=== PATIENT | male | born 1955 | race Caucasian/White ===

== ENCOUNTER → 2017-06-20 09:58 | Outpatient (CLI) | payer OTHER, SELFPAY ==
[2017-06-20 12:20] LABS: Anion Gap 6 (5-15); BUN 8 mg/dL (7-18); BUN/Creat Ratio 8.9 RATIO (10-20); Chloride 104 mmol/L (98-107); Cholesterol 209 mg/dL (200); EST Glomerular Filtration Rate 92 mL/min (>60); Est Glom Filt Rate - Afr Amer 111 mL/min (>60); Glucose 99 mg/dL (74-106); High Density Lipoprotein 81 mg/dL; Potassium 4.3 mmol/L (3.5-5.1); Sodium Level 138 mmol/L (136-145); Triglycerides 52 mg/dL; Very Low Density Lipoprotein 10 mg/dL (5-40)
== END ==
PROVIDERS: Visit Provider Family Medicine
DX: I10 Essential (primary) hypertension (principal)
CPT/HCPCS: 36415; 80048; 80061

== ENCOUNTER → 2018-11-13 10:15 | Outpatient (CLI) | payer OTHER, SELFPAY ==
[2018-11-13 12:43] LABS: Anion Gap 8 (5-15); BUN 8 mg/dL (7-18); BUN/Creat Ratio 9.1 RATIO (10-20); Calcium,Total 9.1 mg/dL (8.5-10.1); Chloride 101 mmol/L (98-107); Creatinine, Serum 0.88 mg/dL (0.70-1.30); EST Glomerular Filtration Rate 94 mL/min (>60); Est Glom Filt Rate - Afr Amer 114 mL/min (>60); Glucose 101 mg/dL (74-106); Potassium 4.4 mmol/L (3.5-5.1); Sodium Level 138 mmol/L (136-145)
== END ==
PROVIDERS: Family Provider Family Medicine; PCP Family Medicine; Referring Provider Family Medicine; Visit Provider Family Medicine
DX: I10 Essential (primary) hypertension (principal)
CPT/HCPCS: 36415; 80048

== ENCOUNTER → 2019-11-11 10:38 | Outpatient (CLI) | payer OTHER, SELFPAY ==
[2019-11-11 15:50] LABS: Cholesterol 200 mg/dL (200); High Density Lipoprotein 78 mg/dL; PSA,Total - Annual Screen 1.48 ng/mL (0.00-4.00); Triglycerides 58 mg/dL; Very Low Density Lipoprotein 12 mg/dL (5-40)
== END ==
PROVIDERS: PCP Family Medicine; Referring Provider Family Medicine; Visit Provider Family Medicine
DX: Z00.00 Encounter for general adult medical examination without abnormal findings (principal); I10 Essential (primary) hypertension
CPT/HCPCS: 36415; 80061; 84153; G0103

== ENCOUNTER → 2019-11-19 16:38 | Outpatient (CLI) | payer OTHER, SELFPAY ==
--- NOTE | 2019-11-19 16:48 | CT_ITS ---
HISTORY: TOBACCO USE, 1 PPD X 40 YRS TECHNIQUE: Helically acquired images of the chest were obtained without IV contrast. Number of images including paperwork: [phone]. A radiation dose optimization technique was used for this scan, scan performed per low dose lung cancer screening protocol. CTDI 3.02 mGy. Total DLP 107.97 mGy*cm. COMPARISON: None FINDINGS: VASCULATURE: Unremarkable as imaged. HEART/PERICARDIUM: Unremarkable. MEDIASTINUM: Unremarkable. ADENOPATHY: No pathologic appearing adenopathy. THYROID: Unremarkable visualized portions. LUNG PARENCHYMA: No consolidation or mass. No suspicious lung nodule. Mild emphysema. Mild peribronchial thickening and mild prominence of the small airways. PLEURAL SPACES: Unremarkable. UPPER ABDOMEN: Unremarkable. OSSEOUS AND SOFT TISSUE STRUCTURES: No acute skeletal findings. Degenerative changes. DEVICES: None. CT/Low Dose CT Lung Screening IMPRESSION: No suspicious lung nodule detected. Lung-RADS 1. Recommend continued annual screening with low-dose chest CT as per published guidelines. Emphysema and findings suggestive of airways disease. Individualized dose optimization techniques were used for this CT. at 0525 Reported and signed by: Kiya Crouch MD Electronically Signed: Kiya Crouch MD at 5:51 EDT Tel , Service support ,
== END ==
PROVIDERS: PCP Family Medicine; Referring Provider Family Medicine; Visit Provider Family Medicine
DX: Z72.0 Tobacco use (principal)
CPT/HCPCS: G0297

== ENCOUNTER → 2020-05-11 10:09 | Outpatient (CLI) | payer OTHER, SELFPAY ==
[2020-05-11 12:30] LABS: Cholesterol 194 mg/dL (200); High Density Lipoprotein 87 mg/dL; Triglycerides 44 mg/dL; Very Low Density Lipoprotein 9 mg/dL (5-40)
== END ==
PROVIDERS: PCP Family Medicine; Visit Provider Family Medicine
DX: I10 Essential (primary) hypertension (principal)
CPT/HCPCS: 36415; 80061

== ENCOUNTER → 2020-11-03 10:05 | Outpatient (CLI) | payer OTHER, SELFPAY ==
[2020-11-03 12:26] LABS: Anion Gap 7 (5-15); BUN 7 mg/dL (7-18); BUN/Creat Ratio 8.4 RATIO (10-20); Calcium,Total 9.1 mg/dL (8.5-10.1); Chloride 99 mmol/L (98-107); Creatinine, Serum 0.83 mg/dL (0.70-1.30); EST Glomerular Filtration Rate 99 mL/min (>60); Est Glom Filt Rate - Afr Amer 120 mL/min (>60); Glucose 107 mg/dL (74-106); Potassium 4.6 mmol/L (3.5-5.1); Sodium Level 135 mmol/L (136-145)
== END ==
PROVIDERS: PCP Family Medicine; Referring Provider Family Medicine; Visit Provider Family Medicine
DX: I10 Essential (primary) hypertension (principal)
CPT/HCPCS: 36415; 80048

== ENCOUNTER 2020-12-07 09:40 | Day surgery (SDC) | payer OTHER, SELFPAY ==
--- NOTE | 2020-12-07 | LES_PTH ---
PATIENT: KRYSTAL MCLAUGHLIN [place] [facility] [id number] AGE/SX: 65/M ROOM: RE12/07/[address]: Dr. Kam Brar MD : 1955 BED: DIS: 12/07/2020 SPEC #: [id number] RECD: 12/07/20 11:06 STATUS: ASHLEY ROLAN #: [id number] PAMELA: 12/07/20 00:[address]: Kam Brar DEPT: SURGICAL PATHOLOGY RECD BY: Dianne Ding ENTERED: 12/07/20 11:45 SP TYPE: Lesion OTHR DR: Dr. 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 Left ear neoplasm, short stitch ? superior at 1200, long stitch at 9:00, FS, B ? Additional deep margin, stitch is superior lateral FROZEN SECTION DIAGNOSIS A. Left ear lesion, biopsy: Invasive squamous cell carcinoma. AM:miguelangel 12/07/2020 Case has been reviewed in consultation with Dr. Hassan who concurs with the above diagnosis. IDC:SJ MICROSCOPIC DIAGNOSIS A. Skin lesion of left ear, biopsy: Invasive moderately differentiated squamous cell carcinoma, completely excised. Solar elastosis. B. Additional deep margin, biopsy: Solar elastosis. No evidence of carcinoma. AM:miguelangel 12/08/2020 MICROSCOPIC DESCRIPTION Slides are reviewed. GROSS DESCRIPTION A - Received fresh for frozen section consultation labeled with the patient's name is a specimen designated left ear neoplasm. The specimen consists of a discoid fragment of excised skin measuring 2 x 1.5 x 0.8 cm. The specimen has been oriented and is differentially inked as follows: 12 o?clock ? black, 6 o?clock ? blue, 9 o?clock ? red and 3 o?clock ? yellow. The specimen is serially sectioned and submitted in its entirety in two blocks for frozen section consultation. B - Received in fixative is one container labeled with the patient's name and designated deep margin, stitch on superior-lateral. The specimen consists of a triangular fragment of skin with attached soft tissue and cartilage measuring 1.5 x 1 x 0.4 cm. The superior-lateral margin contains a suture and is inked in black ink. The remainder of the specimen is inked in blue ink. The specimen is trisected in a superior to inferior fashion and totally submitted in one cassette. / AM:miguelangel 12/07/20 TC:0 CPT: 99270 x2, 11673, 96960
[2020-12-07 10:05] VITALS: BP 137/78; PULSE 56; RESP 16; TEMP 37.1; O2SAT 97; BMI 22.8
--- NOTE | 2020-12-07 10:40 | PCM.DC.SUM ---
Providers Primary Care Physician: Dr. Mirtha Qiu MD Medications at Discharge Home Medications amlodipine 5 mg PO DAILY 12/07/20 carvedilol 12.5 mg PO BID 12/07/20 furosemide 20 mg PO DAILY 12/07/20 lisinopril 40 mg PO DAILY 12/07/20 Weight / BMI Weight Weight: 74.4 kg Body Mass Index (BMI) 22.8 D/C Instructions Discharge Diet: No restrictions May shower in (days): 2 Additional Activity Instructions: Remove dressing tomorrow morning and discard. Apply antibiotic ointment to the sutures twice a day. Meaningful Use Info Meaningful Use Diagnoses (Choose all that apply): None applicable Discharge Plan Admission Attending Provider: Kam Brar Primary Care Provider: Mirtha Qiu Discharge Orders/Prescriptions Prescriptions: No Action carvedilol 12.5 mg tablet 12.5 mg PO BID RF: 0 amlodipine 10 mg tablet 5 mg PO DAILY RF: 0 furosemide 20 mg tablet 20 mg PO DAILY RF: 0 lisinopril 40 mg tablet 40 mg PO DAILY RF: 0 Disposition Discharge Orders: Discharge Patient (Routine); Ordered 12/07/20 Ordered By: Dr. Kam Brar
[2020-12-07] MEDS: Lidocaine 1% /Epi 1:100 (20ml) 20 ML Vial (11:00)
[2020-12-07] MEDS: Bacitracin 500 UNITS/GM PACKET (11:33)
--- NOTE | 2020-12-07 11:35 | PCM.OPRPT ---
Report of Operation Date of Procedure: 12/07/20 Pre-Operative Diagnosis: left ear basal cell carcinoma Post-Operative Diagnosis: left ear squamous cell carcinoma Surgery/Procedure Performed:: Excision left ear squamous cell carcinoma (size of defect 1x 1.5cm). local flap reconstruction Surgeon: Kam Brar Type of Anesthesia: Local Estimated Blood Loss (mL): minimal Description of Procedure: The patient was taken to the operating room on 12/07/2020. Was placed in the supine position on the operating room table. He was given sufficient local anesthesia. The left ear was prepped and draped sterilely. 1% lidocaine with epinephrine was injected into the skin surrounding the left helical lesion. Next, I excised the lesion with 5 mm margin superiorly and inferiorly. This was marked with a short stitch superiorly and a long stitch at 9:00 anteriorly. This was sent for frozen section. Eventually we heard that the frozen section was negative for any carcinoma. I then took a wedge out of the maryam. This was through and through with an 11 blade. This was sent for additional permanent section. Next the cartilage was closed with interrupted 4-0 Vicryl. The skin was closed both laterally and medially with interrupted 6-0 nylon. Bacitracin and a Shackelford dressing were applied. The patient was then removed from the operating room brought to the recovery room in stable condition. Blood loss minimal, replacement none's. Sponge, needle, and instrument count were correct at the end of the procedure.
[2020-12-07 11:53] VITALS: BP 133/78; BP 137/78; PULSE 74; RESP 16; TEMP 36.6; O2SAT 94
== END 2020-12-07 11:56 | disposition home or self-care (01) ==
LOC: SDC 09:42 → AC 09:45
PROVIDERS: PCP Family Medicine; Referring Provider Otolaryngology; Visit Provider Otolaryngology
PROC: (CPT 14060; principal; 2020-12-07 10:40)
DX: C44.229 Squamous cell carcinoma of skin of left ear and external auricular canal (principal); Z87.891 Personal history of nicotine dependence
CPT/HCPCS: 14060; 88305; 88331; 88332

== ENCOUNTER 2021-04-08 15:16 | Outpatient (CLI) | payer BC, SELFPAY ==
--- NOTE | 2021-04-08 | IMM_PTH ---
PATIENT: KRYSTAL MCLAUGHLIN LOC: [facility] U#:[id number] AGE/SX: 65/M ROOM: RE04/08/[address]: Dr. Severo Israel MD : 1955 BED: DIS: 04/08/2021 SPEC #: [id number] RECD: 04/13/21 07:30 STATUS: ASHLEY REJian #: [id number] PAMELA: 04/08/21 00:[address]: Severo Israel DEPT: IMMUNOHISTOCHEMISTRY RECD BY: Dianne Ding ENTERED: 04/13/21 07:30 SP TYPE: IMMUNO OTHR DR: Dr. Mirtha Qiu MD Tissues: Mouth, NOS Procedures: p16 (initial) KI-67 (add) PHYSICIAN & INSTITUTION [place] [address] SPECIMEN INFORMATION: Tissue Source: Floor of mouth lesion Clinical Info: Floor of mouth lesion Specimen Number: [id number] CPT code: 63943, 47036 METHODOLOGY: Deparaffinized sections of prefer/formalin-fixed tissue or PAP/DQ stained slides are incubated with monoclonal/polyclonal antibodies/oligonucleotide probes. Localization is made via biotin free immunoperoxidase method. Appropriate controls are performed and reacted as expected. Results on target cell population are indicated in the following table: RESULTS: ANTIBODY / CLONE RESULT P16 (E6H4) negative Ki-67 (30-9) positive, low These tests were developed and their performance characteristics determined by [facility]. They may not have been cleared or approved by the U.S. Food and Drug Administration. The FDA has determined that such clearance or approval is not necessary. The above immunohistochemical/dualISH markers are ordered and reviewed by the Pathologist. INTERPRETATION: Floor of mouth lesion: Atypical squamous epithelial lesion with focal moderate to severe atypia. ENRIQUE:[email or web address] 04/13/2021
--- NOTE | 2021-04-08 08:25 | LES_PTH ---
PATIENT: KRYSTAL MCLAUGHLIN LOC: [facility] U#:[id number] AGE/SX: 65/M ROOM: RE04/08/[address]: Dr. Severo Israel MD : 1955 BED: DIS: 04/08/2021 SPEC #: [id number] RECD: 04/08/21 15:00 STATUS: ASHLEY GONGORA #: [id number] PAMELA: 04/08/21 08:[address]: Severo Israel DEPT: SURGICAL PATHOLOGY RECD BY: Pallavi Dickerson ENTERED: 04/09/21 09:23 SP TYPE: Lesion OTHR DR: Dr. Mirtha Qiu MD Tissues: Skin, NOS Procedures: Surgery Specimen Level IV HEADER OPERATION: Biopsy PRE-OP DIAGNOSIS: Floor of mouth lesion TISSUE SUBMITTED: Floor of mouth lesion MICROSCOPIC DIAGNOSIS Floor of mouth lesion, shave biopsy: Atypical squamous epithelial lesion with moderate to severe atypia Lichenoid subepithelial chronic inflammation. See comment. ENRIQUE:miguelangel 04/12/2021 COMMENT Focal changes are suggestive of squamous papilloma. Special stain for fungi is negative for organisms; matched control is appropriate. If there is high suspicion of malignancy, rebiopsy is suggested, if clinically indicated. Results from immunohistochemistry ([id number]) for surrogate HPV marker (p16) will be reported separately. Case has been reviewed in consultation with Dr. Mcqueen who concurs with the above diagnosis. IDC:AM MICROSCOPIC DESCRIPTION Slides are reviewed. GROSS DESCRIPTION Received in fixative is one container labeled with the patient's name and designated mouth lesion. The specimen consists of pink-frey mucosal tissue measuring 0.7 x 0.2 x 0.2 cm. The specimen is inked and submitted entirely in one cassette. / ENRIQUE:miguelangel 04/09/2021 TC:5 CPT: 07206, 36706
== END 2021-04-08 23:59 | disposition home or self-care (01) ==
PROVIDERS: PCP Family Medicine; Visit Provider Otolaryngology
DX: K13.70 Unspecified lesions of oral mucosa (principal)
CPT/HCPCS: 88305; 88341; 88342

== ENCOUNTER → 2021-11-15 | Outpatient (CLI) | payer BC, SELFPAY ==
[2021-11-15 12:24] LABS: Microalbumin,Random Urine 28.3 mg/L (NO RANGE EST.); Microalbumin:Creatinine Ratio 79.9 mg/g CRE (<30 mg/g CRE)
[2021-11-15 13:01] LABS: Anion Gap 9 (5-15); BUN 8 mg/dL (7-18); BUN/Creat Ratio 9.3 RATIO (10-20); Calcium,Total 9.3 mg/dL (8.5-10.1); Chloride 100 mmol/L (98-107); Cholesterol 194 mg/dL (200); Creatinine, Serum 0.86 mg/dL (0.70-1.30); EST Glomerular Filtration Rate 95 mL/min (>60); Est Glom Filt Rate - Afr Amer 115 mL/min (>60); Glucose 105 mg/dL (74-106); High Density Lipoprotein 76 mg/dL; Potassium 4.4 mmol/L (3.5-5.1); Sodium Level 139 mmol/L (136-145); Triglycerides 43 mg/dL; Very Low Density Lipoprotein 9 mg/dL (5-40)
== END | disposition home or self-care (01) ==
LOC: MFPLAB 10:13
PROVIDERS: PCP Family Medicine; Referring Provider Family Medicine; Visit Provider Family Medicine
DX: Z00.00 Encounter for general adult medical examination without abnormal findings (principal); I10 Essential (primary) hypertension
CPT/HCPCS: 36415; 80048; 80061; 82043; 82570; 84153; G0103

== ENCOUNTER → 2021-12-03 | Outpatient (CLI) | payer MEDICARE, BC, SELFPAY ==
--- NOTE | 2021-12-03 07:54 | RAD_ITS ---
STUDY: X-RAY - ESOPHAGUS (BARIUM SWALLOW) WITH FLUOROSCOPY REASON FOR EXAM: Male, 66 years old. ORAL CA TECHNIQUE: 19 view(s) of the esophagus were obtained following swallowing of barium. FLUOROSCOPY TIME (if supplied): (40 seconds) minutes/seconds COMPARISON: None. FINDINGS: There is no demonstrated esophageal foreign body. There is no demonstrated stricture or mucosal abnormality. Normal gastroesophageal junction, without a demonstrated hiatal hernia. Normal visualized aortic arch and descending thoracic aorta. Normal visualized pulmonary parenchyma. Normal visualized osseous structures of the thorax. RAD/Esophagus Dual Contrast IMPRESSION: Normal plain film x-ray examination (barium swallow) of the esophagus. Electronically Signed: Perfecto Riddle MD at 14:53 EDT ,
== END | disposition home or self-care (01) ==
PROVIDERS: PCP Family Medicine; Referring Provider Internal Medicine Gastroenterology; Visit Provider Internal Medicine Gastroenterology
DX: K22.9 Disease of esophagus, unspecified (principal); C06.9 Malignant neoplasm of mouth, unspecified
CPT/HCPCS: 74221

== ENCOUNTER → 2023-01-23 | Outpatient (CLI) | payer MEDICARE, SELFPAY ==
--- NOTE | 2023-01-23 08:01 | CDU_ITS ---
Rt. Velocities/BP Lt. Velocities/BP Prox CCA 57.9/13.5 cm/sec. Prox CCA 82.8/15.7 cm/sec. Mid CCA 71.1/17.3 cm/sec. Mid CCA 70.7/12.4 cm/sec. Dist CCA 74/14.5 cm/sec. Dist CCA 75.1/19 cm/sec. Prox ICA 55.1/12.6 cm/sec. Prox ICA 93.7/22.5 cm/sec. Mid ICA 75.9/18.2 cm/sec. Mid ICA 98/20.2 cm/sec. Dist ICA 88.3/22.3 cm/sec. Dist ICA 104.7/20 cm/sec. Rt. ICA/CCA = 1.24. Lt. ICA/CCA = 1.39. Prox ECA 110.2/13.5 cm/sec. Prox ECA 112.1/13.9 cm/sec. Rt. Vert. 55.3/15.7 cm/sec. Lt. Vert. 19.3/8.2 cm/sec. Right Extracranial There is heterogeneous, smooth atherosclerotic plaque noted in the right common carotid artery. There is homogeneous, smooth atherosclerotic plaque noted in the right internal carotid artery. There is intimal thickening but no significant atherosclerotic plaque noted in the right external carotid artery. Antegrade flow is noted in the right vertebral artery. There is heterogeneous, irregular atherosclerotic plaque noted in the right bulb. Left Extracranial There is heterogeneous, smooth atherosclerotic plaque noted in the left common carotid artery. There is heterogeneous, irregular atherosclerotic plaque noted in the left internal carotid artery. There is heterogeneous, irregular atherosclerotic plaque noted in the left external carotid artery. Antegrade flow is noted in the left vertebral artery. VL/Carotid Duplex Ultrasound Interpretation Summary Minimal calcific plaque of the proximal right internal carotid artery with less than 50% stenosis Less than 50% stenosis right external carotid artery Irregular calcific plaque at the proximal left internal carotid artery with les s than 50% stenosis Less than 50% stenosis left external carotid artery Patent antegrade vertebral arteries bilaterally Ordering Physician: Mirtha Qiu Referring Physician: Mirtha Qiu Performed By: Stephany Squires RVT
== END | disposition home or self-care (01) ==
LOC: CVS 07:52
PROVIDERS: PCP Family Medicine; Referring Provider Family Medicine; Visit Provider Family Medicine
DX: I65.23 Occlusion and stenosis of bilateral carotid arteries (principal)
CPT/HCPCS: 93880

== ENCOUNTER → 2023-11-20 | Outpatient (CLI) | payer MEDICARE, SELFPAY ==
[2023-11-20 13:17] LABS: Protein, Urine (Random) 81.3 mg/dL (<11.9); Protein:Creat Ratio 442 mg/g CRE (0-200)
[2023-11-20 13:20] LABS: Cholesterol 203 mg/dL (200); High Density Lipoprotein 95 mg/dL; PSA,Total - Annual Screen 1.41 ng/mL (0.00-4.00); Triglycerides 54 mg/dL; Very Low Density Lipoprotein 11 mg/dL (5-40)
== END | disposition home or self-care (01) ==
LOC: MFPLAB 10:26
PROVIDERS: PCP Family Medicine; Visit Provider Family Medicine
DX: I10 Essential (primary) hypertension (principal); Z12.5 Encounter for screening for malignant neoplasm of prostate
CPT/HCPCS: 36415; 80061; 82570; 84153; 84156; G0103

== ENCOUNTER → 2023-11-29 | Outpatient (CLI) | payer MEDICARE, SELFPAY ==
[2023-11-29 11:46] LABS: Protein, Urine (Random) 176.7 mg/dL (<11.9); Protein:Creat Ratio 659 mg/g CRE (0-200)
[2023-12-04 10:07] LABS: PROEL- A/G Ratio 1.2 (0.7-1.7); PROEL- Albumin 3.4 g/dL (2.9-4.4); PROEL- Alpha-1 Globulin 0.3 g/dL (0.0-0.4); PROEL- Alpha-2 Globulin 0.8 g/dL (0.4-1.0); PROEL- Beta Globulin 0.9 g/dL (0.7-1.3); PROEL- Gamma Globulin 0.7 g/dL (0.4-1.8); PROEL- Globulin, Total 2.8 g/dL (2.2-3.9); PROEL- TOTAL PROTEIN 6.2 g/dL (6.0-8.5); PROEL-M-Spike Not Observed g/dL (Not Observed)
[2023-12-05 13:08] LABS: PROELU- Alpha-2-Globulin,Ur 15.2 % (.); PROELU- Beta Globulin, Ur 17.8 % (.); PROELU- Gamma Globulin, Ur 10.1 % (.); Total Protein, Ur 168.1 mg/dL (Not Estab.)
== END | disposition home or self-care (01) ==
LOC: POLAB3 10:00
PROVIDERS: PCP Family Medicine; Visit Provider Internal Medicine Nephrology
DX: R80.9 Proteinuria, unspecified (principal)
CPT/HCPCS: 36415; 82570; 84156; 84165; 84166

== ENCOUNTER → 2023-12-11 | Outpatient (CLI) | payer MEDICARE, SELFPAY ==
--- NOTE | 2023-12-11 16:19 | RAD_ITS ---
STUDY: X-RAY CHEST REASON FOR EXAM: Male, 68 years old. Fever and cough TECHNIQUE: 2 PA and lateral views of the chest. COMPARISON: 08/31/2012 FINDINGS: Lungs are hyperexpanded with chronic interstitial changes, no superimposed acute pulmonary process. Stable 7 mm nodular density in the right lower lung field. There is no demonstrated pleural abnormality. Normal size heart. Normal mediastinum and zaina. Normal visualized pulmonary arteries. Normal visualized aortic arch and descending thoracic aorta. Normal visualized thoracic spine. Normal visualized ribs, clavicles, and shoulders. There is no demonstrated abnormality of the visualized soft tissue structures of the upper abdomen. RAD/Chest PA and Lateral IMPRESSION: Hyperinflated lungs without a superimposed acute pulmonary process Electronically Signed: Rock Contreras MD at 9:11 EDT ,
== END | disposition home or self-care (01) ==
PROVIDERS: PCP Family Medicine; Referring Provider Registered Nurse; Visit Provider Registered Nurse
DX: J44.1 Chronic obstructive pulmonary disease with (acute) exacerbation (principal)
CPT/HCPCS: 71046

== ENCOUNTER → 2024-07-26 | Outpatient (CLI) | payer MEDICARE, SELFPAY ==
[2024-07-26 13:00] LABS: Albumin, Serum 4.4 g/dL (3.4-4.8); Anion Gap 12 (5-15); BUN 7 mg/dL (4-19); BUN/Creat Ratio 8.9 RATIO (10-20); Calcium,Total 9.1 mg/dL (7.6-11.0); Carbon Dioxide 23.6 mmol/L (21.0-32.0); Chloride 101 mmol/L (98-108); Creatinine, Serum 0.77 mg/dL (0.70-1.20); EST Glomerular Filtration Rate 98 (>60); Glucose 111 mg/dL (70-99); Phosphorus 3.7 mg/dL (2.7-4.5); Potassium 4.4 mmol/L (3.3-5.1); Sodium Level 137 mmol/L (133-145)
[2024-07-26 13:33] LABS: Protein, Urine (Random) 21.2 mg/dL (0.0-12.0); Protein:Creat Ratio 311 mg/g CRE (0-200)
== END | disposition home or self-care (01) ==
LOC: MTLAB 10:11
PROVIDERS: PCP Family Medicine; Referring Provider Internal Medicine Nephrology; Visit Provider Internal Medicine Nephrology
DX: R80.9 Proteinuria, unspecified (principal)
CPT/HCPCS: 36415; 80069; 82570; 84156

== ENCOUNTER → 2024-11-21 | Outpatient (CLI) | payer MEDICARE, SELFPAY ==
[2024-11-21 12:46] LABS: PSA,Total - Annual Screen 1.25 ng/mL (0.02-4.00)
== END | disposition home or self-care (01) ==
LOC: MFPLAB 09:53
PROVIDERS: PCP Family Medicine
DX: Z12.5 Encounter for screening for malignant neoplasm of prostate (principal)
CPT/HCPCS: 36415; 84153; G0103

== ENCOUNTER → 2024-12-10 | Outpatient (CLI) | payer MEDICARE, SELFPAY ==
--- NOTE | 2024-12-10 07:34 | CT_ITS ---
PROCEDURE: LOW DOSE CT LUNG SCREENING 12/10/2024 REASON FOR EXAM: TOBACCO USE TECHNIQUE: Procedure Code: CTLUNGSCREEN Modality: CT Procedure: LOW DOSE CT LUNG SCREENING Coronal and Sagittal reconstruction series were provided. One or more dose reduction techniques were used (e.g., Automated exposure control, adjustment of the mA and/or kV according to patient size, use of iterative reconstruction technique). REFERENCE LINK: [employer] Lung-RADS RADIATION DOSE SUMMARY: CTDlvol: 2.01 mGy DLP: 79.27 mGycm COMPARISON: None. FINDINGS: PULMONARY NODULES: (Only nodules >3mm are reported) Lower neck:The thyroid gland is grossly unremarkable. There is no supraclavicular lymphadenopathy. Mediastinum:No abnormal masses or lymphadenopathy. Heart and Vasculature:The heart size is normal. There is no pericardial effusion. There is calcific vascular disease of the coronary arteries and thoracic aorta. Esophagus:Normal. Upper Abdomen:There is calcific vascular disease of the visualized abdominal aorta. Chest wall:The soft tissues of the chest wall appear unremarkable. There is no axillary lymphadenopathy. There is multilevel degenerative disc disease of the lower cervical and upper thoracic spine. Lungs, airways and pleura: There is moderate upper lobe predominant centrilobular emphysema. There are no pulmonary nodules. There are no pleural effusions. CT/Low Dose CT Lung Screening IMPRESSION: 1. Emphysema. 2. There are no pulmonary nodules. 3. Calcific vascular disease. 4. Other findings as noted. Lung-RADS Category: 1 S: Negative. Emphysema. Calcific vascular disease. Recommendation: Follow up low-dose chest CT in 12 months. Reading Location: [place] [address]
--- NOTE | 2024-12-10 07:34 | CT_ITS ---
PROCEDURE: LOW DOSE CT LUNG SCREENING 12/10/2024 REASON FOR EXAM: TOBACCO USE TECHNIQUE: Procedure Code: CTLUNGSCREEN Modality: CT Procedure: LOW DOSE CT LUNG SCREENING Coronal and Sagittal reconstruction series were provided. One or more dose reduction techniques were used (e.g., Automated exposure control, adjustment of the mA and/or kV according to patient size, use of iterative reconstruction technique). REFERENCE LINK: [employer] Lung-RADS RADIATION DOSE SUMMARY: CTDlvol: 2.01 mGy DLP: 79.27 mGycm COMPARISON: None. FINDINGS: PULMONARY NODULES: (Only nodules >3mm are reported) Lower neck:The thyroid gland is grossly unremarkable. There is no supraclavicular lymphadenopathy. Mediastinum:No abnormal masses or lymphadenopathy. Heart and Vasculature:The heart size is normal. There is no pericardial effusion. There is calcific vascular disease of the coronary arteries and thoracic aorta. Esophagus:Normal. Upper Abdomen:There is calcific vascular disease of the visualized abdominal aorta. Chest wall:The soft tissues of the chest wall appear unremarkable. There is no axillary lymphadenopathy. There is multilevel degenerative disc disease of the lower cervical and upper thoracic spine. Lungs, airways and pleura: There is moderate upper lobe predominant centrilobular emphysema. There are no pulmonary nodules. There are no pleural effusions. CT/Low Dose CT Lung Screening IMPRESSION: 1. Emphysema. 2. There are no pulmonary nodules. 3. Calcific vascular disease. 4. Other findings as noted. Lung-RADS Category: 1 S: Negative. Emphysema. Calcific vascular disease. Recommendation: Follow up low-dose chest CT in 12 months. Reading Location: [place] [address]
--- OUTSIDE RECORDS SUMMARY | 2024-12-10 07:43 | XMS RPT_ITS | CCD ---
Author Organization [facility] Care Team Providers Care [place] Name Role Phone Mirtha Qiu Unavailable Unavailable Unavailable Pcp, No Primary Care Provider Unavailcarlos Dinh MD, MD, Shannon Unavailable Mirtha Qiu Primary Care Provider [phone] Terry LOPEZ, Kacie Unavailable Unavailable Pcp, No Primary Care Provider UnavailBrooklyn Reyes RD Unavailable Kirit Rosas DO Unavailable Alberto Landis Unavailable Max Ortiz MD Unavailable PROVIDER, UNKNOWN Referring Unavailable PROVIDER, UNKNOWN Referring Unavailable MIRTHA QIU Primary Care Unavailable PROVIDER, UNKNOWN Referring Unavailable MIRTHA QIU Primary Care Unavailable PROVIDER, UNKNOWN Referring Unavailable Mirtha Qiu Primary Care Provider [phone] Terry LOPEZ, Kacie Unavailable Unavailable Brooklyn Perkins RD Unavailable Alberto Landis Unavailable Alberto Landis MD Unavailable Dr. Mirtha Qiu Primary Care Provider Dr. Lopez Barrios Attending Provider Fabrizio HURST, Shannon Unavailable Mirtha Qiu Primary Care Provider Dr. Mirtha Qiu MD Primary Care Provider [phone] Dr. Vicki Dinh DO Attending Provider Dr. Vicki Dinh DO Referring Provider JOLLIFF, MIRTHA DREA Primary Care Unavailable CRUZ, SANDRA Referring Unavailable JOLLIFF, MIRTHA DREA Primary Care Unavailable CRUZ, SANDRA Referring Unavailable JOLLIFF, MIRTHA DREA Primary Care Unavailable CRUZ, SANDRA Referring Unavailable CRUZ, SANDRA Attending Unavailable JOLLIFF, MIRTHA DREA Primary Care Unavailable CRUZ, SANDRA Referring Unavailable JOLLIFF, MIRTHA RDEA Primary Care Unavailable CRUZ, SANDRA Referring Unavailable JOLLIFF, MIRTHA DREA Primary Care Unavailable CRUZ, SANDRA Attending Unavailable CRUZ, SANDRA Referring Unavailable Vicki Dinh Attending Unavailable Jolliff, Mirtha S Primary Care Unavailable McMorrow QUALITY CONTROL TECHNICIAN, Thomas Referring Unavailable McMorrow QUALITY CONTROL TECHNICIAN, Thomas Attending Unavailable McMorrow QUALITY CONTROL TECHNICIAN, Thomas Primary Care Unavailable McMorrow QUALITY CONTROL TECHNICIAN, Thomas Attending Unavailable Jolliff, Mirtha S Primary Care Unavailable Vicki Dinh Referring Unavailable Vicki Dinh Attending Unavailable Jolliff, Mirtha S Primary Care Unavailable Negar Jolley Attending Unavailable Jolliff, Mirtha S Primary Care Unavailable Negar Jolley Referring Unavailable Medications Current Medications Medication Drug Class(es) Dates Sig (Normalized) Sig (Original) amLODIPine 10 mg oral tablet (20 sources) Dihydropyridine Calcium Channel Chris Start: 05-05-2022 take 1 tablet by mouth once daily amLODIPine (NORVASC) 10 mg tablet Take 1 tablet by mouth once daily. 05/05/2022 Active Start: 12-07-2020 End: 05-05-2022 take 5 mg by mouth once daily amLODIPine (NORVASC) 10 mg tablet Take 5 mg by mouth once daily. 0 12/07/2020 05/05/2022 Discontinued (Adjust Sig - Block E-Cancel) Start: 12-07-2020 take 5 mg by mouth once daily Amlodipine Active 5 MG PO DAILY December 06, 2020 11:00pm amLODIPine Besyl ate 10 MG Oral Tablet Quantity: 0 Refills: 0 Ordered: 27-Apr-2021 DO Active Comment on above: Take 5 mg by mouth o nce daily. Take 1 tablet by once daily. carvedilol 12.5 mg oral tablet (20 sources) alpha-Adrenergic Chris, beta-Adrenergic Chris Start: 12-07-2020 take 1 tablet by mouth twice daily Carvedilol 12.5 mg tablet Active 12.5 mg PO TWICE A DAY December 07, 2020 12:00am Carvedilol 12.5 MG Oral Tablet Quantity: 0 Refills: 0 Ordered: 27-Apr-2021 DO Active Comment on above: Take 12.5 mg by mout h twice daily. furosemide 20 mg oral tablet (20 sources) Loop Diuretic Start: 12-07-2020 End: 05-05-2022 take 1 tablet by mouth once daily Furosemide 20 mg tablet Active 20 mg PO DAILY December 07, 2020 12:00am End: 04-27-2021 Furosemide 20 MG Oral Tablet Quantity: 0 Refills: 0 Ordered: 27-Apr-2021 DO End : 27-Apr-2021 Complete Comment on above: 20 mg once daily. Take 20 mg by mouth once daily. lisinopril 40 mg oral tablet (20 sources) Angiotensin Converting Enzyme Inhibitor Start: 12-07-2020 lisinopril (ZESTRIL, PRINIVIL) 40 mg tablet Take 20 mg by mouth once daily. 12/07/2020 Active Start: 12-07-2020 take 1 tablet by mey th once daily Lisinopril 40 mg tablet Active 40 mg PO DAILY December 07, 2020 12:00am Lisinopril 40 MG Oral Tablet Quantity: 0 Refills: 0 Ordered: 27-Apr-2021 DO Active Comment on above: Take 40 mg by mouth once daily. Take 20 mg by mouth once daily. omeprazole 20 mg delayed release oral capsule (20 sources) Proton Pump Inhibitor take 1 capsule by mouth once daily omeprazole (PRILOSEC) 20 mg capsule Take 20 mg by mouth once daily. Active End: 04-27-2023 Omeprazole Magnesium 20 mg t ablet Take 20 mg by mouth as needed. 0 04/27/2023 Discontinued Comment on above: Take 20 mg by mouth as needed. Take 20 mg by mouth once daily. Completed/Discontinued Medications Medication Drug Class(es) Dates Sig (Normalized) Sig (Original) enteric contrast (will be provided with radiology test) (2 sources) Start: 05-07-2024 End: 05-08-2024 enteric contrast (will be provided with radiology test) Indications: Secondary malignant neoplasm of chest wall (HCC) , Cancer of cervical esophagus (HCC) For CT CHESTABD/PEL W IVCON Routine order Administer, As Directed One Time Only, via Oral, Rectal, both Oral and Rectal, Enteric Tube, Stoma or Indwelling Catheter, Enteric Contrast as designated per enteric contrast guidelines 1 Each 05/07/2024 05/08/2024 Start: 11-01-2023 End: 11-02-2023 enteric contrast (will be pr ovided with radiology test) Indications: Cancer of cervical esophagus (HCC) , 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) , Secondary malignant neoplasm of chest wall (HCC) For CT CHESTABD/PEL W IVCON Routine order Administer, As Directed One Time Only, via Oral, Rectal, both Oral and Rectal, Enteric Tube, Stoma or Indwelling Catheter, Enteric Contrast as designated per enteric contrast guidelines 1 Each 11/01/2023 11/02/2023 iv contrast (will be provided with radiology test) (20 sources) Start: 05-07-2024 End: 05-07-2024 inject 1 dose intravenously once, then inject 1 dose intravenously once iv contrast (will be provided with radiology test) Indications: Secondary malignant neoplasm of chest wall (HCC) , Cancer of cervical esophagus (HCC) Inject 1 Each intravenously one time only for [address] Neck W IVCON No IV access, insert saline lock prior to the sedation, infusion, injection for imaging exam. Discontinue saline lock post exam. If Pt. has a central line or IVAD, may access for administration according to line specific nursing protocol. Once exam is complete flush line and de-access according to line specific nursing protocol in the CT contrast administration guidelines link. 1 Each 05/07/2024 05/07/2024 Start: 05-07-2024 End: 05-08-2024 iv contrast (will be provide d with radiology test) Indications: Secondary malignant neoplasm of chest wall (HCC) , Cancer of cervical esophagus (HCC) CT Chest ABD/PEL-Inject, intravenously, once for 1 dose.No IV access, insert saline lock prior to the beginning of sedation, infusion, injection of imaging exam. Discontinue saline lock post exam. If Pt. has a central line or IVAD, may access for administration according to line specific nursing protocol. Once exam is complete flush line and de-access according to line specific nursing protocol in the CT contrast administration guidelines link. 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 Neck W IVCON No IV access, insert saline lock prior to the sedation, infusion, injection for imaging exam. Discontinue saline lock post exam. If Pt. has a central line or IVAD, may access for administration according to line specific nursing protocol. Once exam is complete flush line and de-access according to line specific nursing protocol in the CT contrast administration guidelines link. 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 Discontinue saline lock post exam. If Pt. has a central line or IVAD, may access for administration according to line specific nursing protocol. Once exam is complete flush line and de-access according to line specific nursing protocol in the CT contrast administration guidelines link. 1 Each 11/01/2023 11/02/2023 Start: 04-27-2023 End: 04-27-2023 inject 1 dose intravenously once, then inject 1 dose intravenously once iv contrast (will be provided with radiology test) Indications: Cancer of cervical esophagus (HCC) , 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) Inject 1 Each intravenously one time only for [address] Neck W IVCON No IV access, insert saline lock prior to the sedation, infusion, injection for imaging exam. Discontinue saline lock post exam. If Pt. has a central line or IVAD, may access for administration according to line specific nursing protocol. Once exam is complete flush line and de-access according to line specific nursing protocol in the CT contrast administration guidelines link. 1 Each 0 04/27/2023 04/27/2023 Active Start: 04-27-2023 End: 04-28-2023 iv contrast (will be provide d with radiology test) Indications: Cancer of cervical esophagus (HCC) , 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) CT Chest W -Inject, intravenously, once for 1 dose.No IV access, insert saline lock prior to the beginning of sedation, infusion, injection of imaging exam. Discontinue saline lock post exam. If Pt. has a central line or IVAD, may access for administration according to line specific nursing protocol. Once exam is complete flush line and de-access according to line specific nursing protocol in the CT contrast administration guidelines link. 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 Discontinue saline lock post exam. If Pt. has a central line or IVAD, may access for administration according to line specific nursing protocol. Once exam is complete flush line and de-access according to line specific nursing protocol in the CT contrast administration guidelines link. 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 Neck W IVCON No IV access, insert saline lock prior to the sedation, infusion, injection for imaging exam. Discontinue saline lock post exam. If Pt. has a central line or IVAD, may access for administration according to line specific nursing protocol. Once exam is complete flush line and de-access according to line specific nursing protocol in the CT contrast administration guidelines link. 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 Discontinue saline lock post exam. If Pt. has a central line or IVAD, may access for administration according to line specific nursing protocol. Once exam is complete flush line and de-access according to line specific nursing protocol in the CT contrast administration guidelines link. 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 Neck W IVCON No IV access, insert saline lock prior to the sedation, infusion, injection for imaging exam. Discontinue saline lock post exam. If Pt. has a central line or IVAD, may access for administration according to line specific nursing protocol. Once exam is complete flush line and de-access according to line specific nursing protocol in the CT contrast administration guidelines link. 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 Discontinue saline lock post exam. If Pt. has a central line or IVAD, may access for administration according to line specific nursing protocol. Once exam is complete flush line and de-access according to line specific nursing protocol in the CT contrast administration guidelines link. 1 Each 0 06/24/2022 Active Comment on above: Inject 1 Each intrav enously one time only for [address] Neck W IVCON No IV access, insert saline lock prior to the sedation, infusion, injection for imaging exam. Discontinue saline lock post exam. If Pt. has a central line or IVAD, may access for administration according to line specific nursing protocol. Once exam is complete flush line and de-access according to line specific nursing protocol in the CT contrast administration guidelines link. CT Chest W -Inject, intravenously, once for 1 dose.No IV access, insert saline lock prior to the beginning of sedation, infusion, injection of imaging exam. Discontinue saline lock post exam. If Pt. has a central line or IVAD, may access for administration according to line specific nursing protocol. Once exam is complete flush line and de-access according to line specific nursing protocol in the CT contrast administration guidelines link. ondansetron 8 mg oral tablet (20 sources) Serotonin-3 Receptor Antagonist Start: 02-24-19 23 End: 11-01-19 24 take 1 tablet by mouth every eight hours as needed for nausea ondansetron (ZOFRAN) 8 mg tablet Indications: cancer chemotherapy-induced nausea and vomiting Take 1 tablet by mouth every 8 hours as needed for nausea/vomiting. 30 tablet 2 02/24/2022 11/01/2023 Discontinued Comment on above: Take 1 tablet by mey every 8 hours as needed for nausea/vomiting. Problems Active Problems Problem Classification Problem Date Documented Da te Episodic/Chronic Administrative/social admission (1 source) Patient encounter status; Translations: [Counseling, unspecified] Episodic Cancer of esophagus (20 sources) Malignant tumor of upper third of esophagus; Translations: [Malignant neoplasm of upper third of esophagus] Onset: 01-26-2022 Chronic Cancer of head and neck (20 sources) Malignant tumor of floor of mouth; Translations: [Malignant neoplasm of floor of mouth, unspecified] Onset: 01-26-2022 01-26-2022 Chronic Chronic obstructive pulmonary disease and bronchiectasis (1 source) Chronic obstructive pulmonary disease with (acute) exacerbation; Translations: [Chronic obstructive pulmonary disease with (acute) exacerbation] Onset: 01-02-2024 Chronic Diseases of mouth; excluding dental (3 sources) Oral lesion; Translations: [Other and unspecified diseases of the oral soft tissues] Episodic Other circulatory disease (3 sources) H/O: hypertension; Translations: [Personal history of other diseases of circulatory system] Episodic Other non-epithelial cancer of skin (1 source) 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; Translations: [Squamous cell carcinoma of skin of left ear and external auricular canal] Episodic Secondary malignancies (6 sources) Secondary malignant neoplasm of chest wall; Translations: [Secondary malignant neoplasm of other specified sites] 11-01-2023 Chronic Secondary malignancies (1 source) Secondary malignant neoplasm of other specified sites; Translations: [Secondary malignant neoplasm of chest wall (HCC)] Onset: 04-30-2024 Chronic Substance-related disorders (1 source) Nicotine dependence, cigarettes, uncomplicated; Translations: [Nicotine dependence, cigarettes, uncomplicated] Onset: 11-27-2024 Chronic Unclassified (1 source) Radiology NM Onset: 06-21-2022 Past or Other Problems Problem Classification Problem Date Documented Da te Episodic/Chronic Genitourinary symptoms and ill-defined conditions (2 sources) Proteinuria, unspecified; Translations: [Proteinuria, unspecified] Onset: 07-26-2024 Episodic Results Test Name Value Interpretation Reference Range Facility PSA,Total - Annual Screenon 11-21-2024 PSA,TOT SCREEN 1.25 ng/mL Normal 0.02-4.00 [facility] Comment on above: Order Comment: Order Date: 11/21/24 Order Info: [id number] - PSA Comments: screening for prostate cancer Result Comment: This test was performed using the [employer] tPSA method. Measured values of a patient??sample can vary depending on the testing procedure used. PSA values determined on patient samples by different testing procedures cannot be used interchangeably. If there is a change in PSA assays while monitoring therapy, sequential testing should be performed to confirm baseline values. Performed By: #### L [phone] #### [facility] [address] [place], [place], [address] [facility] Visit (SP) Office (H EMAWS) -- KRYSTAL CORTES ([id number]) 1955 M Date Time Provider Department 11/15/24 8:00 AM SANDRA CRUZ During your visit today, we recorded the following information about you: Temperature Pulse Blood pressure Weight 97.9 degrees 62/minute 136/80 68.9 kg Sandra Cruz APRN.CNP 11/15/2024 9:00 AM Signed Chief Complaint Patient presents with: Established Patient HPI: Krystal Cortes is a 68 year old male who presents here today for follow up esophageal cancer. Per Dr. Rosas's previous note: H/o head neck cancer, hypertension and COPD as well as heavy alcohol use. 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 Afterward, he recalled anesthesiologist told him to see a linux support engineer because he may have a mass in the proximal esophagus. Barium swallow with fluoroscopy on 12/03/2021 demonstrated no esophageal foreign body. There is no stricture or mucosal abnormality observed. The gastroesophageal junction was noted to be normal without demonstrated hiatal hernia. Patient underwent an EGD on 12/16/2021. The procedure report indicates that at approximately 21 cm there was a polypoid mass observed in the proximal esophagus. It measured approximately 15 mm in diameter and appeared friable. The endoscope was passed to the distal GE junction. There was no evidence of Glover mucosa. Stomach was easily insufflated and no ulcers were observed. There was erythema throughout the gastric mucosa with some streaking and cobblestoning noted. The bulbar duodenum was noted to be normal. Sweep of the duodenum demonstrated no abnormalities. Retroflexion in the stomach revealed a small hiatal hernia. Biopsies were obtained from the antrum for H. pylori testing. The endoscope was withdrawn into the proximal esophagus and several biopsy of the polypoid lesion were obtained. 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 EGD/EUS 01/18/2022: Malignant esophageal tumor was found in the upper third of the esophagus. -Erythematous mucosa in the antrum. -Normal examined duodenum. -A mass was found in the upper third of the esophagus (18-22 cm). A tissue diagnosis was obtained prior to this exam. This is of squamous cell carcinoma. This was staged T1sm (based on invasion into) N1 Mx by endosonographic criteria. -One malignant-appearing lymph node was visualized in the left upper paratracheal region (level 2L). Presence of tumor in the vicinity precluded an uncontaminated FNA -There was no evidence of significant pathology in the left lobe of the liver. -No specimens collected. Previous therapy: 1) Definitive chemotherapy and radiation. Completed radiation 04/13/2022. Received 5600 cGy in 28 fractions. Received 6 weekly doses of carboplatin and paclitaxel 03/07 through 04/11/2022. Underwent posttherapy EGD on 06/16/2022. Report of procedure not available but biopsy pathology demonstrated focal acute erosive and moderate chronic esophagitis negative for fungi. Negative for Glover's esophagus, fungi, eosinophilic esophagitis, viral inclusions, dysplasia and malignancy. No new concerns today. Appetite:Good. Wt. down 5# over past 6 months. Energy level:Not bad. Denies fevers or recent illness. Resp:denies cough or sob Cardiac:denies chest pain/palpitations GI:denies abd pain, n/v, moving bowels regularly :denies dysuria/hematuria Extrem:denies new pain Neuro:denies symptoms of neuropathy Skin:denies rashes/lesions Heme:denies bleeding The ROS is otherwise negative. Past medical history, appointments, medications, allergies reviewed. No changes. EXAM: BP 136/80 Pulse 62 Temp 36.6 ?C (97.9 ?F) (Temporal) Wt 68.9 kg (151 lb 14.4 oz) SpO2 96% BMI 22.12 kg/m? APPEARANCE Well appearing, alert, in no acute distress, well-hydrated, well nourished. MOUTH no obvious lesions HEART RRR with normal S1 and S2, no murmurs LUNG clear to auscultation LYMPH NODES No cervical lymphadenopathy, No supraclavicular lymphadenopathy, and No axillary lymphadenopathy. ABDOMEN bowel sounds normoactive, soft, non-tender EXTREMITIES No edema NEURO Awake, alert and oriented x 3, Normal gait, and No involuntary motions. SKIN Skin color, texture, turgor normal, no suspicious rashes or lesions ASSESSMENT/PLAN: 1. Cancer of cervical esophagus (HCC) - ICD9: 150.0, ICD10: C15.[address] 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 This was resected at by Dr. Gallagher and according to the records the plan was for observation but the patient had not followed up at [facility] since his first postoperative check in the spring. At the time of that surgery he w (more content not included)... Normal [facility] CT CHEST W IVCONon CT CHEST W IVCON * * *Final Report* * * DATE OF EXAM: Nov 07 2024 9:14AM [facility] 0539 - CT CHEST W IVCON / PROCEDURE REASON: multiple diagnoses * * * * Physician Interpretation * * * * EXAMINATION: CHEST CT WITH CONTRAST CLINICAL HISTORY: Esophageal cancer Technique: Spiral CT acquisition of the chest from the thoracic inlet to the upper abdomen following IV contrast. MQ: [id number] Contrast: 140 mL Omnipaque [address] Radiation dose: Integrated Dose-length product (DLP) for this visit = chest 147 mGy*cm CT Dose Reduction Employed: Automated exposure control(AEC) and iterative recon Comparison: CT 04/30/2024 CT abdomen and pelvis 01/11/2022 RESULT: Limitations: None. Lines, tubes, and devices: None. Lung parenchyma and airways: Linear indeterminate density at the right lung base. Image 174. Likely atelectasis. Centrilobular emphysema. No consolidation. No suspicious pulmonary nodule. The central airways are patent. Pleural space: No pleural effusion. No pleural thickening. Lower neck, lymph nodes, and mediastinum: The imaged thyroid gland is normal. Stable borderline right hilar lymph node. Image 104. No developing lymphadenopathy in the supraclavicular, axillary, mediastinal, or hilar regions. Heart, pericardium, and thoracic vessels: The thoracic aorta and main pulmonary artery are normal in caliber. The cardiac chambers are normal in size. Mild coronary artery atherosclerotic calcifications are noted, although the study is not optimized for coronary assessment. No pericardial effusion or thickening. Bones and soft tissues: No destructive bone lesion. Chest wall is unremarkable. Upper abdomen: No abnormality in the imaged upper abdomen. Localizer images: No additional findings. IMPRESSION: No developing mass or adenopathy in the chest. Stable borderline right hilar node Negative Cutter: PSCDavid Transcribe Date/Time: Nov 14 2024 8:18A Dictated by : ZOE ANGULO MD This examination was interpreted and the report reviewed and electronically signed by: ZOE ANGULO MD on Nov 14 2024 8:37AM EST [id number] Normal [facility] CT NECK SOFT TISSUE W IVCONo n 11-07-2024 CT NECK SOFT TISSUE W IVCON * * *Final Report* * * DATE OF EXAM: Nov 07 2024 9:14AM [facility] 0013 - CT NECK SOFT TISSUE W IVCON / PROCEDURE REASON: multiple diagnoses * * * * Physician Interpretation * * * * CT NECK SOFT TISSUE W IVCON Clinical history: As provided by the ordering clinician via order question entries: Metastatic disease evaluation. 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 Technique: A series of contiguous helical scans were performed from the skull base to the aortic arch following bolus injection of nonionic contrast: Contrast: Omnipaque 350. Contrast Dose: 140 cc Route of Administration: IV CT Radiation dose: Integrated Dose-length product (DLP) for this visit = neck 619 mGy*cm. CT Dose Reduction Employed: Automated exposure control (AEC) and iterative recon Comparison: 04/30/2024 contrast-enhanced soft tissue neck CT RESULT: Postoperative/Treatment Change: None apparent. Aerodigestive tract: Similar mild circumferential thickening without discrete mass involving the partially imaged upper thoracic esophagus. Otherwise, unremarkable appearance of the posterior digestive tract. Major salivary glands: Similar slight accentuation of the left greater than submandibular ducts without underlying obstructive lesion or mass. Normal appearance of the parotid parenchyma and sublingual glands. Thyroid gland: Relatively uniform attenuation without discrete nodule. Lymph Nodes: No cervical lymphadenopathy by size criteria. Carotid/Parapharyngeal/Ret ropharyngeal Spaces: Patent extracranial carotid systems and internal jugular veins bilaterally. Scattered areas of atheromatous plaque with up to perhaps mild to moderate stenosis of the proximal left cervical ICA (series 5, image 74) within the constraints of the nonangiographic nature of the acquisition. Orbits, Face and Skull Base: The orbital soft tissue planes are preserved. The paranasal sinuses are clear. The mastoid air cells and middle ear cavities are clear. Otherwise normal. Imaged intracranial contents: No intracranial mass effect or hydrocephalus. No abnormal intracranial enhancement. Dominant venous drainage via the left transverse and sigmoid sinuses. Cervical spine and remaining osseous structures: Slight kyphotic deformity centered at C5 with grade 1 anterolisthesis of C3 on C4 and C4 on C5 and slight retrolisthesis of C5 on C6. Severe degenerative disc height loss at C5-C6, C6-C7, and C7-T1 and moderate multilevel degenerative disc height loss in the partially visualized upper thoracic spine, mild to moderate degenerative disc height loss at C4-C5, and at least mild at C2-C3 and C3-C4. Spell canal stenosis appears most pronounced and mild to moderate severity at C5-C6 and C6-C7, and at least mild in severity at C3-C4 and C4-C5. Suboptimal neuroforaminal stenosis, although suspected to be most pronounced and severe on the left at C2-C3, left greater than right at C3-C4, severe on the right and at least moderate in the left at C4-C5, at least moderate in severity bilaterally at C5-C6, C6-C7, and C7-T1. No discrete osteolytic or osteoblastic process. Lung apices: Centrilobular emphysematous changes without suspicious consolidation or mass. For detailed intrathoracic findings, please see concurrent CT chest which is reported under a separate accession. Other: All dentition extracted with dentures in place. Beater Worker Helper (topogram) images: Noncontributory IMPRESSION: No cervical lymphadenopathy, fluid collection, or mass. Negative [facility] Transcribe Date/Time: Nov 07 2024 9:26A Dictated by : SAMUEL RAZO MD This examination was interpreted and the report reviewed and electronically signed by: SAMUEL RAZO MD on Nov 07 2024 9:40AM EST [id number] Normal [facility] Creatinine and Glomerular fi ltration rate.predicted panel (S/P/Bld)on 11-07-2024 Creatinine [Mass/Vol] 0.72 mg/dL Low 0.73-1.22 [facility] Comment on above: Order Comment: Coy mccann Type: BLOOD SPECIMEN Ordering Facility: [facility] Address: [address] [place] [address] Performed By: #### 4 5066-8 #### [facility] CLIA [id number] [address] [place] [address] [place] eGFRcr SerPlBld CKD-EPI 2020 100 mL/min/1.73m??? Normal >=60 [facility] Comment on above: Order Comment: Coy mccann Type: BLOOD SPECIMEN Ordering Facility: [facility] Address: [address] [place] [address] Result Comment: Roman mated Glomerular Filtration Rate (eGFR) is calculated using the 2020 CKD-EPI creatinine equation. This equation utilizes serum creatinine, sex, and age as parameters. The creatinine assay has traceable calibration to isotope dilution-mass spectrometry. Refer to KDIGO guidelines for clinical interpretation. In patients with unstable renal function, e.g. those with acute kidney injury, the eGFR may not accurately reflect actual GFR. Performed By: #### 4 5066-8 #### [facility] CLIA [id number] [address] Anion gap in Serum or Plasma Ordered By: Vicki Dinh on 07-26-2024 Anion gap [Moles/Vol] 12 mmol/L 5-15 [facility] BUN/creatinine ratioOrdered By: Vicki Dinh on 07-26-2024 Urea nitrogen/Creatinine [Mass ratio] 8.9 mg/mg Low 10-20 [facility] Carbon dioxide, total [Moles /volume] in Central venous bloodOrdered By: Vicki Dinh on 07-26-2024 CO2 [Moles/Vol] 23.6 mmol/L Normal 21.0-32.0 [facility] Comment on above: Performed By: #### L 501.0900, L500.3600 #### [facility] [address] [facility] [address] Chloride assayOrdered By: Arline Dinh on 07-26-2024 Chloride [Moles/Vol] 101 mmol/L Normal 98-108 [facility] Comment on above: Performed By: #### L 501.0900, L500.3600 #### [facility] [address] [facility] [address] Glomerular filtration rate ( GFR) estimation/1.73 sq m using serum, plasma, or whole bOrdered By: Vicki Dinh on 07-26-2024 GFR/1.73 sq M.predicted among non-blacks MDRD (S/P/Bld) [Vol rate/Area] 98 mL/min/{1.73_m2} Normal >60 [facility] Comment on above: mL/min/1.73m2 CKD-EP I Creatinine Equation (2020) Result Comment: mL/m in/1.73m2 CKD-EPI Creatinine Equation (2020) Performed By: #### L 501.0900, L500.3600 #### [facility] [address] [place], [address] Potassium measurement (mass/ volume)Ordered By: Vicki Dinh on 07-26-2024 Potassium (Unsp spec) [Mass/Vol] 4.4 mmol/L 3.3-5.1 [facility] Protein+Creatinine Ratio,Uri neon 07-26-2024 PROT:CRE RATIO 311 mg/g CRE High 0-200 [facility] Comment on above: Performed By: #### L 501.0900, L500.3600 #### [facility] [address] [place], [address] Protein (U) [Mass/Vol] 21.2 mg/dL High 0.0-12.0 [facility] Comment on above: Performed By: #### L 501.0900, L500.3600 #### [facility] [address] [place], [address] UR CREAT 68.10 mg/dL Normal 39.00-259.0 0 [facility] Comment on above: Performed By: #### L 501.0900, L500.3600 #### [facility] [address] [place], [address] Random urine creatinine marcial urement (mass/volume)Ordered By: Vicki Dinh on 07-26-2024 Creatinine Unsp time (U) [Mass/Vol] 68.10 mg/dL 39.00-259.0 0 [facility] Renal Profileon 07-26-2024 BUN/CRE 8.9 RATIO Low 10-20 [facility] Comment on above: Performed By: #### L 501.0900, L500.3600 #### [facility] [address] [place], [address] GAP 12 Normal 5-15 [facility] Comment on above: Performed By: #### L 501.0900, L500.3600 #### [facility] [address] [place], [address] Phosphate [Mass/Vol] 3.7 mg/dL Normal 2.7-4.5 [facility] Comment on above: Performed By: #### L 501.0900, L500.3600 #### [facility] [address] [place], [address] Potassium [Moles/Vol] 4.4 mmol/L Normal 3.3-5.1 [facility] Comment on above: Performed By: #### L 501.0900, L500.3600 #### [facility] [address] [place], [address] Serum creatinine measurement (mass/volume)Ordered By: Vicki Dinh on 07-26-2024 Creatinine [Mass/Vol] 0.77 mg/dL Normal 0.70-1.20 [facility] Comment on above: Performed By: #### L 501.0900, L500.3600 #### [facility] [address] [place], [address] Serum glucose measurement (m ass/volume)Ordered By: Vicki Dinh on 07-26-2024 Glucose [Mass/Vol] 111 mg/dL High 70-99 [facility] Comment on above: Performed By: #### L 501.0900, L500.3600 #### [facility] [address] [place], [address] Serum or plasma albumin marcial urement (mass/volume)Ordered By: Vicki Dinh on 07-26-2024 Albumin [Mass/Vol] 4.4 g/dL Normal 3.4-4.8 [facility] Comment on above: Performed By: #### L 501.0900, L500.3600 #### [facility] [address] [place], [address] Serum or plasma calcium marcial urement (mass/volume)Ordered By: Vicki Dinh on 07-26-2024 Calcium [Mass/Vol] 9.1 mg/dL Normal 7.6-11.0 [facility] Comment on above: Performed By: #### L 501.0900, L500.3600 #### [facility] [address] [place], [address] Serum or plasma urea nitroge n measurement (mass/volume)Ordered By: Vicki Dinh on 07-26-2024 Urea nitrogen [Mass/Vol] 7 mg/dL Normal 4-19 [facility] Comment on above: Performed By: #### L 501.0900, L500.3600 #### [facility] [address] [place], [address] Sodium levelOrdered By: Carol Dinh on 07-26-2024 Sodium [Moles/Vol] 137 mmol/L Normal 133-145 [facility] Comment on above: Performed By: #### L 501.0900, L500.3600 #### [facility] [address] [place], [place], [address] Urine protein measurement (m ass/volume)Ordered By: Vicki Dinh on 07-26-2024 Protein (U) [Mass/Vol] 21.2 mg/dL High 0.0-12.0 [facility] Urine protein/creatinine mas s ratioOrdered By: Vicki Dinh on 07-26-2024 Protein/Creatinine (U) [Mass ratio] 311 mg/g CRE High 0-200 [facility] CNOVSPon 05-07-2024 CNOVSP Visit (SP) Office (H EMAWS) -- KRYSTAL CORTES ([id number]) 1955 M Date Time Provider Department 05/07/24 8:00 AM SANDRA CRUZ During your visit today, we recorded the following information about you: Temperature Pulse Blood pressure Weight 98 degrees 53/minute 127/74 71.6 kg Sandra Cruz APRN.EKG MONITOR 05/09/2024 11:16 AM Signed Chief Complaint Patient presents with: Established Patient HPI: Krystal Cortes is a 68 year old male who presents here today for follow up esophageal cancer. Per Dr. Rosas's previous note: H/o head neck cancer, hypertension and COPD as well as heavy alcohol use. 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 Afterward, he recalled anesthesiologist told him to see a linux support engineer because he may have a mass in the proximal esophagus. Barium swallow with fluoroscopy on 12/03/2021 demonstrated no esophageal foreign body. There is no stricture or mucosal abnormality observed. The gastroesophageal junction was noted to be normal without demonstrated hiatal hernia. Patient underwent an EGD on 12/16/2021. The procedure report indicates that at approximately 21 cm there was a polypoid mass observed in the proximal esophagus. It measured approximately 15 mm in diameter and appeared friable. The endoscope was passed to the distal GE junction. There was no evidence of Glover mucosa. Stomach was easily insufflated and no ulcers were observed. There was erythema throughout the gastric mucosa with some streaking and cobblestoning noted. The bulbar duodenum was noted to be normal. Sweep of the duodenum demonstrated no abnormalities. Retroflexion in the stomach revealed a small hiatal hernia. Biopsies were obtained from the antrum for H. pylori testing. The endoscope was withdrawn into the proximal esophagus and several biopsy of the polypoid lesion were obtained. 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 EGD/EUS 01/18/2022: Malignant esophageal tumor was found in the upper third of the esophagus. -Erythematous mucosa in the antrum. -Normal examined duodenum. -A mass was found in the upper third of the esophagus (18-22 cm). A tissue diagnosis was obtained prior to this exam. This is of squamous cell carcinoma. This was staged T1sm (based on invasion into) N1 Mx by endosonographic criteria. -One malignant-appearing lymph node was visualized in the left upper paratracheal region (level 2L). Presence of tumor in the vicinity precluded an uncontaminated FNA -There was no evidence of significant pathology in the left lobe of the liver. -No specimens collected. Previous therapy: 1) Definitive chemotherapy and radiation. Completed radiation 04/13/2022. Received 5600 cGy in 28 fractions. Received 6 weekly doses of carboplatin and paclitaxel 03/07 through 04/11/2022. Underwent posttherapy EGD on 06/16/2022. Report of procedure not available but biopsy pathology demonstrated focal acute erosive and moderate chronic esophagitis negative for fungi. Negative for Glover's esophagus, fungi, eosinophilic esophagitis, viral inclusions, dysplasia and malignancy. No new concerns today. Pt. here today with family member. Appetite:Good. Wt. stable. Energy level:Ok. Denies fevers or recent illness. Resp:denies cough or sob Cardiac:denies chest pain/palpitations GI:denies abd pain, n/v, moving bowels regularly :denies dysuria/hematuria Extrem:denies pain Neuro:denies symptoms of neuropathy Skin:denies rashes Heme:denies bleeding The ROS is otherwise negative. Past medical history, appointments, medications, allergies reviewed. No changes. EXAM: BP 127/74 Pulse (!) 53 Temp 36.7 ?C (98 ?F) (Temporal) Wt 71.6 kg (157 lb 13.6 oz) SpO2 96% BMI 22.98 kg/m? APPEARANCE Well appearing, alert, in no acute distress, well-hydrated, well nourished. HEART RRR with normal S1 and S2, no murmurs LUNG clear to auscultation LYMPH NODES No cervical lymphadenopathy, No supraclavicular lymphadenopathy, and No axillary lymphadenopathy. ABDOMEN bowel sounds normoactive, soft, non-tender EXTREMITIES No edema NEURO Awake, alert and oriented x 3, Normal gait, and No involuntary motions. SKIN Skin color, texture, turgor normal, no suspicious rashes or lesions RADIOLOGY: CT neck 04/30/24: IMPRESSION: No new or suspicious neck mass or cervical adenopathy. Additional chronic findings, as described. CT chest 04/30/24: IMPRESSION: 1. No new suspicious pulmonary nodules 2. Unchanged borderline enlarged right hilar lymph node ASSESSMENT/PLAN: 1. Cancer of cervical esophagus (HCC) - ICD9: 150.0, ICD10: C15.3 (primary diagnosis) Per Dr. Rosas's previous note: Assessment: -The patient is a 66-year-old male who has a history of squamous cell carcinoma of (more content not included)... Normal [facility] CREATININE BLDon 04-30-2024 Creatinine [Mass/Vol] 0.67 mg/dL Low 0.73-1.22 [facility] Comment on above: Order Comment: Coy mccann Type: BLOOD SPECIMEN Ordering Facility: [facility] Address: [address] [place] [address] Performed By: #### C RET1 #### [id number] [address] [place] [address] [place] Creatinine and Glomerular filtration rate.predicted panel (S/P/Bld) 102 mL/min/1.73m??? Normal >=60 [facility] Comment on above: Order Comment: Coy mccann Type: BLOOD SPECIMEN Ordering Facility: [facility] Address: [address] [place] [address] Result Comment: Roman mated Glomerular Filtration Rate (eGFR) is calculated using the 2020 CKD-EPI creatinine equation. This equation utilizes serum creatinine, sex, and age as parameters. The creatinine assay has traceable calibration to isotope dilution-mass spectrometry. Refer to KDIGO guidelines for clinical interpretation. In patients with unstable renal function, e.g. those with acute kidney injury, the eGFR may not accurately reflect actual GFR. Performed By: #### C RET1 #### [facility] [id number] [address] [place] [address] [place] CT CHEST W IVCONon 5 CT CHEST W IVCON * * *Final Report* * * DATE OF EXAM: Apr 30 2024 9:12AM [facility] 0539 - CT CHEST W IVCON / PROCEDURE REASON: multiple diagnoses * * * * Physician Interpretation * * * * EXAMINATION: CHEST CT WITH CONTRAST CLINICAL HISTORY: Cancer of the floor the mouth Technique: Spiral CT acquisition of the chest from the thoracic inlet to the upper abdomen following IV contrast. MQ: [id number] Contrast: 150 mL Omnip[address] Radiation dose: Integrated Dose-length product (DLP) for this visit = neck 601 chest 187 mGy*cm CT Dose Reduction Employed: Automated exposure control(AEC) and iterative recon Comparison: CT chest 10/24/2023 RESULT: Limitations: None. Lines, tubes, and devices: None. Lung parenchyma and airways: No consolidation. No suspicious pulmonary nodule. The central airways are patent. Pleural space: No pleural effusion. No pleural thickening. Lower neck, lymph nodes, and mediastinum: The imaged thyroid gland is normal. No lymphadenopathy in the supraclavicular, axillary or mediastinal regions. Unchanged borderline enlarged right hilar lymph node which measures 10 mm short axis (5:101). Heart, pericardium, and thoracic vessels: The thoracic aorta and main pulmonary artery are normal in caliber. The cardiac chambers are normal in size. Mild coronary artery atherosclerotic calcifications are noted, although the study is not optimized for coronary assessment. No pericardial effusion or thickening. Bones and soft tissues: No destructive bone lesion. Degenerative disease of the thoracic spine. Chest wall is unremarkable. Upper abdomen: No abnormality in the imaged upper abdomen. Localizer images: No additional findings. IMPRESSION: 1. No new suspicious pulmonary nodules 2. Unchanged borderline enlarged right hilar lymph node Negative [facility] Transcribe Date/Time: May 03 2024 10:26A Dictated by : SHARON GRIMALDO MD This examination was interpreted and the report reviewed and electronically signed by: SHARON GRIMALDO MD on May 03 2024 10:45AM EST [id number] Normal [facility] CT NECK SOFT TISSUE W IVCONo n 04-30-2024 CT NECK SOFT TISSUE W IVCON * * *Final Report* * * DATE OF EXAM: Apr 30 2024 9:12AM [facility] 0013 - CT NECK SOFT TISSUE W IVCON / PROCEDURE REASON: multiple diagnoses * * * * Physician Interpretation * * * * CT NECK SOFT TISSUE W IVCON History: 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) Technique: A series of contiguous helical scans were performed from the skull base to the aortic arch following injection of intravenous contrast. Contrast: Omnipaque 350. Contrast Dose: 150 cc Route of Administration: IV CT Radiation dose: Integrated Dose-length product (DLP) for this visit = neck 601 chest 187 mGy*cm. CT Dose Reduction Employed: Automated exposure control(AEC) and iterative recon COMPARISON: CT neck 10/24/2023 RESULT: Postoperative Change: None apparent. Aerodigestive tract: Similar contour deformity along the right dorsal tongue. No new or suspicious enhancement within the oral cavity, oropharynx, or hypopharynx. Coarse right-sided tonsillolith. Similar appearance of the vocal folds with asymmetric prominence of the right laryngeal ventricle. Mild circumferential thickening of the upper thoracic esophagus, similar to the prior study. Major salivary glands: No suspicious mass within the major salivary glands. Persistent mild asymmetric ductal dilation within the left submandibular gland, unchanged. Thyroid gland: No discrete thyroid nodule Lymph Nodes: No cervical lymphadenopathy by size criteria. Carotid/Parapharyngeal/Ret ropharyngeal Spaces: There are atherosclerotic calcifications along the bilateral common carotid arteries, carotid bulbs, and proximal cervical ICAs, left greater than right. Patency is suboptimally assessed on this study. No retropharyngeal collection. Orbits, Face and Skull Base: Minimal mucosal thickening within the left maxillary sinus. The visualized mastoid air cells are clear. Complete Imaged intracranial contents: No intracranial mass effect or hydrocephalus. No abnormal intracranial enhancement. Cervical spine and remaining osseous structures: No discrete osteolytic or osteoblastic process. Moderate to severe spondylotic changes in the visualized spine. Reversal of the normal cervical lordosis with anterolisthesis of C3 upon C4 and C4 upon C5 and stepwise retrolisthesis of C5 upon C6 and C6 upon C7. Similar sclerotic appearance of the C5, C6, C7, and T1 vertebral bodies, likely degenerative. There is at least moderate to severe canal narrowing at C5-6 and C6-7 due to calcified disc osteophyte complexes. Moderate to severe scattered neural foraminal stenoses due to uncovertebral and facet hypertrophy, similar to the prior study. Lung apices: Emphysematous changes of the lung apices. Circumferential thickening of the upper thoracic esophagus, as described above. Please see separately reported concurrently obtained CT chest. Other: Not applicable. IMPRESSION: No new or suspicious neck mass or cervical adenopathy. Additional chronic findings, as described. Negative Cutter: [facility] Transcribe Date/Time: Apr 30 2024 10:28A Dictated by : SKYLAR CAO MD This examination was interpreted and the report reviewed and electronically signed by: SKYLAR CAO MD on Apr 30 2024 10:41AM EST [id number] Normal [facility] CT Neck W contrast Kev 04-20 IMPRESSION: No new or suspicious neck mass or cervical adenopathy. Additional chronic findings, as described. Negative Cutter: [facility] Transcribe Date/Time: Apr 30 2024 10:28A Dictated by : SKYLAR CAO MD This examination was interpreted and the report reviewed and electronically signed by: SKYLAR CAO MD on Apr 30 2024 10:41AM EST DIVISION OF RADIOLOGY * * *Final Report* * * DATE OF EXAM: Apr 30 2024 9:12AM [facility] 0013 - CT NECK SOFT TISSUE W IVCON / PROCEDURE REASON: multiple diagnoses * * * * Physician Interpretation * * * * CT NECK SOFT TISSUE W IVCON History: 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) Technique: A series of contiguous helical scans were performed from the skull base to the aortic arch following injection of intravenous contrast. Contrast: Omnipaque 350. Contrast Dose: 150 cc Route of Administration: IV CT Radiation dose: Integrated Dose-length product (DLP) for this visit = neck 601 chest 187 mGy*cm. CT Dose Reduction Employed: Automated exposure control(AEC) and iterative recon COMPARISON: CT neck 10/24/2023 RESULT: Postoperative Change: None apparent. Aerodigestive tract: Similar contour deformity along the right dorsal tongue. No new or suspicious enhancement within the oral cavity, oropharynx, or hypopharynx. Coarse right-sided tonsillolith. Similar appearance of the vocal folds with asymmetric prominence of the right laryngeal ventricle. Mild circumferential thickening of the upper thoracic esophagus, similar to the prior study. Major salivary glands: No suspicious mass within the major salivary glands. Persistent mild asymmetric ductal dilation within the left submandibular gland, unchanged. Thyroid gland: No discrete thyroid nodule Lymph Nodes: No cervical lymphadenopathy by size criteria. Carotid/Parapharyngeal/Ret ropharyngeal Spaces: There are atherosclerotic calcifications along the bilateral common carotid arteries, carotid bulbs, and proximal cervical ICAs, left greater than right. Patency is suboptimally assessed on this study. No retropharyngeal collection. Orbits, Face and Skull Base: Minimal mucosal thickening within the left maxillary sinus. The visualized mastoid air cells are clear. Complete Imaged intracranial contents: No intracranial mass effect or hydrocephalus. No abnormal intracranial enhancement. Cervical spine and remaining osseous structures: No discrete osteolytic or osteoblastic process. Moderate to severe spondylotic changes in the visualized spine. Reversal of the normal cervical lordosis with anterolisthesis of C3 upon C4 and C4 upon C5 and stepwise retrolisthesis of C5 upon C6 and C6 upon C7. Similar sclerotic appearance of the C5, C6, C7, and T1 vertebral bodies, likely degenerative. There is at least moderate to severe canal narrowing at C5-6 and C6-7 due to calcified disc osteophyte complexes. Moderate to severe scattered neural foraminal stenoses due to uncovertebral and facet hypertrophy, similar to the prior study. Lung apices: Emphysematous changes of the lung apices. Circumferential thickening of the upper thoracic esophagus, as described above. Please see separately reported concurrently obtained CT chest. Other: Not applicable. 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 Contrast: Omnipaque 350. Contrast Dose: 150 cc Route of Administration: IV CT Radiation dose: Integrated Dose-length product (DLP) for this visit = neck 601 chest 187 mGy*cm. CT Dose Reduction Employed: Automated exposure control(AEC) and iterative recon COMPARISON: CT neck 10/24/2023 RESULT: Postoperative Change: None apparent. Aerodigestive tract: Similar contour deformity along the right dorsal tongue. No new or suspicious enhancement within the oral cavity, oropharynx, or hypopharynx. Coarse right-sided tonsillolith. Similar appearance of the vocal folds with asymmetric prominence of the right laryngeal ventricle. Mild circumferential thickening of the upper thoracic esophagus, similar to the prior study. Major salivary glands: No suspicious mass within the major salivary glands. Persistent mild asymmetric ductal dilation within the left submandibular gland, unchanged. Thyroid gland: No discrete thyroid nodule Lymph Nodes: No cervical lymphadenopathy by size criteria. Carotid/Parapharyngeal/Ret ropharyngeal Spaces: There are atherosclerotic calcifications along the bilateral common carotid arteries, carotid bulbs, and proximal cervical ICAs, left greater than right. Patency is suboptimally assessed on this study. No retropharyngeal collection. Orbits, Face and Skull Base: Minimal mucosal thickening within the left maxillary sinus. The visualized mastoid air cells are clear. Complete Imaged intracranial contents: No intracranial mass effect or hydrocephalus. No abnormal intracranial enhancement. Cervical spine and remaining osseous structures: No discrete osteolytic or osteoblastic process. Moderate to severe spondylotic changes in the visualized spine. Reversal of the normal cervical lordosis with anterolisthesis of C3 upon C4 and C4 upon C5 and stepwise retrolisthesis of C5 upon C6 and C6 upon C7. Similar sclerotic appearance of the C5, C6, C7, and T1 vertebral bodies, likely degenerative. There is at least moderate to severe canal narrowing at C5-6 and C6-7 due to calcified disc osteophyte complexes. Moderate to severe scattered neural foraminal stenoses due to uncovertebral and facet hypertrophy, similar to the prior study. Lung apices: Emphysematous changes of the lung apices. Circumferential thickening of the upper thoracic esophagus, as described above. Please see separately reported concurrently obtained CT chest. Other: Not applicable. IMPRESSION IMPRESSION: No new or suspicious neck mass or cervical adenopathy. Additional chronic findings, as described. Negative Cutter: PSCB Transcribe Date/Time: Apr 30 2024 10:28A Dictated by : SKYLAR CAO MD This examination was interpreted and the report reviewed and electronically signed by: SKYLAR CAO MD on Apr 30 2024 10:41AM EST [facility] Radiology Study observation (narrative) [facility] CT Neck W contrast IVOrdered By: [facility]cf Provider on 04-30-2024 [facility] Chest PA and Lateralon 12-10 Chest PA and Lateral [facility] Imaging Services [address] [place] [address] [id number] Chest PA and Lateral MR#: [id number] Acct: [id number] Name: KRYSTAL CORTES Rep #: [id number] : [id number] M [id number] From: Waylon Contreras MD PCP: Dr. Mirtha Qiu MD Status: REG CLI Study: Chest PA and Lateral Date of Exam: 12/11/23 Exam# [id number] Ordering Dr: Negar Martinez NP [id number] STUDY: X-RAY CHEST REASON FOR EXAM: Male, 68 years old. Fever and cough TECHNIQUE: 2 PA and lateral views of the chest. COMPARISON: 08/31/2012 FINDINGS: Lungs are hyperexpanded with chronic interstitial changes, no superimposed acute pulmonary process. Stable 7 mm nodular density in the right lower lung field. There is no demonstrated pleural abnormality. Normal size heart. Normal mediastinum and zaina. Normal visualized pulmonary arteries. Normal visualized aortic arch and descending thoracic aorta. Normal visualized thoracic spine. Normal visualized ribs, clavicles, and shoulders. There is no demonstrated abnormality of the visualized soft tissue structures of the upper abdomen. RAD/Chest PA and Lateral IMPRESSION: Hyperinflated lungs without a superimposed acute pulmonary process Electronically Signed: Rock Contreras MD at 9:11 EDT , CC: Dr. Mirtha Qiu MD; Negar JIMENESC Juan Negative Cutter: Signed Normal [facility] CT Neck W contrast Kev 09-0 IMPRESSION: No neck mass or lymphadenopathy. 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 A series of contiguous helical scans were performed from the skull base to the aortic arch. M: CTNW_1 Contrast: 50 mL Omnipaque [address] Dose-Length Product (DLP): 617 mGy*cm CT Dose Reduction Employed: Automated exposure control(AEC) and iterative recon COMPARISON: Neck CT 04/21/2023. 10/09/2022. PET CT 06/21/2022 and 02/08/2022. RESULT: Postoperative change: None apparent. Suprahyoid Neck: There is unchanged along the dorsal tongue base. There is an unchanged right palatine tonsillolith. Nasopharynx and oropharynx appear normal. Parapharyngeal tissue planes are preserved. Oral cavity and floor of mouth appear normal within constraints of artifact from dental amalgam. Parotid and submandibular spaces are normal. [employer] spaces appear normal. Infrahyoid Neck: Hypopharynx, larynx, and imaged infraglottic trachea appear normal. Imaged upper esophagus demonstrates thickening. Thyroid gland is homogeneous without evidence of discrete nodule. Lymph Nodes: No cervical lymphadenopathy by size criteria. Carotid Space: No masses. Patent extracranial carotid systems and internal jugular veins bilaterally. Orbits, Face and Skull Base: Orbital soft tissue planes are preserved. . Paranasal sinuses are clear. . Mastoid air cells and middle ear cavities are clear. . No evidence of an osteolytic or osteoblastic process in the skull base. . . Imaged intracranial contents: No enhancement, no mass effect, and no hydrocephalus. Cervical spine and remaining osseous structures: Alignment is normal. No discrete osteolytic or osteoblastic process. Moderate to severe spondylotic changes in the visualized spine with unchanged stepwise grade 1 anterolisthesis of C3 on C4 and C4 on C5 and retrolisthesis of C5 on C6. Lung apices: No mass and no focal consolidation in imaged lung apices. Other: Not applicable. [employer] (topogram) images: No significant findings. 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 A series of contiguous helical scans were performed from the skull base to the aortic arch. M: CTNW_1 Contrast: 50 mL Omnipaque [address] Dose-Length Product (DLP): 617 mGy*cm CT Dose Reduction Employed: Automated exposure control(AEC) and iterative recon COMPARISON: Neck CT 04/21/2023. 10/09/2022. PET CT 06/21/2022 and 02/08/2022. RESULT: Postoperative change: None apparent. Suprahyoid Neck: There is unchanged along the dorsal tongue base. There is an unchanged right palatine tonsillolith. Nasopharynx and oropharynx appear normal. Parapharyngeal tissue planes are preserved. Oral cavity and floor of mouth appear normal within constraints of artifact from dental amalgam. Parotid and submandibular spaces are normal. [employer] spaces appear normal. Infrahyoid Neck: Hypopharynx, larynx, and imaged infraglottic trachea appear normal. Imaged upper esophagus demonstrates thickening. Thyroid gland is homogeneous without evidence of discrete nodule. Lymph Nodes: No cervical lymphadenopathy by size criteria. Carotid Space: No masses. Patent extracranial carotid systems and internal jugular veins bilaterally. Orbits, Face and Skull Base: Orbital soft tissue planes are preserved. . Paranasal sinuses are clear. . Mastoid air cells and middle ear cavities are clear. . No evidence of an osteolytic or osteoblastic process in the skull base. . . Imaged intracranial contents: No enhancement, no mass effect, and no hydrocephalus. Cervical spine and remaining osseous structures: Alignment is normal. No discrete osteolytic or osteoblastic process. Moderate to severe spondylotic changes in the visualized spine with unchanged stepwise grade 1 anterolisthesis of C3 on C4 and C4 on C5 and retrolisthesis of C5 on C6. Lung apices: No mass and no focal consolidation in imaged lung apices. Other: Not applicable. [employer] (topogram) images: No significant findings. IMPRESSION IMPRESSION: No neck mass or lymphadenopathy. Negative Cutter: ZAHEER Transcribe Date/Time: Oct 24 2023 12:08P Dictated by : JERRY STAFFORD MD This examination was interpreted and the report reviewed and electronically signed by: JERRY STAFFORD MD on Oct 24 2023 12:17PM EST [facility] Radiology Study observation (narrative) [facility] CT Neck W contrast IVOrdered By: Ccf Provider on 10-24-[address] [facility] [address] Neck W contrast Kev [facility] No Panel Informationon 10-17 [facility] NM PET/CT SKULL-THIGH SUBQon 06-21-2022 NM PET/CT SKULL-THIGH SUBQ * * *Final Report* * * DATE OF EXAM: Jun 21 2022 7:56AM [facility] 0063 - NM PET/CT SKULL-THIGH SUBQ / PROCEDURE REASON: 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 INDICATION: Subsequent treatment strategy. TECHNIQUE: PET-CT scan: Approximately 60 minutes following the IV administration of F-18 FDG (10.5 mCi of F-18 FDG), PET and non contrast CT images were acquired from the skull base through proximal thigh. PET images were reconstructed with and without attenuation correction using attenuation coefficients. CT Radiation dose: Integrated Dose-length product (DLP) for this visit = 276 mGy*cm. CT Dose Reduction Employed: Automatic exposure control used (AED) COMPARISON: FDG PET-CT: 02/08/2022 CORRELATION: None. RESULTS: Topogram review: Unremarkable, no acute findings. No retained foreign body. Head and Neck: No evidence of focal uptake to suggest FDG avid neoplastic process. No significant anatomical abnormality to the limits of low dose noncontrast CT scan. Chest: Decreased but persistent mild uptake in the upper esophagus mucosa with max SUV 4.3, previously 14.3. There is a 1.1 x 0.6 cm left paratracheal lymph node with minimal FDG uptake of max SUV 2.3, decreased from previous 1.4 x 0.9 cm with max SUV 3.4. The previous noted mild uptake in the distal esophagus have essentially resolved. Focal area of atelectasis in the left upper lobe. Abdomen and Pelvis: No evidence of focal uptake to suggest FDG avid neoplastic process. Colonic diverticulosis Extremities/Skeleton: No evidence of focal uptake to suggest FDG avid neoplastic process. Degenerative arthritic change. IMPRESSION: 1. HEAD and NECK: No evidence of focal uptake to suggest FDG avid neoplastic process.. 2. CHEST: Decreased but persistent mild uptake in the upper esophagus mucosa, probably posttreatment inflammation. Continued follow-up is recommended. Decreased size and metabolism of left paratracheal lymph node. 3. ABDOMEN/PELVIS: No evidence of focal uptake to suggest FDG avid neoplastic process.. 4. EXTREMITIES/SKELETON: No evidence of focal uptake to suggest FDG avid neoplastic process.. Negative Cutter: ZAHEER Transcribe Date/Time: Jun 21 2022 10:01A Dictated by : JOSEPH BAXTER MD This examination was interpreted and the report reviewed and electronically signed by: JOSEPH BAXTER MD on Jun 21 2022 10:13AM EST [id number] 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 INDICATION: Study performed for initial treatment strategy. TECHNIQUE: F18-FDG administered IV was followed about 60 minutes later by PET imaging from skull base to proximal thigh. Free breathing low dose CT was performed without contrast for attenuation correction and anatomic localization. FDG radionuclide dose: 11.[address] Dose-Length Product (DLP): 296 mGy*cm CT Dose Reduction Employed: Automatic exposure control used (AED) COMPARISON: None available CORRELATION: CT scan of the neck, chest, abdomen and pelvis dated 01/11/2022. RESULT: For reference maximum SUV values: Mediastinal blood pool 2.4. Background Liver: 2.9 NECK: Physiologic uptake seen in the visualized brain, parapharyngeal soft tissues, base of tongue, vocal cords, and salivary glands. No hypermetabolic cervical lymphadenopathy or hypermetabolic masses. No focal hypermetabolic thyroid lesion. CHEST: Physiologic uptake in the heart and mediastinal blood pool. Lungs, tracheobronchial tree and pleura: No hypermetabolic consolidation, mass or nodules. Please note that PET/CT is not sensitive for pulmonary nodules less than 8 mm. Mediastinum and Lymph nodes: A small, subcentimeter lymph node, having maximum SUV of 3.4 in the left upper paratracheal region, concerning for a small metastatic lymph node, measuring 1.4 x 0.7 cm (series 3, image 92). FDG uptake much above the mediastinal blood uptake is not identified within the right hilar lymph node; maximum SUV of 2.5 in the region of the right hilar lymph node noted in the CT scan and is less likely to be a metastatic lymph node. Markedly hypermetabolic focus of uptake is identified in the upper portion of the thoracic esophagus, having maximum SUV of 14.3 in this region. Mild uptake is identified in the distal portion of the esophagus, with maximum SUV of 4 that could be related to reflux esophagitis. Small hiatal hernia is noted. Chest wall and axilla: No hypermetabolic lesions. ABDOMEN AND PELVIS: Physiologic uptake seen in the and GI tracts. Liver: No hypermetabolic mass. Biliary: No bile duct dilation. Spleen: No hypermetabolic mass. No splenomegaly. Pancreas: No hypermetabolic mass. Adrenals: No hypermetabolic lesions. Kidneys: No stones, hydronephrosis, or hypermetabolic lesions. GI tract: No dilation or wall thickening. Diverticulosis of the colon, primarily the descending colon. Lymph nodes: No hypermetabolic abdominal or pelvic lymphadenopathy. Mesentery/Peritoneum: No ascites or hypermetabolic mass lesions. Vasculature: Vascular patency cannot be assessed due to lack of IV contrast. There are atherosclerotic calcifications without aneurysmal dilation. Pelvis: No hypermetabolic mass, ascites or fluid collection. BONES AND EXTREMITIES: No suspicious FDG avid foci are detected. The imaged portions of the skeleton disclose age-related degenerative changes, with no detectable destructive lytic or sclerotic lesions to suggest metastases. - IMPRESSION: 1. NECK: No FDG avid neoplastic process. No mass, adenopathy, or fluid collection. 2. CHEST: Hypermetabolic lesion in the upper thoracic esophagus, compatible with patient's known malignancy. Mild uptake is identified in the distal portion of the esophagus, that could be related to reflux esophagitis. Small upper left paratracheal lymph node, possibly a small metastatic lymph node. 3. ABDOMEN/PELVIS: No FDG avid neoplastic process. No mass, adenopathy, or fluid collection. 4. EXTREMITIES/SKELETON: No FDG avid osseous process. No destructive/traumatic bony abnormality. Negative Cutter: ZAHEER Transcribe Date/Time: Feb 08 2022 9:20A Dictated by : DEB OWENS MD This examination was interpreted and the report reviewed and electronically signed by: DEB OWENS MD on Feb 08 2022 9:54AM EST [id number] Normal [facility] No Panel Informationon 02-08 [facility] EGD - THERAPEUTIC, EUS, OR T UBE INTERVENTIONSon 01-18-2022 [facility] Basophil percentageon 2021 Chloride [Moles/Vol] 100 mmol/L 98-107 [facility] Work Phone: Cholesterol [Mass/Vol] 194 mg/dL <200 [facility] Work Phone: Comment on above: <200 mg/dL Desirable 200-240 mg/dL Borderline >240 mg/dL High Risk Glucose [Mass/Vol] 105 mg/dL 74-106 [facility] Work Phone: Comment on above: Fasting Glucose resu lt from 100 to 125 mg/dL suggests IMPAIRED HOMEOSTASIS per A.D.A. criteria. Potassium [Moles/Vol] 4.4 mmol/L 3.5-5.1 [facility] Work Phone: Sodium [Moles/Vol] 139 mmol/L 136-145 [facility] Work Phone: Triglyceride [Mass/Vol] 43 mg/dL <199 [facility] Work Phone: Comment on above: The drugs N-Acetylcy steine and Metamizole may falsely depress this assay.Serum Triglycerides Reference Interval Normal <150 mg/dL Borderline high 150 - 199 mg/dL High 200 - 499 mg/dL Very High > or = 500 mg/dL Laboratory - Chemistry and C hemistry - challengeon 11-15-2021 CO2 [Moles/Vol] 30.0 mmol/L 21.0-32.0 [facility] Work Phone: Urea nitrogen/Creatinine [Mass ratio] 9.3 mg/mg 10-20 [facility] Work Phone: [phone] No Panel Informationon 11-15 Estimated GFR (MDRD) Amer 115 mL/min >60 [facility] Work Phone: Comment on above: GFR Calc Estimated GFR (MDRD) Non-Af Amer 95 mL/min >60 [facility] Work Phone: Comment on above: Non- GFR Calc Prostate Specific Antigen Screen 1.30 ng/mL 0.00-4.00 [facility] Work Phone: [phone] Comment on above: This test was perfor med using the TPSA assay method for the[employer] chemistry system. Values obtained with differentassay methods cannot be used interchangably.When changing PSA assays in the course of monitoring apatient, additional sequential testing should be carriedout to confirm baseline values. Urine Microalbumin/Creatin ine Ratio 79.9 mg/g CRE <30 [facility] Work Phone: [phone] Serum or plasma calcium marcial urement (mass/volume)on 11-15-2021 Calcium [Mass/Vol] 9.3 mg/dL 8.5-10.1 [facility] Work Phone: [phone] Serum or plasma cholesterol in HDL measurement (mass/volume)on 11-15-2021 Cholesterol in HDL [Mass/Vol] 76 mg/dL >40 [facility] Work Phone: [phone] Comment on above: The drugs N-Acetylcy steine and Metamizole may falsely depress this assay. Reference Range HDL <40 mg/dL Low HDL Cholesterol HDL >or= 60 mg/dL High HDL Cholesterol Serum or plasma cholesterol in VLDL measurement (mass/volume)on 11-15-2021 Cholesterol in VLDL [Mass/Vol] 9 mg/dL 5-40 [facility] Work Phone: [phone] Serum or plasma creatinine m easurement (mass/volume)on 11-15-2021 Creatinine [Mass/Vol] 0.86 mg/dL 0.70-1.30 [facility] Work Phone: Comment on above: The validity of the calculated GFR & GFRAA in patients over 70 years has not been determined. Clinical correlation is essential. Serum or plasma low density lipoprotein (LDL) cholesterol measurement (mass/volume)on 11-15-2021 Cholesterol in LDL [Mass/Vol] 109 mg/dL 0-130 [facility] Work Phone: Serum or plasma urea nitroge n measurement (mass/volume)on 11-15-2021 Urea nitrogen [Mass/Vol] 8 mg/dL 7-18 [facility] Work Phone: Thin prep Papanicolaou smear with manual screeningon 11-15-2021 Thin prep Papanicolaou smear with manual screening 9 5-15 [facility] Work Phone: [phone] Thin prep Papanicolaou smear with manual screening 28.3 mg/L NO RANGE EST. [facility] Work Phone: Urine creatinine measurement (mass/volume)on 11-15-2021 Creatinine (U) [Mass/Vol] 35.40 mg/dL NO RANGE EST. 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 The deep margin is close. We discussed the possibility of the close follow-up versus reexcision. We agreed to follow this clinically. I plan to get a CT scan of his neck once of the oral cavity has completely healed. The patient was urged to stop smoking. Esophageal lesion at 20 cm that needs to be evaluated in gastroenterology. The patient is to discuss that with his family physician. 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 The deep margin is close. We discussed the possibility of the close follow-up versus reexcision. We agreed to follow this clinically. I plan to get a CT scan of his neck once of the oral cavity has completely healed. The patient was urged to stop smoking. Esophageal lesion at 20 cm that needs to be evaluated in gastroenterology. The patient is to discuss that with his family physician. 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 History of Present IllnessThis patient was seen in April 2021 at the request of a local colleague. He had a lesion in the floor of his mouth for quite some time according to what he described. 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 He underwent a surgical excision on May 13, 2021. This turned out to be consistent with invasive cancer. The deep margin was very close. We also noticed a lesion in his upper esophagus at about 20 cm. This will need to be further evaluated by someone in gastroenterology. Active Problems Mouth lesion (528.9) (K13.70) Past Medical History History of hypertension (V12.59) (Z86.79) Surgical History History of Colonoscopy History of Ear surgery Family History Family history of Medical history unknown Family history of Medical history unknown Social History Drinks beer (V49.89) (Z78.9) Former smoker (V15.82) (Z87.891) Lives with Retired from employment Allergies No Known Drug Allergies Recorded By: Nivia Banda; 04/27/2021 8:50:22 AM No Known Environmental Allergies Recorded By: Nivia Banda; 04/27/2021 8:50:22 AM No Known Food Allergies Recorded By: Nivia Banda; 04/27/2021 8:50:22 AM Current Meds Medication NameInstruction amLODIPine Besylate 10 MG Oral Tablet Carvedilol 12.5 MG Oral Tablet Lisinopril 40 MG Oral Tablet Vitals Vital Signs Recorded: 01Jun2021 10:15AM Shtpoxegfki21 F Height5 ft 11 in Sncejt411 lb BMI Bcijdcxnoj80.29 kg/m2 BSA Calculated1.95 Tobacco Usea) Yes Fall Screeninga) No falls within the last year Physical Exam Examination of the oral cavity shows the recent surgical site cannot be completely healed. At the same time we can see the opening of both submandibular ducts. Palpation of the neck does not show any enlargement of the submandibular glands. 'Scores and Scales' Signatures Electronically signed by : Guru Gallagher MD; Jun 01 2021 10:26AM EST (Author) Normal [facility] No Panel Informationon 05-13 MG-Otolaryng ology-[facility] Work Phone: Operative Reports - [facility] [place] [address] Patient Name: KRYSTAL CORTES : 1955 Date of Service: 05/13/2021 Patient Location: [place] [address] Patient Type: O Surgeon: Guru Gallagher MD Report Type: Operative Reports PREOPERATIVE DIAGNOSIS: Floor of mouth lesion. POSTOPERATIVE DIAGNOSIS: Floor of mouth lesion. OPERATIONS/PROCEDURES: 1. Direct laryngoscopy. 2. Flexible bronchoscopy. 3. Flexible esophagoscopy. 4. Excision of a floor of mouth lesion and bilateral submandibular duct sialodochoplasty. SURGEON: Guru Gallagher MD DOCUMENTATION DESIGNER(S): Dr. Kera Arredondo. ANESTHESIA: OPERATIVE INDICATION: This patient presented with a floor of mouth lesion. 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 He does have somewhat exophytic lesion around the area and some mucosal changes around. He is here today to have a panendoscopy and have this excised. He understands surgery and possible complications and wishes to proceed. PROCEDURE IN DETAIL: Under general endotracheal anesthesia, the patient was properly positioned. The Dedo laryngoscope was introduced. Careful examination of the oral cavity, oropharynx, hypopharynx, and larynx showed mucositis, but no other lesions were noted in the anterior floor of the mouth. The laryngoscope was suspended over the larynx. The bronchoscope was inserted through the laryngoscope into the tracheobronchial tree. All the different bronchial segments were visualized, and were felt to be within normal limits. The bronchoscope was pulled. The laryngoscope was then suspended over the esophageal introitus. The gastroscope was introduced all the way down to the stomach. The entire length of the esophagus was visualized on the way out. There was somewhat papillary looking and a slightly exophytic lesion in the esophagus at around 20 cm. No biopsies were obtained. The patient will need to see my colleagues in Gastroenterology. The patient was then properly draped in the usual sterile fashion. A blue lip retractor was placed. The lesion was visualized. Using the electrocautery, the lesion was excised. We had to go across both submandibular ducts in the process. The lesion extended more so towards the right. The lesion was totally removed. It was oriented and sent for permanent section. The salivary ducts were retrieved and they were sliced opened and reinserted into the adjacent mucosa. These were sutured with 4-0 Vicryl sutures. The wound was irrigated. There was a raw surface that was left to heal secondarily. There was no significant bleeding. The procedure was terminated. The patient was sent back to Recovery in fair condition. Guru Gallagher MD EST TT: 05/13/2021 04:00 PM EST DICTATION NUMBER: [id number] ZAIN JOB NUMBER: [id number] CC: Mirtha Qiu Electronic Signatures: Guru Gallagher) (Signed on 13-May-2021 17:02) Authored Unsigned, Draft (SYS GENERATED) (Entered on 13-May-2021 16:00) Entered Last Updated: 13-May-2021 17:02 by Guru Gallagher) Normal [facility] Order Reconciliationon 05-13 Order Reconciliation Page 1 Discharge Reconciliation Document Reconciliation Type: Discharge requested on behalf of Kera Arredondo (Resident) done by Kera Arredondo (DO (Resident)) Discharge - Reconciliation: 13-May-2021 15:19 by: Kera Arredondo (DO (Resident)) Home Medications EnteredHOME MEDICATIONS AT DISCHARGE DateReconciliation Comment/ Additional Information amLODIPine 10 mg oral tablet 1 tab(s) oral once a day 16-Mar-2022 09:55 amLODIPine 10 mg oral tablet 1 tab(s) oral once a day 05-May-2021 09:55 amLODIPine 10 mg oral tablet is continued as amLODIPine 10 mg oral tablet carvedilol 12.5 mg oral tablet 1 tab(s) oral once a day 05-May-2021 09:55 carvedilol 12.5 mg oral tablet 1 tab(s) oral once a day 05-May-2021 09:55 carvedilol 12.5 mg oral tablet is continued as carvedilol 12.5 mg oral tablet furosemide 20 mg oral tablet 1 tab(s) oral once a day 05-May-2021 09:55 furosemide 20 mg oral tablet 1 tab(s) oral once a day 05-May-2021 09:55 furosemide 20 mg oral tablet is continued as furosemide 20 mg oral tablet lisinopril 40 mg oral tablet 1 tab(s) oral once a day 05-May-2021 09:55 lisinopril 40 mg oral tablet 1 tab(s) oral once a day 05-May-2021 09:55 lisinopril 40 mg oral tablet is continued as lisinopril 40 mg oral tablet Vitamin C 100 mg oral tablet 1 tab(s) oral prn 05-May-2021 09:55 Vitamin C 100 mg oral tablet 1 tab(s) oral prn 05-May-2021 09:55 Vitamin C 100 mg oral tablet is continued as Vitamin C 100 mg oral tablet Current OrdersDateHOME MEDICATIONS AT DISCHARGE DateReconciliation Comment/ Additional Information Acetaminophen Tablet (TYLENOL)DOSE = 650 mg Oral Every 4 Hours, PRN Pain - Mild (1-3) (PACU) when able to take OralStop After 1 DosesClinician Notes: Taty-operative order ONLY 13-May-2021 12:32 Acetaminophen is not required HYDROmorphone Injectable (DILAUDID)DOSE = 0.2 mg IntraVenous Push Every 5 Minutes, PRN Pain - Mod (4-6) (PACU) if unable to take oralClinician Notes: Taty-operative order ONLYMax total of 4 mg regardless of dose. 13-May-2021 12:32 HYDROmorphone Injectable is not required HYDROmorphone Injectable (DILAUDID)DOSE = 0.4 mg IntraVenous Push Every 5 Minutes, PRN Pain - Severe (7-10) (PACU)Clinician Notes: Taty-operative order ONLYMax total of 4 mg regardless of dose. 13-May-2021 12:32 HYDROmorphone Injectable is not required Lactated Ringers Infusion IV Bag Volume = 1,000 mL Run at: 50 mL/hr IntraVenous Clinician Notes: Taty-operative order ONLY 13-May-2021 12:32 Lactated Ringers Infusion is not required Ondansetron Injectable (ZOFRAN)DOSE = 4 mg IntraVenous Push Once, PRN PONV, first lineClinician Notes: Taty-operative order ONLY 13-May-2021 12:32 Ondansetron Injectable is not required oxyCODONE Immediate Release Tablet (OXYIR, ROXICODONE)DOSE = 5 mg Oral Every 4 Hours, PRN Pain - Mod (4-6) (PACU) when able to take OralStop After 1 DosesClinician Notes: Taty-operative order ONLY 13-May-2021 12:32 oxyCODONE Immediate Release is not required Promethazine IV Piggy Back in Sodium Chloride 0.9% 50 mL (PHENERGAN)DOSE = 6.25 mg Once, PRN persistent PONV if first line ineffectiveRecommended Infusion Time: 15 minute(s)Clinician Notes: Taty-operative order ONLY 13-May-2021 12:32 Promethazine IV Piggy Back is not required Home Medications Added During Discharge Reconciliation Activity as Tolerated 13-May-2021, Routine, Assistance Level: None, Restrictions: None, Limit your activities and rest today. Additional Patient Instructions Avoid hot and spicy food for 4-5 days. Additional Patient Instructions Do not engage in sports, heavy work or lifting. Call Physician For: excessive bleeding (slow general oozing that completely soaks dressing or fresh bright red bleeding) or bleeding that will not stop. Apply pressure to the area and elevate. Call Physician For: inability to urinate every 8-12 hours and your bladder becomes too full or painful. Call Physician For: persistant nausea and/or vomiting Over 24 hours Call Physician For: signs and sypmtoms of infection Increased redness or swelling at incision site, increased pain/tenderness at surgical site, increased temperature greater than 100 degress, increasing and/or progressive drainage from surgical site, and/or unusual odor from surgical site. Diet Regular Special Instructions: Liquids and light meals today, advance your diet as tolerated. Discharge Discharge Diagnosis< K13.70 Oral lesion Discharge Provider, Guru Gallagher Discharge Disposition : .Home Condition at Discharge: Satisfactory Discharge Communication Instructions for Nursing Only: Remove IV prior to discharge from hospital. Do not remove any midline, if present, without an order from the provider. Discharge Instructions - PHR After your discharge from the hospital, two Summary of Care Documents will be available online in your Personal Health Record (PHR). 1.Consolidated-Clinical Document Arch (more content not included)... Normal [facility] Patient Profile - Preop v3on 05-13-2021 Patient Profile - Preop v3 Patient Profile - Preop: Initial Info: Patient DemographicsName: KRYSTAL CORTES Date: 1955 Address: [place] [address] Primary Phone [phone] How to be AddressedJim Spoken Language PreferredEnglish Stated Reason for Admissiontake a lesion off the bottom of my mouth Primary Contact Name and NumberVicki, Medications Brought to Hospitalno General Health: Patient or Family Member Reaction to Anesthesiano previous reaction Blood Avoidance/Restrictionsnone Previous Transfusion Reactionno Health Mgmt: Symptoms/Conditions Managed at Homecardiovascular Cardiovascular Symptoms/Conditionshyperte nsion Barriers to Managing Healthnone Relationship/Environ: Lives Withspouse Living Arrangementshouse Resource/Environmental Concernsnone Anticipated Transition [facility] Anticipated at Transitionnone Tobacco Use: Tobacco Useno Pre-op Checklist: Procedure Typedirect laryngoscopy with lesion NPOyes ID Band On Patientpatient ID (name) Consent Signedyes Chlorhexadine Bath Givennot applicable Nasal Antiseptic Appliednot applicable Surgical Site Infection Preventionno Pain Scales and Managementno Additional Information: Information Review: Allergies, Home Meds and Significant Events have been Reviewed and Verified with Patient/Familyyes Allergy, Intolerance, Adverse Event: Allergies: No Known Allergies: Active Significant Events: 13-May-2021 dental surgery: Past Surgical History, Active 13-May-2021 ear lesion removal: Past Surgical History, Active 13-May-2021 colonoscopy: Past Surgical History, Active 13-May-2021 COPD: Past Medical History, Active 13-May-2021 HTN: Past Medical History, Active Electronic Signatures: Beth Montgomery (RN) (Signed 13-May-2021 12:46) Authored: Initial Info, General Health, Health Mgmt, Relationship/Environ, Tobacco Use, Pre-op Checklist, Additional Information Last Updated: 13-May-2021 12:46 by Beth Montgomery (JESSICA) Normal [facility] Surgical Pathology Depar tmenton 05-13-2021 [facility] Surgical Pathology Department Name KRYSTAL CORTES Pathologist: FORTINO JOSEPH MD Date of Procedure: 05/13/2021 Date Received: 05/13/2021 Date Reported 05/27/2021 Submitting Physician: GURU GALLAGHER MD Location: [facility] Other External # FINAL DIAGNOSIS RIGHT ANTERIOR FLOOR OF MOUTH, EXCISION --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 SEE NOTE AND CASE SUMMARY REPORT. Note: Deeper levels of slide A7 were reviewed. Case Summary Report ORAL CAVITY AND LIP Procedure: Floor of mouth excision Tumor Site: Floor of mouth Tumor Laterality: Midline, more towards right Tumor Focality: Unifocal Tumor Size (Greatest dimension): 1.7 cm Tumor Depth of Invasion (DOI): 2.5 mm Histologic Type: Keratinizing squamous cell carcinoma Histologic Grade (squamous cell carcinomas only): Moderately differentiated. Specimen Margins: Uninvolved by invasive carcinoma but tumor within 0.1 mm of deep margin Moderate dysplasia present at mid posterior magin; right tip shave margin cannot be evaluated due to extensive cautery Tumor Bed (separately submitted) Margins: N/A Lymphovascular Invasion: Not identified Perineural Invasion: Present Regional Lymph Nodes: N/A Provisional Pathologic Stage (pTNM, AJCC 8th Edition), See Note Below: TNM Descriptors (if applicable): N/A __ m (multiple primary tumors) __ r (recurrent) __ y (post treatment) pT: 1 pN: X Note: Pathologic stage in this report is provisional and based on the pathologic features, radiology findings, and clinical information available to pathology at the time of sign out. Final stage will be assigned at the multidisciplinary Head and Neck Tumor Board. Please see Tumor Board note incorporating complete clinicopathologic information for final staging. Ancillary Studies: Tumor Block: A3 Non Tumor Block: A6 shashikw Electronically Signed Out By FORTINO JOSEPH MD/ESTRELLITA By the signature on this report, the individual or group listed as making the Final Interpretation/Diagnosis certifies that they have reviewed this case. Clinical History: Physician Contact Number: [phone] Fixative (A): Saline Clinical Diagnosis History ORAL CAVITY LESION Specimens Submitted As: A: A) FLOOR OF MOUTH LESION- STITCH ANTERIOR Gross Description: Received fresh, labeled with the patient's name and hospital number and A floor of mouth lesion, stitch=anterior, is a elliptical shaped soft tissue measuring 3.6 x 1.4 x 0.4 cm. A stitch is present, marking anterior. An exophytic papillary lesion is present on the surface of mucosa, measuring 1.7 x 0.7 x 0.3 cm. The lesion is 0.1 cm to the closest anterior mucosal margin. The anterior mucosal margin is inked orange, the posterior mucosal margin inked blue, and the deep margin inked black. The specimen is serially sectioned from left to right, and is entirely submitted in 7 cassettes. MY Summary of Cassettes: Specimen Label Site A 1 left tip, en face 2-6 sequential sections from left to right 7 right tip, en face my/05/14/2021 [facility] Department of Pathology [id number] [place] [address] Normal [facility] Comment on above: Performed By: #### [facility] ####[facility] Surgical Pathology [id number] [place] [id number] CORONAVIRUS 2019, SCREEN ASY MPTOMATICon 05-10-2021 SARS-CoV-2 (COVID-19) RNA REESE+probe Ql (Unsp spec) Not detected Normal Not Detected [facility] Comment on above: Result Comment: . This assay is designed to detect the N, ORF1ab and/or S genes of SARS-CoV-2 via nucleic acid amplification. A Negative (NOT DETECTED) result does not preclude 2019-nCoV infection since the adequacy of sample collection and/or low viral burden may result in presence of viral nucleic acids below the clinical sensitivity of this test method. Negative (NOT DETECTED) result should not be used as the sole basis for treatment or other patient management decisions. Rather negative results should be combined with clinical observations, patient history, and epidemiological information to make patient management decisions. Fact sheet for providers: https://www.fda.gov/media/905430/download Fact sheet for patients: https://www.fda.gov/media/795991/download This test has received FDA Emergency Use Authorization (EUA) and has been verified by [facility] ([facility]). This test is only authorized for the duration of time that circumstances exist to justify the authorization of the emergency use of in vitro diagnostic tests for the detection of SARS-CoV-2 virus and/or diagnosis of COVID-19 infection under section 564(b)(1) of the Act, 21 U.S.C. 360bbb-3(b)(1), unless the authorization is terminated or revoked sooner. [facility] is certified under CLIA-88 as qualified to perform high complexity testing. Testing is performed in the [facility] laboratories located at [address] [place] [address]. Performed By: #### C [facility] #### [place] [address] Lab Specimen Source Nasal, Nasopharyngeal Normal [facility] Comment on above: Performed By: #### [facility] #### [place] [address] Coronavirus 2019 RNA by PCR, Screening Asymptomticon 05-10-2021 Coronavirus 2019 RNA by PCR, Screening Asymptomtic Not detected Normal See Below [facility] Work Phone: Comment on above: SOURCE: Nasal, Nasop haryngealReference Range: Not Detected.This assay is designed to detect the N, ORF1ab and/or S genes of SARS-CoV-2 via nucleic acid amplification. A Negative (NOT DETECTED) result does not preclude 2019-nCoV infection since the adequacy of sample collection and/or low viral burden may result in presence of viral nucleic acids below the clinical sensitivity of this test method. Negative (NOT DETECTED) result should not be used as the sole basis for treatment or other patient management decisions. Rather negative results should be combined with clinical observations, patient history, and epidemiological information to make patient management decisions.Fact sheet for providers: https://www.fda.gov/media/659766/downloadFact sheet for patients: https://www.fda.gov/media/403660/downloadThis test has received FDA Emergency Use Authorization (EUA) and has been verified by [facility] ([facility]). This test is only authorized for the duration of time that circumstances exist to justify the authorization of the emergency use of in vitro diagnostic tests for the detection of SARS-CoV-2 virus and/or diagnosis of COVID-19 infection under section 564(b)(1) of the Act, 21 U.S.C. 360bbb-3(b)(1), unless the authorization is terminated or revoked sooner. [facility] is certified under CLIA-88 as qualified to perform high complexity testing. Testing is performed in the [facility] laboratories located at [address] [place] [address]. Covid 19 Resultson 2 SARS-CoV-2 (COVID-19) RNA REESE+probe Ql (Unsp spec) NEGATIVE COVID-19 Test Coronaviruses are common world-wide and are the cause of many common colds. SARS-COV2 is a new coronavirus that began circulating worldwide in 2019 so we are calling it COVID-19. It has been estimated that four out of five patients with COVID-19 will recover at home without the need for medical attention. Symptoms of COVID-19 may include cough, fever, shortness of breath, loss of taste or smell and other flu-like symptoms including chills, sore muscles, sore throat, and headache. Severe illness is more common in older people and people with other health problems such as high blood pressure, obesity, and immune system problems. If the test is positive, you have COVID-19. You will be contacted by the ordering physicians office and instructed to remain on home isolation, in accordance with CDC guidelines. You may also be contacted by the [facility] to see if any of your close contacts may have been exposed to the virus and need to quarantine. If the test is negative, you likely do not have COVID-19 at this time, but you still may have a different illness that can spread to other people (like Influenza, or the Flu) and could still be at risk for getting COVID-19. We recommend that you stay away from other people to limit the spread of illness until your symptoms are improving and you are fever-free for 24 hours without the use of fever lowering medications such as acetaminophen or ibuprofen. No test is 100% accurate so if you are still concerned you may have COVID-19, talk to your doctor about the need to continue to stay away from others. Medicines Unless your provider told you not to use the following: Acetaminophen (Tylenol and others) is generally safe. Anti-inflammatory medications, such as Ibuprofen (Advil or Motrin) or Naproxen (Aleve) can also be used. Sklg-wsf-dnjopok cough and cold medicines can be used according to the instructions on the package. Some xouf-ouo-iqiiqze medicines also contain acetaminophen. Make sure you are not taking more than your recommended dose. For those not hospitalized, there is no specific treatment available for this illness. Antibiotics do not treat Coronaviruses. Follow-Up Follow up with your doctor by scheduling a virtual visit or consider follow-up at one of our urgent care fever clinics. If you are having difficulty breathing, or are very weak and having difficulty standing, this is a medical emergency. Call 911 or have someone take you to the nearest emergency room immediately. If possible, wear a facemask. Additional guidance from the CDC for patients who tested POSITIVE for COVID-19 How to isolate: Isolate yourself in a specific room at home and limit your contact with others. Use a separate bathroom from other members of the household, when possible. Leave home only to get essential medical care. Do not go to work, school or public areas. Avoid using public transportation, ride-sharing, or taxis. Restrict contact with pets and other animals. If you must care for your pet or be around animals while you are sick, wash your hands before and after your interaction and wear a facemask. Make sure that shared spaces in the home have good airflow, such as by an air conditioner or an opened window, weather permitting. Personal Hygiene Procedures: Wear a face mask when in the same room as other people or pets. If a face mask interferes with your breathing, others should wear a mask when sharing space with you. Frequent hand-washing: wash your hands with soap and water for at least 20 seconds. If soap and water are not available, use alcohol-based hand nuclear medicine medical director. Avoid touching your eyes, nose, and mouth with unwashed hands. Household Hygiene Procedures: Avoid sharing personal household items such as dishes, glassware, cups, eating utensils, towels or bedding with other people or pets in your home. After use, these items should be washed with soap and hot water. Disinfect all high-touch surfaces every day with antibacterial cleaning solutions such as Lysol wipes, bleach, cleansers, etc. High-touch surfaces include tabletops, doorknobs, bathroom fixtures, toilets, phones, keyboards, tablets and bedside tables. Immediately clean any surfaces that may have blood, poop or body fluids on them, using antibacterial cleaning solutions such as Lysol wipes, bleach, cleansers, etc. If clothing or bedding come into contact with blood, poop or body fluids, they should be washed immediately. Follow the directions on the laundry detergent and clothing labels but hot water is recommended when possible. Stopping home isolation precautions: If possible, consult your doctor before stopping home isolation precautions. According to the CDC, you can discontinue home isolation precautions when you have met both of these criteria: Your fever and respiratory symptoms have been gone for 24 cindy (more content not included)... Normal [facility] BASIC METABOLIC PANELon 04-20 Anion gap [Moles/Vol] 14 mmol/L Normal 10 - 20 [facility] Comment on above: Performed By: #### B MP ####[id number] [place] [address] Calcium [Mass/Vol] 9.0 mg/dL Normal 8.6 - 10.6 [facility] Comment on above: Performed By: #### B MP ####[id number] [place] [address] Chloride [Moles/Vol] 99 mmol/L Normal 98 - 107 [facility] Comment on above: Performed By: #### B MP ####[id number] [place] [address] Creatinine [Mass/Vol] 0.81 mg/dL Normal 0.50 - 1.30 [facility] Comment on above: Performed By: #### B MP ####[id number] [place] [address] eGFR MALE >90 Normal >90 [facility] Comment on above: Result Comment: CALC ULATIONS OF ESTIMATED GFR ARE PERFORMED USING THE 2020 CKD-EPI STUDY REFIT EQUATION WITHOUT THE RACE VARIABLE FOR THE IDMS-TRACEABLE CREATININE METHODS. https://jasn.asnjournals.org/content/early/ASN.3174776 988 Performed By: #### B MP ####[id number] [place] [address] Glucose [Mass/Vol] 86 mg/dL Normal 74 - 99 [facility] Comment on above: Performed By: #### B MP ####[id number] [place] [address] HCO3 (Bld) [Moles/Vol] 30 mmol/L Normal 21 - 32 [facility] Comment on above: Performed By: #### B MP ####[id number] [place] [address] Potassium [Moles/Vol] 4.1 mmol/L Normal 3.5 - 5.3 [facility] Comment on above: Performed By: #### B MP ####[id number] [place] [address] Sodium [Moles/Vol] 139 mmol/L Normal 136 - 145 [facility] Comment on above: Performed By: #### B MP ####[id number] [place] [address] Urea nitrogen [Mass/Vol] 9 mg/dL Normal 6 - 23 [facility] Comment on above: Performed By: #### B MP ####[id number] [place] [address] CBCon 05-05-2021 Erythrocyte distribution width (RBC) [Ratio] 12.5 % Normal 11.5 - 14.5 [facility] Comment on above: Performed By: #### C BC ####[id number] [place] [address] Hematocrit (Bld) [Volume fraction] 51.4 % Normal 41.0 - 52.0 [facility] Comment on above: Performed By: #### C BC ####[id number] [place] [address] Hemoglobin (Bld) [Mass/Vol] 17.0 g/dL Normal 13.5 - 17.5 [facility] Comment on above: Performed By: #### C BC ####[id number] [place] [address] MCHC (RBC) [Mass/Vol] 33.1 g/dL Normal 32.0 - 36.0 [facility] Comment on above: Performed By: #### C BC ####[id number] [place] [address] MCV (RBC) [Entitic vol] 102 fL High 80 - 100 [facility] Comment on above: Performed By: #### C BC ####[id number] [place] [address] NUCLEATED RBC 0.0 /100 WBC Normal 0.0-0.0 [facility] Comment on above: Performed By: #### C BC ####[id number] [place] [address] Platelets (Bld) [#/Vol] 247 10*3/uL Normal 150 - 450 [facility] Comment on above: Performed By: #### C BC ####[id number] [place] [address] RBC 5.04 x10E12/L Normal 4.50 - 5.90 [facility] Comment on above: Performed By: #### C BC ####[id number] [place] [address] WBC (Bld) [#/Vol] 7.9 10*3/uL Normal 4.4 - 11.3 [facility] Comment on above: Performed By: #### C BC ####[id number] [place] [address] Electrocardiogram 12 Leadon 05-05-2021 Electrocardiogram 12 Lead Ventricular Rate 52 Atrial Rate 52 P-R Interval 138 QRS Duration 84 Q-T Interval 454 QTC Calculation(Bazett) 422 P Dallas 73 R Dallas -87 T Dallas 47 QRS Count 8 Q Onset 214 P Onset 145 P Offset 203 T Offset 441 QTC Fredericia 432 Diagnosis Class Abnormal Diagnosis Sinus bradycardia Left axis deviation Abnormal ECG No previous ECGs available Confirmed by SERGEI FOSS MD ([id number]) on 05/06/2021 11:41:19 AM Normal [facility] Laboratory - Blood bankon ABO group Nom (Bld) A [facility]-Ot olaryng oly-[facility] Work Phone: Blood group antibody screen Ql Negative [facility] Work Phone: Rh immune globulin screen (Bld) [Interp] Positive [facility] Work Phone: Laboratory - Chemistry and C hemistry - challengeon 05-05-2021 Anion gap [Moles/Vol] 14 mmol/L 10 - 20 [facility] Work Phone: Calcium [Mass/Vol] 9.0 mg/dL 8.6 - 10.6 [facility] [facility] Work Phone: Chloride [Moles/Vol] 99 mmol/L 98 - 107 [facility]O tolaryng oly-[facility] Work Phone: CO2 [Moles/Vol] 30 mmol/L 21 - 32 [facility]-Otolar yng o[facility] Work Phone: Creatinine [Mass/Vol] 0.81 mg/dL See Below [facility] Work Phone: Comment on above: Reference Range: 0.5 0 - 1.30 Glucose [Mass/Vol] 86 mg/dL 74 - 99 [facility] l[facility] Work Phone: Potassium [Moles/Vol] 4.1 mmol/L 3.5 - 5.3 [facility] Work Phone: Sodium [Moles/Vol] 139 mmol/L 136 - 145 [facility] laryng Kayy lechuga Work Phone: Urea nitrogen [Mass/Vol] 9 mg/dL 6 - 23 [facility] Work Phone: Laboratory - Hematology and Cell countson 05-05-2021 Erythrocyte distribution width (RBC) [Ratio] 12.5 % See Below -Otolaryng Kayy lechuga Work Phone: Comment on above: Reference Range: 11. 5 - 14.5 Hematocrit (Bld) [Volume fraction] 51.4 % See Below -Otfidelinayng Kay[facility] le[facility]uga Work Phone: Comment on above: Reference Range: 41. 0 - 52.0 Hemoglobin (Bld) [Mass/Vol] 17.0 g/dL See Below -Otbarrettg Kayy lechuga Work Phone: Comment on above: Reference Range: 13. 5 - 17.5 MCHC (RBC) [Mass/Vol] 33.1 g/dL See Below -Otolaryng Kayy lechuga Work Phone: Comment on above: Reference Range: 32. 0 - 36.0 MCV (RBC) [Entitic vol] 102 fL above high threshold 80 - 100 [facility] Kayy lechuga Work Phone: Platelets (Bld) [#/Vol] 247 10*3/uL 150 - 450 [facility] Kay[facility] le[facility]uga Work Phone: RBC (Bld) [#/Vol] 5.04 {x10E12/L} See Below -Otolaryng Kayy lechuga Work Phone: Comment on above: Reference Range: 4.5 0 - 5.90 WBC (Bld) [#/Vol] 7.9 10*3/uL 4.4 - 11.3 [facility] [facility] Kayy lechuga Work Phone: No Panel Informationon 05-05 >90 >90 [facility] Work Phone: Comment on above: CALCULATIONS OF ROMAN MATED GFR ARE PERFORMED USING THE 2020 CKD-EPI STUDY REFIT EQUATION WITHOUT THE RACE VARIABLE FOR THE IDMS-TRACEABLE CREATININE METHODS.https://jasn.asnjournals.org/content//ASN .9313634431 0.0 {/100_WBC} 0.0-0.0 [facility]ary ng [facility] Work Phone: [email or web address]?R etrieveTestByDateTime?Netta fqyGY=[id number]&Date=&Time=09%3a04%3a12%3a 00&TestType=ECG&Site=1&Out putType=PDF&Ext=PDF [facility] Work Phone: Sinus bradycardia [facility]tol aryng ology-[facility] Work Phone: Abnormal [facility] Work Phone: [phone] [facility] Work Phone: [phone] [facility] Work Phone: [phone] [facility] Work Phone: 145 1 [facility] Work Phone: [phone] [facility] Work Phone: 8 1 [facility] Work Phone: 47 1 [facility] Work Phone: -87 1 [facility] Work Phone: 73 1 [facility] Work Phone: [phone] [facility] Work Phone: [phone] [facility] Work Phone: [phone] [facility] Work Phone: [phone] [facility] Work Phone: [phone] [facility] Work Phone: [phone] TYPE + SCREENon 05-05-2021 ABO TYPE A Normal [facility] Comment on above: Performed By: #### T +S #### [facility] [address] [place] [address] RH TYPE Positive Normal [facility] Comment on above: Performed By: #### T +S #### [facility] [address] 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 It is definitely suspicious clinically. After discussion it was agreed to go ahead with surgical excision. He may need a repair of the salivary ducts around the area. We discussed about getting a scan but agreed at this point to wait until the final pathology. He wishes to proceed. I will see him at the time of the surgery. 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 It is definitely suspicious clinically. After discussion it was agreed to go ahead with surgical excision. He may need a repair of the salivary ducts around the area. We discussed about getting a scan but agreed at this point to wait until the final pathology. He wishes to proceed. I will see him at the time of the surgery. Chief Complaint Consultation for the management of an oral cavity lesion. History of Present IllnessThis patient is seen at the request of a local colleague. He has had a lesion in the floor of his mouth for quite some time according to what he describes. At the same time he noticed recently that this was larger. 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 He is here today for further management. He denies any symptoms related to the presence of this mass. Review of Systems The past medical history and review the system is limited to high blood pressure. His medications are documented in the chart. He has no known allergies to medicine. He has been smoking about a pack of cigarettes a day for more than 40 years. He also drinks 5-6 beers on a daily basis. He is here today with his . He is now retired. Past Medical History History of hypertension (V12.59) (Z86.79) Surgical History History of Ear surgery Family History Family history of Medical history unknown Family history of Medical history unknown Social History Drinks beer (V49.89) (Z78.9) Former smoker (V15.82) (Z87.891) Lives with Retired from employment Allergies No Known Drug Allergies Recorded By: Nivia Banda; 04/27/2021 8:50:22 AM No Known Environmental Allergies Recorded By: Nivia Banda; 04/27/2021 8:50:22 AM No Known Food Allergies Recorded By: Nivia Banda; 04/27/2021 8:50:22 AM Current Meds Medication NameInstruction amLODIPine Besylate 10 MG Oral Tablet Carvedilol 12.5 MG Oral Tablet Lisinopril 40 MG Oral Tablet Vitals Vital Signs Recorded: 27Apr2021 08:47AM Zdoqqybeghg85.4 F Height5 ft 11 in Zxtoig372 lb BMI Aspwonbvej72.01 kg/m2 BSA Calculated1.94 Tobacco Useb) No Fall Screeninga) No falls within the last year Pain Scale0/10 Physical Exam The patient is alert and oriented. Examination of the external ears, ear canals, and eardrums, is within normal limits. Examination of the anterior and external nose is negative. Examination of the oral cavity and oropharynx shows this exophytic lesion involving the right floor of the mouth that measures approximately a centimeter by a little less than a centimeter. It seems to be fairly superficial. He is edentulous. There is good mobility of the tongue and palate. There is good mandibular excursion. Palpation of the parotid, neck, and thyroid field fails to show any worrisome masses or adenopathies. A flexible laryngoscopy was carried out. Under topical Xylocaine and Davie-Synephrine the scope was introduced through the nostril. The nasopharynx, base of tongue, hypopharynx, and larynx are visualized. The vocal cords are normally mobile. There is no pooling of secretions in the piriform sinuses. There is no evidence of any mucosal lesions. 'Scores and Scales' Signatures Electronically signed by : Guru Gallagher MD; Apr 27 2021 9:12AM EST (Author) Normal [facility] Tobacco Screening.on 022 Fall risk assessment a) No falls within the last year [facility] Work Phone: Tobacco use status [facility] b) No [facility] Work Phone: Vital Signs Date Time Vital Sign Value Performing Clinician Facility 05-07-2024 07:58-0400 Body mass index (BMI) [Ratio] 22.98 kg/m2 Sandra Cruz APRN.CNP Work Phone: [facility] 05-07-2024 07:58-0400 Body temperature 98.01 [degF] Sandra Cruz APRN.EKG MONITOR Work Phone: [facility] 05-07-2024 07:58-0400 Body weight 71.6 kg Sandra Cruz APRN.CNP Work Phone: [facility] 05-07-2024 07:58-0400 Diastolic blood pressure 74 mm[Hg] Sandra Cruz APRN.EKG MONITOR Work Phone: [facility] 05-07-2024 07:58-0400 Heart rate 53 /min Sandra Cruz APRN.EKG MONITOR Work Phone: [facility] 05-07-2024 07:58-0400 SaO2% (BldA) [Mass fraction] 96 % Sandra Cruz APRN.CNP Work Phone: [facility] 05-07-2024 07:58-0400 Systolic blood pressure 127 mm[Hg] Fincastle Cruz BEER RUNNER.EKG MONITOR Work Phone: [facility] 11-01-2023 08:09-0400 Body mass index (BMI) [Ratio] 22.82 kg/m2 Fincastle Cruz BEER RUNNER.EKG MONITOR Work Phone: [facility] 11-01-2023 08:09-0400 Body temperature 97.39 [degF] Fincastle Cruz BEER RUNNER.EKG MONITOR Work Phone: [facility] 11-01-2023 08:09-0400 Body weight 71.1 kg Sandra Cruz BEER RUNNER.EKG MONITOR Work Phone: [facility] 11-01-2023 08:09-0400 Diastolic blood pressure 81 mm[Hg] Fincastle Cruz BEER RUNNER.EKG MONITOR Work Phone: [facility] 11-01-2023 08:09-0400 Heart rate 43 /min Sandra Thompsonenter BEER RUNNER.EKG MONITOR Work Phone: [facility] 11-01-2023 08:09-0400 SaO2% (BldA) [Mass fraction] 97 % Sandra Cruz BEER RUNNER.EKG MONITOR Work Phone: [facility] 11-01-2023 08:09-0400 Systolic blood pressure 170 mm[Hg] Sandra Cruz BEER RUNNER.EKG MONITOR Work Phone: [facility] 04-27-2023 08:06-0500 Body height 176.5 cm Kirit Angelai DO Work Phone: [facility] 04-27-2023 08:06-0500 Body temperature 97.81 [degF] Kirit Angelai DO Work Phone: [facility] 04-27-2023 08:06-0500 Body weight 73.26 kg Kirit Rosas DO Work Phone: [facility] 04-27-2023 08:06-0500 Diastolic blood pressure 75 mm[Hg] Kirit Angelai DO Work Phone: [facility] 04-27-2023 08:06-0500 Heart rate 51 /min Kirit Masci DO Work Phone: [facility] 04-27-2023 08:06-0500 SaO2% (BldA) [Mass fraction] 97 % Kirit Masci DO Work Phone: [facility] 04-27-2023 08:06-0500 Systolic blood pressure 157 mm[Hg] Kirit Masci DO Work Phone: [facility] 10-21-2022 10:27-0400 Body height 177 cm Kirit Masci DO Work Phone: [facility] 10-21-2022 10:27-0400 Body temperature 97.7 [degF] Kirit Masci DO Work Phone: [facility] 10-21-2022 10:27-0400 Body weight 72.35 kg Kirit Masci DO Work Phone: [facility] 10-21-2022 10:27-0400 Diastolic blood pressure 81 mm[Hg] Kirit Masci DO Work Phone: [facility] 10-21-2022 10:27-0400 Heart rate 47 /min Kirit Masci DO Work Phone: [facility] 10-21-2022 10:27-0400 SaO2% (BldA) [Mass fraction] 98 % Kirit Masci DO Work Phone: [facility] 10-21-2022 10:27-0400 Systolic blood pressure 164 mm[Hg] Kirit Masci DO Work Phone: [facility] 06-24-2022 08:48-0400 Body temperature 97.2 [degF] Kirit Masci DO Work Phone: [facility] 06-24-2022 08:48-0400 Body weight 72.58 kg Kirit Masci DO Work Phone: [facility] 06-24-2022 08:48-0400 Diastolic blood pressure 73 mm[Hg] Kirit Masci DO Work Phone: [facility] 06-24-2022 08:48-0400 Heart rate 50 /min Kirit Masci DO Work Phone: [facility] 06-24-2022 08:48-0400 SaO2% (BldA) [Mass fraction] 97 % Kirit Julio Césari DO Work Phone: [facility] 06-24-2022 08:48-0400 Systolic blood pressure 130 mm[Hg] Kirit Masci DO Work Phone: [facility] 05-05-2022 08:54-0400 Body temperature 97.5 [degF] Kirit Masci DO Work Phone: [facility] 05-05-2022 08:54-0400 Body weight 71.67 kg Kirit Masci DO Work Phone: [facility] 05-05-2022 08:54-0400 Diastolic blood pressure 64 mm[Hg] Kirit Masci DO Work Phone: [facility] 05-05-2022 08:54-0400 Heart rate 53 /min Kirit Masci DO Work Phone: [facility] 05-05-2022 08:54-0400 Systolic blood pressure 119 mm[Hg] Kirit Masci DO Work Phone: [facility] 04-12-2022 09:35-0500 Body temperature 97.7 [degF] Shannon Dinh MD, MD Work Phone: [facility] 04-12-2022 09:35-0500 Body weight 73.94 kg Shannon Dinh MD, MD Work Phone: [facility] 04-12-2022 09:35-0500 Diastolic blood pressure 62 mm[Hg] Shannon Dinh MD, MD Work Phone: [facility] 04-12-2022 09:35-0500 Heart rate 67 /min Shannon Dinh MD, MD Work Phone: [facility] 04-12-2022 09:35-0500 Respiratory rate 15 /min Shannon Dinh MD, MD Work Phone: [facility] 04-12-2022 09:35-0500 SaO2% (BldA) [Mass fraction] 100 % Shannon Dinh MD, MD Work Phone: [facility] 04-12-2022 09:35-0500 Systolic blood pressure 110 mm[Hg] Shannon Dinh MD, MD Work Phone: [facility] 04-11-2022 09:49-0500 Body temperature 97.5 [degF] Treatment Wstr Work Phone: [facility] 04-11-2022 09:49-0500 Body weight 72.12 kg Treatment Wstr Work Phone: [facility] 04-11-2022 09:49-0500 Diastolic blood pressure 62 mm[Hg] Treatment Wstr Work Phone: [facility] 04-11-2022 09:49-0500 Heart rate 62 /min Treatment Wstr Work Phone: [facility] 04-11-2022 09:49-0500 SaO2% (BldA) [Mass fraction] 98 % Treatment Wstr Work Phone: [facility] 04-11-2022 09:49-0500 Systolic blood pressure 116 mm[Hg] Treatment Wstr Work Phone: [facility] 04-06-2022 09:21-0500 Body temperature 97.7 [degF] Fincastle Cruz BEER RUNNER.EKG MONITOR Work Phone: [facility] 04-06-2022 09:21-0500 Body weight 74.16 kg Sandra Cruz BEER RUNNER.EKG MONITOR Work Phone: [facility] 04-06-2022 09:21-0500 Diastolic blood pressure 61 mm[Hg] Sandra Cruz BEER RUNNER.EKG MONITOR Work Phone: [facility] 04-06-2022 09:21-0500 Heart rate 59 /min Sandra Cruz BEER RUNNER.EKG MONITOR Work Phone: [facility] 04-06-2022 09:21-0500 Systolic blood pressure 111 mm[Hg] Sandra Cruz BEER RUNNER.EKG MONITOR Work Phone: [facility] 04-05-2022 09:26-0500 Body temperature 98.91 [degF] Shannon Dinh MD, MD Work Phone: [facility] 04-05-2022 09:26-0500 Body weight 73.94 kg Shannon Dinh MD, MD Work Phone: [facility] 04-05-2022 09:26-0500 Diastolic blood pressure 59 mm[Hg] Shannon Dinh MD, MD Work Phone: [facility] 04-05-2022 09:26-0500 Heart rate 76 /min Shannon Dinh MD, MD Work Phone: [facility] 04-05-2022 09:26-0500 SaO2% (BldA) [Mass fraction] 96 % Shannon Dinh MD, MD Work Phone: [facility] 04-05-2022 09:26-0500 Systolic blood pressure 118 mm[Hg] Shannon Dinh MD, MD Work Phone: [facility] 04-04-2022 09:18-0500 Body temperature 97.7 [degF] Treatment Wstr Work Phone: [facility] 04-04-2022 09:18-0500 Body weight 74.39 kg Treatment Wstr Work Phone: [facility] 04-04-2022 09:18-0500 Diastolic blood pressure 72 mm[Hg] Treatment Wstr Work Phone: [facility] 04-04-2022 09:18-0500 Heart rate 61 /min Treatment Wstr Work Phone: [facility] 04-04-2022 09:18-0500 Systolic blood pressure 112 mm[Hg] Treatment Wstr Work Phone: [facility] 03-29-2022 08:45-0500 Body temperature 98.4 [degF] Shannon Dinh MD, MD Work Phone: [facility] 03-29-2022 08:45-0500 Body weight 73.12 kg Shannon Dinh MD, MD Work Phone: [facility] 03-29-2022 08:45-0500 Diastolic blood pressure 55 mm[Hg] Shannon Dinh MD, MD Work Phone: [facility] 03-29-2022 08:45-0500 Heart rate 69 /min Shannon Dinh MD, MD Work Phone: [facility] 03-29-2022 08:45-0500 Respiratory rate 15 /min Shannon Dinh MD, MD Work Phone: [facility] 03-29-2022 08:45-0500 SaO2% (BldA) [Mass fraction] 98 % Shannon Dinh MD, MD Work Phone: [facility] 03-29-2022 08:45-0500 Systolic blood pressure 104 mm[Hg] Shannon Dinh MD, MD Work Phone: [facility] 03-28-2022 10:00-0500 Body temperature 97.11 [degF] Treatment Wstr Work Phone: [facility] 03-28-2022 10:00-0500 Body weight 73.94 kg Treatment Wstr Work Phone: [facility] 03-28-2022 10:00-0500 Diastolic blood pressure 61 mm[Hg] Treatment Wstr Work Phone: [facility] 03-28-2022 10:00-0500 Respiratory rate 54 /min Treatment Wstr Work Phone: [facility] 03-28-2022 10:00-0500 Systolic blood pressure 126 mm[Hg] Treatment Wstr Work Phone: [facility] 03-22-2022 09:22-0500 Body temperature 98.6 [degF] Shannon Dinh MD, MD Work Phone: [facility] 03-22-2022 09:22-0500 Body weight 73.48 kg Shannon Dinh MD, MD Work Phone: [facility] 03-22-2022 09:22-0500 Diastolic blood pressure 75 mm[Hg] Shannon Dinh MD, MD Work Phone: [facility] 03-22-2022 09:22-0500 Heart rate 75 /min Shannon Dinh MD, MD Work Phone: [facility] 03-22-2022 09:22-0500 Respiratory rate 16 /min Shannon Dinh MD, MD Work Phone: [facility] 03-22-2022 09:22-0500 SaO2% (BldA) [Mass fraction] 99 % Shannon Dinh MD, MD Work Phone: [facility] 03-22-2022 09:22-0500 Systolic blood pressure 139 mm[Hg] Shannon Dinh MD, MD Work Phone: [facility] 03-21-2022 09:00-0500 Body temperature 97 [degF] Treatment Wstr Work Phone: [facility] 03-21-2022 09:00-0500 Body weight 73.48 kg Treatment Wstr Work Phone: [facility] 03-21-2022 09:00-0500 Diastolic blood pressure 57 mm[Hg] Treatment Wstr Work Phone: [facility] 03-21-2022 09:00-0500 Heart rate 61 /min Treatment Wstr Work Phone: [facility] 03-21-2022 09:00-0500 Respiratory rate 18 /min Treatment Wstr Work Phone: [facility] 03-21-2022 09:00-0500 SaO2% (BldA) [Mass fraction] 97 % Treatment Wstr Work Phone: [facility] 03-21-2022 09:00-0500 Systolic blood pressure 115 mm[Hg] Treatment Wstr Work Phone: [facility] 03-15-2022 09:26-0500 Body temperature 98.6 [degF] Shannon Dinh MD, MD Work Phone: [facility] 03-15-2022 09:26-0500 Body weight 75.3 kg Shannon Dinh MD, MD Work Phone: [facility] 03-15-2022 09:26-0500 Diastolic blood pressure 67 mm[Hg] Shannon Dinh MD, MD Work Phone: [facility] 03-15-2022 09:26-0500 Heart rate 79 /min Shannon Dinh MD, MD Work Phone: [facility] 03-15-2022 09:26-0500 Respiratory rate 16 /min Shannon Dinh MD, MD Work Phone: [facility] 03-15-2022 09:26-0500 SaO2% (BldA) [Mass fraction] 95 % Shannon Dinh MD, MD Work Phone: [facility] 03-15-2022 09:26-0500 Systolic blood pressure 141 mm[Hg] Shannon Dinh MD, MD Work Phone: [facility] 03-14-2022 08:25-0500 Body temperature 98.01 [degF] Fincastle Cruz BEER RUNNER.EKG MONITOR Work Phone: [facility] 03-14-2022 08:25-0500 Body weight 75.3 kg Fincastle Cruz BEER RUNNER.EKG MONITOR Work Phone: [facility] 03-14-2022 08:25-0500 Diastolic blood pressure 71 mm[Hg] Fincastle Cruz BEER RUNNER.EKG MONITOR Work Phone: [facility] 03-14-2022 08:25-0500 Heart rate 50 /min Fincastle Cruz BEER RUNNER.EKG MONITOR Work Phone: [facility] 03-14-2022 08:25-0500 Systolic blood pressure 129 mm[Hg] Fincastle Cruz BEER RUNNER.EKG MONITOR Work Phone: [facility] 03-08-2022 09:36-0500 Body temperature 98.8 [degF] Shannon Dinh MD, MD Work Phone: [facility] 03-08-2022 09:36-0500 Body weight 74.16 kg Shannon Dinh MD, MD Work Phone: [facility] 03-08-2022 09:36-0500 Diastolic blood pressure 76 mm[Hg] Shannon Dinh MD, MD Work Phone: [facility] 03-08-2022 09:36-0500 Heart rate 72 /min Shannon Dinh MD, MD Work Phone: [facility] 03-08-2022 09:36-0500 SaO2% (BldA) [Mass fraction] 98 % Shannon Dinh MD, MD Work Phone: [facility] 03-08-2022 09:36-0500 Systolic blood pressure 146 mm[Hg] Shannon Dinh MD, MD Work Phone: [facility] 03-07-2022 08:45-0500 Body temperature 97.7 [degF] Treatment Wstr Work Phone: [facility] 03-07-2022 08:45-0500 Body weight 74.16 kg Treatment Wstr Work Phone: [facility] 03-07-2022 08:45-0500 Diastolic blood pressure 82 mm[Hg] Treatment Wstr Work Phone: [facility] 03-07-2022 08:45-0500 Heart rate 51 /min Treatment Wstr Work Phone: [facility] 03-07-2022 08:45-0500 Systolic blood pressure 173 mm[Hg] Treatment Wstr Work Phone: [facility] 02-24-2022 09:59-0500 Body temperature 98.2 [degF] Kirit Masci DO Work Phone: [facility] 02-24-2022 09:59-0500 Body weight 75.07 kg Kirit Masci DO Work Phone: [facility] 02-24-2022 09:59-0500 Diastolic blood pressure 72 mm[Hg] Kirit Masci DO Work Phone: [facility] 02-24-2022 09:59-0500 Heart rate 54 /min Kirit Masci DO Work Phone: [facility] 02-24-2022 09:59-0500 SaO2% (BldA) [Mass fraction] 97 % Kirit Masci DO Work Phone: [facility] 02-24-2022 09:59-0500 Systolic blood pressure 144 mm[Hg] Kirit Masci DO Work Phone: [facility] 01-31-2022 13:35-0500 Diastolic blood pressure 72 mm[Hg] Shannon Dinh MD, MD Work Phone: [facility] 01-31-2022 13:35-0500 Heart rate 59 /min Shannon Dinh MD, MD Work Phone: [facility] 01-31-2022 13:35-0500 Systolic blood pressure 148 mm[Hg] Shannon Dinh MD, MD Work Phone: [facility] 01-31-2022 13:33-0500 Body temperature 98.01 [degF] Shannon Dinh MD, MD Work Phone: [facility] 01-31-2022 13:33-0500 Body weight 75.75 kg Shannon Dinh MD, MD Work Phone: [facility] 01-31-2022 13:33-0500 Respiratory rate 16 /min Shannon Dinh MD, MD Work Phone: [facility] 01-31-2022 13:33-0500 SaO2% (BldA) [Mass fraction] 96 % Shannon Dinh MD, MD Work Phone: [facility] 01-26-2022 11:21-0500 Body temperature 97.59 [degF] Kirit Masci DO Work Phone: [facility] 01-26-2022 11:21-0500 Body weight 74.84 kg Kirit Masci DO Work Phone: [facility] 01-26-2022 11:21-0500 Diastolic blood pressure 77 mm[Hg] Kirit Masci DO Work Phone: [facility] 01-26-2022 11:21-0500 Heart rate 52 /min Kirit Masci DO Work Phone: [facility] 01-26-2022 11:21-0500 Systolic blood pressure 172 mm[Hg] Kirit Rosas DO Work Phone: [facility] 01-18-2022 09:25-0500 Diastolic blood pressure 63 mm[Hg] Bebo Braga MD Work Phone: [facility] 01-18-2022 09:25-0500 Heart rate 52 /min Bbeo Braga MD Work Phone: [facility] 01-18-2022 09:25-0500 Respiratory rate 18 /min Bebo Braga MD Work Phone: [facility] 01-18-2022 09:25-0500 SaO2% (BldA) [Mass fraction] 95 % Bebo Braga MD Work Phone: [facility] 01-18-2022 09:25-0500 Systolic blood pressure 126 mm[Hg] Bebo Braga MD Work Phone: [facility] 01-18-2022 08:52-0500 Body temperature 96.8 [degF] Bebo Braga MD Work Phone: [facility] 01-18-2022 08:05-0500 Body height 180.3 cm Bebo Braga MD Work Phone: [facility] 01-18-2022 08:05-0500 Body weight 74.39 kg Bebo Braga MD Work Phone: [facility] 04-27-2021 08:47-0500 Body height 180.34 cm iMrtha Qiu Work Phone: [facility] [place] [facility] Work Phone: 04-27-2021 08:47-0500 Body mass index (BMI) [Ratio] 23.01 kg/m2 Mirtha Qiu Work Phone: [facility] Work Phone: 04-27-2021 08:47-0500 Body surface area Derived from formula 1.94 m2 Mirtha Qiu Work Phone: [facility] Work Phone: 04-27-2021 08:47-0500 Body temperature 97.4 [degF] Mirtha Headleylliff Work Phone: [facility] Work Phone: 04-27-2021 08:47-0500 Body weight 74.84 kg Mirtha Headleyllalecia Work Phone: [facility] Work Phone: 04-27-2021 08:47-0500 0 1 Mirtha Gino Lazarus Work Phone: [facility] Work Phone: Comment on above: [employer] Encounters Encounter Date Encounter Type Care Provider Facility Start: 12-10-2024 ambulatory [facility] 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 Mirtha Qiu MD Work Phone: [facility] Work Phone: Start: 07-26-2024 End: 07-26-[address] 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); Secondary malignant neoplasm of chest wall (HCC) Start: 05-07-2024 End: 05-07-2024 Patient encounter procedure Sandra Cruz BEER RUNNER.EKG MONITOR Work Phone: Hematology/Oncology Start: 04-30-2024 End: 04-30-2024 [facility] Start: 04-30-2024 End: 04-30-2024 Subsequent hospital visit by physician Elisa [facility] (I-Stat) Work Phone: Cat Scan Comment on above: Cancer of cervical e sophagus (HCC) [C15.3] Start: 04-30-2024 End: 04-30-2024 [facility] Start: 12-11-2023 End: 12-11-2023 ambulatory Negar MARTIN Facility:[facility] Start: 11-01-2023 End: 11-01-2023 ambulatory Sandra Cruz BEER RUNNER.EKG MONITOR Work Phone: Hematology/Oncology Comment on above: 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); 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); Secondary malignant neoplasm of chest wall (HCC) Start: 11-01-2023 End: 11-01-2023 Patient encounter procedure Sandra Cruz BEER RUNNER.EKG MONITOR Work Phone: Hematology/Oncology Start: 10-24-2023 End: 10-24-2023 Subsequent hospital visit by physician Elisa [facility] (I-Stat) Work Phone: Cat Scan Comment on above: Cancer of cervical e sophagus (HCC) [C15.3] Start: 04-27-2023 End: 04-27-2023 ambulatory Kirit Rosas DO Work Phone: Hematology/Oncology Comment on above: 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); 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 Mirtha Qiu Work Phone: [facility] Start: 01-23-2023 End: 01-23-[address] Mirtha Qiu Work Phone: [facility] Work Phone: Start: 01-23-2023 End: 01-23-[address] 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) Start: 10-21-2022 End: 10-21-2022 Patient encounter procedure Kirit Rosas DO Work Phone: [facility] Start: 10-17-2022 End: 10-17-2022 Subsequent hospital visit by physician [facility] (I-Stat) Work Phone: Cat Scan Comment on above: 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] Start: 10-14-2022 Orders Only Kirit Severino Work Phone: Hematology/Oncology Comment on above: 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) Start: 06-24-2022 End: 06-24-2022 ambulatory Kirit Rosas DO Work Phone: Hematology/Oncology Comment on above: 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); 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) Start: 06-24-2022 End: 06-24-2022 Patient encounter procedure Kirit Rosas DO Work Phone: [facility] Start: 06-21-2022 ambulatory MIRTHA Grij[facility] Start: 06-21-2022 End: 06-21-2022 Subsequent hospital visit by physician [facility] Injection [facility] Work Phone: [facility] PET CT Comment on above: 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] Start: 05-16-2022 Telephone encounter Kirit smith DO Work Phone: Hematology/Oncology Comment on above: Question Start: 05-10-2022 End: 05-10-2022 Patient encounter procedure Max Ortiz MD Work Phone: Otolaryngology Comment on above: 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) Start: 05-05-2022 End: 05-05-2022 ambulatory Kirit Rosas DO Work Phone: Hematology/Oncology Comment on above: 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) Start: 05-05-2022 End: 05-05-2022 Patient encounter procedure Kirit Rosas DO Work Phone: [facility] Start: 04-21-2022 Telephone encounter Kirit smith DO Work Phone: Hematology/Oncology Comment on above: Medication Problem Start: 04-13-2022 ambulatory Shannon Dinh MD Work Phone: Radiation Oncology Comment on above: Patient Education Start: 04-13-2022 Patient encounter procedure [facility] MD, MD [facility] Start: 04-13-2022 Radiation Oncology Note Shannon Dinh MD Work Phone: Radiation Oncology Comment on above: Completion Note Start: 04-12-2022 End: 04-12-2022 Nutrition therapy Brooklyn Benzonia DEBO Work Phone: Nutrition Therapy Comment on above: Nutrition Assessment Start: 04-12-2022 End: 04-12-2022 Patient encounter procedure Shannon Dinh MD Work Phone: Radiation Oncology Comment on above: 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) Start: 04-12-2022 End: 04-12-2022 ambulatory Treatment Rm 1 Joao [facility] Work Phone: Hematology/Oncology Comment on above: 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) Start: 04-11-2022 Telephone encounter Kirit smith DO Work Phone: Hematology/Oncology Comment on above: Results (Low potassi um) Start: 04-11-2022 End: 04-11-2022 ambulatory Treatment Rm 7 Joao [facility] Work Phone: Hematology/Oncology Comment on above: 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) Start: 04-06-2022 End: 04-06-2022 ambulatory Sandra Cruz BEER RUNNER.EKG MONITOR Work Phone: Hematology/Oncology Comment on above: 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) Start: 04-06-2022 End: 04-06-2022 Patient encounter procedure Sandra Cruz BEER RUNNER.EKG MONITOR Work Phone: [facility] Start: 04-05-2022 End: 04-05-2022 Patient encounter procedure Shannon Dinh MD Work Phone: Radiation Oncology Comment on above: 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) Start: 04-04-2022 End: 04-04-2022 ambulatory Treatment Rm 7 Joao [facility] Work Phone: Hematology/Oncology Comment on above: 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) Start: 03-29-2022 End: 03-29-2022 Patient encounter procedure Shannon Dinh MD Work Phone: Radiation Oncology Comment on above: 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) Start: 03-28-2022 End: 03-28-2022 ambulatory Treatment Rm 11 Joao [facility] Work Phone: Hematology/Oncology Comment on above: 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) Start: 03-25-2022 Orders Only Sanrda rios APRN.EKG MONITOR Work Phone: Hematology/Oncology Comment on above: 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) Start: 03-22-2022 End: 03-22-[address] Work Phone: [facility] Start: 03-22-2022 End: 03-22-2022 Nutrition therapy Brooklyn [address] RD Work Phone: Nutrition Therapy Comment on above: Nutrition Assessment Start: 03-22-2022 End: 03-22-2022 Patient encounter procedure Shannon Dinh MD Work Phone: Radiation Oncology Comment on above: 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) Start: 03-21-2022 End: 03-21-2022 ambulatory Treatment Rm 8 [facility] Work Phone: Hematology/Oncology Comment on above: 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) Start: 03-18-2022 Orders Only Kirit Severino Work Phone: Hematology/Oncology Comment on above: 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); 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) Start: 03-16-2022 Telephone encounter Kacie Stewart RN He matology/Oncology Comment on above: Source Inspector - O ther (Toxicity Check ) Start: 03-15-2022 End: 03-15-2022 Patient encounter procedure Shannon Dinh MD Work Phone: Radiation Oncology Comment on above: 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) Start: 03-14-2022 End: 03-14-2022 ambulatory Treatment Rm 8 [facility] Work Phone: Hematology/Oncology Comment on above: 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) Start: 03-14-2022 End: 03-14-2022 Patient encounter procedure Sandra Thompsonluis fernando STEENEKG MONITOR Work Phone: [facility] Start: 03-11-2022 Orders Only Kirit Severino Work Phone: Hematology/Oncology Comment on above: 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); 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) Start: 03-08-2022 Chart abstracting Max bianchi MD Work Phone: Otolaryngology Start: 03-08-2022 End: 03-08-[address] Work Phone: [facility] Start: 03-08-2022 End: 03-08-2022 Nutrition therapy Brooklyn [address] RD Work Phone: Nutrition Therapy Comment on above: Nutrition Assessment Start: 03-08-2022 End: 03-08-2022 Patient encounter procedure Shannon Dinh MD Work Phone: Radiation Oncology Comment on above: 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) Start: 03-07-2022 End: 03-07-2022 ambulatory Treatment Rm 6 Joao [facility] Work Phone: Hematology/Oncology Comment on above: 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) Start: 03-04-2022 Orders Only Kirit Severino Work Phone: Hematology/Oncology Comment on above: 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); 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) Start: 03-03-2022 Telephone encounter Clarita neil RN Work Phone: Otolarynogology Comment on above: Request Outside [facility] Records; Care Coordination Start: 03-02-2022 Telephone encounter Kacie Stewart RN He matology/Oncology Comment on above: Source Inspector - O ther (Nutrition Appointment ) Start: 03-02-2022 End: 03-02-2022 lean manager [facility] Work Phone: Hematology/Oncology Comment on above: Encounter for educat ion (Primary Dx) Start: 02-25-2022 ambulatory Shannon Dinh MD Work Phone: Radiation Oncology Comment on above: Patient Education Start: 02-25-2022 Patient encounter procedure Shannon Dinh MD, MD Work Phone: [employer] [facility] [employer] Start: 02-25-2022 Radiation Oncology Note Shannon Dinh MD Work Phone: Radiation Oncology Comment on above: Treatment Planning Simulation Note Start: 02-25-2022 Telephone encounter Shannon Hendrickson MD Work Phone: Radiation Oncology Comment on above: Patient Question 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) Start: 02-24-2022 End: 02-24-2022 ambulatory Kirit Rosas DO Work Phone: Hematology/Oncology Comment on above: 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); 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) Start: 02-24-2022 End: 02-24-2022 Patient encounter procedure Kirit Rosas DO Work Phone: [facility] [employer] Start: 02-10-2022 End: 02-10-2022 Patient encounter procedure Max Ortiz MD Work Phone: Otolarynogology Comment on above: 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); 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 Start: 02-08-2022 ambulatory UNKNOWN PROVIDER Facili ty:[facility] Start: 02-08-2022 End: 02-08-2022 Subsequent hospital visit by physician [facility] [address] Comment on above: 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] Start: 01-31-2022 End: 01-31-2022 Patient encounter procedure Shannon Dinh MD Work Phone: Radiation Oncology Comment on above: 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) Start: 01-26-2022 Telephone encounter Kacie Stewart RN He matology/Oncology Comment on above: Source Inspector - O ther (Introduction ) Start: 01-26-2022 End: 01-26-2022 ambulatory Kirit Rosas DO Work Phone: Hematology/Oncology Comment on above: 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] Start: 01-11-2022 Telephone encounter Hawa MCMILLAN Gastroenterology Comment on above: Appointment Confirma tion Results Start: 12-03-2021 End: 12-03-2021 ambulatory [facility] Work Phone: Start: 12-03-2021 End: 12-03-2021 Patient encounter procedure [facility]-Radiology, [facility] Start: 11-15-2021 End: 11-15-2021 Patient encounter procedure [facility] Start: 05-27-2021 Chart Update Mirtha Qiu Work Phone: SS-Gtechycjhpqoag-Gbxvxsf e Work Phone: Start: 05-13-2021 [facility] Provider: Guru Gallagher, Status: Pen, Time: 9:00 AM Mirtha Qiu Work Phone: SU-Ootxeivsaawjzf-Qefrpbq e Work Phone: Start: 05-11-2021 Chart Update Mirtha Qiu Work Phone: AQ-Whrrjhtddkgbmn-Pfdzjxz e Work Phone: Start: 04-27-2021 Office consultation new/estab patient 60 min Mirtha Qiu Work Phone: CZ-Xinovkhoqrrojt-Duinynp e Work Phone: Procedures Date Procedure Procedure Detail Performing Clinician Start: 07-26-2024 Serum inorganic phos phate measurement Dr. Mirtha Qiu MD Work Phone: Start: 04-30-2024 Ct soft tissue neck w/contrast material Sandra Cruz BEER RUNNER.EKG MONITOR Work Phone: Start: 10-24-2023 Ct soft tissue neck w/contrast material Kirit A Masci DO Work Phone: Start: 04-21-2023 Ct soft tissue neck w/contrast material Kirit A Masci DO Work Phone: Start: 10-17-2022 Ct soft tissue neck w/contrast material Kirit A Masci DO Work Phone: Start: 10-17-2022 Ct thorax w/contrast material Kirit A Masci DO Work Phone: Start: 06-21-[address] atten uation skull base mid-thigh Kirit A Masci DO Work Phone: Start: 02-08-[address] atten uation skull base mid-thigh Kirit A Masci DO Work Phone: Start: 01-18-2022 Esophagoscp rig freeman soral hypopharynx crv esoph Kirit A Masci DO Work Phone: Start: 12-03-2021 Radiography of esophagus Start: 05-05-2021 Antibody screen Comment on above: Performed By: #### T +S #### [facility] [address] [place] [address] Colonoscopy Mirtha Christian Lazarus Work Phone: Operation on the ear Mirtha Christian Shashi chen Work Phone: Plan of Treatment Date Care Activity Detail Author Start: 11-30-2031 RSV Vaccine (1 - 1-d ose 75+ series) RSV Vaccine (1 - 1-dose 75+ series) [facility] Start: 06-21-2027 Urine microalbumin profile DTaP,Tdap,Td Vaccine (2 - Td or Tdap) [facility] Start: 10-23-2026 [facility] Start: 04-20-2026 [facility] Start: 10-17-2025 DIABETES SCREEN DIABETES SCREEN [facility] Start: 10-17-2025 [facility] Start: 06-24-2025 DIABETES SCREEN DIABETES SCREEN [facility] Start: 05-16-2025 DIABETES SCREEN DIABETES SCREEN [facility] Start: 05-02-2025 DIABETES SCREEN DIABETES SCREEN [facility] Start: 04-30-2025 Screening for malign ant neoplasm of lung Lung Cancer Screening [facility] Start: 04-25-2025 DIABETES SCREEN DIABETES SCREEN [facility] Start: 04-18-2025 DIABETES SCREEN DIABETES SCREEN [facility] Start: 04-11-2025 DIABETES SCREEN DIABETES SCREEN [facility] Start: 04-04-2025 DIABETES SCREEN DIABETES SCREEN [facility] Start: 03-28-2025 DIABETES SCREEN DIABETES SCREEN [facility] Start: 03-21-2025 DIABETES SCREEN DIABETES SCREEN [facility] Start: 03-14-2025 DIABETES SCREEN DIABETES SCREEN [facility] Start: 03-07-2025 DIABETES SCREEN DIABETES SCREEN [facility] Start: 12-28-2024 DIABETES SCREEN DIABETES SCREEN [facility] Start: 11-14-2024 End: 11-14-2024 ambulatory 11/14/2024 8:00 AM EDT Visit (SP) Office Hematology/Oncology [address] [place] [address] Sandra Cruz APRN.EKG MONITOR [address] [place] [address] 6 MTH OV/LAB&CT 11/07* Hematology/Oncology Comment on above: 6 MTH OV/LAB&CT 11/07 * Start: 11-07-2024 End: 02-06-2025 CREATININE BLD CREATININE BLD Lab Routine 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 of cervical esophagus (HCC) Expected: 11/07/2024 (Approximate), Expires: 02/06/2025 [facility] Comment on above: Expected: 11/07/2024 (Approximate), Expires: 02/06/2025 Start: 11-07-2024 End: 06-06-2025 CT Chest W contrast IV CT CHEST W IVCON Radiology Routine 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 of cervical esophagus (HCC) Expected: 11/07/2024 (Approximate), Expires: 06/06/2025 [facility] Comment on above: Expected: 11/07/2024 (Approximate), Expires: 06/06/2025 Start: 11-07-2024 End: 06-06-2025 CT Neck W contrast IV CT NECK SOFT TISSUE W IVCON Radiology Routine 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 of cervical esophagus (HCC) Expected: 11/07/2024 (Approximate), Expires: 06/06/2025 [facility] Work Phone: Comment on above: Expected: 11/07/2024 (Approximate), Expires: 06/06/2025 Start: 11-07-2024 End: 11-07-2024 Patient encounter procedure 11/07/2024 8:40 AM EDT Appointment Cat Scan [address] [place] [id number] 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]; Cancer of cervical esophagus (HCC) [C15.3] Cat Scan Comment on above: 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]; Cancer of cervical esophagus (HCC) [C15.3] Start: 11-07-2024 End: 11-07-2024 ambulatory 11/07/2024 8:30 AM EDT Results Only Brittany Pérez [facility] Laboratory [address] [place] [address] labs Brittany Magalia [facility] Laboratory Comment on above: labs Start: 10-23-2024 Screening for malign ant neoplasm of lung Lung Cancer Screening [facility] Start: 05-07-2024 End: 05-07-2024 ambulatory 05/07/2024 8:00 AM EDT Visit (SP) Office Hematology/Oncology [address] [place] [address] Sandra Cruz APRN.EKG MONITOR [address] [place] [address] 6 MTH OV* Hematology/Oncology Comment on above: 6 MTH OV* Start: 04-30-2024 End: 07-30-2024 CREATININE BLD CREATININE BLD Lab Routine 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) Expected: 04/30/2024 (Approximate), Expires: 07/30/2024 [facility] Comment on above: Expected: 04/30/2024 (Approximate), Expires: 07/30/2024 Start: 04-30-2024 End: 11-30-2024 CT Chest W contrast IV [facility] Comment on above: Expected: 04/30/2024 (Approximate), Expires: 11/30/2024 Start: 04-30-2024 End: 11-30-2024 CT Neck W contrast IV CT NECK SOFT TISSUE W IVCON Radiology Routine 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) Expected: 04/30/2024 (Approximate), Expires: 11/30/2024 [facility] Work Phone: Comment on above: Expected: 04/30/2024 (Approximate), Expires: 11/30/2024 Start: 04-30-2024 End: 04-30-2024 Patient encounter procedure 04/30/2024 8:40 AM EDT Appointment Cat Scan [address] [place] [address] CT CHEST Cat Scan Comment on above: CT CHEST Start: 04-30-2024 End: 04-30-2024 ambulatory 04/30/2024 7:30 AM EDT Results Only Brittany Shelbywn [facility] Laboratory [address] [place] [address] LABS [facility] Comment on above: LABS Start: 04-20-2024 Screening for malign ant neoplasm of lung Lung Cancer Screening [facility] Start: 02-21-2024 Advance Directive Discussion Advance Directive Discussion [facility] Start: 11-01-2023 End: 11-01-2023 ambulatory 11/01/2023 8:00 AM EDT Visit (SP) Office Hematology/Oncology [address] [place] [address] Sandra Cruz APRN.EKG MONITOR [address] [place] [address] 6MO OV/ CT AND LABS 9/3* r/s from 10/30 Hematology/Oncology Comment on above: 6MO OV/ CT AND LABS /3* r/s from 10/30 Start: 10-22-2023 Covid-19 Vaccine ( season) Covid-19 Vaccine ( season) [facility] Start: 10-22-2023 Covid-19 Vaccine ( season) Covid-19 Vaccine ( season) [facility] Start: 10-22-2023 Influenza vaccination Influenza Vacc ine (#1) [facility] Start: 10-18-2023 Influenza vaccination LUNG CANCER SC GOLD [facility] Start: 10-18-2023 Screening for malign ant neoplasm of lung Lung Cancer Screening [facility] Start: 04-21-2023 End: 07-21-2023 Basic metabolic 2000 panel - Serum or Plasma BASIC METABOLIC PNL Lab STAT 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) Expected: 04/21/2023, Expires: 07/21/2023 [facility] Work Phone: Comment on above: Expected: 04/21/2023 , Expires: 07/21/2023 Start: 04-21-2023 End: 07-21-2023 CBC W Auto Differential panel - Blood CBC + DIFF Lab STAT 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) Expected: 04/21/2023, Expires: 07/21/2023 [facility] Work Phone: Comment on above: Expected: 04/21/2023 , Expires: 07/21/2023 Start: 04-21-2023 End: 07-21-2023 Hepatic function 2000 panel - Serum or Plasma HEPATIC FUNCTION PNL Lab Routine 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) Expected: 04/21/2023, Expires: 07/21/2023 [facility] Work Phone: Comment on above: Expected: 04/21/2023 , Expires: 07/21/2023 Start: 02-20-2023 Advance Directive Discussion Advance Directive Discussion [facility] Start: 02-20-2023 Depression Assessment Depression Ass essment [facility] Start: 01-11-2023 Influenza vaccination LUNG CANCER SC REENING [facility] Start: 10-21-2022 Covid-19 Vaccine ( season) Covid-19 Vaccine ( season) [facility] Start: 10-21-2022 Influenza vaccination C [facility] Start: 10-17-2022 End: 12-17-2022 Basic metabolic 2000 panel - Serum or Plasma BASIC METABOLIC PNL Lab STAT 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) Expected: 10/17/2022, Expires: 12/17/2022 [facility] Work Phone: Comment on above: Expected: 10/17/2022 , Expires: 12/17/2022 Start: 10-17-2022 End: 12-17-2022 CBC W Auto Differential panel - Blood CBC + DIFF Lab STAT 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) Expected: 10/17/2022, Expires: 12/17/2022 [facility] Work Phone: Comment on above: Expected: 10/17/2022 , Expires: 12/17/2022 Start: 10-17-2022 End: 12-17-2022 Hepatic function 2000 panel - Serum or Plasma HEPATIC FUNCTION PNL Lab Routine 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) Expected: 10/17/2022, Expires: 12/17/2022 [facility] Work Phone: Comment on above: Expected: 10/17/2022 , Expires: 12/17/2022 Start: 03-14-2022 End: 05-14-2022 CBC W Auto Differential panel - Blood CBC + DIFF Lab STAT 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) Expected: 03/14/2022, Expires: 05/14/2022 [facility] Work Phone: Comment on above: Expected: 03/14/2022 , Expires: 05/14/2022 Start: 03-14-2022 End: 05-14-2022 Comprehensive metabolic 2000 panel - Serum or Plasma COMP METABOLIC PANEL Lab STAT 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) Expected: 03/14/2022, Expires: 05/14/2022 [facility] Work Phone: Comment on above: Expected: 03/14/2022 , Expires: 05/14/2022 Start: 03-14-2022 End: 05-14-2022 Magnesium [Mass/volume] in Serum or Plasma MAGNESIUM BLD Lab STAT 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) Expected: 03/14/2022, Expires: 05/14/2022 [facility] Work Phone: Comment on above: Expected: 03/14/2022 , Expires: 05/14/2022 Start: 03-07-2022 End: 05-07-2022 CBC W Auto Differential panel - Blood CBC + DIFF Lab STAT 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) Expected: 03/07/2022, Expires: 05/07/2022 [facility] Work Phone: Comment on above: Expected: 03/07/2022 , Expires: 05/07/2022 Start: 03-07-2022 End: 05-07-2022 Comprehensive metabolic 2000 panel - Serum or Plasma COMP METABOLIC PANEL Lab STAT 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) Expected: 03/07/2022, Expires: 05/07/2022 [facility] Work Phone: Comment on above: Expected: 03/07/2022 , Expires: 05/07/2022 Start: 03-07-2022 End: 05-07-2022 Magnesium [Mass/volume] in Serum or Plasma MAGNESIUM BLD Lab STAT 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) Expected: 03/07/2022, Expires: 05/07/2022 [facility] Work Phone: Comment on above: Expected: 03/07/2022 , Expires: 05/07/2022 Start: 02-20-2022 ADVANCE DIRECTIVE DISCUSSION ADVANCE DIRECTIVE DISCUSSION [facility] Start: 02-20-2022 DEPRESSION ASSESSMENT DEPRESSION ASS ESSMENT [facility] Start: 2021 ADVANCE DIRECTIVE DISCUSSION ADVANCE DIRECTIVE DISCUSSION [facility] Start: 10-21-2021 Influenza vaccination INFLUENZA (#1) [facility] Start: 06-01-2021 POV, Provider: Guru Gallagher, Status: Pen, Time: 10:30 AM POV, Provider: Guru Gallagher, Status: Pen, Time: 10:30 AM GX-Kdsupmrklanxpp-Xa [facility] Work Phone: Start: 05-13-2021 [facility] Provider: Guru Gallagher, Status: Pen, Time: 9:00 AM SUR[facility], Provider: Guru Gallagher, Status: Pen, Time: 9:00 AM WP-Vcdpudznidkbuq-Pe [facility] Work Phone: Start: 03-30-2021 COVID-19 VACCINE (4 - Booster for Pfizer series) COVID-19 VACCINE (4 - Booster for Pfizer series) [facility] Start: 03-30-2021 COVID-19 VACCINE (4 - Pfizer risk series) COVID-19 VACCINE (4 - Pfizer risk series) [facility] Start: 02-20-2021 DEPRESSION ASSESSMENT DEPRESSION ASS ESSMENT [facility] Start: 2016 RSV Vaccine (1 - 1-d ose 60+ series) RSV Vaccine (1 - 1-dose 60+ series) [facility] Start: 11-30-2011 PROSTATE CANCER SCREENING DISCUSSION PROSTATE CANCER SCREENING DISCUSSION [facility] Start: 11-30-2011 Prostate specific antigen measurement Prostate Cancer Screening Discussion [facility] Start: 2006 SHINGRIX VACCINE (1 of 2) SHINGRIX VACCINE (1 of 2) [facility] Start: 2001 COLOGUARD (FIT-DNA) COLOGUARD (FIT-D NA) [facility] Start: 2001 Colonoscopy COLONOSCOPY [facility] Start: 2001 COLORECTAL CANCER SCREENING COLORECTAL CANCER SCREENING [facility] Start: [address] COLONOGRAPHY [facility] Start: 2001 FECAL OCCULT BLOOD FECAL OCCULT BLOO D [facility] Start: 2001 Screening for malign ant neoplasm of colon [facility] Start: 2001 SIGMOIDOSCOPY SIGMOIDOSCOPY [facility] Start: 11-30-1991 Lipid 1996 panel - S oriana or Plasma Lipid Screening [facility] Start: 11-30-1991 Lipid panel Lipid Screening [facility] Start: 11-30-1991 LIPID SCREEN LIPID SCREEN [facility] Start: 11-30-1975 SHINGRIX VACCINE (1 of 2) SHINGRIX VACCINE (1 of 2) [facility] Start: 11-30-1975 Urine microalbumin profile DTAP,TDAP,TD (1 - Tdap) [facility] Start: 1974 Anxiety Screening Anxiety Screening [facility] Start: 1974 Depression Screening Depression Scre ening [facility] Start: 1974 HEPATITIS C SCREENING HEPATITIS C [facility] Start: 1974 Hepatitis C screening Hepatitis C [facility] Start: 1974 HIV SCREENING HIV SCREENING [facility] Start: 1962 Pneumococcal Vaccine : 65+ (1 - PCV) Pneumococcal Vaccine: 65+ (1 - PCV) [facility] Start: 1962 Pneumococcal Vaccine : 65+ (1 of 2 - PCV) Pneumococcal Vaccine: 65+ (1 of 2 - PCV) [facility] Start: 1962 PNEUMOCOCCAL: 65+ (1 - PCV) PNEUMOCOCCAL: 65+ (1 - PCV) [facility] Start: 1956 ABDOMINAL AORTIC ANEURYSM SCREENING ABDOMINAL AORTIC ANEURYSM SCREENING [facility] Start: 1956 Abdominal aortic aneurysm screening Abdominal Aortic Aneurysm Screening [facility] End: 03-18-2023 CBC W Auto Differential panel - Blood CBC + DIFF Lab STAT 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) Once per week for 52 Occurrences starting 03/18/2022 until 03/18/2023 [facility] Work Phone: Comment on above: Once per week for 52 Occurrences starting 03/18/2022 until 03/18/2023 End: 03-18-2023 Comprehensive metabolic 2000 panel - Serum or Plasma COMP METABOLIC PANEL Lab STAT 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) Once per week for 52 Occurrences starting 03/18/2022 until 03/18/2023 [facility] Work Phone: Comment on above: Once per week for 52 Occurrences starting 03/18/2022 until 03/18/2023 CT Chest W contrast IV CT CHEST W IVCON Radiology Routine 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) 04/21/2023 9:20 AM EST [facility] Work Phone: End: 05-26-2024 CT Chest W contrast IV CT CHEST W IVCON Radiology Routine 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) 1 Occurrences starting 04/27/2023 until 05/26/2024 [facility] Work Phone: Comment on above: 1 Occurrences starti ng 04/27/2023 until 05/26/2024 CT Chest W contrast IV CT CHEST W IVCON Radiology Routine 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) 10/24/2023 9:37 AM EDT [facility] Work Phone: End: 07-24-2023 CT CHEST W IVCON CT CHEST W IVCON Radiology Routine 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) 1 Occurrences starting 06/24/2022 until 07/24/2023 [facility] Work Phone: Comment on above: 1 Occurrences starti ng 06/24/2022 until 07/24/2023 End: 11-20-2023 CT CHEST W IVCON CT CHEST W IVCON Radiology Routine 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) 1 Occurrences starting 10/21/2022 until 11/20/2023 [facility] Work Phone: Comment on above: 1 Occurrences starti ng 10/21/2022 until 11/20/2023 End: 05-26-2024 CT Neck W contrast IV CT NECK SOFT TISSUE W IVCON Radiology Routine 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) 1 Occurrences starting 04/27/2023 until 05/26/2024 [facility] Work Phone: Comment on above: 1 Occurrences starti ng 04/27/2023 until 05/26/2024 CT SIM PLANNING RADIATION ONCOLOGY CT SIM PLANNING RADIATION ONCOLOGY Radiology Routine 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) Ordered: 02/28/2022 [facility] Work Phone: Comment on above: Ordered: 02/28/2022 End: 07-24-2023 Ct soft tissue neck w/contrast material CT NECK SOFT TISSUE W IVCON Radiology Routine 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) 1 Occurrences starting 06/24/2022 until 07/24/2023 [facility] Work Phone: Comment on above: 1 Occurrences starti ng 06/24/2022 until 07/24/2023 End: 11-20-2023 Ct soft tissue neck w/contrast material CT NECK SOFT TISSUE W IVCON Radiology Routine 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) 1 Occurrences starting 10/21/2022 until 11/20/2023 [facility] Work Phone: Comment on above: 1 Occurrences starti ng 10/21/2022 until 11/20/2023 End: 03-18-2023 Magnesium [Mass/volume] in Serum or Plasma MAGNESIUM BLD Lab STAT 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) Once per week for 52 Occurrences starting 03/18/2022 until 03/18/2023 [facility] Work Phone: Comment on above: Once per week for 52 Occurrences starting 03/18/2022 until 03/18/2023 End: 06-04-2023 NM PET/CT SKULL-THIGH SUBSEQUENT NM PET/CT SKULL-THIGH SUBSEQUENT Radiology Routine 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 2021 Unknown 2021 Unknown [id number] 2007 Unknown DO NOT USE NG S [facility] [id number] Unknown ANTHKRISTIAN [id number] Unknown [facility] [id number] Unknown [id number] Unknown [id number] Unknown [id number] Unknown [id number] Unknown [id number] Social History Date Type Detail Facility Start: 01-18-2022 End: 03-04-2022 Former smoker Former smoker [facility] Start: 1955 Sex Assigned At Male [facility] Start: 12-28-2021 End: 05-07-2024 Tobacco smoking status NHIS Smokes tobacco daily [facility] History of tobacco use Cigarette Smoker [facility] Start: 12-28-2021 End: 05-07-2024 Tobacco use and exposure Smokeless tobacco non-user [facility] Start: 12-28-2021 End: 05-07-2024 Alcohol intake Current drinker of alcohol (finding) [facility] Start: 12-28-2021 Alcohol Comment daily [facility] Start: 1955 [facility] Start: 01-08-2022 End: 01-18-2022 Exposure to SARS-CoV-2 (event) Not sure [facility] Start: 03-14-2022 Tobacco Comment Pt has cut grabiel k to 1/2 pack daily. [facility] Start: 03-04-2022 End: 06-24-2022 Tobacco use panel [facility] National Score (1-10 0), lower number is lower risk 62 [facility] Start: 03-02-2022 Gender identity Identifies as male gender (finding) [facility] Start: 03-02-2022 Sexual orientation Heterosexual (fin ding) [facility] Start: 05-07-2024 Alcohol Comment daily 2-4 beers [facility] Tobacco smoking stat [facility] Unknown if ever smoked [facility] Work Phone: Clinical Notes 05-13-2021 to 11-15-2024 Sandra Cruz APRN.EKG MONITOR - 05/07/2024 8:20 AM Natalia Merlos RT(R) - 04/30/2024 8:40 AM Sandra Del Rio APRN.EKG MONITOR - 11/01/2023 8:26 AM Kirit Sylvester DO - 04/27/2023 8:33 AM EST Note Date & Type Note Facility 11-15-2024 Note HNO ID: [id number] Author: SANDRA CRUZ APRN.EKG MONITOR Service: ? Author Type: Nurse Practitioner Type: Progress Notes Filed: 11/15/2024 09:00 Note Text: Chief Complaint Patient presents with: Established Patient HPI: Krystal Cortes is a 68 year old male who presents here today for follow up esophageal cancer. Per Dr. Rosas's previous note: H/o head neck cancer, hypertension and COPD as well as heavy alcohol use. 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 Afterward, he recalled anesthesiologist told him to see a linux support engineer because he may have a mass in the proximal esophagus. Barium swallow with fluoroscopy on 12/03/2021 demonstrated no esophageal foreign body. There is no stricture or mucosal abnormality observed. The gastroesophageal junction was noted to be normal without demonstrated hiatal hernia. Patient underwent an EGD on 12/16/2021. The procedure report indicates that at approximately 21 cm there was a polypoid mass observed in the proximal esophagus. It measured approximately 15 mm in diameter and appeared friable. The endoscope was passed to the distal GE junction. There was no evidence of Glover mucosa. Stomach was easily insufflated and no ulcers were observed. There was erythema throughout the gastric mucosa with some streaking and cobblestoning noted. The bulbar duodenum was noted to be normal. Sweep of the duodenum demonstrated no abnormalities. Retroflexion in the stomach revealed a small hiatal hernia. Biopsies were obtained from the antrum for H. pylori testing. The endoscope was withdrawn into the proximal esophagus and several biopsy of the polypoid lesion were obtained. 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 EGD/EUS 01/18/2022: Malignant esophageal tumor was found in the upper third of the esophagus. -Erythematous mucosa in the antrum. -Normal examined duodenum. -A mass was found in the upper third of the esophagus (18-22 cm). A tissue diagnosis was obtained prior to this exam. This is of squamous cell carcinoma. This was staged T1sm (based on invasion into) N1 Mx by endosonographic criteria. -One malignant-appearing lymph node was visualized in the left upper paratracheal region (level 2L). Presence of tumor in the vicinity precluded an uncontaminated FNA -There was no evidence of significant pathology in the left lobe of the liver. -No specimens collected. Previous therapy: 1) Definitive chemotherapy and radiation. Completed radiation 04/13/2022. Received 5600 cGy in 28 fractions. Received 6 weekly doses of carboplatin and paclitaxel 03/07 through 04/11/2022. Underwent posttherapy EGD on 06/16/2022. Report of procedure not available but biopsy pathology demonstrated focal acute erosive and moderate chronic esophagitis negative for fungi. Negative for Glover's esophagus, fungi, eosinophilic esophagitis, viral inclusions, dysplasia and malignancy. No new concerns today. Appetite:Good. Wt. down 5# over past 6 months. Energy level:Not bad. Denies fevers or recent illness. Resp:denies cough or sob Cardiac:denies chest pain/palpitations GI:denies abd pain, n/v, moving bowels regularly :denies dysuria/hematuria Extrem:denies new pain Neuro:denies symptoms of neuropathy Skin:denies rashes/lesions Heme:denies bleeding The ROS is otherwise negative. Past medical history, appointments, medications, allergies reviewed. No changes. EXAM: BP 136/80 Pulse 62 Temp 36.6 ?C (97.9 ?F) (Temporal) Wt 68.9 kg (151 lb 14.4 oz) SpO2 96% BMI 22.12 kg/m? APPEARANCE Well appearing, alert, in no acute distress, well-hydrated, well nourished. MOUTH no obvious lesions HEART RRR with normal S1 and S2, no murmurs LUNG clear to auscultation LYMPH NODES No cervical lymphadenopathy, No supraclavicular lymphadenopathy, and No axillary lymphadenopathy. ABDOMEN bowel sounds normoactive, soft, non-tender EXTREMITIES No edema NEURO Awake, alert and oriented x 3, Normal gait, and No involuntary motions. SKIN Skin color, texture, turgor normal, no suspicious rashes or lesions ASSESSMENT/PLAN: 1. Cancer of cervical esophagus (HCC) - ICD9: 150.0, ICD10: C15.[address] 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 This was resected at by Dr. Gallagher and according to the records the plan was for observation but the patient had not followed up at [facility] since his first postoperative check in the spring. At the time of that surgery he was observed to have a possible mass in the proximal esophagus and was told to see a linux support engineer. 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 -T1sm (based on invasion into submucosa) N1 (one LN level 2L) M0 (PET negative (more content not included)... [facility] 11-07-2024 Note HNO ID: [id number] Author: NATALIA KHAN RT(R) Service: ? Author Type: Rug Hooker Hand Type: Progress Notes Filed: 11/07/2024 15:33 Note Text: Radiology Service Progress Note DATE OF SERVICE: November 07, 2024 TIME: 3:32 PM PATIENT IDENTITY VERIFICATION COMPLETED USING TWO (2) STANDARD IDENTIFIERS: Name and Date of confirmed by patient verbally. FALL SCREENING: Has the patient had 2 falls in the last year or 1 fall with injury or currently using an Ambulatory Assistive Device (Walker, Cane, Wheelchair, Crutches, etc.)? No PATIENT GENDER DATA: Assigned male at PATIENT RELEVANT IMPLANT DATA REVIEWED: Yes PATIENT PRESENTS WITH AN IMPLANTABLE OR ATTACHED SCIENCE TECHNICIAN: n/an/a ALLERGIES: Reviewed and unchanged CONTRAST ALLERGY: NO. EXAM: CT -CONTRAST INDUCED NEPHROPATHY RISK FACTORS: Not applicable CREATININE: Creatinine Date Value Ref Range Status 11/07/2024 0.72 (L) 0.73 - 1.22 mg/dL Final 04/30/2024 0.67 (L) 0.73 - 1.22 mg/dL Final 10/24/2023 0.74 0.73 - 1.22 mg/dL Final Estimated Glomerular Filtration Rate Date Value Ref Range Status 11/07/2024 100 >=60 mL/min/1.73m? Final Comment: Estimated Glomerular Filtration Rate (eGFR) is calculated using the 2020 CKD-EPI creatinine equation. This equation utilizes serum creatinine, sex, and age as parameters. The creatinine assay has traceable calibration to isotope dilution-mass spectrometry. Refer to KDIGO guidelines for clinical interpretation. In patients with unstable renal function, e.g. those with acute kidney injury, the eGFR may not accurately reflect actual GFR. P.O.C.T. RESULTS: POC done: Yes, See Lab Tab November 07, 2024 TREATMENT: N/A PERIPHERAL IV DATA: Ambulatory: A peripheral IV was started in the Left antecubital site with a Angio cath: 22 gauge. RADIOLOGY DEPARTMENT: CT; Exam(s) Completed: Chest and Neck . Anesthesia: No SIGNATURE: RT Marixa(Som) PATIENT NAME: Krystal Cortes DATE: November 07, 2024 TIME: 3:32 PM [facility] 05-07-2024 Note HNO ID: [id number] Author: SANDRA CRUZ APRN.DARIAN Service: ? Author Type: Nurse Practitioner Type: Progress Notes Filed: 05/09/2024 11:16 Note Text: Chief Complaint Patient presents with: Established Patient HPI: Krystal Cortes is a 68 year old male who presents here today for follow up esophageal cancer. Per Dr. Rosas's previous note: H/o head neck cancer, hypertension and COPD as well as heavy alcohol use. 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 Afterward, he recalled anesthesiologist told him to see a linux support engineer because he may have a mass in the proximal esophagus. Barium swallow with fluoroscopy on 12/03/2021 demonstrated no esophageal foreign body. There is no stricture or mucosal abnormality observed. The gastroesophageal junction was noted to be normal without demonstrated hiatal hernia. Patient underwent an EGD on 12/16/2021. The procedure report indicates that at approximately 21 cm there was a polypoid mass observed in the proximal esophagus. It measured approximately 15 mm in diameter and appeared friable. The endoscope was passed to the distal GE junction. There was no evidence of Glover mucosa. Stomach was easily insufflated and no ulcers were observed. There was erythema throughout the gastric mucosa with some streaking and cobblestoning noted. The bulbar duodenum was noted to be normal. Sweep of the duodenum demonstrated no abnormalities. Retroflexion in the stomach revealed a small hiatal hernia. Biopsies were obtained from the antrum for H. pylori testing. The endoscope was withdrawn into the proximal esophagus and several biopsy of the polypoid lesion were obtained. 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 EGD/EUS 01/18/2022: Malignant esophageal tumor was found in the upper third of the esophagus. -Erythematous mucosa in the antrum. -Normal examined duodenum. -A mass was found in the upper third of the esophagus (18-22 cm). A tissue diagnosis was obtained prior to this exam. This is of squamous cell carcinoma. This was staged T1sm (based on invasion into) N1 Mx by endosonographic criteria. -One malignant-appearing lymph node was visualized in the left upper paratracheal region (level 2L). Presence of tumor in the vicinity precluded an uncontaminated FNA -There was no evidence of significant pathology in the left lobe of the liver. -No specimens collected. Previous therapy: 1) Definitive chemotherapy and radiation. Completed radiation 04/13/2022. Received 5600 cGy in 28 fractions. Received 6 weekly doses of carboplatin and paclitaxel 03/07 through 04/11/2022. Underwent posttherapy EGD on 06/16/2022. Report of procedure not available but biopsy pathology demonstrated focal acute erosive and moderate chronic esophagitis negative for fungi. Negative for Glover's esophagus, fungi, eosinophilic esophagitis, viral inclusions, dysplasia and malignancy. No new concerns today. Pt. here today with family member. Appetite:Good. Wt. stable. Energy level:Ok. Denies fevers or recent illness. Resp:denies cough or sob Cardiac:denies chest pain/palpitations GI:denies abd pain, n/v, moving bowels regularly :denies dysuria/hematuria Extrem:denies pain Neuro:denies symptoms of neuropathy Skin:denies rashes Heme:denies bleeding The ROS is otherwise negative. Past medical history, appointments, medications, allergies reviewed. No changes. EXAM: BP 127/74 Pulse (!) 53 Temp 36.7 ?C (98 ?F) (Temporal) Wt 71.6 kg (157 lb 13.6 oz) SpO2 96% BMI 22.98 kg/m? APPEARANCE Well appearing, alert, in no acute distress, well-hydrated, well nourished. HEART RRR with normal S1 and S2, no murmurs LUNG clear to auscultation LYMPH NODES No cervical lymphadenopathy, No supraclavicular lymphadenopathy, and No axillary lymphadenopathy. ABDOMEN bowel sounds normoactive, soft, non-tender EXTREMITIES No edema NEURO Awake, alert and oriented x 3, Normal gait, and No involuntary motions. SKIN Skin color, texture, turgor normal, no suspicious rashes or lesions RADIOLOGY: CT neck 04/30/24: IMPRESSION: No new or suspicious neck mass or cervical adenopathy. Additional chronic findings, as described. CT chest 04/30/24: IMPRESSION: 1. No new suspicious pulmonary nodules 2. Unchanged borderline enlarged right hilar lymph node ASSESSMENT/PLAN: 1. Cancer of cervical esophagus (HCC) - ICD9: 150.0, ICD10: C15.3 (primary diagnosis) Per Dr. 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 This was resected at by Dr. Gallagher and according to the records the plan was for observation but the patient had not followed up at [facility] since his first postoperative check in the spring. At the time of that surgery (more content not included)... [facility] 05-07-2024 History of Present illness Narrative Chief Complaint Patient presents with: Established Patient HPI: Krystal Cortes is a 68 year old male who presents here today for follow up esophageal cancer. Per Dr. Rosas's previous note: H/o head neck cancer, hypertension and COPD as well as heavy alcohol use. 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 Afterward, he recalled anesthesiologist told him to see a linux support engineer because he may have a mass in the proximal esophagus. Barium swallow with fluoroscopy on 12/03/2021 demonstrated no esophageal foreign body. There is no stricture or mucosal abnormality observed. The gastroesophageal junction was noted to be normal without demonstrated hiatal hernia. Patient underwent an EGD on 12/16/2021. The procedure report indicates that at approximately 21 cm there was a polypoid mass observed in the proximal esophagus. It measured approximately 15 mm in diameter and appeared friable. The endoscope was passed to the distal GE junction. There was no evidence of Glover mucosa. Stomach was easily insufflated and no ulcers were observed. There was erythema throughout the gastric mucosa with some streaking and cobblestoning noted. The bulbar duodenum was noted to be normal. Sweep of the duodenum demonstrated no abnormalities. Retroflexion in the stomach revealed a small hiatal hernia. Biopsies were obtained from the antrum for H. pylori testing. The endoscope was withdrawn into the proximal esophagus and several biopsy of the polypoid lesion were obtained. 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 EGD/EUS 01/18/2022: Malignant esophageal tumor was found in the upper third of the esophagus. -Erythematous mucosa in the antrum. -Normal examined duodenum. -A mass was found in the upper third of the esophagus (18-22 cm). A tissue diagnosis was obtained prior to this exam. This is of squamous cell carcinoma. This was staged T1sm (based on invasion into) N1 Mx by endosonographic criteria. -One malignant-appearing lymph node was visualized in the left upper paratracheal region (level 2L). Presence of tumor in the vicinity precluded an uncontaminated FNA -There was no evidence of significant pathology in the left lobe of the liver. -No specimens collected. Previous therapy: 1) Definitive chemotherapy and radiation. Completed radiation 04/13/2022. Received 5600 cGy in 28 fractions. Received 6 weekly doses of carboplatin and paclitaxel 03/07 through 04/11/2022. Underwent posttherapy EGD on 06/16/2022. Report of procedure not available but biopsy pathology demonstrated focal acute erosive and moderate chronic esophagitis negative for fungi. Negative for Glover's esophagus, fungi, eosinophilic esophagitis, viral inclusions, dysplasia and malignancy. No new concerns today. Pt. here today with family member. Appetite:Good. Wt. stable. Energy level:Ok. Denies fevers or recent illness. Resp:denies cough or sob Cardiac:denies chest pain/palpitations GI:denies abd pain, n/v, moving bowels regularly :denies dysuria/hematuria Extrem:denies pain Neuro:denies symptoms of neuropathy Skin:denies rashes Heme:denies bleeding The ROS is otherwise negative. Past medical history, appointments, medications, allergies reviewed. No changes. EXAM: BP 127/74 Pulse (!) 53 Temp 36.7 C (98 F) (Temporal) Wt 71.6 kg (157 lb 13.6 oz) SpO2 96% BMI 22.98 kg/m APPEARANCE Well appearing, alert, in no acute distress, well-hydrated, well nourished. HEART RRR with normal S1 and S2, no murmurs LUNG clear to auscultation LYMPH NODES No cervical lymphadenopathy, No supraclavicular lymphadenopathy, and No axillary lymphadenopathy. ABDOMEN bowel sounds normoactive, soft, non-tender EXTREMITIES No edema NEURO Awake, alert and oriented x 3, Normal gait, and No involuntary motions. SKIN Skin color, texture, turgor normal, no suspicious rashes or lesions RADIOLOGY: CT neck 04/30/24: IMPRESSION: No new or suspicious neck mass or cervical adenopathy. Additional chronic findings, as described. CT chest 04/30/24: IMPRESSION: 1. No new suspicious pulmonary nodules 2. Unchanged borderline enlarged right hilar lymph node ASSESSMENT/PLAN: 1. Cancer of cervical esophagus (HCC) - ICD9: 150.0, ICD10: C15.3 (primary diagnosis) Per Dr. 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 This was resected at by Dr. Gallagher and according to the records the plan was for observation but the patient had not followed up at [facility] since his first postoperative check in the spring. At the time of that surgery he was observed to have a possible mass in the proximal esophagus and was told to see a linux support engineer. 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 -Completed definitive concurrent chemotherapy and radiation. Tolerated overall well with no severe or unexpected toxicity. -Asymptomatic now. -Reviewed CT results of the chest and neck. ERI. -Reviewed labs. -Again discussed the concept of field cancerization and the importance of both smoking cessation. -Discussed the importance of managing hypertension. Reviewed with him proper technique for taking home blood pressures. Encouraged him to do so, keep a log and share that with his PCP. -Endoscopic surveillance every 3-6 months up to 2 years then as indicated by symptoms following that. -CT of chest, abdomen and pelvis every 3 to 6 months for the first 2 years then annually up to 5 years. Plan: -Recommend EGD in 6 months. -Labs and CT Chest and neck followed by OV in about 6 months. 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 Ortiz at [facility] but hasn't been back since. Plan: -Follow-up with ENT. - No concerning findings on exam. - Reviewed CT's with pt. and family member. - Continue follow up with ENT-Dr. Brar. - Follow up with PCP for routine care. - Needs follow up appt. with Dr. Landis for EGD soon. Pt. will call. - CT chest/neck in 6 months. - Follow up after above. - Pt. aware to call office with any questions/concerns. The patient indicates understanding of these issues and agrees with the plan. All documentation from previous visit of 11/01/23-Dr. Rosas/myself was copied and pasted, documentation has been reviewed and edited as necessary for today's visit. Sandra Cruz APRN.DARIAN documented in this encounter [facility] 04-30-2024 History of Present illness Narrative Radiology Service Progress Note DATE OF SERVICE: April 30, 2024 TIME: 3:16 PM PATIENT IDENTITY VERIFICATION COMPLETED USING TWO (2) STANDARD IDENTIFIERS: Name and Date of confirmed by patient verbally. FALL SCREENING: Has the patient had 2 falls in the last year or 1 fall with injury or currently using an Ambulatory Assistive Device (Walker, Cane, Wheelchair, Crutches, etc.)? No PATIENT GENDER DATA: Assigned male at PATIENT RELEVANT IMPLANT DATA REVIEWED: Yes PATIENT PRESENTS WITH AN IMPLANTABLE OR ATTACHED SCIENCE TECHNICIAN: No ALLERGIES: Reviewed and unchanged CONTRAST ALLERGY: NO. EXAM: CT -CONTRAST INDUCED NEPHROPATHY RISK FACTORS: Patient age > 60 years CREATININE: Creatinine Date Value Ref Range Status 04/30/2024 0.67 (L) 0.73 - 1.22 mg/dL Final 10/24/2023 0.74 0.73 - 1.22 mg/dL Final 04/21/2023 0.73 0.73 - 1.22 mg/dL Final Estimated Glomerular Filtration Rate Date Value Ref Range Status 04/30/2024 102 >=60 mL/min/1.73m Final Comment: Estimated Glomerular Filtration Rate (eGFR) is calculated using the 2020 CKD-EPI creatinine equation. This equation utilizes serum creatinine, sex, and age as parameters. The creatinine assay has traceable calibration to isotope dilution-mass spectrometry. Refer to KDIGO guidelines for clinical interpretation. In patients with unstable renal function, e.g. those with acute kidney injury, the eGFR may not accurately reflect actual GFR. P.O.C.T. RESULTS: POC done: Yes, See Lab Tab April 30, 2024 TREATMENT: N/A PERIPHERAL IV DATA: Ambulatory: A peripheral IV was started in the Left antecubital site with a Angio cath: 22 gauge. RADIOLOGY DEPARTMENT: CT; Exam(s) Completed: Chest and Neck SIGNATURE: MATTHEW Calvin) PATIENT NAME: Krystal Cortes DATE: April 30, 2024 TIME: 3:16 PM documented in this encounter [facility] 04-30-2024 Note HNO ID: [id number] Author: NATALIA KHAN RT(R) Service: ? Author Type: Rug Hooker Hand Type: Progress Notes Filed: 04/30/2024 15:17 Note Text: Radiology Service Progress Note DATE OF SERVICE: April 30, 2024 TIME: 3:16 PM PATIENT IDENTITY VERIFICATION COMPLETED USING TWO (2) STANDARD IDENTIFIERS: Name and Date of confirmed by patient verbally. FALL SCREENING: Has the patient had 2 falls in the last year or 1 fall with injury or currently using an Ambulatory Assistive Device (Walker, Cane, Wheelchair, Crutches, etc.)? No PATIENT GENDER DATA: Assigned male at PATIENT RELEVANT IMPLANT DATA REVIEWED: Yes PATIENT PRESENTS WITH AN IMPLANTABLE OR ATTACHED SCIENCE TECHNICIAN: No ALLERGIES: Reviewed and unchanged CONTRAST ALLERGY: NO. EXAM: CT -CONTRAST INDUCED NEPHROPATHY RISK FACTORS: Patient age > 60 years CREATININE: Creatinine Date Value Ref Range Status 04/30/2024 0.67 (L) 0.73 - 1.22 mg/dL Final 10/24/2023 0.74 0.73 - 1.22 mg/dL Final 04/21/2023 0.73 0.73 - 1.22 mg/dL Final Estimated Glomerular Filtration Rate Date Value Ref Range Status 04/30/2024 102 >=60 mL/min/1.73m? Final Comment: Estimated Glomerular Filtration Rate (eGFR) is calculated using the 2020 CKD-EPI creatinine equation. This equation utilizes serum creatinine, sex, and age as parameters. The creatinine assay has traceable calibration to isotope dilution-mass spectrometry. Refer to KDIGO guidelines for clinical interpretation. In patients with unstable renal function, e.g. those with acute kidney injury, the eGFR may not accurately reflect actual GFR. P.O.C.T. RESULTS: POC done: Yes, See Lab Tab April 30, 2024 TREATMENT: N/A PERIPHERAL IV DATA: Ambulatory: A peripheral IV was started in the Left antecubital site with a Angio cath: 22 gauge. RADIOLOGY DEPARTMENT: CT; Exam(s) Completed: Chest and Neck SIGNATURE: RT Marixa(R) PATIENT NAME: Krystal Cortes DATE: April 30, 2024 TIME: 3:16 PM [facility] 11-01-2023 History of Present illness Narrative Chief Complaint Patient presents with: Established Patient HPI: Krystal Cortes is a 67 year old male who presents here today for follow up esophageal cancer. Per Dr. Rosas's previous note: H/o head neck cancer, hypertension and COPD as well as heavy alcohol use. 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 Afterward, he recalled anesthesiologist told him to see a linux support engineer because he may have a mass in the proximal esophagus. Barium swallow with fluoroscopy on 12/03/2021 demonstrated no esophageal foreign body. There is no stricture or mucosal abnormality observed. The gastroesophageal junction was noted to be normal without demonstrated hiatal hernia. Patient underwent an EGD on 12/16/2021. The procedure report indicates that at approximately 21 cm there was a polypoid mass observed in the proximal esophagus. It measured approximately 15 mm in diameter and appeared friable. The endoscope was passed to the distal GE junction. There was no evidence of Glover mucosa. Stomach was easily insufflated and no ulcers were observed. There was erythema throughout the gastric mucosa with some streaking and cobblestoning noted. The bulbar duodenum was noted to be normal. Sweep of the duodenum demonstrated no abnormalities. Retroflexion in the stomach revealed a small hiatal hernia. Biopsies were obtained from the antrum for H. pylori testing. The endoscope was withdrawn into the proximal esophagus and several biopsy of the polypoid lesion were obtained. 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 EGD/EUS 01/18/2022: Malignant esophageal tumor was found in the upper third of the esophagus. -Erythematous mucosa in the antrum. -Normal examined duodenum. -A mass was found in the upper third of the esophagus (18-22 cm). A tissue diagnosis was obtained prior to this exam. This is of squamous cell carcinoma. This was staged T1sm (based on invasion into) N1 Mx by endosonographic criteria. -One malignant-appearing lymph node was visualized in the left upper paratracheal region (level 2L). Presence of tumor in the vicinity precluded an uncontaminated FNA -There was no evidence of significant pathology in the left lobe of the liver. -No specimens collected. Previous therapy: 1) Definitive chemotherapy and radiation. Completed radiation 04/13/2022. Received 5600 cGy in 28 fractions. Received 6 weekly doses of carboplatin and paclitaxel 03/07 through 04/11/2022. Underwent posttherapy EGD on 06/16/2022. Report of procedure not available but biopsy pathology demonstrated focal acute erosive and moderate chronic esophagitis negative for fungi. Negative for Glover's esophagus, fungi, eosinophilic esophagitis, viral inclusions, dysplasia and malignancy. No new concerns today. Appetite:Good. Energy level:Ok. Denies fevers or recent illness. Resp:denies cough or sob Cardiac:denies chest pain/palpitations GI:denies abd pain, n/v, moving bowels regularly :denies dysuria/hematuria Extrem:denies pain Neuro:denies symptoms of neuropathy Skin:denies rashes Heme:denies bleeding The ROS is otherwise negative. Past medical history, appointments, medications, allergies reviewed. No changes. EXAM: BP 170/81 Pulse (!) 43 Temp 36.3 C (97.4 F) (Temporal) Wt 71.1 kg (156 lb 12 oz) SpO2 97% BMI 22.82 kg/m APPEARANCE Well appearing, alert, in no acute distress, well-hydrated, well nourished. MOUTH no thrush/mucositis/obvious lesions HEART RRR with normal S1 and S2, no murmurs LUNG clear to auscultation LYMPH NODES No cervical lymphadenopathy, No supraclavicular lymphadenopathy, and No axillary lymphadenopathy. ABDOMEN bowel sounds normoactive, soft, non-tender, non-distended EXTREMITIES No edema NEURO Awake, alert and oriented x 3, Normal gait, and No involuntary motions. SKIN Skin color, texture, turgor normal, no suspicious rashes or lesions ASSESSMENT/PLAN: 1. Cancer of cervical esophagus (HCC) - ICD9: 150.0, ICD10: C15.3 (primary diagnosis) 2. 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) - ICD9: 144.9, ICD10: C04.9 3. Secondary malignant neoplasm of chest wall (HCC) - ICD9: 198.89, ICD10: C79.[address] 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 This was resected at by Dr. Gallagher and according to the records the plan was for observation but the patient had not followed up at [facility] since his first postoperative check in the spring. At the time of that surgery he was observed to have a possible mass in the proximal esophagus and was told to see a linux support engineer. 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 -Completed definitive concurrent chemotherapy and radiation. Tolerated overall well with no severe or unexpected toxicity. -Asymptomatic now. -Reviewed CT results of the chest and neck. ERI. -Reviewed labs. -Again discussed the concept of field cancerization and the importance of both smoking cessation. -Discussed the importance of managing hypertension. Reviewed with him proper technique for taking home blood pressures. Encouraged him to do so, keep a log and share that with his PCP. -Endoscopic surveillance every 3-6 months up to 2 years then as indicated by symptoms following that. -CT of chest, abdomen and pelvis every 3 to 6 months for the first 2 years then annually up to 5 years. Plan: -Recommend EGD in 6 months. -Labs and CT Chest and neck followed by OV in about 6 months. 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 Ortiz at [facility] but hasn't been back since. Plan: -Follow-up with ENT. - No concerning findings on exam. - Reviewed CT's with pt. and family member. - Continue follow up with ENT-Dr. Brar. - Follow up with PCP for routine care. - Needs follow up appt. with Dr. Landis for EGD soon. - CT chest/neck in 6 months. - Follow up after above. - Pt. aware to call office with any questions/concerns. The patient indicates understanding of these issues and agrees with the plan. All documentation from previous visit of 04/27/23-Dr. Rosas was copied and pasted, documentation has been reviewed and edited as necessary for today's visit. Sandra Cruz APRN.DARIAN documented in this encounter [facility] 10-24-2023 History of Present illness Narrative Radiology Service Progress Note DATE OF SERVICE: October 24, 2023 TIME: 3:04 PM PATIENT IDENTITY VERIFICATION COMPLETED USING TWO (2) STANDARD IDENTIFIERS: Name and Date of confirmed by patient verbally. FALL SCREENING: Has the patient had 2 falls in the last year or 1 fall with injury or currently using an Ambulatory Assistive Device (Walker, Cane, Wheelchair, Crutches, etc.)? No PATIENT GENDER DATA: Male PATIENT RELEVANT IMPLANT DATA REVIEWED: Yes PATIENT PRESENTS WITH AN IMPLANTABLE OR ATTACHED SCIENCE TECHNICIAN: No ALLERGIES: Reviewed and unchanged CONTRAST ALLERGY: NO. EXAM: CT -CONTRAST INDUCED NEPHROPATHY RISK FACTORS: Patient age > 60 years CREATININE: Creatinine Date Value Ref Range Status 10/24/2023 0.74 0.73 - 1.22 mg/dL Final 04/21/2023 0.73 0.73 - 1.22 mg/dL Final 10/17/2022 0.85 0.73 - 1.22 mg/dL Final Estimated Glomerular Filtration Rate Date Value Ref Range Status 10/24/2023 100 >=60 mL/min/1.73m Final Comment: Estimated Glomerular Filtration Rate (eGFR) is calculated using the 2020 CKD-EPI creatinine equation. This equation utilizes serum creatinine, sex, and age as parameters. The creatinine assay has traceable calibration to isotope dilution-mass spectrometry. Refer to KDIGO guidelines for clinical interpretation. In patients with unstable renal function, e.g. those with acute kidney injury, the eGFR may not accurately reflect actual GFR. P.O.C.T. RESULTS: POC done: Yes, See Lab Tab October 24, 2023 TREATMENT: N/A PERIPHERAL IV DATA: Ambulatory: A peripheral IV was started in the Left antecubital site with a Angio cath: 22 gauge. RADIOLOGY DEPARTMENT: CT; Exam(s) Completed: Chest and Neck SIGNATURE: RT aMrixa(Som) PATIENT NAME: Krystal Cortes DATE: October 24, 2023 TIME: 3:04 PM documented in this encounter [facility] 04-27-2023 History of Present illness Narrative Oncologic problem(s): 1) cT1b N1 M0 squamous cell carcinoma of the upper esophagus. 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 HPI: The patient is a 67-year-old male with a past medical history significant for head neck cancer, hypertension and COPD as well as heavy alcohol use. 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 Afterward, he recalled anesthesiologist told him to see a linux support engineer because he may have a mass in the proximal esophagus. Barium swallow with fluoroscopy on 12/03/2021 demonstrated no esophageal foreign body. There is no stricture or mucosal abnormality observed. The gastroesophageal junction was noted to be normal without demonstrated hiatal hernia. Patient underwent an EGD on 12/16/2021. The procedure report indicates that at approximately 21 cm there was a polypoid mass observed in the proximal esophagus. It measured approximately 15 mm in diameter and appeared friable. The endoscope was passed to the distal GE junction. There was no evidence of Glover mucosa. Stomach was easily insufflated and no ulcers were observed. There was erythema throughout the gastric mucosa with some streaking and cobblestoning noted. The bulbar duodenum was noted to be normal. Sweep of the duodenum demonstrated no abnormalities. Retroflexion in the stomach revealed a small hiatal hernia. Biopsies were obtained from the antrum for H. pylori testing. The endoscope was withdrawn into the proximal esophagus and several biopsy of the polypoid lesion were obtained. 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 EGD/EUS 01/18/2022: Malignant esophageal tumor was found in the upper third of the esophagus. -Erythematous mucosa in the antrum. -Normal examined duodenum. -A mass was found in the upper third of the esophagus (18-22 cm). A tissue diagnosis was obtained prior to this exam. This is of squamous cell carcinoma. This was staged T1sm (based on invasion into) N1 Mx by endosonographic criteria. -One malignant-appearing lymph node was visualized in the left upper paratracheal region (level 2L). Presence of tumor in the vicinity precluded an uncontaminated FNA -There was no evidence of significant pathology in the left lobe of the liver. -No specimens collected. Previous therapy: 1) Definitive chemotherapy and radiation. Completed radiation 04/13/2022. Received 5600 cGy in 28 fractions. Received 6 weekly doses of carboplatin and paclitaxel 03/07 through 04/11/2022. Underwent posttherapy EGD on 06/16/2022. Report of procedure not available but biopsy pathology demonstrated focal acute erosive and moderate chronic esophagitis negative for fungi. Negative for Glover's esophagus, fungi, eosinophilic esophagitis, viral inclusions, dysplasia and malignancy. Presents for ongoing oncologic management. Interim history: Appetite normal. Sense of taste normal. No odynophagia. No dysphagia. No nausea. Reflux if doesn't tale omeprazole. Bowel habits normal. Denies black/bloody stools. No dyspnea with exertion. No persistent symptoms of sensory neuropathy. PMH, medications and allergies personally reviewed by me today. Any changes documented in appropriate section. Family history: No family history of cancer. ROS: Constitutional: Denies episodes of fever and night sweats. Neuro: Denies GARZON, vertigo, dizziness and imbalance. Denies symptoms of neuropathy. HEENT: No recent change in voice, vision or hearing. Resp: No cough or wheeze. No hemoptysis. Denies shortness of breath at rest. Mild HOYOS. CVS: Denies exertional chest pain, PND, orthopnea and LE edema. GI: See above. : Denies dysuria or gross hematuria. No symptoms of bladder outlet obstruction. Endo: Denies hot flashes. Denies polyuria and polydipsia. Denies heat and cold intolerance. Musculoskeletal: Chronic LBP. Derm: Denies rash. Denies jaundice and diffuse pruritis. Heme: Denies unusual bleeding and unexplained bruising. Psych: Normal mood. PHYSICAL EXAM: Vitals: Blood pressure 157/75, pulse (!) 51, temperature 36.6 C (97.8 F), height 176.5 cm (5' 9.49), weight 73.3 kg (161 lb 8 oz), SpO2 97%. Well-appearing and in no acute distress. EYES: Sclerae are anicteric bilaterally. ENT: There is a lichenoid lesion at frenulum of tongue. LYMPHATIC: There is no palpable cervical or supraclavicular adenopathy. RESPIRATORY: Inspiratory breath sounds are of diminished intensity in all guzman. No rales, wheezes or rhonchi. CARDIOVASCULAR: Rhythm is regular. ABDOMEN: The abdomen is nondistended. No hepatomegaly appreciated today. No abdominal tenderness. Extremities: No swelling or edema. SKIN: No jaundice. LABS: Component Latest Ref Rng & Units 04/21/2023 WBC 3.70 - 11.00 k/uL 5.47 RBC 4.20 - 6.00 m/uL 4.81 Hemoglobin 13.0 - 17.0 g/dL 16.1 Hematocrit 39.0 - 51.0 % 45.8 MCV 80.0 - 100.0 fL 95.2 MCH 26.0 - 34.0 pg 33.5 MCHC 30.5 - 36.0 g/dL 35.2 RDW-CV 11.5 - 15.0 % 12.1 Platelet Count 150 - 400 k/uL 201 MPV 9.0 - 12.7 fL 8.4 (L) Neut% % 67.0 Abs Neut (ANC) 1.45 - 7.50 k/uL 3.67 Lymph% % 19.2 Abs Lymph 1.00 - 4.00 k/uL 1.05 Screven% % 9.7 Abs Screven <0.87 k/uL 0.53 Eosin% % 3.5 Abs Eosin <0.46 k/uL 0.19 Baso% % 0.4 Abs Baso <0.11 k/uL <0.03 Immature Gran % % 0.2 IMMATURE GRANS (ABS) <0.10 k/uL <0.03 NRBC /100 WBC 0.0 Absolute nRBC <0.01 k/uL <0.01 DTYPE Auto Glucose 74 - 99 mg/dL 101 (H) BUN 9 - 24 mg/dL 9 Creatinine 0.73 - 1.22 mg/dL 0.73 Sodium 136 - 144 mmol/L 135 (L) Potassium 3.7 - 5.1 mmol/L 4.3 Chloride 97 - 105 mmol/L 100 CO2 22 - 30 mmol/L 31 (H) Anion Gap 9 - 18 mmol/L 4 (L) Calcium 8.5 - 10.2 mg/dL 9.1 eGFR >=60 mL/min/1.73m 100 Albumin 3.9 - 4.9 g/dL 4.1 Bilirubin, Total 0.2 - 1.3 mg/dL 0.3 Bilirubin, Conjug <0.2 mg/dL <0.2 Alkaline Phosphatase 38 - 113 U/L 42 AST 14 - 40 U/L 20 ALT 10 - 54 U/L 15 Protein, Total 6.3 - 8.0 g/dL 6.5 ASSESSMENT/PLAN: (C15.3) Cancer of cervical esophagus (HCC) (primary encounter diagnosis) Assessment: -The patient is a 66-year-old male who has a 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 This was resected at by Dr. Gallagher and according to the records the plan was for observation but the patient had not followed up at [facility] since his first postoperative check in the spring. At the time of that surgery he was observed to have a possible mass in the proximal esophagus and was told to see a linux support engineer. 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 -Completed definitive concurrent chemotherapy and radiation. Tolerated overall well with no severe or unexpected toxicity. -Asymptomatic now. -Reviewed CT results of the chest and neck. ERI. -Reviewed labs. -Again discussed the concept of field cancerization and the importance of both smoking cessation. -Discussed the importance of managing hypertension. Reviewed with him proper technique for taking home blood pressures. Encouraged him to do so, keep a log and share that with his PCP. -Endoscopic surveillance every 3-6 months up to 2 years then as indicated by symptoms following that. -CT of chest, abdomen and pelvis every 3 to 6 months for the first 2 years then annually up to 5 years. Plan: -Recommend EGD in 6 months. -Labs and CT Chest and neck followed by OV in about 6 months. 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 Ortiz at [facility] but hasn't been back since. Plan: -Follow-up with ENT. Portions of this documentation were copied and pasted from previous office visit notes in order to provide a cohesive continuity of the history. The note has been reviewed and edited and updated as necessary. I spent a total of 20 minutes on the date of the service which included preparing to see the patient, [id number] patient care, completing clinical documentation, obtaining and/or reviewing separately obtained history, performing a medically appropriate examination, counseling and educating the patient/family/caregiver, ordering medications, tests, or procedures, communicating with other HCPs (not separately reported), and communicating results to the patient/family/caregiver. Kirit Rosas DO documented in this encounter [facility] 04-21-2023 History of Present illness Narrative Radiology Service Progress Note DATE OF SERVICE: April 21, 2023 TIME: 4:13 PM PATIENT IDENTITY VERIFICATION COMPLETED USING TWO (2) STANDARD IDENTIFIERS: Name and Date of confirmed by patient verbally. FALL SCREENING: Has the patient had 2 falls in the last year or 1 fall with injury or currently using an Ambulatory Assistive Device (Walker, Cane, Wheelchair, Crutches, etc.)? No PATIENT GENDER DATA: Male PATIENT RELEVANT IMPLANT DATA REVIEWED: Yes PATIENT PRESENTS WITH AN IMPLANTABLE OR ATTACHED SCIENCE TECHNICIAN: No ALLERGIES: Reviewed and unchanged CONTRAST ALLERGY: NO. EXAM: CT -CONTRAST INDUCED NEPHROPATHY RISK FACTORS: Patient age > 60 years CREATININE: Creatinine Date Value Ref Range Status 04/21/2023 0.73 0.73 - 1.22 mg/dL Final 10/17/2022 0.85 0.73 - 1.22 mg/dL Final 06/24/2022 0.75 0.73 - 1.22 mg/dL Final Estimated Glomerular Filtration Rate Date Value Ref Range Status 04/21/2023 100 >=60 mL/min/1.73m Final Comment: Estimated Glomerular Filtration Rate (eGFR) is calculated using the 2020 CKD-EPI creatinine equation. This equation utilizes serum creatinine, sex, and age as parameters. The creatinine assay has traceable calibration to isotope dilution-mass spectrometry. Refer to KDIGO guidelines for clinical interpretation. In patients with unstable renal function, e.g. those with acute kidney injury, the eGFR may not accurately reflect actual GFR. P.O.C.T. RESULTS: POC done: Yes, See Lab Tab April 21, 2023 TREATMENT: N/A PERIPHERAL IV DATA: Ambulatory: A peripheral IV was started in the Left antecubital site with a Angio cath: 22 gauge. RADIOLOGY DEPARTMENT: CT; Exam(s) Completed: Chest and Neck SIGNATURE: RT Marixa(R) PATIENT NAME: Krystal Cortes DATE: April 21, 2023 TIME: 4:13 PM documented in this encounter [facility] 10-21-2022 Miscellaneous Notes Referral faxed and scanned in scanned docs Check out comments: CBC/CMP / CT Neck and Chest prior to 6 month F/USCHEDULED Referral to Dr. Landis for EGD -FAXED F/U appt.. with [facility]- PT STATED HE WOULD CALL [facility] AND GET SCHEDULED - 11/12/23 Scheduled w/ PCP 11/18/22 documented in this encounter [facility] 10-21-2022 Miscellaneous Notes Information faxed as directed. Clarita Joseph LPN Please fax a copy of his recent chest and neck CT along with this phone note to Dr. Qiu. The report of the chest and neck CT won't be in my office visit note from today. I recommended that he talk with her about getting an ultrasound of his carotid arteries. 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 HPI: The patient is a 66-year-old male with a past medical history significant for head neck cancer, hypertension and COPD as well as heavy alcohol use. 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 Afterward, he recalls anesthesiologist told him to see a linux support engineer because he may have a mass in the proximal esophagus. Barium swallow with fluoroscopy on 12/03/2021 demonstrated no esophageal foreign body. There is no stricture or mucosal abnormality observed. The gastroesophageal junction was noted to be normal without demonstrated hiatal hernia. Patient underwent an EGD on 12/16/2021. The procedure report indicates that at approximately 21 cm there was a polypoid mass observed in the proximal esophagus. It measured approximately 15 mm in diameter and appeared friable. The endoscope was passed to the distal GE junction. There was no evidence of Glover mucosa. Stomach was easily insufflated and no ulcers were observed. There was erythema throughout the gastric mucosa with some streaking and cobblestoning noted. The bulbar duodenum was noted to be normal. Sweep of the duodenum demonstrated no abnormalities. Retroflexion in the stomach revealed a small hiatal hernia. Biopsies were obtained from the antrum for H. pylori testing. The endoscope was withdrawn into the proximal esophagus and several biopsy of the polypoid lesion were obtained. 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 EGD/EUS 01/18/2022: Malignant esophageal tumor was found in the upper third of the esophagus. -Erythematous mucosa in the antrum. -Normal examined duodenum. -A mass was found in the upper third of the esophagus (18-22 cm). A tissue diagnosis was obtained prior to this exam. This is of squamous cell carcinoma. This was staged T1sm (based on invasion into) N1 Mx by endosonographic criteria. -One malignant-appearing lymph node was visualized in the left upper paratracheal region (level 2L). Presence of tumor in the vicinity precluded an uncontaminated FNA -There was no evidence of significant pathology in the left lobe of the liver. -No specimens collected. Previous therapy: 1) Definitive chemotherapy and radiation. Pleated radiation 04/13/2022. Received 5600 cGy in 28 fractions. Received 6 weekly doses of carboplatin and paclitaxel 03/07 through 04/11/2022. Underwent posttherapy EGD on 06/16/2022. Report of procedure not available but biopsy pathology demonstrated focal acute erosive and moderate chronic esophagitis negative for fungi. Negative for Glover's esophagus, fungi, eosinophilic esophagitis, viral inclusions, dysplasia and malignancy. Presents for ongoing oncologic management. Interim history: Good appetite--eats less in the summer. Odynophagia resolved. No dysphagia. No nausea. Reflux if doesn't tale omeprazole. Bowel habits normal. Denies black/bloody stools. No dyspnea with exertion. No persistent symptoms of sensory neuropathy. PMH, medications and allergies personally reviewed by me today. Any changes documented in appropriate section. Family history: No family history of cancer. ROS: Constitutional: Denies episodes of fever and night sweats. Neuro: Denies GARZON, vertigo, dizziness and imbalance. Denies symptoms of neuropathy. HEENT: No recent change in voice, vision or hearing. Resp: No cough or wheeze. No hemoptysis. Denies shortness of breath at rest. Mild HOYOS. CVS: Denies exertional chest pain, PND, orthopnea and LE edema. GI: See above. : Denies dysuria or gross hematuria. No symptoms of bladder outlet obstruction. Endo: Denies hot flashes. Denies polyuria and polydipsia. Denies heat and cold intolerance. Musculoskeletal: Chronic LBP. Derm: Denies rash. Denies jaundice and diffuse pruritis. Heme: Denies unusual bleeding and unexplained bruising. Psych: Normal mood. PHYSICAL EXAM: Vitals: Blood pressure 164/81, pulse (!) 47, temperature 36.5 C (97.7 F), height 177 cm (5' 9.69), weight 72.3 kg (159 lb 8 oz), SpO2 98 %. Well-appearing and in no acute distress. EYES: Sclerae are anicteric bilaterally. ENT: There is a lichenoid lesion at frenulum of tongue. LYMPHATIC: There is no palpable cervical or supraclavicular adenopathy. RESPIRATORY: Inspiratory breath sounds are of diminished intensity in all guzman. No rales, wheezes or rhonchi. CARDIOVASCULAR: Rhythm is regular. ABDOMEN: The abdomen is nondistended. No hepatomegaly appreciated today. No abdominal tenderness. Extremities: No swelling or edema. SKIN: No jaundice or rash. No petechiae. NEUROLOGIC: technology education teacher II-XII are grossly intact. No focal motor weakness. LABS: Component Latest Ref Rng & Units 10/17/2022 WBC 3.70 - 11.00 k/uL 4.89 RBC 4.20 - 6.00 m/uL 4.67 Hemoglobin 13.0 - 17.0 g/dL 15.9 Hematocrit 39.0 - 51.0 % 44.7 MCV 80.0 - 100.0 fL 95.7 MCH 26.0 - 34.0 pg 34.0 MCHC 30.5 - 36.0 g/dL 35.6 RDW-CV 11.5 - 15.0 % 13.3 Platelet Count 150 - 400 k/uL 190 MPV 9.0 - 12.7 fL 8.4 (L) Neut% % 64.2 Abs Neut (ANC) 1.45 - 7.50 k/uL 3.14 Lymph% % 20.7 Abs Lymph 1.00 - 4.00 k/uL 1.01 Screven% % 11.2 Abs Screven <0.87 k/uL 0.55 Eosin% % 3.3 Abs Eosin <0.46 k/uL 0.16 Baso% % 0.4 Abs Baso <0.11 k/uL <0.03 Immature Gran % % 0.2 IMMATURE GRANS (ABS) <0.10 k/uL <0.03 NRBC /100 WBC 0.0 Absolute nRBC <0.01 k/uL <0.01 DTYPE Auto Protein, Total 6.3 - 8.0 g/dL 7.0 Albumin 3.9 - 4.9 g/dL 4.4 Calcium 8.5 - 10.2 mg/dL 9.5 Bilirubin, Total 0.2 - 1.3 mg/dL 0.6 Alkaline Phosphatase 38 - 113 U/L 43 AST 14 - 40 U/L 20 ALT 10 - 54 U/L 12 Glucose 74 - 99 mg/dL 103 (H) BUN 9 - 24 mg/dL 11 Creatinine 0.73 - 1.22 mg/dL 0.85 Sodium 136 - 144 mmol/L 142 Potassium 3.7 - 5.1 mmol/L 4.5 Chloride 97 - 105 mmol/L 105 CO2 22 - 30 mmol/L 25 Anion Gap 9 - 18 mmol/L 12 eGFR >=60 mL/min/1.73m 96 Magnesium 1.7 - 2.3 mg/dL 1.9 Bilirubin, Conjug <0.2 mg/dL <0.2 ASSESSMENT/PLAN: (C15.3) Cancer of cervical esophagus (HCC) (primary encounter diagnosis) Assessment: -The patient is a 66-year-old male who has a 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 This was resected at by Dr. Gallagher and according to the records the plan was for observation but the patient had not followed up at [facility] since his first postoperative check in the spring. At the time of that surgery he was observed to have a possible mass in the proximal esophagus and was told to see a linux support engineer. 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 -Completed definitive concurrent chemotherapy and radiation. Tolerated overall well with no severe or unexpected toxicity. -Asymptomatic now. -Reviewed CTs in detail. ERI. -Again discussed the concept of field cancerization and the importance of both smoking and alcohol cessation. Not quite psychologically motivated yet to quit either, but has cut down on drinking. -Endoscopic surveillance every 3-6 months up to 2 years then as indicated by symptoms following that. -CT of chest, abdomen and pelvis every 3 to 6 months for the first 2 years then annually up to 5 years. Plan: -Recommend EGD in November or December. -Labs and CT Chest and neck followed by OV in about 6 months. 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 Ortiz at [facility] but hasn't been back since. Plan: -Will refer to Dr. Brar for ongoing surveillance. Also recommend that he have ultrasound of carotid arteries based on CT neck findings. Advised him to get in touch with his PCP regarding this. Portions of this documentation were copied and pasted from previous office visit notes in order to provide a cohesive continuity of the history. The note has been reviewed and edited and updated as necessary. I spent a total of 25 minutes on the date of the service which included preparing to see the patient, [id number] patient care, completing clinical documentation, obtaining and/or reviewing separately obtained history, performing a medically appropriate examination, counseling and educating the patient/family/caregiver, ordering medications, tests, or procedures, communicating with other HCPs (not separately reported), and communicating results to the patient/family/caregiver. Kirit Rosas DO documented in this encounter [facility] 10-17-2022 History of Present illness Narrative Radiology Service Progress Note DATE OF SERVICE: October 17, 2022 TIME: 2:26 PM PATIENT IDENTITY VERIFICATION COMPLETED USING TWO (2) STANDARD IDENTIFIERS: Name and Date of confirmed by patient verbally. FALL SCREENING: Has the patient had 2 falls in the last year or 1 fall with injury or currently using an Ambulatory Assistive Device (Walker, Cane, Wheelchair, Crutches, etc.)? No PATIENT GENDER DATA: Male PATIENT RELEVANT IMPLANT DATA REVIEWED: Yes ALLERGIES: Reviewed and unchanged CONTRAST ALLERGY: NO. EXAM: CT -CONTRAST INDUCED NEPHROPATHY RISK FACTORS: Patient age > 60 years CREATININE: Creatinine Date Value Ref Range Status 10/17/2022 0.85 0.73 - 1.22 mg/dL Final 06/24/2022 0.75 0.73 - 1.22 mg/dL Final 05/16/2022 0.74 0.73 - 1.22 mg/dL Final Estimated Glomerular Filtration Rate Date Value Ref Range Status 10/17/2022 96 >=60 mL/min/1.73m Final Comment: Estimated Glomerular Filtration Rate (eGFR) is calculated using the 2020 CKD-EPI creatinine equation. This equation utilizes serum creatinine, sex, and age as parameters. The creatinine assay has traceable calibration to isotope dilution-mass spectrometry. Refer to KDIGO guidelines for clinical interpretation. In patients with unstable renal function, e.g. those with acute kidney injury, the eGFR may not accurately reflect actual GFR. P.O.C.T. RESULTS: POC done: Yes, See Lab Tab October 17, 2022 TREATMENT: N/A PERIPHERAL IV DATA: Ambulatory: A peripheral IV was started in the Left antecubital site with a Angio cath: 22 gauge. 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 HPI: The patient is a 66-year-old male with a past medical history significant for head neck cancer, hypertension and COPD as well as heavy alcohol use. 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 Afterward, he recalls anesthesiologist told him to see a linux support engineer because he may have a mass in the proximal esophagus. Barium swallow with fluoroscopy on 12/03/2021 demonstrated no esophageal foreign body. There is no stricture or mucosal abnormality observed. The gastroesophageal junction was noted to be normal without demonstrated hiatal hernia. Patient underwent an EGD on 12/16/2021. The procedure report indicates that at approximately 21 cm there was a polypoid mass observed in the proximal esophagus. It measured approximately 15 mm in diameter and appeared friable. The endoscope was passed to the distal GE junction. There was no evidence of Glover mucosa. Stomach was easily insufflated and no ulcers were observed. There was erythema throughout the gastric mucosa with some streaking and cobblestoning noted. The bulbar duodenum was noted to be normal. Sweep of the duodenum demonstrated no abnormalities. Retroflexion in the stomach revealed a small hiatal hernia. Biopsies were obtained from the antrum for H. pylori testing. The endoscope was withdrawn into the proximal esophagus and several biopsy of the polypoid lesion were obtained. 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 EGD/EUS 01/18/2022: Malignant esophageal tumor was found in the upper third of the esophagus. -Erythematous mucosa in the antrum. -Normal examined duodenum. -A mass was found in the upper third of the esophagus (18-22 cm). A tissue diagnosis was obtained prior to this exam. This is of squamous cell carcinoma. This was staged T1sm (based on invasion into) N1 Mx by endosonographic criteria. -One malignant-appearing lymph node was visualized in the left upper paratracheal region (level 2L). Presence of tumor in the vicinity precluded an uncontaminated FNA -There was no evidence of significant pathology in the left lobe of the liver. -No specimens collected. Previous therapy: 1) Definitive chemotherapy and radiation. Pleated radiation 04/13/2022. Received 5600 cGy in 28 fractions. Received 6 weekly doses of carboplatin and paclitaxel 03/07 through 04/11/2022. Presents for ongoing oncologic management. Interim history: Underwent posttherapy EGD on 06/16/2022. Report of procedure not available but biopsy pathology demonstrated focal acute erosive and moderate chronic esophagitis negative for fungi. Negative for Glover's esophagus, fungi, eosinophilic esophagitis, viral inclusions, dysplasia and malignancy. Good appetite. Mild odynophagia. No dysphagia. No nausea. Denies reflux--had it toward end of RT--now taking PPI prn. Bowel habits normal. Denies black/bloody stools. No persistent symptoms of sensory neuropathy. PMH, medications and allergies personally reviewed by me today. Any changes documented in appropriate section. Family history: No family history of cancer. ROS: Constitutional: Denies episodes of fever and night sweats. Neuro: Denies GARZON, vertigo, dizziness and imbalance. Denies symptoms of neuropathy. HEENT: No recent change in voice, vision or hearing. Resp: Cough and wheeze. No hemoptysis. Denies shortness of breath at rest. Mild HOYOS. CVS: Denies exertional chest pain, PND, orthopnea and LE edema. GI: See above. : Denies dysuria or gross hematuria. No symptoms of bladder outlet obstruction. Endo: Denies hot flashes. Denies polyuria and polydipsia. Denies heat and cold intolerance. Musculoskeletal: Chronic LBP. Derm: Denies rash. Denies jaundice and diffuse pruritis. Heme: Denies unusual bleeding and unexplained bruising. Psych: Normal mood. PHYSICAL EXAM: Vitals: Blood pressure 130/73, pulse (!) 50, temperature 36.2 C (97.2 F), weight 72.6 kg (160 lb), SpO2 97 %. Well-appearing and in no acute distress. EYES: Sclerae are anicteric bilaterally. ENT: There is a lichenoid lesion at frenulum of tongue that appears stable. LYMPHATIC: There is no palpable cervical or supraclavicular adenopathy. RESPIRATORY: Inspiratory breath sounds are of diminished intensity in all guzman. No rales, wheezes or rhonchi. CARDIOVASCULAR: Rhythm is regular. ABDOMEN: The abdomen is nondistended. No hepatomegaly appreciated today. No abdominal tenderness. Extremities: No swelling or edema. SKIN: No jaundice or rash. No petechiae. NEUROLOGIC: technology education teacher II-XII are grossly intact. No focal motor weakness. LABS: Component Latest Ref Rng & Units 06/24/2022 WBC 3.70 - 11.00 k/uL 5.69 RBC 4.20 - 6.00 m/uL 4.43 Hemoglobin 13.0 - 17.0 g/dL 15.7 Hematocrit 39.0 - 51.0 % 45.9 MCV 80.0 - 100.0 fL 103.6 (H) MCH 26.0 - 34.0 pg 35.4 (H) MCHC 30.5 - 36.0 g/dL 34.2 RDW-CV 11.5 - 15.0 % 12.6 Platelet Count 150 - 400 k/uL 154 MPV 9.0 - 12.7 fL 8.6 (L) Neut% % 62.0 Abs Neut (ANC) 1.45 - 7.50 k/uL 3.53 Lymph% % 20.9 Abs Lymph 1.00 - 4.00 k/uL 1.19 Screven% % 13.0 Abs Screven <0.87 k/uL 0.74 Eosin% % 3.5 Abs Eosin <0.46 k/uL 0.20 Baso% % 0.4 Abs Baso <0.11 k/uL <0.03 Immature Gran % % 0.2 IMMATURE GRANS (ABS) <0.10 k/uL <0.03 NRBC /100 WBC 0.0 Absolute nRBC <0.01 k/uL <0.01 DTYPE Auto IMAGING: PET 06/21/2022: PET-CT scan: Approximately 60 minutes following the IV administration of F-18 FDG (10.5 mCi of F-18 FDG), PET and non contrast CT images were acquired from the skull base through proximal thigh. PET images were reconstructed with and without attenuation correction using attenuation coefficients. CT Radiation dose: Integrated Dose-length product (DLP) for this visit = 276 mGy*cm. CT Dose Reduction Employed: Automatic exposure control used (AED) COMPARISON: FDG PET-CT: 02/08/2022 CORRELATION: None. RESULTS: Topogram review: Unremarkable, no acute findings. No retained foreign body. Head and Neck: No evidence of focal uptake to suggest FDG avid neoplastic process. No significant anatomical abnormality to the limits of low dose noncontrast CT scan. Chest: Decreased but persistent mild uptake in the upper esophagus mucosa with max SUV 4.3, previously 14.3. There is a 1.1 x 0.6 cm left paratracheal lymph node with minimal FDG uptake of max SUV 2.3, decreased from previous 1.4 x 0.9 cm with max SUV 3.4. The previous noted mild uptake in the distal esophagus have essentially resolved. Focal area of atelectasis in the left upper lobe. Abdomen and Pelvis: No evidence of focal uptake to suggest FDG avid neoplastic process. Colonic diverticulosis Extremities/Skeleton: No evidence of focal uptake to suggest FDG avid neoplastic process. Degenerative arthritic change. IMPRESSION: 1. HEAD and NECK: No evidence of focal uptake to suggest FDG avid neoplastic process.. 2. CHEST: Decreased but persistent mild uptake in the upper esophagus mucosa, probably posttreatment inflammation. Continued follow-up is recommended. Decreased size and metabolism of left paratracheal lymph node. 3. ABDOMEN/PELVIS: No evidence of focal uptake to suggest FDG avid neoplastic process.. 4. EXTREMITIES/SKELETON: No evidence of focal uptake to suggest FDG avid neoplastic process. 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 This was resected at by Dr. Gallagher and according to the records the plan was for observation but the patient had not followed up at [facility] since his first postoperative check in the spring. At the time of that surgery he was observed to have a possible mass in the proximal esophagus and was told to see a linux support engineer. 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 -Completed definitive concurrent chemotherapy and radiation. Tolerated overall well with no severe or unexpected toxicity. -Asymptomatic now. -Reviewed PET results. -Again discussed the concept of field cancerization and the importance of both smoking and alcohol cessation. Not quite psychologically motivated yet to quit either. -Endoscopic surveillance every 3-6 months up to 2 years then as indicated by symptoms following that. -CT of chest, abdomen and pelvis every 3 to 6 months for the first 2 years then annually up to 5 years. Plan: -Labs and CT Chest and neck followed by OV in about 4 months. 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 Ortiz at [facility]. Plan: -Follow-up with Dr. Ortiz as scheduled next week. Portions of this documentation were copied and pasted from previous office visit notes in order to provide a cohesive continuity of the history. The note has been reviewed and edited and updated as necessary. I spent a total of 25 minutes on the date of the service which included preparing to see the patient, [id number] patient care, completing clinical documentation, obtaining and/or reviewing separately obtained history, performing a medically appropriate examination, counseling and educating the patient/family/caregiver, ordering medications, tests, or procedures, and communicating results to the patient/family/caregiver. Kirit Rosas DO documented in this encounter [facility] 06-21-2022 Note HNO ID: [id number] Author: RT Radha(R) Service: Nuclear Medicine Author Type: Technologist Type: Progress Notes Filed: 06/21/2022 7:02 AM Note Text: RADIOLOGY SERVICE PROGRESS NOTE SERVICE DATE: 06/21/2022 SERVICE TIME: 7:01 AM PATIENT IDENTITY VERIFICATION COMPLETED USING TWO (2) STANDARD IDENTIFIERS: Name and Date of confirmed by patient verbally FALL SCREENING: Has the patient had 2 falls in the last year or 1 fall with injury or currently using an Ambulatory Assistive Device (Walker, Cane, Wheelchair, Crutches, etc.)? No PATIENT GENDER DATA: .male : No ALLERGIES: Reviewed and unchanged MEDICATIONS REVIEWED: No PATIENT RELEVANT IMPLANT DATA REVIEWED: Not Applicable CREATININE: Creatinine Date Value Ref Range Status 05/16/2022 0.74 0.73 - 1.22 mg/dL Final 05/09/2022 0.72 (L) 0.73 - 1.22 mg/dL Final 05/02/2022 0.77 0.73 - 1.22 mg/dL Final Estimated Glomerular Filtration Rate Date Value Ref Range Status 05/16/2022 101 >=60 mL/min/1.73m? Final Comment: Estimated Glomerular Filtration Rate (eGFR) is calculated using the 2020 CKD-EPI creatinine equation. This equation utilizes serum creatinine, sex, and age as parameters. The creatinine assay has traceable calibration to isotope dilution-mass spectrometry. Refer to KDIGO guidelines for clinical interpretation. In patients with unstable renal function, e.g. those with acute kidney injury, the eGFR may not accurately reflect actual GFR. P.O.C.T. RESULTS: N/A June 21, [address] PERFORMED: No IV SITE: Ambulatory: NM only - direct IV injection in the Right antecubital site POST EXAM PIV STATUS: Discontinued PROCEDURE TYPE: NM INJECT: PET/CT BODY SCAN. 10.5 mCi F18 FDG. No other medications given.. ADMINISTRATION TIME: 651 PATIENT DISCHARGED TO: Ambulatory patient, left NM department area. A Diagnostic radioactive procedure has taken place, with no further precautions necessary other than routine body substance precautions. More information regarding radiation safety can be found using this link: [email or web address] [email or web address] SIGNATURE: RT Radha(R) PATIENT NAME: Krystal Corets DATE: June 21, 2022 TIME: 7:01 AM PAGER/CONTACT #: [facility] 06-21-2022 History of Present illness Narrative RADIOLOGY SERVICE PROGRESS NOTE SERVICE DATE: 06/21/2022 SERVICE TIME: 7:01 AM PATIENT IDENTITY VERIFICATION COMPLETED USING TWO (2) STANDARD IDENTIFIERS: Name and Date of confirmed by patient verbally FALL SCREENING: Has the patient had 2 falls in the last year or 1 fall with injury or currently using an Ambulatory Assistive Device (Walker, Cane, Wheelchair, Crutches, etc.)? No PATIENT GENDER DATA: .male : No ALLERGIES: Reviewed and unchanged MEDICATIONS REVIEWED: No PATIENT RELEVANT IMPLANT DATA REVIEWED: Not Applicable CREATININE: Creatinine Date Value Ref Range Status 05/16/2022 0.74 0.73 - 1.22 mg/dL Final 05/09/2022 0.72 (L) 0.73 - 1.22 mg/dL Final 05/02/2022 0.77 0.73 - 1.22 mg/dL Final Estimated Glomerular Filtration Rate Date Value Ref Range Status 05/16/2022 101 >=60 mL/min/1.73m Final Comment: Estimated Glomerular Filtration Rate (eGFR) is calculated using the 2020 CKD-EPI creatinine equation. This equation utilizes serum creatinine, sex, and age as parameters. The creatinine assay has traceable calibration to isotope dilution-mass spectrometry. Refer to KDIGO guidelines for clinical interpretation. In patients with unstable renal function, e.g. those with acute kidney injury, the eGFR may not accurately reflect actual GFR. P.O.C.T. RESULTS: N/A June 21, [address] PERFORMED: No IV SITE: Ambulatory: NM only - direct IV injection in the Right antecubital site POST EXAM PIV STATUS: Discontinued PROCEDURE TYPE: NM INJECT: PET/CT BODY SCAN. 10.5 mCi F18 FDG. No other medications given.. ADMINISTRATION TIME: 651 PATIENT DISCHARGED TO: Ambulatory patient, left NM department area. A Diagnostic radioactive procedure has taken place, with no further precautions necessary other than routine body substance precautions. More information regarding radiation safety can be found using this link: [email or web address] [email or web address] SIGNATURE: RT Radha(R) PATIENT NAME: Krystal Cortes DATE: June 21, 2022 TIME: 7:01 AM PAGER/CONTACT #: documented in this encounter [facility] 05-17-2022 Miscellaneous Notes See [employer] message. Marine Bush LPN Depends on the results of today's labs. I will send him a [employer] message once things are resulted and I have had a chance to review. 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 Patient has completed both chemo and radiation. Please advise. (Patient will be watching to see if lab appointments are made on MyChart.) Kiya Villalba documented in this encounter [facility] 05-10-2022 Nurse Note Tobacco Use: 1 packs/day, for 40 years. Types: Cigarettes. Ready to quit: Yes. Was smoking cessation packet given? Yes - Patient received smoking cessation packet at previous [facility] office visit. Was a referral initiated?Patient declined. documented in this encounter [facility] 05-10-2022 History of Present illness Narrative [facility] Note CC: 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) and malignant neoplasm of upper third of esophagus (HCC) Last clinic visit on 03/03/2022 HPI: Patient is a 66 year old male with a history of mouth squamous cell carcinoma for which he underwent local wide resection by Dr. Quiñones at at 04/2021 and was told he did not require further adjuvant therapy. He has a 49 pack-year history of smoking and drinking 4 - 5 beers a day. 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 CT Neck on 01/11 revealed an asymmetrical deformity along the right dorsal tongue, however this was not PET avid. In the interval, pathology slides from were reviewed which showed Moderately diff SCCA. (1.7 cm, 2.5 mm DOI, No LVSI, +PNI, Some dysplasia at margin and close deep margin <0.1mm). He has also undergone MACHINE MILKER for [id number] SCC of the proximal esophagus (5600cGY in 28 fractions, 6 x weekly carbo/paclitaxel completed 04/11/2022) Reported tolerating the chemotherapy fairly well without significant nausea and vomiting. Reports dysphagia, odynophagia and dysphagia after RT. No oral sores, significant xerostomia, unexpected weight loss, otalgia, cervical masses. Overall patient recovering well from chemoradiotherapy. Smoking about 8 cigarettes per day, 2-3 beers per day Current Outpatient Medications Medication Sig Dispense Refill Omeprazole Magnesium (PRILOSEC OTC) 20 mg tablet Take 20 mg by mouth as needed. amLODIPine (NORVASC) 10 mg tablet Take 1 tablet by mouth once daily. ondansetron (ZOFRAN) 8 mg tablet Take 1 tablet by mouth every 8 hours as needed for nausea/vomiting. 30 tablet 2 lisinopril (ZESTRIL, PRINIVIL) 40 mg tablet Take 20 mg by mouth once daily. carvedilol (COREG) 12.5 mg tablet Take 12.5 mg by mouth twice daily. No current facility-administered medications for this visit. EXAM: Constitutional - General Appearance: well developed, well nourished, without obvious deformities Communication: speaks with a normal voice without hoarseness Head & Face - Overall: no obvious scars, lesions or masses Parotid and submandibular glands: no masses or tenderness Facial strength: normal and equal bilaterally Ear, Nose, Mouth & Throat - Ears: both left and right external auditory canals and TM's are normal, no external deformities Nasal exam: mucosa is pink, septum is midline, visible turbinates are normal on anterior rhinoscopy Mastication: edentulous Oral Cavity and oropharynx: mucosa, hard and soft palates, tongue, tonsil area, posterior pharyngeal wall, lips and gums are without lesions. Floor of mouth soft to palpation, small scar band from prior surgery, surgically repaired Warthin duct on the right working well with clear discharge Neck: appears symmetric, and on palpation is without masses or lymphadenopathy Thyroid: no asymmetry, thyromegaly, or thyroid nodules on palpation Neuro: CN III - CN XII grossly intact FLEXIBLE LARYNGOSCOPY Indications: Cancer surveillance. Larynx - mirror exam limited by gag. Procedure: With the patient sitting upright, informed consent was obtained. Topical anesthesia and vasoconstriction was applied with spray to the right and left side(s) of the nose. After waiting an appropriate period of time for anesthesia/vasoconstriction to become effective, a flexible laryngoscope was passed through the left side(s) of the nose and the nose, nasopharynx, oropharynx, hypopharynx and larnyx. The patient tolerated the procedure without complications. Findings: The nasal passageways and nasopharynx appear normal without edema or erythema. The oropharynx, base of tongue, piriform sinuses, epiglottis, and aryepiglottic folds were examined and no masses, lesions, or ulcerations were seen. The true vocal cords move well to midline bilaterally. The airway is widely patent. I was present for the entirety of the endoscopy/procedure and discussed the results with the patient. Max Ortiz MD IMAGING: NM PET/CT SKULL-THIGH INITIAL on 02/08/2022 IMPRESSION: 1. NECK: No FDG avid neoplastic process. No mass, adenopathy, or fluid collection. ASSESSMENT: 66M current smoker with PMH SCC floor of mouth s/p excision 04/2021 and recent completion of MACHINE MILKER on 04/11/2022 for esophageal SCC presenting for routine follow up of taylor of mouth SCC. Patient is doing well now 1 year post-op. 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 Exam with no evidence of disease today. Discussed the importance of smoking cessation for symptomatic improvement and prevention of development of further upper aerodigestive tracts malignancies. PLAN AND RECOMMENDATIONS: Flexible laryngoscopy today PET ordered by med onc for follow up in 8 weeks Follow-up in 3-4 months Samuel Davidson MD For the service of Max Ortiz MD Otolaryngology Staff Attestation Details as per Dr. Davidson's note which I have reviewed and edited. I performed a history and physical examination of the patient and discussed the patient's management with the resident. I agree with the documented findings and treatment plan. 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 He just underwent treatment for his esophageal cancer. His oral cavity is doing well today. No pain no concerning symptoms. No neck masses. On examination his oral cavity is well-healed. There is no masses or ulceration. His right submandibular duct is repaired and has clear saliva. His neck is benign. His scope examination is benign. Assessment and plan No evidence of disease from his oral cavity cancer. We discussed smoking sensation and close follow-up. He has a PET scan pending in 8 weeks for follow-up as of esophageal cancer. We can review that once it is done. We will see him back in 3 to 4 months. Max Ortiz MD documented in this encounter [facility] 05-05-2022 History of Present illness Narrative Oncologic problem(s): 1) cT1b N1 M0 squamous cell carcinoma of the upper esophagus. 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 HPI: The patient is a 66-year-old male with a past medical history significant for head neck cancer, hypertension and COPD as well as heavy alcohol use. 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 Afterward, he recalls anesthesiologist told him to see a linux support engineer because he may have a mass in the proximal esophagus. Barium swallow with fluoroscopy on 12/03/2021 demonstrated no esophageal foreign body. There is no stricture or mucosal abnormality observed. The gastroesophageal junction was noted to be normal without demonstrated hiatal hernia. Patient underwent an EGD on 12/16/2021. The procedure report indicates that at approximately 21 cm there was a polypoid mass observed in the proximal esophagus. It measured approximately 15 mm in diameter and appeared friable. The endoscope was passed to the distal GE junction. There was no evidence of Glover mucosa. Stomach was easily insufflated and no ulcers were observed. There was erythema throughout the gastric mucosa with some streaking and cobblestoning noted. The bulbar duodenum was noted to be normal. Sweep of the duodenum demonstrated no abnormalities. Retroflexion in the stomach revealed a small hiatal hernia. Biopsies were obtained from the antrum for H. pylori testing. The endoscope was withdrawn into the proximal esophagus and several biopsy of the polypoid lesion were obtained. 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 EGD/EUS 01/18/2022: Malignant esophageal tumor was found in the upper third of the esophagus. -Erythematous mucosa in the antrum. -Normal examined duodenum. -A mass was found in the upper third of the esophagus (18-22 cm). A tissue diagnosis was obtained prior to this exam. This is of squamous cell carcinoma. This was staged T1sm (based on invasion into) N1 Mx by endosonographic criteria. -One malignant-appearing lymph node was visualized in the left upper paratracheal region (level 2L). Presence of tumor in the vicinity precluded an uncontaminated FNA -There was no evidence of significant pathology in the left lobe of the liver. -No specimens collected. Previous therapy: 1) Definitive chemotherapy and radiation. Pleated radiation 04/13/2022. Received 5600 cGy in 28 fractions. Received 6 weekly doses of carboplatin and paclitaxel 03/07 through 04/11/2022. Presents for ongoing oncologic management. Interim history: Good appetite. Mild odynophagia. No dysphagia. No nausea. Denies reflux--had it toward end of RT--now taking PPI prn. Bowel habits normal. Denies black/bloody stools. No persistent symptoms of sensory neuropathy. PMH, medications and allergies personally reviewed by me today. Any changes documented in appropriate section. Family history: No family history of cancer. ROS: Constitutional: Denies episodes of fever and night sweats. Neuro: Denies GARZON, vertigo, dizziness and imbalance. Denies symptoms of neuropathy. HEENT: No recent change in voice, vision or hearing. Resp: Cough and wheeze. No hemoptysis. Denies shortness of breath at rest. Mild HOYOS. CVS: Denies exertional chest pain, PND, orthopnea and LE edema. GI: See above. : Denies dysuria or gross hematuria. No symptoms of bladder outlet obstruction. Endo: Denies hot flashes. Denies polyuria and polydipsia. Denies heat and cold intolerance. Musculoskeletal: Chronic LBP. Derm: Denies rash. Denies jaundice and diffuse pruritis. Heme: Denies unusual bleeding and unexplained bruising. Psych: Normal mood. PHYSICAL EXAM: Vitals: Blood pressure 119/64, pulse (!) 53, temperature 36.4 C (97.5 F), weight 71.7 kg (158 lb). Well-appearing and in no acute distress. EYES: Sclerae are anicteric bilaterally. ENT: There is a lichenoid lesion at frenulum of tongue that appears stable. LYMPHATIC: There is no palpable cervical or supraclavicular adenopathy. RESPIRATORY: Inspiratory breath sounds are of diminished intensity in all guzman. No rales, wheezes or rhonchi. CARDIOVASCULAR: Rhythm is regular. ABDOMEN: The abdomen is nondistended. No hepatomegaly appreciated today. No abdominal tenderness. Extremities: No swelling or edema. SKIN: No jaundice or rash. No petechiae. NEUROLOGIC: technology education teacher II-XII are grossly intact. No focal motor weakness. LABS: Component Latest Ref Rng & Units 05/02/2022 WBC 3.70 - 11.00 k/uL 4.93 RBC 4.20 - 6.00 m/uL 3.26 (L) Hemoglobin 13.0 - 17.0 g/dL 11.1 (L) Hematocrit 39.0 - 51.0 % 31.8 (L) MCV 80.0 - 100.0 fL 97.5 MCH 26.0 - 34.0 pg 34.0 MCHC 30.5 - 36.0 g/dL 34.9 RDW-CV 11.5 - 15.0 % 13.9 Platelet Count 150 - 400 k/uL 224 MPV 9.0 - 12.7 fL 8.3 (L) Neut% % 64.3 Abs Neut (ANC) 1.45 - 7.50 k/uL 3.17 Lymph% % 19.9 Abs Lymph 1.00 - 4.00 k/uL 0.98 (L) Screven% % 13.6 Abs Screven <0.87 k/uL 0.67 Eosin% % 1.4 Abs Eosin <0.46 k/uL 0.07 Baso% % 0.4 Abs Baso <0.11 k/uL <0.03 Immature Gran % % 0.4 IMMATURE GRANS (ABS) <0.10 k/uL <0.03 NRBC /100 WBC 0.0 Absolute nRBC <0.01 k/uL <0.01 DTYPE Auto Protein, Total 6.3 - 8.0 g/dL 6.1 (L) Albumin 3.9 - 4.9 g/dL 3.2 (L) Calcium 8.5 - 10.2 mg/dL 8.7 Bilirubin, Total 0.2 - 1.3 mg/dL 0.2 Alkaline Phosphatase 38 - 113 U/L 56 AST 14 - 40 U/L 13 (L) ALT 10 - 54 U/L 12 Glucose 74 - 99 mg/dL 121 (H) BUN 9 - 24 mg/dL 9 Creatinine 0.73 - 1.22 mg/dL 0.77 Sodium 136 - 144 mmol/L 138 Potassium 3.7 - 5.1 mmol/L 4.3 Chloride 97 - 105 mmol/L 104 CO2 22 - 30 mmol/L 29 Anion Gap 9 - 18 mmol/L 5 (L) eGFR >=60 mL/min/1.73m 99 Magnesium 1.7 - 2.3 mg/dL 1.9 IMAGING: PET 02/08/2022: 1. NECK: No FDG avid neoplastic process. No mass, adenopathy, or fluid collection. 2. CHEST: Hypermetabolic lesion in the upper thoracic esophagus, compatible with patient's known malignancy. Mild uptake is identified in the distal portion of the esophagus, that could be related to reflux esophagitis. Small upper left paratracheal lymph node, possibly a small metastatic lymph node. 3. ABDOMEN/PELVIS: No FDG avid neoplastic process. No mass, adenopathy, or fluid collection. 4. EXTREMITIES/SKELETON: No FDG avid osseous process. No destructive/traumatic bony abnormality. 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 This was resected at by Dr. Gallagher and according to the records the plan was for observation but the patient had not followed up at [facility] since his first postoperative check in the spring. At the time of that surgery he was observed to have a possible mass in the proximal esophagus and was told to see a linux support engineer. 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 -PET revealed no metastatic disease. -Now completed definitive concurrent chemotherapy and radiation. Tolerated overall well with no severe or unexpected toxicity. Side effects resolving very nicely. -Discussed the concept of field cancerization and the importance of both smoking and alcohol cessation. He was given a prescription by Dr. Qiu but he has not yet opened the bag to see what it is. I advised he try nicotine patch if he was not going to take any medication to help with smoking cessation. He appears to be more psychologically motivated at this point but I will continue addressing this issue at subsequent visits. -Discussed plan for end of treatment assessment as outlined below. Plan: -EGD about 8 weeks--scheduled with Dr. Landis 06/16. -Pet in about 8 weeks. -OV with labs following above. 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 Ortiz at [facility]. Plan: -Follow-up with Dr. Ortiz as scheduled next week. Portions of this documentation were copied and pasted from previous office visit notes in order to provide a cohesive continuity of the history. The note has been reviewed and edited and updated as necessary. I spent a total of 25 minutes on the date of the service which included preparing to see the patient, [id number] patient care, completing clinical documentation, obtaining and/or reviewing separately obtained history, performing a medically appropriate examination, counseling and educating the patient/family/caregiver, ordering medications, tests, or procedures, communicating with other HCPs (not separately reported), and communicating results to the patient/family/caregiver. Kirit Rosas DO Est. Pt, discuss recent lab results, 4 week f/u Clarita Kinney LPN documented in this encounter [facility] 04-21-2022 Miscellaneous Notes Pt returned call, given instructions, voices understanding. Sofya Dhillon LPN Message left for patient to contact office for medication instructions. Dr. Rosas would like patient to discontinue Lasix. Medication list needs updated once patient has been notified. Please warm transfer patient to [facility]. Marine Bush LPN documented in this encounter [facility] 04-13-2022 Nurse Note Written discharge instructions given and reviewed with patient. Patient verbalizes understanding. Encouraged to call with any questions or concerns. Instruction for 4 week phone call follow up appointment given by Dr. Dinh. documented in this encounter [facility] 04-13-2022 History of Present illness Narrative KRYSTAL CORTES [id number] : 1955 04/13/2022 [facility] Department of Radiation Oncology RADIATION ONCOLOGY - COMPLETION NOTE DATE OF SIMULATION: 02/25/22 DATES OF TREATMENT: 03/07/22 - 04/13/22 UNIT: [id number] AREA TREATED: Upper esophagus DISEASE: Clinical stage I, T1smN1, moderately differentiated keratinizing squamous cell carcinoma of the proximal esophagus. DELIVERED DOSE: 5600 cGy in 28 fractions treating to the 98.5% isodose line with 6 MV and 2 vamt guzman. Concurrent chemotherapy with weekly Carboplatin/Taxol. ELAPSED TIME: 37 days. TOLERANCE/ RESPONSE: He had moderate odynophagia but is able to tolerate soft food and fluid well. REMARKS: He tolerated radiation treatment well overall. Four week follow-up with ri. Staff Physician SHANNON DINH M.D. / 33:07 PM Electronically Signed cc: Kirit Rosas [address] [place] [facility] [id number] documented in this encounter [facility] 04-12-2022 Nurse Note Radiation Therapy - Nursing Note (OTV) PATIENT NAME: Krystal Cortes PATIENT April 12, 2022 [facility] FACILITY/LOCATION: [place] NURSING NOTE TYPE: CHEST Subjective Data See pain assessment Additional Data Do you want to see a Construction Operations Manager? No Status: Patient is male Stress Scale: On a scale of 0 to 10, what number best describes how much distress you have experienced in the past week?(0 being no distress and 10 being extreme distress) 0 Social work notified: no Nursing Assessment Fatigue: increased fatigue over baseline but not altering normal activities Appetite: good Nutritional Intake: Regular oral intake. Weight Gain/Loss: No Ambulatory weight history: Last 6 Encounter Wt Readings: Date: Wt: 04/12/2022 73.9 kg (163 lb) 04/11/2022 72.1 kg (159 lb) 04/06/2022 74.2 kg (163 lb 8 oz) 04/05/2022 73.9 kg (163 lb) 04/04/2022 74.4 kg (164 lb) 03/29/2022 73.1 kg (161 lb 3.2 oz) Nausea:None Vomiting: None Bowel Function: normal bowel movements Erythema/Hyperpigmentation:mild Desquamation:none Rash:none Skin Care: Aquaphor Skin Sensation: mild itching and mild burning Focused Assessment CHEST: Dysphagia: Moderate. Pain with swallowing: Moderate. Shortness of breath: No. Cough: Moderate. SIGNED by: Jennifer Santillan RN documented in this encounter [facility] 04-12-2022 History of Present illness Narrative Pt did not show for appt. Pt should make appt as needed. documented in this encounter [facility] 04-12-2022 History of Present illness Narrative Radiation Oncology - On Treatment Review (OTR) Note PATIENT NAME: Krystal Cortes PATIENT DIAGNOSIS: Clinical stage I, T1smN1, moderately differentiated keratinizing squamous cell carcinoma of the proximal esophagus. COURSE: definitive and concurrent chemotherapy (weekly Carboplatin/Taxol). AREA TREATED: Esophagus CURRENT DOSE: 5400 cGy in 27 fx PLANNED DOSE: 5600 cGy in 28 fx SUBJECTIVE: He had moderate odynophagia over the weekend. He is doing better this week tolerating soft food and fluid well. EXAM: KPS: 90 General Appearance: Alert and oriented. No acute distress. IMAGING/LAB RESULTS: CBC yesterday reviewed. ANC = 1.12K Treatment chart checked: Yes Patient treatment site reviewed and verified:Yes CBCTs reviewed and current:Yes Medications started: Prilosec. ASSESSMENT/PLAN: Clinically stable. Toxicity within expected parameters. Continue radiation treatment as planned. Shannon Dinh MD documented in this encounter [facility] 04-11-2022 Miscellaneous Notes Patient has been scheduled in the only open spot which is a 8:00 am multiple hour time slot. I did let the patient know that if he see this appointment on his MyChart not to be alarmed because we do have it in his notes that he is not going to be in for hydration until about 10:00 am, he stated understanding. Sailaja Belles Pss Spoke with pt.given information concerning low potassium, PSS please put on chemo schedule tomorrow around 10 am. For electrolytes Pt. Will have done after his radiation. No need contacting pt. Clarita Kinney LPN His potassium is low. I am not sure he would be able to swallow potassium very well since undergoing treatment for esophagus cancer. Can we add him on for electrolyte infusion tomorrow? Orders in [place]. Kirit Rosas DO documented in this encounter [facility] 04-06-2022 History of Present illness Narrative Chief Complaint Patient presents with: Established Patient HPI: Krystal Cortes is a 66 year old male who presents here today for evaluation for treatment on Monday. Per Dr. Rosas's previous note: H/o head neck cancer, hypertension and COPD as well as heavy alcohol use. 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 Afterward, he recalls anesthesiologist told him to see a linux support engineer because he may have a mass in the proximal esophagus. Barium swallow with fluoroscopy on 12/03/2021 demonstrated no esophageal foreign body. There is no stricture or mucosal abnormality observed. The gastroesophageal junction was noted to be normal without demonstrated hiatal hernia. Patient underwent an EGD on 12/16/2021. The procedure report indicates that at approximately 21 cm there was a polypoid mass observed in the proximal esophagus. It measured approximately 15 mm in diameter and appeared friable. The endoscope was passed to the distal GE junction. There was no evidence of Glover mucosa. Stomach was easily insufflated and no ulcers were observed. There was erythema throughout the gastric mucosa with some streaking and cobblestoning noted. The bulbar duodenum was noted to be normal. Sweep of the duodenum demonstrated no abnormalities. Retroflexion in the stomach revealed a small hiatal hernia. Biopsies were obtained from the antrum for H. pylori testing. The endoscope was withdrawn into the proximal esophagus and several biopsy of the polypoid lesion were obtained. 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 EGD/EUS 01/18/2022: Malignant esophageal tumor was found in the upper third of the esophagus. -Erythematous mucosa in the antrum. -Normal examined duodenum. -A mass was found in the upper third of the esophagus (18-22 cm). A tissue diagnosis was obtained prior to this exam. This is of squamous cell carcinoma. This was staged T1sm (based on invasion into) N1 Mx by endosonographic criteria. -One malignant-appearing lymph node was visualized in the left upper paratracheal region (level 2L). Presence of tumor in the vicinity precluded an uncontaminated FNA -There was no evidence of significant pathology in the left lobe of the liver. -No specimens collected. Cutting down on smoking--now between 6-8 cigarettes a day. Still 4-5 beers a day. Current therapy:Taxol/Carbo/radiation Began 03/07/22 No new concerns today. Appetite:Good. Wt. down 1# since 03/25/22. denies dysphagia. Energy level:Good. more tired by end of the week Denies fevers. 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 Past medical history, appointments, medications, allergies reviewed. No changes. EXAM: BP 111/61 Pulse (!) 59 Temp 36.5 C (97.7 F) (Temporal) Wt 74.2 kg (163 lb 8 oz) BMI 22.80 kg/m APPEARANCE Well appearing, alert, in no acute distress, well-hydrated, well nourished. HEART RRR with normal S1 and S2, no murmurs LUNG clear to auscultation LYMPH NODES No cervical lymphadenopathy, No supraclavicular lymphadenopathy, and No axillary lymphadenopathy. ABDOMEN bowel sounds normoactive, soft, non-tender EXTREMITIES No edema NEURO Awake, alert and oriented x 3, Normal gait, and No involuntary motions. SKIN Skin color, texture, turgor normal, no suspicious rashes or lesions LABS: Component Latest Ref Rng & Units 03/28/2022 04/04/2022 WBC 3.70 - 11.00 k/uL 2.46 (L) 2.05 (L) RBC 4.20 - 6.00 m/uL 4.27 4.01 (L) Hemoglobin 13.0 - 17.0 g/dL 14.3 13.8 Hematocrit 39.0 - 51.0 % 40.7 38.4 (L) MCV 80.0 - 100.0 fL 95.3 95.8 MCH 26.0 - 34.0 pg 33.5 34.4 (H) MCHC 30.5 - 36.0 g/dL 35.1 35.9 RDW-CV 11.5 - 15.0 % 11.9 12.0 Platelet Count 150 - 400 k/uL 182 134 (L) MPV 9.0 - 12.7 fL 8.7 (L) 8.9 (L) Neut% % 61.0 59.5 Abs Neut (ANC) 1.45 - 7.50 k/uL 1.50 1.22 (L) Lymph% % 22.4 23.9 Abs Lymph 1.00 - 4.00 k/uL 0.55 (L) 0.49 (L) Screven% % 14.6 14.1 Abs Screven <0.87 k/uL 0.36 0.29 Eosin% % 1.2 1.5 Abs Eosin <0.46 k/uL 0.03 0.03 Baso% % 0.4 0.5 Abs Baso <0.11 k/uL <0.03 <0.03 Immature Gran % % 0.4 0.5 IMMATURE GRANS (ABS) <0.10 k/uL <0.03 <0.03 NRBC /100 WBC 0.0 0.0 Absolute nRBC <0.01 k/uL <0.01 <0.01 DTYPE Auto Auto Component Latest Ref Rng & Units 03/28/2022 04/04/2022 Protein, Total 6.3 - 8.0 g/dL 6.2 (L) 5.8 (L) Albumin 3.9 - 4.9 g/dL 3.9 3.9 Calcium 8.5 - 10.2 mg/dL 8.4 (L) 8.3 (L) Bilirubin, Total 0.2 - 1.3 mg/dL 0.4 0.4 Alkaline Phosphatase 38 - 113 U/L 48 42 AST 14 - 40 U/L 14 13 (L) ALT 10 - 54 U/L 14 12 Glucose 74 - 99 mg/dL 169 (H) 152 (H) BUN 9 - 24 mg/dL 13 12 Creatinine 0.73 - 1.22 mg/dL 0.79 0.69 (L) Sodium 136 - 144 mmol/L 135 (L) 133 (L) Potassium 3.7 - 5.1 mmol/L 4.1 4.4 Chloride 97 - 105 mmol/L 99 98 CO2 22 - 30 mmol/L 29 27 Anion Gap 9 - 18 mmol/L 7 (L) 8 (L) eGFR >=60 mL/min/1.73m 99 103 Component Latest Ref Rng & Units 03/28/2022 04/04/2022 Magnesium 1.7 - 2.3 mg/dL 1.9 1.8 ASSESSMENT/PLAN: 1. 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 Per Dr. 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 This was resected at by Dr. Gallagher and according to the records the plan was for observation but the patient had not followed up at [facility] since his first postoperative check in the spring. At the time of that surgery he was observed to have a possible mass in the proximal esophagus and was told to see a linux support engineer. More recent evaluation of that with biopsy demonstrated squamous cell carcinoma. 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 -PET reviewed. No metastatic disease. -Remains asymptomatic. -Again reviewed plan for definitive concurrent chemotherapy and radiation given location of tumor. Plan again discussed with Dr. Dinh. -Discussed importance of both smoking and alcohol cessation. He has been able to incrementally cut back on the number of cigarettes per day. -Discussed supportive care issues. Plan: -Will begin chemotherapy/radiation 03/07. -Weekly labs. -OV during weeks 2, 4 and 6. -EGD about 8 weeks following completion of therapy. -CT chest about 3 months after completion of therapy. 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 Ortiz at [facility]. Plan for now is to monitor. Plan: -Follow-up with Dr. Ortiz in 3 months as scheduled. - Overall tolerating taxol/carbo/radiation well. - Reviewed last Mondays labs. - Continue current medications. - EGD 8 weeks after completing therapy-Dr. Landis/[facility]. - Continue weekly labs-on Monday. - Proceed as scheduled on Monday for #6 taxol/carbo pending all labs. - Follow up with Dr. Rosas in 4-5 weeks with CBC/CMP. - Pt. aware to call office with any questions/concerns. The patient indicates understanding of these issues and agrees with the plan. All documentation from previous visit of 03/25/22-Dr. Rosas/myself was copied and pasted, documentation has been reviewed and edited as necessary for today's visit. 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 COURSE: definitive and concurrent chemotherapy (weekly Carboplatin/Taxol). AREA TREATED: Esophagus CURRENT DOSE: 4400 cGy in 22 fx PLANNED DOSE: 5600 cGy in 28 fx SUBJECTIVE: He has mild sore throat but is able to tolerate soft food/fluid well. EXAM: KPS: 90 General Appearance: Alert and oriented. No acute distress. Oral cavity/pharynx mucosa intact. IMAGING/LAB RESULTS: CBC yesterday reviewed. ANC = 1.22K Treatment chart checked: Yes Patient treatment site reviewed and verified:Yes CBCTs reviewed and current:Yes Medications started: None ASSESSMENT/PLAN: Clinically stable. Toxicity within expected parameters. Continue radiation treatment as planned. Shannon Dinh MD documented in this encounter [facility] 04-05-2022 Nurse Note Radiation Therapy - Nursing Note (OTV) PATIENT NAME: Krystal Cortes PATIENT April 05, [address]22 [facility] FACILITY/LOCATION: [place] NURSING NOTE TYPE: HEAD AND NECK Subjective Data see pain assessment Additional Data Do you want to see a Construction Operations Manager? Yes appointment already scheduled Status: Patient is male Stress Scale: On a scale of 0 to 10, what number best describes how much distress you have experienced in the past week?(0 being no distress and 10 being extreme distress) 0 Social work notified: yes Nursing Assessment Fatigue: increased fatigue over baseline but not altering normal activities Appetite: good Nutritional Intake: Regular oral intake. and Oral intake with protein supplements, 1 cans of 1 daily. Weight Gain/Loss: No Ambulatory weight history: Last 6 Encounter Wt Readings: Date: Wt: 04/04/2022 74.4 kg (164 lb) 03/29/2022 73.1 kg (161 lb 3.2 oz) 03/28/2022 73.9 kg (163 lb) 03/22/2022 73.5 kg (162 lb) 03/21/2022 73.5 kg (162 lb) 03/15/2022 75.3 kg (166 lb) Nausea:None Vomiting: None Bowel Function: normal bowel movements Erythema/Hyperpigmentation:mild Desquamation:none Rash:none Skin Care: Aquaphor Skin Sensation: mild itching Focused Assessment CHEST: Dysphagia: Moderate. Pain with swallowing: Mild. Shortness of breath: No. Cough: Mild. 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 COURSE: definitive and concurrent chemotherapy (weekly Carboplatin/Taxol). AREA TREATED: Esophagus CURRENT DOSE: 3400 cGy in 17 fx PLANNED DOSE: 5600 cGy in 23 fx SUBJECTIVE: He has mild sore throat but is able to tolerate most food/fluid well. EXAM: KPS: 90 General Appearance: Alert and oriented. No acute distress. Oral cavity/pharynx mucosa intact. IMAGING/LAB RESULTS: CBC yesterday reviewed. Treatment chart checked: Yes Patient treatment site reviewed and verified:Yes CBCTs reviewed and current:Yes Medications started: None ASSESSMENT/PLAN: Clinically stable. Toxicity within expected parameters. Continue radiation treatment as planned. Shannon Dinh MD documented in this encounter [facility] 03-29-2022 Nurse Note Radiation Therapy - Nursing Note (OTV) PATIENT NAME: Krystal Cortes PATIENT March 29, 2022 [facility] FACILITY/LOCATION: [place] NURSING NOTE TYPE: CHEST Subjective Data See pain assessment Additional Data Do you want to see a Construction Operations Manager? No Status: Patient is male Stress Scale: On a scale of 0 to 10, what number best describes how much distress you have experienced in the past week?(0 being no distress and 10 being extreme distress) 2 Social work notified: Pt denied need to see social services counselor at this time. Nursing Assessment Fatigue: none Appetite: good Nutritional Intake: Regular oral intake. Weight Gain/Loss: No Ambulatory weight history: Last 6 Encounter Wt Readings: Date: Wt: 03/29/2022 73.1 kg (161 lb 3.2 oz) 03/28/2022 73.9 kg (163 lb) 03/22/2022 73.5 kg (162 lb) 03/21/2022 73.5 kg (162 lb) 03/15/2022 75.3 kg (166 lb) 03/14/2022 75.3 kg (166 lb) Nausea:None Vomiting: None Bowel Function: normal bowel movements Erythema/Hyperpigmentation:mild Desquamation:none Rash:none Skin Care: Aquaphor Skin Sensation: Within Normal Limits Focused Assessment CHEST: Dysphagia: No. Pain with swallowing: Mild. Shortness of breath: No. Cough: Mild and occasionally productive of clear phlegm. SIGNED by: Jennifer Santillan RN documented in this encounter [facility] 03-22-2022 History of Present illness Narrative Oncology Nutrition Therapy Reassessment RECOMMENDED MALNUTRITION DIAGNOSIS: NO MALNUTRITION IDENTIFIED Some elements copied from my note on 03/22/22, have been updated and all reflect current decision making from today, 03/28/2022 Nutriscore: No Data Recorded Nutrition Diagnosis: Behavioral-Environmental: Food and nutrition related knowledge deficit, related to, lack of prior exposure to information , as evidenced by new medical diagnosis of esophageal cancer. Nutrition Intervention: -Consider meal prepping prior to treatment. 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 . Pt is currently being treated with Carbo/Taxol and RT. Pt denies food allergies/intolerances. Nutrition Assessment: Patient's symptoms are: None Current status: 2.4% weight loss in one week, 75-100% intake. No malnutrition at this time. Pt is modifying diet slightly rt mild changes in swallowing. No other complaints at this time. Readiness to Learn: Cognitive ability: Alert and oriented Motivation to learn: Eager Family support: High - Very involved in pt care Instruction provided to: Patient and Spouse Patient learns best by: Multiple Methods Factors affecting learning: None Physical limitations affecting learning: None Educational materials provided: Creative Eating during Illness and Recovery and soft and moist high protein foods. Anthropometrics: HT/WT/BMI HEIGHT WEIGHT BODY MASS INDEX 12/28/2021 5' 9.882 75.524 kg 23.97 01/18/2022 5' 11 74.39 kg 22.87 01/26/2022 74.844 kg 23.01 01/31/2022 75.751 kg 23.29 02/24/2022 75.07 kg 23.08 03/07/2022 74.163 kg 22.8 03/08/2022 74.163 kg 22.8 03/14/2022 75.297 kg 23.15 03/15/2022 75.297 kg 23.15 03/21/2022 73.483 kg 22.59 03/22/2022 73.483 kg 22.59 Estimated body mass index is 22.59 kg/m as calculated from the following: Height as of 01/18/22: 180.3 cm (5' 11). Weight as of 03/21/22: 73.5 kg (162 lb). Resting Metabolic Rate: 1552 Weight Change: 2.4% weight loss in one week Dosing Weight: 74.2 kg Estimated kilocalorie needs: 1969-2588 kilocalories determined by 30-35 kcal/kg Estimated protein needs: 89-111 grams determined by 1.2-1.5 g/kg Dosing weight Estimated fluid needs: 7797-1260 milliliters based on 1 mL per kcal Allergies: Patient has no known allergies. Medications: Current Outpatient Medications Medication Sig Dispense Refill ondansetron (ZOFRAN) 8 mg tablet Take 1 tablet by mouth every 8 hours as needed for nausea/vomiting. 30 tablet 2 lisinopril (ZESTRIL, PRINIVIL) 40 mg tablet Take 40 mg by mouth once daily. amLODIPine (NORVASC) 10 mg tablet Take 5 mg by mouth once daily. carvedilol (COREG) 12.5 mg tablet Take 12.5 mg by mouth twice daily. furosemide (LASIX) 20 mg tablet Take 20 mg by mouth once daily. No current facility-administered medications for this visit. Need for Follow up: Will follow up weekly Referred/Supervised by: Dr. Rosas/Dr. 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 COURSE: definitive and concurrent chemotherapy (weekly Carboplatin/Taxol). AREA TREATED: Esophagus CURRENT DOSE: 2400 cGy in 12 fx PLANNED DOSE: 5600 cGy in 23 fx SUBJECTIVE: He has mild sore throat but is able to tolerate most food/fluid well. EXAM: KPS: 90 General Appearance: Alert and oriented. No acute distress. Oral cavity/pharynx mucosa intact. IMAGING/LAB RESULTS: CBC yesterday reviewed. Treatment chart checked: Yes Patient treatment site reviewed and verified:Yes CBCTs reviewed and current:Yes Medications started: None ASSESSMENT/PLAN: Clinically stable. Toxicity within expected parameters. Continue radiation treatment as planned. Shannon Dinh MD documented in this encounter [facility] 03-22-2022 Nurse Note Radiation Therapy - Nursing Note (OTV) PATIENT NAME: Krystal Cortes PATIENT March 22, 2022 [facility] FACILITY/LOCATION: [place] NURSING NOTE TYPE: chest Subjective Data sore throat 2-3 on pain scale worse with swallowing- on Monday but improved over weekend Additional Data Do you want to see a Construction Operations Manager? Yes today Status: Patient is male Stress Scale: On a scale of 0 to 10, what number best describes how much distress you have experienced in the past week?(0 being no distress and 10 being extreme distress) 3 Social work notified: Pt denied need to see social services counselor at this time. Nursing Assessment Fatigue: none Appetite: good Nutritional Intake: Regular oral intake. Weight Gain/Loss: No Ambulatory weight history: Last 6 Encounter Wt Readings: Date: Wt: 03/21/2022 73.5 kg (162 lb) 03/15/2022 75.3 kg (166 lb) 03/14/2022 75.3 kg (166 lb) 03/08/2022 74.2 kg (163 lb 8 oz) 03/07/2022 74.2 kg (163 lb 8 oz) 02/24/2022 75.1 kg (165 lb 8 oz) Nausea:None Vomiting: None Bowel Function: normal bowel movements Erythema/Hyperpigmentation:mild Desquamation:none Rash:none Skin Care: Aquaphor Skin Sensation: Within Normal Limits Focused Assessment CHEST: Dysphagia: Minimal. Pain with swallowing: Minimal. Shortness of breath: No. Cough: stable. no heartburn for about a week SIGNED by: Zehra Steen RN documented in this encounter [facility] 03-16-2022 Miscellaneous Notes TOXICITY CHECK SYMPTOM ASSESSMENT The patient is on Carboplatin/Taxol Headache: No Visual Changes: No Dizziness: No Do you have any periods of confusion? No Mood changes: No Mouth or throat pain: No Appetite: no changes in appetite, appetite good Taste changes: No Nausea: No Vomiting: No Heartburn: Monday night, patient had peanut butter fudge bar in the evening. Reviewed interventions for managing heartburn. Advised patient to call if this becomes a frequent issue. Patient informed he can take pepcid if needed, call if pepcid does not help with symptoms. Weight gain/loss: No Episodes of palpitations/chest discomfort/pressure/pain No Shortness of breath: No Cough: No Diarrhea: no Constipation: no Bladder/Urinary Changes: None Pain: No=0 (pain 0 on a scale of 0-10). Fever: No Chills: No Cold sensitivity: No Numbness/weakness: No Edema: No Skin changes: No Itching: No Yellowing of skin or eyes: No Musculoskeletal/joint changes/issues No Bleeding issues: No Activity Level: good Do you need to take naps? Not really maybe 15 min Does the patient need interventions or same day appointment:No Reinforced CURRENT treatment education based on current and anticipated symptoms. Discussed port/line care and patient verbalizes understanding: Not Applicable Patient instructed to contact office or after hours Hematology/Oncology fellow for: temperature ? 100.4; questions or concerns. Patient verbalized understanding of when to seek medical attention and after hours number protocol. Kacie Stewart RN documented in this encounter [facility] 03-15-2022 Nurse Note Radiation Therapy - Nursing Note (OTV) PATIENT NAME: Krystal Cortes PATIENT March 15, 2022 [facility] FACILITY[facility]LOCATION: [facility] NOTE TYPE: CHEST Subjective Data Pt reports slight heartburn last night Additional Data Do you want to see a Construction Operations Manager? No Status: Patient is male Stress Scale: On a scale of 0 to 10, what number best describes how much distress you have experienced in the past week?(0 being no distress and 10 being extreme distress) 0 Social work notified: no Nursing Assessment Fatigue: none Appetite: good Nutritional Intake: Regular oral intake. Weight Gain/Loss: No Ambulatory weight history: Last 6 Encounter Wt Readings: Date: Wt: 03/15/2022 75.3 kg (166 lb) 03/14/2022 75.3 kg (166 lb) 03/08/2022 74.2 kg (163 lb 8 oz) 03/07/2022 74.2 kg (163 lb 8 oz) 02/24/2022 75.1 kg (165 lb 8 oz) 01/31/2022 75.8 kg (167 lb) Nausea:None Vomiting: None Bowel Function: normal bowel movements Erythema/Hyperpigmentation:none Desquamation:none Rash:none Skin Care: Aquaphor Skin Sensation: Within Normal Limits Focused Assessment CHEST: Dysphagia: No. Pain with swallowing: No. Shortness of breath: No. Cough: None. 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 COURSE: definitive and concurrent chemotherapy (weekly Carboplatin/Taxol). AREA TREATED: Esophagus CURRENT DOSE: 1400 cGy in 7 fx PLANNED DOSE: 5600 cGy in 23 fx SUBJECTIVE: He is doing well without any specific new complaints. He denies any dysphagia/odynophagia. An episode of hick-ups yesterday. EXAM: KPS: 90 General Appearance: Alert and oriented. No acute distress. IMAGING/LAB RESULTS: CBC yesterday reviewed. Treatment chart checked: Yes Patient treatment site reviewed and verified:Yes CBCTs reviewed and current:Yes Medications started: None ASSESSMENT/PLAN: Clinically stable. Toxicity within expected parameters. Continue radiation treatment as planned. Shannon Dinh MD documented in this encounter [facility] 03-14-2022 History of Present illness Narrative Chief Complaint Patient presents with: Established Patient HPI: Krystal Cortes is a 66 year old male who presents here today for evaluation for treatment today. Per Dr. Rosas's previous note: H/o head neck cancer, hypertension and COPD as well as heavy alcohol use. 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 Afterward, he recalls anesthesiologist told him to see a linux support engineer because he may have a mass in the proximal esophagus. Barium swallow with fluoroscopy on 12/03/2021 demonstrated no esophageal foreign body. There is no stricture or mucosal abnormality observed. The gastroesophageal junction was noted to be normal without demonstrated hiatal hernia. Patient underwent an EGD on 12/16/2021. The procedure report indicates that at approximately 21 cm there was a polypoid mass observed in the proximal esophagus. It measured approximately 15 mm in diameter and appeared friable. The endoscope was passed to the distal GE junction. There was no evidence of Glover mucosa. Stomach was easily insufflated and no ulcers were observed. There was erythema throughout the gastric mucosa with some streaking and cobblestoning noted. The bulbar duodenum was noted to be normal. Sweep of the duodenum demonstrated no abnormalities. Retroflexion in the stomach revealed a small hiatal hernia. Biopsies were obtained from the antrum for H. pylori testing. The endoscope was withdrawn into the proximal esophagus and several biopsy of the polypoid lesion were obtained. 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 EGD/EUS 01/18/2022: Malignant esophageal tumor was found in the upper third of the esophagus. -Erythematous mucosa in the antrum. -Normal examined duodenum. -A mass was found in the upper third of the esophagus (18-22 cm). A tissue diagnosis was obtained prior to this exam. This is of squamous cell carcinoma. This was staged T1sm (based on invasion into) N1 Mx by endosonographic criteria. -One malignant-appearing lymph node was visualized in the left upper paratracheal region (level 2L). Presence of tumor in the vicinity precluded an uncontaminated FNA -There was no evidence of significant pathology in the left lobe of the liver. -No specimens collected. Cutting down on smoking--now between 6-8 cigarettes a day. Still 4-5 beers a day. Current therapy:Taxol/Carbo/radiation Began 03/07/22 No new concerns today. Appetite:Wonderful. Energy level:Good Denies fevers. Mouth:denies sores Resp:denies cough or sob Cardiac:denies chest pain/palpiations GI:denies abd pain, n/v, moving bowels regularly :denies dysuria/hematuria Extrem:denies pain Neuro:denies neuropathy Skin:denies rashes Heme:denies bleeding The ROS is otherwise negative. Past medical history, appointments, medications, allergies reviewed. No changes. EXAM: BP 129/71 Pulse (!) 50 Temp 36.7 C (98 F) (Temporal) Wt 75.3 kg (166 lb) BMI 23.15 kg/m APPEARANCE Well appearing, alert, in no acute distress, well-hydrated, well nourished. HEART RRR with normal S1 and S2, no murmurs LUNG clear to auscultation LYMPH NODES No cervical lymphadenopathy, No supraclavicular lymphadenopathy, and No axillary lymphadenopathy. ABDOMEN bowel sounds normoactive, soft, non-tender EXTREMITIES No edema NEURO Awake, alert and oriented x 3, Normal gait, and No involuntary motions. SKIN Skin color, texture, turgor normal, no suspicious rashes or lesions LABS: Component Latest Ref Rng & Units 12/28/2021 03/07/2022 03/14/2022 WBC 3.70 - 11.00 k/uL 7.82 7.50 5.39 RBC 4.20 - 6.00 m/uL 5.19 5.39 4.75 Hemoglobin 13.0 - 17.0 g/dL 18.0 (H) 18.2 (H) 15.9 Hematocrit 39.0 - 51.0 % 50.4 51.8 (H) 45.5 MCV 80.0 - 100.0 fL 97.1 96.1 95.8 MCH 26.0 - 34.0 pg 34.7 (H) 33.8 33.5 MCHC 30.5 - 36.0 g/dL 35.7 35.1 34.9 RDW-CV 11.5 - 15.0 % 12.1 12.3 11.9 Platelet Count 150 - 400 k/uL 220 211 182 MPV 9.0 - 12.7 fL 8.7 (L) 8.4 (L) 9.0 Neut% % 56.8 63.5 61.1 Abs Neut (ANC) 1.45 - 7.50 k/uL 4.44 4.76 3.29 Lymph% % 29.5 22.3 25.0 Abs Lymph 1.00 - 4.00 k/uL 2.31 1.67 1.35 Screven% % 10.2 10.0 8.9 Abs Screven <0.87 k/uL 0.80 0.75 0.48 Eosin% % 2.7 3.7 3.7 Abs Eosin <0.46 k/uL 0.21 0.28 0.20 Baso% % 0.5 0.4 0.6 Abs Baso <0.11 k/uL 0.04 0.03 0.03 Immature Gran % % 0.3 0.1 0.7 IMMATURE GRANS (ABS) <0.10 k/uL <0.03 <0.03 0.04 NRBC /100 WBC 0.0 0.0 0.0 Absolute nRBC <0.01 k/uL <0.01 <0.01 <0.01 DTYPE Auto Auto Auto CMP/Mag: Pending ASSESSMENT/PLAN: 1. 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 Per Dr. 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 This was resected at by Dr. Gallagher and according to the records the plan was for observation but the patient had not followed up at [facility] since his first postoperative check in the spring. At the time of that surgery he was observed to have a possible mass in the proximal esophagus and was told to see a linux support engineer. More recent evaluation of that with biopsy demonstrated squamous cell carcinoma. 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 -PET reviewed. No metastatic disease. -Remains asymptomatic. -Again reviewed plan for definitive concurrent chemotherapy and radiation given location of tumor. Plan again discussed with Dr. Dinh. -Discussed importance of both smoking and alcohol cessation. He has been able to incrementally cut back on the number of cigarettes per day. -Discussed supportive care issues. Plan: -Will begin chemotherapy/radiation 03/07. -Weekly labs. -OV during weeks 2, 4 and 6. -EGD about 8 weeks following completion of therapy. -CT chest about 3 months after completion of therapy. 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 Ortiz at [facility]. Plan for now is to monitor. Plan: -Follow-up with Dr. Ortiz in 3 months as scheduled. - Overall tolerated first cycle well. - Reviewed CBC with pt. - CMP/Mag. pending. - Continue current medications. - EGD 8 weeks after completing therapy. - Continue weekly labs. - Proceed as scheduled today for #2 taxol/carbo pending all labs. - Follow up as scheduled. - Pt. aware to call office with any questions/concerns. The patient indicates understanding of these issues and agrees with the plan. All documentation from previous visit of 02/24/22-Dr. Rosas was copied and pasted, documentation has been reviewed and edited as necessary for today's visit. Sandra Cruz APRN.DARIAN documented in this encounter [facility] 03-08-2022 History of Present illness Narrative Reviewed patient's hospital pathology from april 2021 FOM excision Moderately diff SCCA. 1.7 cm 2.5 mm DOI No LVSI +PNI Some dysplasia at margin and close deep margin <0.1mm Will continue to follow patient closely. Max Ortiz MD documented in this encounter [facility] 03-08-2022 History of Present illness Narrative Oncology Nutrition Therapy Initial Assessment This visit was performed virtually due to the COVID-19 epidemic as an effort to protect patients and minimize exposure. Consent from patient received to conduct visit virtually. This Team Access Model visit is a virtual encounter. It required patient-provider interaction for the medical decision making as documented below. RECOMMENDED MALNUTRITION DIAGNOSIS: NO MALNUTRITION IDENTIFIED Some elements copied from my note on NA/ first note, have been updated and all reflect current decision making from today, 03/08/2022 Nutriscore: No Data Recorded Nutrition Diagnosis: Behavioral-Environmental: Food and nutrition related knowledge deficit, related to, lack of prior exposure to information , as evidenced by new medical diagnosis of esophageal cancer. Nutrition Intervention: -Consider meal prepping prior to treatment. 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 . Pt is currently being treated with Carbo/Taxol and RT. Pt denies food allergies/intolerances. Interval History: Good appetite. No dysphagia or odynophagia--Had steak, potatoes and green beans last night without symptoms. Denies reflux. Bowel habits normal. Denies black/bloody stools. Cutting down on smoking--now between 6-8 cigarettes a day. Still 4-5 beers a day. I have confirmed and edited as necessary the interval history obtained by Dr. Rosas on 02/24/22 and all reflect current status. Nutrition Assessment Patient's symptoms are: None Current status: no weight loss, 100% intake. No malnutrition at this time. Diet History (24hr recall): Breakfast - Brunch: eggs toast, michael, milk Snack - Lunch - ham and pulido soup Snack - Dinner - smaller meal: salmon patties Snack - Ice cream Beverages - milk and Gatorade Alcohol- Vitamins/Supplements - Readiness to Learn: Cognitive ability: Alert and oriented Motivation to learn: Eager Family support: High - Very involved in pt care Instruction provided to: Patient and Spouse Patient learns best by: Multiple Methods Factors affecting learning: None Physical limitations affecting learning: None Educational materials provided: Creative Eating during Illness and Recovery and soft and moist high protein foods. Anthropometrics: HT/WT/BMI HEIGHT WEIGHT BODY MASS INDEX 12/28/2021 5' 9.882 75.524 kg 23.97 01/18/2022 5' 11 74.39 kg 22.87 01/26/2022 74.844 kg 23.01 01/31/2022 75.751 kg 23.29 02/24/2022 75.07 kg 23.08 03/07/2022 74.163 kg 22.8 03/08/2022 74.163 kg 22.8 Estimated body mass index is 22.8 kg/m as calculated from the following: Height as of 01/18/22: 180.3 cm (5' 11). Weight as of an earlier encounter on 03/08/22: 74.2 kg (163 lb 8 oz). Resting Metabolic Rate: 1552 Weight Change: none Dosing Weight: 74.2 kg Estimated kilocalorie needs: 9702-1953 kilocalories determined by 30-35 kcal/kg Estimated protein needs: 89-111 grams determined by 1.2-1.5 g/kg Dosing weight Estimated fluid needs: 6555-3632 milliliters based on 1 mL per kcal Nutrition Focused Physical Exam: Subcutaneous Fat Loss Orbital No fat loss Triceps No fat loss Mid-axillary at the iliac crest No fat loss Muscle Loss Locations: Temporalis No muscle loss Pectoralis No muscle loss Deltoids No muscle loss Interosseous No muscle loss Latissimus dorsi, trapezius No muscle loss Quadriceps No muscle loss Gastrocnemius No muscle loss Potential micronutrient deficiency revealed in: Teeth - dentures Edema: No Ascites: No Assessment of Functional Status: No functional impairment, normal with no limitations Potential Signs of Inflammation: chronic condition Allergies: Patient has no active allergies. Medications: Current Outpatient Medications Medication Sig Dispense Refill ondansetron (ZOFRAN) 8 mg tablet Take 1 tablet by mouth every 8 hours as needed for nausea/vomiting. 30 tablet 2 lisinopril (ZESTRIL, PRINIVIL) 40 mg tablet Take 40 mg by mouth once daily. amLODIPine (NORVASC) 10 mg tablet Take 5 mg by mouth once daily. carvedilol (COREG) 12.5 mg tablet Take 12.5 mg by mouth twice daily. furosemide (LASIX) 20 mg tablet Take 20 mg by mouth once daily. No current facility-administered medications for this visit. Need for Follow up: Will follow up in two weeks and then weekly Referred/Supervised by: Dr. Rosas/Dr. 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 COURSE: definitive and concurrent chemotherapy (weekly Carboplatin/Taxol). AREA TREATED: Esophagus CURRENT DOSE: 400 cGy in 2 fx PLANNED DOSE: 5600 cGy in 23 fx SUBJECTIVE: He is doing well without any specific new complaints. EXAM: KPS: 90 General Appearance: Alert and oriented. No acute distress. IMAGING/LAB RESULTS: CBC yesterday reviewed. Treatment chart checked: Yes Patient treatment site reviewed and verified:Yes CBCTs reviewed and current:Yes Medications started: None ASSESSMENT/PLAN: Clinically stable. No signs of toxicity. Continue radiation treatment as planned. Shannon Dinh MD documented in this encounter [facility] 03-08-2022 Nurse Note Radiation Therapy - Nursing Note (OTV) PATIENT NAME: Krystal Cortes PATIENT March 08, 2022 [facility] FACILITY/LOCATION: [place] NURSING NOTE TYPE: ABDOMEN Subjective Data no complaints Additional Data Do you want to see a Construction Operations Manager? Yes has appointment today Status: Patient is male Stress Scale: On a scale of 0 to 10, what number best describes how much distress you have experienced in the past week?(0 being no distress and 10 being extreme distress) 1 Social work notified: Pt denied need to see social services counselor at this time. Nursing Assessment Fatigue: none Appetite: good Nutritional Intake: Regular oral intake. Weight Gain/Loss: No Ambulatory weight history: Last 6 Encounter Wt Readings: Date: Wt: 03/07/2022 74.2 kg (163 lb 8 oz) 02/24/2022 75.1 kg (165 lb 8 oz) 01/31/2022 75.8 kg (167 lb) 01/26/2022 74.8 kg (165 lb) 01/18/2022 74.4 kg (164 lb) 12/28/2021 75.5 kg (166 lb 8 oz) Nausea:None Vomiting: None Bowel Function: some loose stools related to current diet Erythema/Hyperpigmentation:none Desquamation:none Rash:none Skin Care: Aquaphor Skin Sensation: Within Normal Limits Focused Assessment CHEST: Dysphagia: No. Pain with swallowing: No. Shortness of breath: No. Cough: None. SIGNED by: Zehra Steen RN documented in this encounter [facility] 03-03-2022 Miscellaneous Notes Requested treatment details from Dr. Gallagher about excision of floor of mouth and pathology report. [phone] spoke with Pat. Records received and scanned into patient chart. Notified Dr. Ortiz. Clarita Piedra RN documented in this encounter [facility] 03-02-2022 Miscellaneous Notes Spoke with patient and scheduled. Please schedule patient to see Brooklyn Perkins when patient is here for XRT. Order filed, please sign. Thank you. Kacie Stewart RN documented in this encounter [facility] 03-02-2022 Nurse Note This visit was completed via telephone. Kacie Stewart RN ONCOLOGY PATIENT EDUCATION NOTE TOPIC: Chemotherapy, Medications: Carboplatin/Taxol READINESS TO LEARN: COGNITIVE ABILITY: Alert and oriented MOTIVATION TO LEARN: Interested FAMILY SUPPORT: Unable to assess - Family not present INSTRUCTION PROVIDED TO: Patient INSTRUCTION PROVIDED BY: Nurse Coordinator PATIENT LEARNS BEST BY: Multiple Methods FACTORS AFFECTING LEARNING: None PHYSICAL LIMITATIONS AFFECTING LEARNING: None LEARNING RESPONSE DIAGNOSIS: squamous cell carcinoma of the upper esophagus METHOD OF INSTRUCTION: Individual instruction Written instruction - handouts Verbal instruction PATIENT/FAMILY RESPONSE: Verbalizes understanding of: CHEMOTHERAPY-Regimen, toxicity and side effects FOLLOW UP PLAN: Patient instructed to call with any further issues Recommend - Recommend continued instruction and follow up as directed Follow up phone call. Contact information given. SUPPLEMENTAL MATERIAL: Written material was provided at this visit with the following information: - Chemotherapy education was provided by a pharmacist NO - Side effect management information was provided/discussed including but not limited to: abdominal discomfort, anemia, appetite changes, arthralgia, bowel habit changes, diet, electrolyte disturbances, fatigue, hair loss, hypersensitivity reaction, infection, mouth hygiene, mucositis, myalgia, nausea/vomitting, neutropenia, peripheral neuropathy, shortness of breath, skin changes, taste changes, thrombocytopenia YES - Provided important phone numbers and contacts during and after hours. YES - Provided information on symptoms that require immediate assistance. YES - Provided Chemotherapy when to call handouts YES - Preventing infection. YES - Treatment schedule and confirmation of appointment times. YES - Available support groups. YES - The importance of contraception during the course of chemotherapy YES - Neutropenic fever protocol discussed with patient, which included the importance of reporting any fever of 100.4F (38.0C) or greater to the healthcare team as noted on the provided wallet card and/or magnet. YES Time Spent: 40 minutes REFERRAL (RECOMMENDATION): Social Work and nutrition Kacie Stewart RN Source Inspector Pre Chemo Patient identified by name and date of . YES Confirmed date and time for chemotherapy ? YES Other appointments (labs, imaging) discussed? YES Discussed where to park (sales marketing), charge for parking YES Discussed where to report (building/floor) YES Any pre-medications ordered? NO Described the infusion room and what to expect. (What to wear, what to bring [iPad, books] amount of time treatment can take, meals and CC options for food) YES Note: Discussed whether the patient can eat prior to labs and treatment. YES Who is driving you to and from treatment? Spouse? Discussed why it is important to bring someone with you. Yes, for the first treatment Resources discussed (music therapy, Art therapy, pet therapy, etc.) NO Education on chemotherapy (drug, side effects) discussed and that the patient will be receiving a C1D1 call within 7 days of treatment. YES Other topics discussed, interventions needed: Kacie Stewart RN documented in this encounter [facility] 02-25-2022 Nurse Note Radiation Therapy - Patient Education Note PATIENT NAME: Krystal Cortes PATIENT February 25, 2022 [facility] FACILITY[facility]LOCATION: [place] READINESS TO LEARN Cognitive Ability: Alert and oriented Motivation to learn: Eager Interested Family Support: Unable to assess - Family not present Instruction provide to: Patient Patient learns best by: Multiple Methods Factors effecting learning: None Physical limitations effecting learning: None LEARNING RESPONSE Diagnosis: Pt simulated today for radiation therapy to esophagus. Education Topic/Teaching Points: Radiation therapy, Side effects, and OTV: Method of instruction: Teach Back skin care Individual instruction Written instruction - handouts Verbal instruction Patient /Family response: Patient verbalized understanding of radiation treatments, side effects, OTV, and transportation. Follow-up plan: Patient instructed to call with any further issues Contact information given. Supplemental material: Informational handouts on Department phone list, Esophagitis/Mucositis, Fatigue, and Brittany instructions, XRT sheet and Aquaphor handout. Referral (recommendation): None, Pt denied need for social work, van service, and educational fundraising director. Was approved? [email or web address] Signed by: Jennifer Santillan RN documented in this encounter [facility] 02-25-2022 Miscellaneous Notes Therapists notified and will contact pt. Pt is wondering if the 11:30 today appt is still available. He was originally offered today. His scheduled changed that he could do it if it would be possible. Please call his cell. documented in this encounter [facility] 02-25-2022 History of Present illness Narrative KRYSTAL CORTES N [id number] 02/25/2022 [facility] Department of Radiation Oncology Treatment Planning Note For reasons stated in the consult note, Krystal Cortes is a candidate for radiation therapy. Based on review and interpretation of the relevant diagnostic studies together with the exam findings, Krystal Cortes was simulated on 02/25/2022 at which time the target volume and/or requisite guzman were delineated, as indicated in the simulation note, to be treated according to the prescription. An ITV was created from all the phases of respiratory motion captured by the 4DCT image sets. Motion management allowed for design of patient specific planning target volume and reduced the radiation exposure to normal tissues. The treatment target and organs at risk were contoured on the simulation scan Using the fused PET . Special consideration to these and other structures was given in light of the potential for increased toxicities of combined chemoradiation. After reviewing multiple treatment plans with dosimetry, the best plan was approved to deliver the prescribed course of radiation to the target area using inverse planning to allow for the best isodose distribution, treating to the 98.5% isodose line with 6 MV and 2 vamt guzman. Custom MLC for IMRT were the treatment device(s) used to shape/modify the beams. Limiting dose to normal tissue was confirmed upon review of the calculated dose volume histogram. IMRT planning was used because it best met the dose/volume constraints for the organs at risk for this patient, better than what could be achieved using conventional or 3D planning. The specific dose requirements for the PTV, organs at risk and dose-volume histograms are contained in this treatment plan and/or elsewhere in the medical record. A completed summary of this plan dated 03/02/22 incorporated herein by reference includes dose, beam arrangements, energy, blocking, isodose distribution, and/or ports and DVH. Electronically Signed Shannon Dinh M.D. 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 AREA:upper esophagus PATIENT POSITION: Supine. CONTRAST: None PROTOCOL: None BLOCKING: Custom blocking to be determined at treatment planning. FIXATION DEVICE: In order to achieve accurate and reproducible treatments, the patient is to be immobilized with AIO orfit system PROCEDURE: A time-out was conducted and recorded by the therapist. Patient was simulated on the CT scanner for external beam radiation therapy. Treatment site was marked by the simulation therapist. ASSESSMENT/PLAN: Patient tolerated simulation procedure well. Treatments will be initiated after treatment planning. The patient is scheduled for a verification simulation on the treatment machine to ensure proper set-up and field arrangement is correct prior to the first treatment of primary and boost guzman if applicable. Electronically Signed Shannon Dinh M.D./igor 32:14 PM documented in this encounter [facility] 02-24-2022 History of Present illness Narrative Oncologic problem(s): 1) cT1b N1 M0 squamous cell carcinoma of the upper esophagus. 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 HPI: The patient is a 66-year-old male with a past medical history significant for head neck cancer, hypertension and COPD as well as heavy alcohol use. 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 Afterward, he recalls anesthesiologist told him to see a linux support engineer because he may have a mass in the proximal esophagus. Barium swallow with fluoroscopy on 12/03/2021 demonstrated no esophageal foreign body. There is no stricture or mucosal abnormality observed. The gastroesophageal junction was noted to be normal without demonstrated hiatal hernia. Patient underwent an EGD on 12/16/2021. The procedure report indicates that at approximately 21 cm there was a polypoid mass observed in the proximal esophagus. It measured approximately 15 mm in diameter and appeared friable. The endoscope was passed to the distal GE junction. There was no evidence of Glover mucosa. Stomach was easily insufflated and no ulcers were observed. There was erythema throughout the gastric mucosa with some streaking and cobblestoning noted. The bulbar duodenum was noted to be normal. Sweep of the duodenum demonstrated no abnormalities. Retroflexion in the stomach revealed a small hiatal hernia. Biopsies were obtained from the antrum for H. pylori testing. The endoscope was withdrawn into the proximal esophagus and several biopsy of the polypoid lesion were obtained. 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 Presents for ongoing oncologic management. Interim history: EGD/EUS 01/18/2022: Malignant esophageal tumor was found in the upper third of the esophagus. -Erythematous mucosa in the antrum. -Normal examined duodenum. -A mass was found in the upper third of the esophagus (18-22 cm). A tissue diagnosis was obtained prior to this exam. This is of squamous cell carcinoma. This was staged T1sm (based on invasion into) N1 Mx by endosonographic criteria. -One malignant-appearing lymph node was visualized in the left upper paratracheal region (level 2L). Presence of tumor in the vicinity precluded an uncontaminated FNA -There was no evidence of significant pathology in the left lobe of the liver. -No specimens collected. No subjective change-- Good appetite. No dysphagia or odynophagia--Had steak, potatoes and green beans last night without symptoms. Denies reflux. Bowel habits normal. Denies black/bloody stools. Cutting down on smoking--now between 6-8 cigarettes a day. Still 4-5 beers a day. Family history: No family history of cancer. ROS: Constitutional: Denies episodes of fever and night sweats. Neuro: Denies GARZON, vertigo, dizziness and imbalance. Denies symptoms of neuropathy. HEENT: No recent change in voice, vision or hearing. Resp: Cough and wheeze. No hemoptysis. Denies shortness of breath at rest. Mild HOYOS. CVS: Denies exertional chest pain, PND, orthopnea and LE edema. GI: See above. : Denies dysuria or gross hematuria. No symptoms of bladder outlet obstruction. Endo: Denies hot flashes. Denies polyuria and polydipsia. Denies heat and cold intolerance. Musculoskeletal: Chronic LBP. Derm: Denies rash. Denies jaundice and diffuse pruritis. Heme: Denies unusual bleeding and unexplained bruising. Psych: Normal mood. PHYSICAL EXAM: Vitals: Blood pressure 144/72, pulse (!) 54, temperature 36.8 C (98.2 F), weight 75.1 kg (165 lb 8 oz), SpO2 97 %. Well-appearing and in no acute distress. EYES: Sclerae are anicteric bilaterally. ENT: There is a lichenoid lesion at frenulum of tongue. LYMPHATIC: There is no palpable cervical, supraclavicular or axillary adenopathy. RESPIRATORY: Inspiratory breath sounds are of diminished intensity in all guzman. No rales, wheezes or rhonchi. CARDIOVASCULAR: Rhythm is regular. ABDOMEN: The abdomen is nondistended. Non-tender hepatomegaly. No abdominal tenderness. Extremities: No swelling or edema. SKIN: No jaundice or rash. No petechiae. NEUROLOGIC: technology education teacher II-XII are grossly intact. No focal motor weakness. IMAGING: PET 02/08/2022: 1. NECK: No FDG avid neoplastic process. No mass, adenopathy, or fluid collection. 2. CHEST: Hypermetabolic lesion in the upper thoracic esophagus, compatible with patient's known malignancy. Mild uptake is identified in the distal portion of the esophagus, that could be related to reflux esophagitis. Small upper left paratracheal lymph node, possibly a small metastatic lymph node. 3. ABDOMEN/PELVIS: No FDG avid neoplastic process. No mass, adenopathy, or fluid collection. 4. EXTREMITIES/SKELETON: No FDG avid osseous process. No destructive/traumatic bony abnormality. 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 This was resected at by Dr. Gallagher and according to the records the plan was for observation but the patient had not followed up at [facility] since his first postoperative check in the spring. At the time of that surgery he was observed to have a possible mass in the proximal esophagus and was told to see a linux support engineer. More recent evaluation of that with biopsy demonstrated squamous cell carcinoma. 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 -PET reviewed. No metastatic disease. -Remains asymptomatic. -Again reviewed plan for definitive concurrent chemotherapy and radiation given location of tumor. Plan again discussed with Dr. Dinh. -Discussed importance of both smoking and alcohol cessation. He has been able to incrementally cut back on the number of cigarettes per day. -Discussed supportive care issues. Plan: -Will begin chemotherapy/radiation 03/07. -Weekly labs. -OV during weeks 2, 4 and 6. -EGD about 8 weeks following completion of therapy. -CT chest about 3 months after completion of therapy. 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 Ortiz at [facility]. Plan for now is to monitor. Plan: -Follow-up with Dr. Ortiz in 3 months as scheduled. Portions of this documentation were copied and pasted from previous office visit notes in order to provide a cohesive continuity of the history. The note has been reviewed and edited and updated as necessary. I spent 45 minutes in the visit, with more than 50% of the total [id number] time of the visit in reviewing test results, plan of care. discussion for chemotherapy and coordination of care. Kirit Rosas DO documented in this encounter [facility] 02-10-2022 Nurse Note Tobacco Use: 1 packs/day, for 40 years. Types: Cigarettes Was smoking cessation packet given? N/A - Patient is a non-smoker or quit >1 year ago. Was a referral initiated?N/A Patient is a non-smoker documented in this encounter [facility] 02-10-2022 History of Present illness Narrative [facility] Consult Referring Physician: Dr. Kirit Rosas Reason for Consult: Oncologic surveillance Consultation requested by Dr. Kirit Rosas for an opinion regarding tongue lesion. My final recommendations will be communicated back to the requesting physician by way of shared medical record or letter via US mail. 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 CT Neck on 01/11 revealed an asymmetric contour deformity along the right dorsal tongue, however this was not PET avid. Patient has a history of floor of mouth squamous cell carcinoma. He underwent local wide resection at in April of 2021 and was told he did not require further adjuvant therapy. He denies voice changes, endorses some dysphagia which he describes as I can feel something in my esophagus. He denies pain, fevers, night sweats or unintentional weight loss. On chart review 66 year old man with 49 pack-year history of smoking and drinking 4-5 beers a day. 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 Quiñones at the [facility] in 04/2021. He was told that he doesn't need any adjuvant therapy. He was told by anesthesiologist at that time that he had proximal esophageal mass. Barium swallow on 12/03/21 was non-diagnostic. EGD on 12/16/21 showed a polypoid mass in the proximal esophagus at 21 cm measuring 15 mm in diameter. Biopsy showed moderately differentiated keratinizing squamous cell carcinoma. EUS on 01/18/22 showed the mass at 18 -22 cm with EUS stage T1sm N1 (One malignant-appearing lymph node in the left upper paratracheal region (level 2L)). PAST MEDICAL HISTORY Diagnosis Date COPD (chronic obstructive pulmonary disease) (HCC) Essential hypertension PAST SURGICAL HISTORY Procedure Laterality Date EGD W/O [facility] SPEC VARICIES INJ 11/2021 SKIN BX, 1 LESION 2021 left ear Current Outpatient Medications Medication Sig Dispense Refill lisinopril (ZESTRIL, PRINIVIL) 40 mg tablet Take 40 mg by mouth once daily. amLODIPine (NORVASC) 10 mg tablet Take 5 mg by mouth once daily. carvedilol (COREG) 12.5 mg tablet Take 12.5 mg by mouth twice daily. furosemide (LASIX) 20 mg tablet Take 20 mg by mouth once daily. No current facility-administered medications for this visit. ALLERGIES No Known Allergies FAMILY HISTORY Problem Relation Age of Onset No Known Problems Mother Hypertension Brother No Known Problems Brother Diabetes Maternal Grandfather Social History Tobacco Use Smoking status: Every Day Packs/day: 1.00 Years: 40.00 Pack years: 40.00 Types: Cigarettes Smokeless tobacco: Never Vaping Use Vaping Use: Never used Substance Use Topics Alcohol use: Yes Comment: daily Drug use: Never Review of Systems - Eyes - Denies failing vision, denies double vision Ears - Denies drainage, denies hearing loss, denies dizziness, denies ringing NOse - Denies nosebleeds, denies drainage, denies sinus symptoms, denies nasal obstruction Throat - denies frequent sore throat, denies lump in neck, denies hoarseness Lungs - Denies frequent cough, denies shortness of breath Heart - Denies chest pain, denies palpitations Gastrointestinal - Denies Stomach pain, denies nausea, denies vomiting , denies diarrhea, denies bleeding Genitourinary - Denies Burning, denies bleeding, denies pain or problems passing urine Neurological - Denies Convulsions, Denies seizures, denies memory loss, denies headaches Endocrine - Denies heat/cold intolerance, denies weight gain or loss, denies hair loss REVIEW OF RADIOLOGICAL FILMS AND RECORDS: PET 02/08 1. NECK: No FDG avid neoplastic process. No mass, adenopathy, or fluid collection. 2. CHEST: Hypermetabolic lesion in the upper thoracic esophagus, compatible with patient's known malignancy. Mild uptake is identified in the distal portion of the esophagus, that could be related to reflux esophagitis. Small upper left paratracheal lymph node, possibly a small metastatic lymph node. 3. ABDOMEN/PELVIS: No FDG avid neoplastic process. No mass, adenopathy, or fluid collection. 4. EXTREMITIES/SKELETON: No FDG avid osseous process. No destructive/traumatic bony abnormality. LABS: None available PHYSICAL EXAM: Vitals - There were no vitals taken for this visit. Constitutional - General Appearance: well developed, well nourished, without obvious deformities Communication: speaks with a normal voice without hoarseness Head & Face - Overall: no obvious scars, lesions or masses Parotid and submandibular glands: no masses or tenderness Facial strength: normal and equal bilaterally Ear, Nose, Mouth & Throat - Ears: both left and right external auditory canals and TM's are normal, no external deformities Nasal exam: mucosa is pink, septum is midline, visible turbinates are normal on anterior rhinoscopy Mastication:edentulous Oral Cavity and oropharynx: Hard palate has an area of trauma from dentures, with an area of erythema and leukoplakia. Floor of mouth with significant hyperkeratosis, and leukoplakia moving laterally to the right. There is minimal tethering of the lingual frenulum Neck: appears symmetric, and on palpation is without masses or lymphadenopathy Thyroid: no asymmetry, thyromegaly, or thyroid nodules on palpation Cranial Nerves: II: Pupillary reflexes normal III, IV, : EOM normal V: 1,2,3: normal sensation VII: Normal strength in all divisions IX, X: Normal voice, palatal elevation and sensation XI: Shoulder strength normal XII: Tongue mobility normal Larynx: using the mirror for indirect laryngoscopy, the epiglottic, false cords, true cords, and pyriform sinuses are without lesions and the true vocal cords move normally ASSESSMENT: Krystal Cortes is a 66 year old male presenting with a history of floor of mouth and ear squamous cell carcinoma. He underwent local wide resection at in April of 2021 and was told he did not require further adjuvant therapy. 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 There are no concerning areas on exam today. However, I agree that close follow up is warranted, especially given cancer history. I will see him back in 3 months for follow up. In the mean time, I will request the pathology from for a better understanding of the staging. PLAN: - Request outside pathology - RTC in 3 months Medical Decision Making: Problems: Moderate: New problem with uncertain prognosis Data: Unique source(s) for external note(s) reviewed: 1 Unique test result(s) reviewed: 1 Risk: Moderate: Moderate risk from testing/treatment Medical Decision Making Level: 4 - Moderate Otolaryngology Staff Attestation Details as per Dr. Sahu's note which I have reviewed and edited. I performed a history and physical examination of the patient and discussed the patient's management with the resident. I agree with the documented findings and treatment plan. Patient is a 66-year-old male who had excision of a floor of mouth squamous cell carcinoma in April 2021. Dr. Gallagher [facility]. He was told he did not need any adjuvant therapy. He now is dealing with a esophageal squamous cell carcinoma. He has no concerning symptoms in the oral cavity or head and neck. On examination he does have some hyperkeratosis along the right floor of mouth in the area of the scar extending posteriorly no palpable masses or ulceration good tongue mobility no palpable masses in the neck or lymphadenopathy. Imaging - Pet scan from 02/08/22 - IMPRESSION: 1. NECK: No FDG avid neoplastic process. No mass, adenopathy, or fluid collection. 2. CHEST: Hypermetabolic lesion in the upper thoracic esophagus, compatible with patient's known malignancy. Mild uptake is identified in the distal portion of the esophagus, that could be related to reflux esophagitis. Small upper left paratracheal lymph node, possibly a small metastatic lymph node. 3. ABDOMEN/PELVIS: No FDG avid neoplastic process. No mass, adenopathy, or fluid collection. 4. EXTREMITIES/SKELETON: No FDG avid osseous process. No destructive/traumatic bony abnormality. 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 He is now undergoing treatment for a esophageal cancer. On PET scan there is no FDG avidity in the neck no concerning lymph nodes. His examination shows hyperkeratosis along the previous excision in the floor of mouth but no concerning masses. He does not have any symptoms. I discussed with him would like to obtain his pathology report for updated staging from [facility]. At this point I would recommend watching him closely for the head and neck and proceeding with treatment of his esophageal cancer. - follow-up in 3 months Max Ortiz MD documented in this encounter [facility] 02-08-2022 Note HNO ID: [id number] Author: Radha Goldman RT(R) Service: Nuclear Medicine Author Type: Technologist Type: Progress Notes Filed: 02/08/2022 7:10 AM Note Text: RADIOLOGY SERVICE PROGRESS NOTE SERVICE DATE: 02/08/2022 SERVICE TIME: 7:09 AM PATIENT IDENTITY VERIFICATION COMPLETED USING TWO (2) STANDARD IDENTIFIERS: Name and Date of confirmed by patient verbally FALL SCREENING: Has the patient had 2 falls in the last year or 1 fall with injury or currently using an Ambulatory Assistive Device (Walker, Cane, Wheelchair, Crutches, etc.)? No PATIENT GENDER DATA: .male ALLERGIES: Reviewed and unchanged MEDICATIONS REVIEWED: No PATIENT RELEVANT IMPLANT DATA REVIEWED: Not Applicable CREATININE: Creatinine Date Value Ref Range Status 12/28/2021 0.90 0.73 - 1.22 mg/dL Final Estimated Glomerular Filtration Rate Date Value Ref Range Status 12/28/2021 95 >=60 mL/min/1.73m? Final Comment: Estimated Glomerular Filtration Rate (eGFR) is calculated using the 2020 CKD-EPI creatinine equation. This equation utilizes serum creatinine, sex, and age as parameters. The creatinine assay has traceable calibration to isotope dilution-mass spectrometry. Refer to KDIGO guidelines for clinical interpretation. In patients with unstable renal function, e.g. those with acute kidney injury, the eGFR may not accurately reflect actual GFR. P.O.C.T. RESULTS: N/A February 08, [address] PERFORMED: No IV SITE: Ambulatory: NM only - direct IV injection in the Right antecubital site POST EXAM PIV STATUS: Discontinued PROCEDURE TYPE: NM INJECT: PET/CT BODY SCAN. 11.1 mCi F18 FDG. No other medications given.. ADMINISTRATION TIME: 0657 PATIENT DISCHARGED TO: Ambulatory patient, left [place] department area. A Diagnostic radioactive procedure has taken place, with no further precautions necessary other than routine body substance precautions. More information regarding radiation safety can be found using this link: [email or web address] SIGNATURE: RT Hina(R) PATIENT NAME: Krystal Cortes DATE: February 08, 2022 TIME: 7:09 AM PAGER/CONTACT #: [facility] 02-08-2022 History of Present illness Narrative RADIOLOGY SERVICE PROGRESS NOTE SERVICE DATE: 02/08/2022 SERVICE TIME: 7:09 AM PATIENT IDENTITY VERIFICATION COMPLETED USING TWO (2) STANDARD IDENTIFIERS: Name and Date of confirmed by patient verbally FALL SCREENING: Has the patient had 2 falls in the last year or 1 fall with injury or currently using an Ambulatory Assistive Device (Walker, Cane, Wheelchair, Crutches, etc.)? No PATIENT GENDER DATA: .male ALLERGIES: Reviewed and unchanged MEDICATIONS REVIEWED: No PATIENT RELEVANT IMPLANT DATA REVIEWED: Not Applicable CREATININE: Creatinine Date Value Ref Range Status 12/28/2021 0.90 0.73 - 1.22 mg/dL Final Estimated Glomerular Filtration Rate Date Value Ref Range Status 12/28/2021 95 >=60 mL/min/1.73m Final Comment: Estimated Glomerular Filtration Rate (eGFR) is calculated using the 2020 CKD-EPI creatinine equation. This equation utilizes serum creatinine, sex, and age as parameters. The creatinine assay has traceable calibration to isotope dilution-mass spectrometry. Refer to KDIGO guidelines for clinical interpretation. In patients with unstable renal function, e.g. those with acute kidney injury, the eGFR may not accurately reflect actual GFR. P.O.C.T. RESULTS: N/A February 08, [address] PERFORMED: No IV SITE: Ambulatory: NM only - direct IV injection in the Right antecubital site POST EXAM PIV STATUS: Discontinued PROCEDURE TYPE: NM INJECT: PET/CT BODY SCAN. 11.1 mCi F18 FDG. No other medications given.. ADMINISTRATION TIME: 0657 PATIENT DISCHARGED TO: Ambulatory patient, left [place] department area. A Diagnostic radioactive procedure has taken place, with no further precautions necessary other than routine body substance precautions. More information regarding radiation safety can be found using this link: [email or web address] SIGNATURE: RT Hina(Som) PATIENT NAME: Krystal Cortes DATE: February 08, 2022 TIME: 7:09 AM PAGER/CONTACT #: documented in this encounter [facility] 01-31-2022 Nurse Note Radiation Therapy - Nursing Note (Consult) PATIENT NAME: Krystal Cortes PATIENT January 31, 2022 [facility] FACILITY/LOCATION: [place] Chief Complaint: consult Reason for visit: Consult. Referring physician: Internal provider Dr Masci Subjective Data: no c/o Additional Data Do you want to see a Construction Operations Manager? No Are you interested in information about fertility? No Status: Patient is male Stress Scale: On a scale of 0 to 10, what number best describes how much distress you have experienced in the past week?(0 being no distress and 10 being extreme distress) 2 Social work notified: Pt denied need to see social services counselor at this time. 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 HPI: 66 year old male who presents with above diagnosis, for an opinion regarding the role of radiation therapy in the management of the patient's disease. Final recommendations will be communicated back to the requesting physician by way of the shared medical record, or letter to requesting physician via [place] mail. 66 year old man with 49 pack-year history of smoking and drinking 4-5 beers a day. 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 Quiñones at the [facility] in 04/2021. He was told that he doesn't need any adjuvant therapy. He was told by anesthesiologist at that time that he had proximal esophageal mass. Barium swallow on 12/03/21 was non-diagnostic. EGD on 12/16/21 showed a polypoid mass in the proximal esophagus at 21 cm measuring 15 mm in diameter. Biopsy showed moderately differentiated keratinizing squamous cell carcinoma. EUS on 01/18/22 showed the mass at 18 -22 cm with EUS stage T1sm N1 (One malignant-appearing lymph node in the left upper paratracheal region (level 2L)). CT C/A/P and neck on 01/11/22 showed nonspecific mild asymmetric contour deformity along the dorsal right tongue. Mildly enlarged right hilar node. Borderline mediastinal nodes. Thickening of the proximal midesophagus, likely representing known lesion. He is scheduled to have staging PET scan on 02/08/22. ALLERGIES No Known Allergies PAST MEDICAL HISTORY Diagnosis Date COPD (chronic obstructive pulmonary disease) (HCC) Essential hypertension Prior radiation therapy, collagen vascular disease, or inflammatory bowel disease: No PAST SURGICAL HISTORY Procedure Laterality Date EGD W/O BRSH SPEC VARICIES INJ 11/2021 SKIN BX, 1 LESION 2021 left ear FAMILY HISTORY Problem Relation Age of Onset No Known Problems Mother Hypertension Brother No Known Problems Brother Diabetes Maternal Grandfather Social History Tobacco Use Smoking status: Every Day Packs/day: 1.00 Years: 40.00 Pack years: 40.00 Types: Cigarettes Smokeless tobacco: Never Vaping Use Vaping Use: Never used Substance Use Topics Alcohol use: Yes Comment: daily Drug use: Never COMPLETE REVIEW OF SYSTEMS: GENERAL: feeling well without fatigue, no recent change in weight HEENT: denies GARZON, change in hearing or vision, no other ENT complaints NECK: denies swelling or pain in neck RESPIRATORY: no cough, no wheezing or shortness of breath CARDIOVASCULAR: no chest pain, no palpitations GI: normal appetite, tolerating PO well, BMs normal, and no abdominal pain : urination is normal MUSCULOSKELETAL: denies any painful or swollen joints, no muscle aches SKIN: no rash HEMATOLOGY/LYMPHOLOGY: negative for prolonged bleeding, no swollen lymph nodes NEURO: no numbness or paresthesias and no weakness of the extremities PHYSICAL EXAM: VS: BP 148/72 Pulse (!) 59 Temp 36.7 C (98 F) (Temporal) Resp 16 Wt 75.8 kg (167 lb) SpO2 96% BMI 23.29 kg/m KPS: 90 General Appearance: Alert and oriented. No acute distress. HEENT: NCAT. Sclera anicteric. EOMI. Neck: Normal ROM. Chest: No respiratory distress. Musculoskeletal: No edema. Normal ROM in extremities. Neuro: Speech fluent. Gait normal. No focal deficits. Skin: No rashes noted Hematologic: No signs of active bleeding. 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 He is scheduled to have PET scan on 02/08/22 for staging. I discussed the role of radiation treatment in management of esophageal cancer. I explained the rationale, benefits, alternative management options and potential complications of radiation treatment to the patient and he understands and agrees to proceed. It was explained and understood that other personnel such as radiation therapists, director of coding, and physicists will participate in planning and delivery of radiation treatment. Permanent tattoo goyal will be placed to aid with positioning for daily treatment and the patient consented. Patient will have a simulation procedure after staging completes. Thank you very much for allowing us to participate in his care. Signed by: Shannon Dinh MD cc: Kirit Rosas [address] [facility] [id number] documented in this encounter [facility] 01-26-2022 Miscellaneous Notes Met with patient and introduced myself. Patient was given a My Journey binder with chemocare information, office contact information, thermometer, and additional chemotherapy resource booklets. Patient aware this nurse will review on scheduled appointment date. Kacie Stewart RN documented in this encounter [facility] 01-26-2022 History of Present illness Narrative Oncologic problem(s): 1) cT1b N1 M0 squamous cell carcinoma of the upper esophagus. 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 HPI: The patient is a 66-year-old male with a past medical history significant for head neck cancer, hypertension and COPD as well as heavy alcohol use. 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 Afterward, he recalls anesthesiologist told him to see a linux support engineer because he may have a mass in the proximal esophagus. Barium swallow with fluoroscopy on 12/03/2021 demonstrated no esophageal foreign body. There is no stricture or mucosal abnormality observed. The gastroesophageal junction was noted to be normal without demonstrated hiatal hernia. Patient underwent an EGD on 12/16/2021. The procedure report indicates that at approximately 21 cm there was a polypoid mass observed in the proximal esophagus. It measured approximately 15 mm in diameter and appeared friable. The endoscope was passed to the distal GE junction. There was no evidence of Glover mucosa. Stomach was easily insufflated and no ulcers were observed. There was erythema throughout the gastric mucosa with some streaking and cobblestoning noted. The bulbar duodenum was noted to be normal. Sweep of the duodenum demonstrated no abnormalities. Retroflexion in the stomach revealed a small hiatal hernia. Biopsies were obtained from the antrum for H. pylori testing. The endoscope was withdrawn into the proximal esophagus and several biopsy of the polypoid lesion were obtained. 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 No dysphagia or odynophagia. Denies reflux. Good appetite. Bowel habits normal. Denies black/bloody stools. Smokes about 1 ppd. x49 years. Typically 4-5 beers a day. Tires a little more easily than he used to. Dyspnea with exertion. He has a rescue inhaler on him but he rarely uses. 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 Presents for ongoing oncologic management. Interim history: EGD/EUS 01/18/2022: Malignant esophageal tumor was found in the upper third of the esophagus. -Erythematous mucosa in the antrum. -Normal examined duodenum. -A mass was found in the upper third of the esophagus. A tissue diagnosis was obtained prior to this exam. This is of squamous cell carcinoma. This was staged T1sm (based on invasion into) N1 Mx by endosonographic criteria. -One malignant-appearing lymph node was visualized in the left upper paratracheal region (level 2L). Presence of tumor in the vicinity precluded an uncontaminated FNA -There was no evidence of significant pathology in the left lobe of the liver. -No specimens collected. No subjective change-- No dysphagia or odynophagia. Denies reflux. Good appetite. Bowel habits normal. Denies black/bloody stools. Cutting down on smoking to about 1/2 ppd. Still 4-5 beers a day. Family history: No family history of cancer. ROS: Constitutional: Denies episodes of fever and night sweats. Neuro: Denies GARZON, vertigo, dizziness and imbalance. Denies symptoms of neuropathy. HEENT: No recent change in voice, vision or hearing. Resp: Cough and wheeze. No hemoptysis. Denies shortness of breath at rest. Mild HOYOS. CVS: Denies exertional chest pain, PND, orthopnea and LE edema. GI: See above. : Denies dysuria or gross hematuria. No symptoms of bladder outlet obstruction. Endo: Denies hot flashes. Denies polyuria and polydipsia. Denies heat and cold intolerance. Musculoskeletal: Chronic LBP. Derm: Denies rash. Denies jaundice and diffuse pruritis. Heme: Denies unusual bleeding and unexplained bruising. Psych: Normal mood. PHYSICAL EXAM: Vitals: Blood pressure 172/77, pulse (!) 52, temperature 36.4 C (97.6 F), temperature source Temporal, weight 74.8 kg (165 lb). Well-appearing and in no acute distress. EYES: Sclerae are anicteric bilaterally. ENT: There is a lichenoid lesion at frenulum of tongue. LYMPHATIC: There is no palpable cervical, supraclavicular or axillary adenopathy. RESPIRATORY: Inspiratory breath sounds are of diminished intensity in all guzman. No rales, wheezes or rhonchi. CARDIOVASCULAR: Rhythm is regular. ABDOMEN: The abdomen is nondistended. Non-tender hepatomegaly. No abdominal tenderness. Extremities: No swelling or edema. SKIN: No jaundice or rash. No petechiae. NEUROLOGIC: technology education teacher II-XII are grossly intact. No focal motor weakness. 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 This was resected at by Dr. Gallagher and according to the records the plan was for observation but the patient had not followed up at [facility] since his first postoperative check in the spring. At the time of that surgery he was observed to have a possible mass in the proximal esophagus and was told to see a linux support engineer. Recent evaluation of that with biopsy demonstrated squamous cell carcinoma. -He has no symptoms of dysphagia, odynophagia or weight loss. -I reviewed the results of the CT of the neck, chest and abdomen and pelvis in detail with him and his . Subcentimeter mediastinal lymph nodes. 1.7 cm right hilar lymph node. -He has not yet had follow-up for the squamous cell carcinoma of the floor the mouth. -PET scan is scheduled for 02/08. -Discussed with him primary approach most likely would be concurrent chemotherapy and radiation based on the endoscopic ultrasound findings of suspicious appearing paratracheal lymph node at station 2. It is small and may not be FDG avid on PET scan. Additionally location of the tumor may preclude surgery and therefore definitive chemoradiation would be the primary therapy. -I therefore recommended weekly carboplatin and paclitaxel with concurrent radiation assuming PET scan shows no indication of distant metastatic disease and there has been no evidence of recurrent or local regional spread of head neck cancer. Plan to discuss with thoracic surgery prior to initiating plan as well. Nonetheless in the interest of time and getting him set up for therapy I discussed the rationale, logistics, potential risks (including esophagitis, pneumonitis, cytopenias and the rare potential for due to complications of therapy), benefits and alternatives, as well as the personnel involved in the administration of carboplatin and paclitaxel administered on a weekly schedule with concurrent radiation. I answered his questions in detail and he verbalized understanding and agreed with the recommended therapy. Please see the electronic consent document for details of doses and schedule. Plan: -Referral to Dr. Dinh for opinion on radiation. -Referral to [facility]NT for evaluation of previous head neck cancer. -PET scan 02/08. -Plan to confer with thoracic surgery once PET scan is resulted. -Definitive plan following that. Portions of this documentation were copied and pasted from previous office visit notes in order to provide a cohesive continuity of the history. The note has been reviewed and edited and updated as necessary. I spent 50 minutes in the visit, with more than 50% of the total [id number] time of the visit in reviewing test results, plan of care. discussion/consent for chemotherapy and coordination of care Kirit Rosas DO documented in this encounter [facility] 01-18-2022 Miscellaneous Notes LM for patient to return call to schedule an appointment. When patient calls, please scheduled PET CT, document and route this note to P WSTR HEM/ONC PSR. Kiya Villalba Message left on identified voicemail , received results From endoscopist, needs to be scheduled for PET scan. Our PSS will reach out to him to get scheduled as soon as able at [facility] facility. Keep scheduled appt. With Dr. Rosas 01/26 Clarita Kinney LPN Can let him know the endoscopist forwarded me the results of his EGD. Please schedule him for PET scan as soon as able and he [facility] location. Keep office visit with me as scheduled. Kirit Rosas DO documented in this encounter [facility] 01-18-2022 Nurse Note AMBULATORY PATIENT EDUCATION NOTE TOPIC: GI PROCEDURES: Endoscopic Ultrasound (EUS) with or without Fine Needle Aspiration (FNA) Esophagogastroduodenoscopy(EGD) with or without biopies based on clinical findings, removal of polyps or lesions READINESS TO LEARN INSTRUCTION PROVIDED TO: Patient, readness to learn accessed prior to procedure COGNITIVE ABILITY: Alert and oriented PTED MOTIVATION TO LEARN: Eager FAMILY SUPPORT: High - Very involved in pt care IPATIENT LEARNS BEST BY: Individual Instruction FACTORS AFFECTING LEARNING: None PHYSICAL LIMITATIONS AFFECTING LEARNING: None LEARNING RESPONSE METHOD OF INSTRUCTION: Individual instruction PATIENT / FAMILY RESPONSE: Verbalizes understanding of: WORSENING CONDITION-Signs and symptoms of a worsening condition that warrant a call to the physician FOLLOW-UP PLAN: Patient instructed to call with any further issues SUPPLEMENTAL MATERIAL: Procedure Discharge Instructions REFERRAL (RECOMMENDATION): None PRE OP LEARNING ASSESSMENT PROCEDURE/SURGERY: GI PROCEDURES: EGD and EUS READINESS TO LEARN COGNITIVE ABILITY: Alert and oriented MOTIVATION TO LEARN: Eager Interested FAMILY SUPPORT: High - Very involved in pt care PATIENT LEARNS BEST BY: Individual Instruction Written Instruction - Hand-outs Verbal Instruction FACTORS AFFECTING LEARNING: None PHYSICAL LIMITATIONS AFFECTING LEARNING: None Electronically Signed By: Miesha Cruz RN In Department: GASTROENTEROLOGY documented in this encounter [facility] 01-11-2022 Miscellaneous Notes Yes, he saw Dr Jose Rafael Brar. I will fax note. Sofya Dhillon LPN Please fax a copy of the CT neck report to Dr. Brar's office. Patient was to have an appointment with either him or Dr. Newman. Has that been scheduled yet? Kirit Rosas DO documented in this encounter [facility] 01-11-2022 Miscellaneous Notes Attempted to reach the patient at the contact number that they provided [phone] (home) . Unable to speak with patient so without identifying the patient the following information was left on their voice mail: Date of procedure, location and report time A message was left informing the patient/patient loss prevention representative they must have a responsible adult accompany them to their procedure; and remain in the endoscopy area until they are discharged. Failure to have a responsible adult accompany the patient to their procedure appointment prevents the use of sedation or anesthesia for their procedure; and can result in cancellation of the procedure NPO instructions were reviewed. Instructions to contact their primary care provider regarding their medications and which medications to stop in preparation for their procedure Instructions to completely read and follow the written instructions that they recieved regarding their procedure. Number to call with questions or concerns [phone] Number to call to cancel their procedure [phone] Hawa Salgado LPN documented in this encounter [facility] 05-28-2021 Note KRYSTAL CORTES was pr esented at Head and Neck Tumor Board Conference Conference date: 28-May-2021 Presenting Provider(s): Dr. Guru Gallagher Conference Review Type: new Impression Floor of mouth lesion underwent surgical resection with close margins, findings consistent with squamous cell carcinoma, Stage: pT1 NX MX Recommendations Other recommendations: Re-excision vs observation; (referral to GI for esophagus lesion evaluation) Disclaimer SCC tumor board recommendations represent the consensus opinion of physicians present at a weekly patient care conference. The treating SCC physician is not always present, and many of the physicians formulating the recommendation have not personally seen or examined the patient under discussion. It is understood that the treating [facility] physician considers the expertise of the Tumor Board Recommendation in formulating his/her plan for the patient. However, in many situations, based on individualized patient considerations, a different plan is determined by the treating physician to be the optimal medical management. Electronic Signatures: León Vera (N MGR) (Signed 28-May-2021 08:40) Authored: Impression, Recommendations, Note, Disclaimer Last Updated: 28-May-2021 08:40 by León Vera (N MGR) [facility] 05-13-2021 Note PROCEDURE DETAILS Preoperative Diagnosis: Floor of mouth lesion Postoperative Diagnosis: Floor of mouth lesion Surgeon: Dr. Gallagher Resident/Fellow/Other Journal Entry Audit Clerk: Dr. Arredondo Procedure: 1. direct laryngoscopy 2. flexible bronchoscopy 3. flexible esophagoscopy 4. floor of mouth excision 5. sialodochoplasty (rufina) Anesthesia: general Estimated Blood Loss: 2cc Findings: Lesion of the esophagus measured at 20 cm from mouth, mucocele of right lateral pharynx, normal bronchoscopy. Anterior floor of mouth lesion excised with bilateral sialodochoplasty. Specimens(s) Collected: yes, Floor of mouth lesion Complications: None Patient Returned To/Condition: Stable to PACU Attestation: Note Completion: I am a:Resident/Fellow Attending AttestationI was present for the entire procedure Electronic Signatures: Guru Gallagher) (Signed 13-May-2021 16:59) Authored: Post-Operative Note, Chart Review, Note Completion Co-Signer: Post-Operative Note, Chart Review, Note Completion Kera Arredondo ( (Resident)) (Signed 13-May-2021 15:12) Authored: Post-Operative Note, Chart Review, Note Completion Last Updated: 13-May-2021 16:59 by Guru Gallagher) [facility] 05-13-2021 Note History & Physical R eviewed: I have reviewed the History and Physical dated: 27-Apr-2021 History and Physical reviewed and relevant findings noted. Patient examined to review pertinent physical findings.: No significant changes Home Medications Reviewed: no changes noted Allergies Reviewed: no changes noted ERAS (Enhanced Recovery After Surgery): ERAS Patient: no Consent: COVID-19 Consent: COVID-19 Risk ConsentSurgeon has reviewed zacarias risks related to the risk of ra COVID-19 and if they contract COVID-19 what the risks are. Attestation: Note Completion: I am a: Resident/Fellow Attending AttestationI saw and evaluated the patient. I personally obtained the zacarias and critical portions of the history and physical exam or was physically present for zacarias and critical portions performed by the resident/fellow. I reviewed the resident/fellows documentation and discussed the patient with the resident/fellow. I agree with the resident/fellows medical decision making as documented in the note. I personally evaluated the patient [id number] Electronic Signatures: Guru Gallagher) (Signed 13-May-2021 16:50) Authored: Note Completion Co-Signer: History & Physical Reviewed, ERAS, Consent, Note Completion Kera Arredondo (DO (Resident)) (Signed 13-May-2021 05:51) Authored: History & Physical Reviewed, ERAS, Consent, Note Completion Last Updated: 13-May-2021 16:50 by Guru Gallagher) [facility] Chief complaint Narrative - Reported Consultation for the management of an oral cavity lesion. 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)- Primary Malignant neoplasm of upper third of esophagus [facility] Diagnosis 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) Malignant neoplasm of middle third of esophagus [facility] Diagnosis Cancer of cervical esophagus (HCC)- Primary Malignant neoplasm of cervical esophagus 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) [facility] 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)- Primary Malignant neoplasm of upper third of esophagus [facility] Diagnosis Encounter for education- Primary Counseling NOS [facility] Diagnosis Cancer of cervical esophagus (HCC)- Primary Malignant neoplasm of cervical esophagus [facility] Diagnosis 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)- Primary 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 [facility] Diagnosis Cancer of cervical esophagus (HCC)- Primary Malignant neoplasm of cervical esophagus 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) [facility] Cancer of cervical esophagus (HCC)- Primary Malignant neoplasm of cervical esophagus [facility] Diagnosis 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)- Primary Malignant neoplasm of upper third of esophagus [facility] Cancer of cervical esophagus (HCC)- Primary Malignant neoplasm of cervical esophagus 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) documented in this [facility] Cancer of cervical esophagus (HCC)- Primary Malignant neoplasm of cervical esophagus 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) [facility] Cancer of cervical esophagus (HCC)- Primary Malignant neoplasm of cervical esophagus [facility] Diagnosis 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)- Primary Malignant neoplasm of upper third of esophagus [facility] Diagnosis Cancer of cervical esophagus (HCC)- Primary Malignant neoplasm of cervical esophagus [facility] Diagnosis Cancer of cervical esophagus (HCC)- Primary Malignant neoplasm of cervical esophagus 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) [facility] Diagnosis Cancer of cervical esophagus (HCC)- Primary Malignant neoplasm of cervical esophagus [facility] Diagnosis 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)- Primary Malignant neoplasm of upper third of esophagus [facility] Diagnosis Cancer of cervical esophagus (HCC)- Primary Malignant neoplasm of cervical esophagus [facility] Diagnosis Cancer of cervical esophagus (HCC)- Primary Malignant neoplasm of cervical esophagus [facility] Diagnosis Cancer of cervical esophagus (HCC)- Primary Malignant neoplasm of cervical esophagus 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) [facility] Diagnosis 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)- Primary Malignant neoplasm of upper third of esophagus [facility] Diagnosis Cancer of cervical esophagus (HCC)- Primary Malignant neoplasm of cervical esophagus [facility] Diagnosis 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)- Primary Malignant neoplasm of upper third of esophagus [facility] Diagnosis Cancer of cervical esophagus (HCC)- Primary Malignant neoplasm of cervical esophagus [facility] Diagnosis Cancer of cervical esophagus (HCC)- Primary Malignant neoplasm of cervical esophagus [facility] Diagnosis 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)- Primary Malignant neoplasm of upper third of esophagus [facility] Diagnosis Cancer of cervical esophagus (HCC)- Primary Malignant neoplasm of cervical esophagus [facility] Diagnosis Cancer of cervical esophagus (HCC)- Primary Malignant neoplasm of cervical esophagus [facility] Diagnosis 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)- Primary Malignant neoplasm of middle third of esophagus [facility] Diagnosis 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)- Primary Malignant neoplasm of upper third of esophagus [facility] Diagnosis 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)- Primary [facility] Diagnosis 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)- Primary Malignant neoplasm of upper third of esophagus 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) [facility] Diagnosis 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)- Primary Malignant neoplasm of upper third of esophagus [facility] Diagnosis 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)- Primary Malignant neoplasm of upper third of esophagus 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) [facility] Diagnosis 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) Malignant neoplasm of upper third of esophagus 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) [facility] Diagnosis 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)- Primary Malignant neoplasm of upper third of esophagus 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) [facility] Diagnosis 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) Malignant neoplasm of upper third of esophagus 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) [facility] Diagnosis Cancer of cervical esophagus (HCC)- Primary Malignant neoplasm of cervical esophagus 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) [facility] Diagnosis Cancer of cervical esophagus (HCC) Malignant neoplasm of cervical esophagus 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) [facility] Diagnosis Cancer of cervical esophagus (HCC)- Primary Malignant neoplasm of cervical esophagus 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) Secondary malignant neoplasm of other specified sites [facility] Diagnosis Cancer of cervical esophagus (HCC) Malignant neoplasm of cervical esophagus 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) Secondary malignant neoplasm of other specified sites [facility] Diagnosis Cancer of cervical esophagus (HCC)- Primary Malignant neoplasm of cervical esophagus Secondary malignant neoplasm of chest wall (HCC) Secondary malignant neoplasm of other specified sites documented [facility] illness NarrativeThis patient is seen at the request of a local colleague. He has had a lesion in the floor of his mouth for quite some time according to what he describes. At the same time he noticed recently that this was larger. 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 He is here today for further management. 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) Procedures EGD - THERAPEUTIC, EUS, OR TUBE INTERVENTIONS EDG US EXAM SURGICAL ALTER STOM DUODENUM/JEJUNUM Masci, Kirit A, DO [address] [place] [address] [facility] [address] [place] [address] Referral ID Status Reason Start Date Expiration Date V isits Requested Visits Authorized [id number] Closed Auto-Generate d Referral 12/28/2021 12/28/2022 1 1 [facility] for referral (narrative)* Diagnostic Procedure Only (Urgent) - Closed Specialty Diagnoses / Procedures Referred By Contac t Referred To Contact [facility] Diagnoses 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) Procedures NM PET/CT SKULL-THIGH INITIAL PET IMAGING CT ATTENUATION SKULL BASE MID-THIGH Kirit Rosas DO [address] [place] [address] [facility] [address] [place], [place] [id number] Referral ID Status Reason Start Date Expiration Date V isits Requested Visits Authorized [id number] Closed Auto-Generate d Referral 01/18/2022 04/18/2022 1 1 [facility] for referral (narrative)* Diagnostic Procedure Only (Urgent) - Closed Specialty Diagnoses / Procedures Referred By Contac t Referred To Contact [facility] Diagnoses 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) Procedures NM PET/CT SKULL-THIGH INITIAL PET IMAGING CT ATTENUATION SKULL BASE MID-THIGH Kirit Rosas, DO [address] [place] [address] [facility] [address] [phone] Referral ID Status Reason Start Date Expiration Date V isits Requested Visits Authorized [id number] Closed Auto-Generate d Referral 01/18/2022 04/18/2022 1 1 [facility] Diagnostic Procedure Only (Routine) - Authorized Specialty Diagnoses / Procedures Referred By Contac t Referred To Contact [facility] Diagnoses 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) Procedures NM PET/CT SKULL-THIGH SUBSEQUENT PET IMAGING CT ATTENUATION SKULL BASE MID-THIGH Kirit Rosas DO [address] [place] [address] [facility] [address] [place] [address] Referral ID Status Reason Start Date Expiration Date Visits Requested Visits Authorized [id number] Authorized Auto-Generat ed Referral 05/05/2022 06/04/2023 1 1 [facility] for referral (narrative)* Diagnostic Procedure Only (Routine) - Closed Specialty Diagnoses / Procedures Referred By Seeac t Referred To Contact [facility] Diagnoses 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) Procedures NM PET/CT SKULL-THIGH SUBSEQUENT PET IMAGING CT ATTENUATION SKULL BASE MID-THIGH Kirit Rosas, DO [address] [place] [address] [facility] [address] [place] [address] Referral ID Status Reason Start Date Expiration Date V isits Requested Visits Authorized [id number] Closed Auto-Generate d Referral 05/05/2022 06/04/2023 1 1 [facility] for referral (narrative)No reason for referral [facility] Reason for visit Narrative* Outpatient Procedure (Routine) - Closed Specialty Diagnoses / Procedures Referred By Contac t Referred To Contact [facility] Diagnoses 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) Procedures EGD - THERAPEUTIC, EUS, OR TUBE INTERVENTIONS EDG US EXAM SURGICAL ALTER STOM DUODENUM/JEJUNUM Kirit Rosas, [address] [place] [address] [facility] [address] [place] [address] Referral ID Status Reason Start Date Expiration Date V isits Requested Visits Authorized [id number] Closed Auto-Generate d Referral 12/28/2021 12/28/2022 1 [facility] Diagnostic Procedure Only (Routine) - Closed Specialty Diagnoses / Procedures Referred By Maddy t Referred To Contact [facility] Diagnoses 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) Procedures NM PET/CT SKULL-THIGH SUBSEQUENT PET IMAGING CT ATTENUATION SKULL BASE MID-THIGH Kirit Rosas, DO [address] [place] [address] Molecular [facility] Functional Imaging [address] [phone] Referral ID Status Reason Start Date Expiration Date V isits Requested Visits Authorized [id number] Closed Auto-Generate d Referral 05/05/2022 06/04/2023 1 1 [facility] Summary Purpose Family History No Family History Records Found Advance Directives No Advanced Directives Records FoundNo Advanced Directives Records FoundNo Advanced Directives Records FoundNo Advanced Directives Records FoundNo Advanced Directives Records Found Chief Complaint and Reason for Visit Chief Complaint ORAL CANCER,ESOPHAGE AL LESION Chief Complaint LT CAROTID STENOSIS Medications Administered Section Inactive Administered Medications - up to 3 most recent administrations Medication Order MAR Action Action Date Dose Rate Site lactated ringers iv infusion 30 mL/hr, INTRAVENOUS, CONTINUOUS, Starting on Mon01/18/22 at 0800, Until Mon01/19/22 at 0417, Preprocedure New Bag/Syringe/Bottle 01/18/2022 8:20 AM EST 30 mL/hr 30 mL/hr Inactive Administered Medications - up to 3 most recent administrations Medication Order MAR Action Action Date Dose Rate Site CARBOplatin 223.8 mg in NaCl 0.9% 132.38 mL (PARAPLATIN) 223.8 mg (Target AUC = 2), INTRAVENOUS, Administer over 30 Minutes, ONCE, 1 dose, On 03/07/22 at 0930, exp 1000 03/08/22 (room temp) Hazardous Chemotherapy Drug: Use appropriate PPE. Antineoplastic Irritant. New Bag/Syringe/Bottle 03/07/2022 10:24 AM EST 223.8 mg dexAMETHasone 20 mg in 0.9% NaCl 50 mL (DECADRON) 20 mg, INTRAVENOUS, Administer over 15 Minutes, ONCE, 1 dose, On Mon03/07/22 at 0900, Administer 30 minutes prior to infusion. Refrigerate. New Bag/Syringe/Bottle 03/07/2022 8:58 AM EST 20 mg diphenhydrAMINE 50 mg injection (BENADRYL) 50 mg, INTRAVENOUS, ONCE, 1 dose, On Mon03/07/22 at 0900, Give prior to chemotherapy. Given 03/07/2022 8:59 AM EST 50 mg famotidine 20 mg injection (PEPCID) 20 mg, INTRAVENOUS, ONCE, 1 dose, On Mon03/07/22 at 0900, Give prior to chemotherapy. REFRIGERATE Given 03/07/2022 8:59 AM EST 20 mg ondansetron (PF) 8 mg injection (ZOFRAN) 8 mg, INTRAVENOUS, ONCE, 1 dose, On Mon03/07/22 at 0900, Administer 30 minutes prior to infusion. Given 03/07/2022 8:59 AM EST 8 mg PACLitaxel 97.02 mg in NaCl 0.9% 291.17 mL (TAXOL) 97.02 mg (rounded from 97 mg = 50 mg/m2 1.94 m2 Treatment Plan BSA from Recorded weight), INTRAVENOUS, Administer over 1 Hours, ONCE, 1 dose, On Mon03/07/22 at 0900, exp 1600 03/08/22 (room temp) Hazardous Chemotherapy Drug: Use appropriate PPE. Antineoplastic Irritant with Vesicant Potential. Administer with non-DEHP 0.2 micron filter and tubing. New Bag/Syringe/Bottle 03/07/2022 9:18 AM EST 97.02 mg Inactive Administered Medications - up to 3 most recent administrations Medication Order MAR Action Action Date Dose Rate Site CARBOplatin 276.8 mg in NaCl 0.9% 137.68 mL (PARAPLATIN) 276.8 mg (Target AUC = 2), INTRAVENOUS, Administer over 30 Minutes, ONCE, 1 dose, On Mon03/14/22 at 1000, exp 1000 03/15/22 (room temp) Hazardous Chemotherapy Drug: Use appropriate PPE. Antineoplastic Irritant. New Bag/Syringe/Bottle 03/14/2022 11:10 AM EST 276.8 mg dexAMETHasone 20 mg in 0.9% NaCl 50 mL (DECADRON) 20 mg, INTRAVENOUS, Administer over 15 Minutes, ONCE, 1 dose, On Mon03/14/22 at 1000, Administer 30 minutes prior to infusion. Refrigerate. New Bag/Syringe/Bottle 03/14/2022 9:40 AM EST 20 mg diphenhydrAMINE 50 mg injection (BENADRYL) 50 mg, INTRAVENOUS, ONCE, 1 dose, On Mon03/14/22 at 1000, Give prior to chemotherapy. Given 03/14/2022 9:39 AM EST 50 mg famotidine 20 mg injection (PEPCID) 20 mg, INTRAVENOUS, ONCE, 1 dose, On Mon03/14/22 at 1000, Give prior to chemotherapy. REFRIGERATE Given 03/14/2022 9:39 AM EST 20 mg ondansetron (PF) 8 mg injection (ZOFRAN) 8 mg, INTRAVENOUS, ONCE, 1 dose, On Mon03/14/22 at 1000, Administer 30 minutes prior to infusion. Given 03/14/2022 9:39 AM EST 8 mg PACLitaxel 97.02 mg in NaCl 0.9% 291.17 mL (TAXOL) 97.02 mg (rounded from 97 mg = 50 mg/m2 1.94 m2 Treatment Plan BSA from Recorded weight), INTRAVENOUS, Administer over 1 Hours, ONCE, 1 dose, On Mon03/14/22 at 1000, exp 03/20/22 (refrigerated) Hazardous Chemotherapy Drug: Use appropriate PPE. Antineoplastic Irritant with Vesicant Potential. Administer with non-DEHP 0.2 micron filter and tubing. New Bag/Syringe/Bottle 03/14/2022 10:05 AM EST 97.02 mg Inactive Administered Medications - up to 3 most recent administrations Medication Order MAR Action Action Date Dose Rate Site CARBOplatin 276.8 mg in NaCl 0.9% 137.68 mL (PARAPLATIN) 276.8 mg (Target AUC = 2), INTRAVENOUS, Administer over 30 Minutes, ONCE, 1 dose, On Mon03/21/22 at 0930, exp 1000 03/22/22 (room temp) Hazardous Chemotherapy Drug: Use appropriate PPE. Antineoplastic Irritant. New Bag/Syringe/Bottle 03/21/2022 11:10 AM EST 276.8 mg dexAMETHasone 20 mg in 0.9% NaCl 50 mL (DECADRON) 20 mg, INTRAVENOUS, Administer over 15 Minutes, ONCE, 1 dose, On Mon03/21/22 at 0930, Administer 30 minutes prior to infusion. Refrigerate. New Bag/Syringe/Bottle 03/21/2022 9:30 AM EST 20 mg diphenhydrAMINE 50 mg injection (BENADRYL) 50 mg, INTRAVENOUS, ONCE, 1 dose, On Mon03/21/22 at 0930, Give prior to chemotherapy. Given 03/21/2022 9:26 AM EST 50 mg famotidine 20 mg injection (PEPCID) 20 mg, INTRAVENOUS, ONCE, 1 dose, On Mon03/21/22 at 0930, Give prior to chemotherapy. REFRIGERATE Given 03/21/2022 9:26 AM EST 20 mg ondansetron (PF) 8 mg injection (ZOFRAN) 8 mg, INTRAVENOUS, ONCE, 1 dose, On Mon03/21/22 at 0930, Administer 30 minutes prior to infusion. Given 03/21/2022 9:26 AM EST 8 mg PACLitaxel 97.02 mg in NaCl 0.9% 291.17 mL (TAXOL) 97.02 mg (rounded from 97 mg = 50 mg/m2 1.94 m2 Treatment Plan BSA from Recorded weight), INTRAVENOUS, Administer over 1 Hours, ONCE, 1 dose, On Mon03/21/22 at 0930, exp 03/27/22 (refrigerated) Hazardous Chemotherapy Drug: Use appropriate PPE. Antineoplastic Irritant with Vesicant Potential. Administer with non-DEHP 0.2 micron filter and tubing. New Bag/Syringe/Bottle 03/21/2022 10:00 AM EST 97.02 mg Inactive Administered Medications - up to 3 most recent administrations Medication Order MAR Action Action Date Dose Rate Site CARBOplatin 276.8 mg in NaCl 0.9% 137.68 mL (PARAPLATIN) 276.8 mg (Target AUC = 2), INTRAVENOUS, Administer over 30 Minutes, ONCE, 1 dose, On Mon03/28/22 at 1030, exp 1030 03/29/22 (room temp) Hazardous Chemotherapy Drug: Use appropriate PPE. Antineoplastic Irritant. New Bag/Syringe/Bottle 03/28/2022 11:42 AM EST 276.8 mg dexAMETHasone 20 mg in 0.9% NaCl 50 mL (DECADRON) 20 mg, INTRAVENOUS, Administer over 15 Minutes, ONCE, 1 dose, On Mon03/28/22 at 1030, Administer 30 minutes prior to infusion. Refrigerate. New Bag/Syringe/Bottle 03/28/2022 10:14 AM EST 20 mg diphenhydrAMINE 50 mg injection (BENADRYL) 50 mg, INTRAVENOUS, ONCE, 1 dose, On Mon03/28/22 at 1030, Give prior to chemotherapy. Given 03/28/2022 10:14 AM EST 50 mg famotidine 20 mg injection (PEPCID) 20 mg, INTRAVENOUS, ONCE, 1 dose, On Mon03/28/22 at 1030, Give prior to chemotherapy. REFRIGERATE Given 03/28/2022 10:14 AM EST 20 mg ondansetron (PF) 8 mg injection (ZOFRAN) 8 mg, INTRAVENOUS, ONCE, 1 dose, On Mon03/28/22 at 1030, Administer 30 minutes prior to infusion. Given 03/28/2022 10:14 AM EST 8 mg PACLitaxel 97.02 mg in NaCl 0.9% 291.17 mL (TAXOL) 97.02 mg (rounded from 97 mg = 50 mg/m2 1.94 m2 Treatment Plan BSA from Recorded weight), INTRAVENOUS, Administer over 1 Hours, ONCE, 1 dose, On Mon03/28/22 at 1030, exp 04/03/22 (refrigerated) Hazardous Chemotherapy Drug: Use appropriate PPE. Antineoplastic Irritant with Vesicant Potential. Administer with non-DEHP 0.2 micron filter and tubing. New Bag/Syringe/Bottle 03/28/2022 10:38 AM EST 97.02 mg Inactive Administered Medications - up to 3 most recent administrations Medication Order MAR Action Action Date Dose Rate Site CARBOplatin 276.8 mg in NaCl 0.9% 137.68 mL (PARAPLATIN) 276.8 mg (Target AUC = 2), INTRAVENOUS, Administer over 30 Minutes, ONCE, 1 dose, On Mon04/04/22 at 1000, exp 1000 04/05/22 (room temp) Hazardous Chemotherapy Drug: Use appropriate PPE. Antineoplastic Irritant. New Bag/Syringe/Bottle 04/04/2022 11:20 AM EST 276.8 mg dexAMETHasone 20 mg in 0.9% NaCl 50 mL (DECADRON) 20 mg, INTRAVENOUS, Administer over 15 Minutes, ONCE, 1 dose, On Mon04/04/22 at 0930, Administer 30 minutes prior to infusion. Refrigerate. New Bag/Syringe/Bottle 04/04/2022 9:57 AM EST 20 mg diphenhydrAMINE 50 mg injection (BENADRYL) 50 mg, INTRAVENOUS, ONCE, 1 dose, On Mon04/04/22 at 0930, Give prior to chemotherapy. Given 04/04/2022 9:52 AM EST 50 mg famotidine 20 mg injection (PEPCID) 20 mg, INTRAVENOUS, ONCE, 1 dose, On Mon04/04/22 at 0930, Give prior to chemotherapy. REFRIGERATE Given 04/04/2022 9:55 AM EST 20 mg ondansetron (PF) 8 mg injection (ZOFRAN) 8 mg, INTRAVENOUS, ONCE, 1 dose, On Mon04/04/22 at 0930, Administer 30 minutes prior to infusion. Given 04/04/2022 9:51 AM EST 8 mg PACLitaxel 97.02 mg in NaCl 0.9% 291.17 mL (TAXOL) 97.02 mg (rounded from 97 mg = 50 mg/m2 1.94 m2 Treatment Plan BSA from Recorded weight), INTRAVENOUS, Administer over 1 Hours, ONCE, 1 dose, On Mon04/04/22 at 0930, exp 04/10/22 (refrigerated) Hazardous Chemotherapy Drug: Use appropriate PPE. Antineoplastic Irritant with Vesicant Potential. Administer with non-DEHP 0.2 micron filter and tubing. New Bag/Syringe/Bottle 04/04/2022 10:14 AM EST 97.02 mg Inactive Administered Medications - up to 3 most recent administrations Medication Order MAR Action Action Date Dose Rate Site CARBOplatin 276.8 mg in NaCl 0.9% 137.68 mL (PARAPLATIN) 276.8 mg (Target AUC = 2), INTRAVENOUS, Administer over 30 Minutes, ONCE, 1 dose, On Mon04/11/22 at 1000, EXP: 04/12/22 1000 Hazardous Chemotherapy Drug: Use appropriate PPE. Antineoplastic Irritant. New Bag/Syringe/Bottle 04/11/2022 11:41 AM EST 276.8 mg dexAMETHasone 20 mg in 0.9% NaCl 50 mL (DECADRON) 20 mg, INTRAVENOUS, Administer over 15 Minutes, ONCE, 1 dose, On Mon04/11/22 at 1000, Administer 30 minutes prior to infusion. Refrigerate. New Bag/Syringe/Bottle 04/11/2022 10:00 AM EST 20 mg diphenhydrAMINE 50 mg injection (BENADRYL) 50 mg, INTRAVENOUS, ONCE, 1 dose, On Mon04/11/22 at 1000, Give prior to chemotherapy. Given 04/11/2022 10:00 AM EST 50 mg famotidine 20 mg injection (PEPCID) 20 mg, INTRAVENOUS, ONCE, 1 dose, On Mon04/11/22 at 1000, Give prior to chemotherapy. REFRIGERATE Given 04/11/2022 10:00 AM EST 20 mg ondansetron (PF) 8 mg injection (ZOFRAN) 8 mg, INTRAVENOUS, ONCE, 1 dose, On Mon04/11/22 at 1000, Administer 30 minutes prior to infusion. Given 04/11/2022 10:00 AM EST 8 mg PACLitaxel 97.02 mg in NaCl 0.9% 291.17 mL (TAXOL) 97.02 mg (rounded from 97 mg = 50 mg/m2 1.94 m2 Treatment Plan BSA from Recorded weight), INTRAVENOUS, Administer over 1 Hours, ONCE, 1 dose, On Mon04/11/22 at 1000, Approx Total Volume EXP: 04/12/22 1600 Hazardous Chemotherapy Drug: Use appropriate PPE. Antineoplastic Irritant with Vesicant Potential. Administer with non-DEHP 0.2 micron filter and tubing. New Bag/Syringe/Bottle 04/11/2022 10:31 AM EST 97.02 mg Inactive Administered Medications - up to 3 most recent administrations Medication Order MAR Action Action Date Dose Rate Site potassium chloride iv piggyback 40 mEq (20 mEq x 2 doses) 20 mEq, INTRAVENOUS, at 100 mL/hr, Administer over 1 Hours, EVERY 1 HOUR, 2 doses, First dose on Mon04/12/22 at 0900, Last dose on Mon04/12/22 at 1000, Dispensed as potassium chloride 20 mEq/100 mL x 2 = 40 mEq Potassium 3.1 to 3.4 infuse 40mEq KCl IV over 2 hours. 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) Procedures CT SIM PLANNING RADIATION ONCOLOGY THER RAD SIMULAJ-AIDED FIELD SETTING COMPLEX Shannon Dinh MD, [address] [place] [address] Referral ID Status Reason Start Date Expiration Date Visits Requested Visits Authorized [id number] Pending Review PCP Requested Referral 02/28/2022 05/26/2022 1 1 Specialty Diagnoses / Procedures Referred By Contac t Referred To Contact CT IMAGING Diagnoses 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) Procedures CT NECK SOFT TISSUE W IVCON CT SOFT TISSUE NECK W/CONTRAST MATERIAL Kirit Rosas, DO [address] [place] [address] Ct Imaging Referral ID Status Reason Start Date Expiration Date Visits Requested Visits Authorized [id number] Authorized Auto-Generat ed Referral 06/24/2022 07/24/2023 1 1 Specialty Diagnoses / Procedures Referred By Contac t Referred To Contact CT IMAGING Diagnoses 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) Procedures CT CHEST W IVCON DIAGNOSTIC COMPUTED TOMOGRAPHY THORAX W/CONTRAST Kirit Rosas, DO [address] [place] [address] Ct Imaging Referral ID Status Reason Start Date Expiration Date Visits Requested Visits Authorized [id number] Authorized Auto-Generat ed Referral 06/24/2022 07/24/2023 1 1 Specialty Diagnoses / Procedures Referred By Contac t Referred To Contact CT IMAGING Diagnoses 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) Procedures CT NECK SOFT TISSUE W IVCON CT SOFT TISSUE NECK W/CONTRAST MATERIAL Kirit Rosas, DO [address] [place] [address] [place] [address] Referral ID Status Reason Start Date Expiration Date Visits Requested Visits Authorized [id number] Authorized Auto-Generat ed Referral 10/21/2022 11/20/2023 1 1 Specialty Diagnoses / Procedures Referred By Contac t Referred To Contact CT IMAGING Diagnoses 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) Procedures CT CHEST W IVCON DIAGNOSTIC COMPUTED TOMOGRAPHY THORAX W/CONTRAST Kirit Rosas, DO [address] [place] [address] Ct Imaging [id number] Referral ID Status Reason Start Date Expiration Date Visits Requested Visits Authorized [id number] Authorized Auto-Generat ed Referral 10/21/2022 11/20/2023 1 1 Referral ID Status Reason Start Date Expiration Date V isits Requested Visits Authorized [id number] Closed Auto-Generate d Referral 06/24/2022 07/24/2023 1 1 Referral ID Status Reason Start Date Expiration Date V isits Requested Visits Authorized [id number] Closed Auto-Generate d Referral 06/24/2022 07/24/2023 1 1 Referral ID Status Reason Start Date Expiration Date V isits Requested Visits Authorized [id number] Closed Auto-Generate d Referral 10/21/2022 11/20/2023 1 1 Specialty Diagnoses / Procedures Referred By Contac t Referred To Contact CT IMAGING Diagnoses 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) Procedures CT CHEST W IVCON DIAGNOSTIC COMPUTED TOMOGRAPHY THORAX W/CONTRAST Kirit Rosas, DO [address] [place] [address] Ct Imaging [place] [address] Referral ID Status Reason Start Date Expiration Date Visits Requested Visits Authorized [id number] Authorized Auto-Generat ed Referral 04/27/2023 05/26/2024 1 1 Specialty Diagnoses / Procedures Referred By Contac t Referred To Contact CT IMAGING Diagnoses 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) Procedures CT NECK SOFT TISSUE W IVCON CT SOFT TISSUE NECK W/CONTRAST MATERIAL Kirit Rosas, DO [address] [facility] [place] [address] [place] [address] Referral ID Status Reason Start Date Expiration Date Visits Requested Visits Authorized [id number] Authorized Auto-Generat ed Referral 04/27/2023 05/26/2024 1 1 Referral ID Status Reason Start Date Expiration Date V isits Requested Visits Authorized [id number] Closed Auto-Generate d Referral 04/27/2023 05/26/2024 1 1 Specialty Diagnoses / Procedures Referred By Contac t Referred To Contact CT IMAGING Diagnoses 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) Procedures CT CHEST W IVCON DIAGNOSTIC COMPUTED TOMOGRAPHY THORAX W/CONTRAST Sandra Cruz, BRY.EKG MONITOR [address] [place] [address] [place] [address] Referral ID Status Reason Start Date Expiration Date Visits Requested Visits Authorized [id number] Authorized Auto-Generat ed Referral 04/30/2024 11/30/2024 1 1 Specialty Diagnoses / Procedures Referred By Contac t Referred To Contact CT IMAGING Diagnoses 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) Procedures CT NECK SOFT TISSUE W IVCON CT SOFT TISSUE NECK W/CONTRAST MATERIAL Sandra Cruz, BEER RUNNER.EKG MONITOR [address] [place] [address] [place] [address] Referral ID Status Reason Start Date Expiration Date Visits Requested Visits Authorized [id number] Authorized Auto-Generat ed Referral 04/30/2024 11/30/2024 1 1 Additional Source Comments (unrecognized sect ion and content) No Status Records FoundNo Status Records FoundNo Status Records FoundNo Status Records FoundNo Status Records Found INFORMATION SOURCE (unrecogn ized section and content) DATE CREATED AUTHOR 06/02/2021 [facility] DATE CREATED AUTHOR AUTHOR'S ORGANIZ ATION 01/22/2022 [employer] DATE CREATED AUTHOR AUTHOR'S ORGANIZ ATION 06/21/2022 [facility] DATE CREATED AUTHOR AUTHOR'S ORGANIZ ATION 11/15/2024 [facility] DATE CREATED AUTHOR AUTHOR'S ORGANIZ ATION 2024 [facility] Goals (unrecognized section and content) Goals may be documented in a n alternate sectionGoals may be documented in an alternate sectionGoals may be documented in an alternate section Source Comments (unrecognize d section and content) In the event this informatio n is protected by the Federal Confidentiality of Alcohol and Drug Abuse Patient Records regulations: The Federal rules restrict any use of the information to criminally investigate or prosecute any alcohol or drug abuse patient.[facility] SystemIn the event this information is protected by the Federal Confidentiality of Alcohol and Drug Abuse Patient Records regulations: The Federal rules restrict any use of the information to criminally investigate or prosecute any alcohol or drug abuse patient.[facility] SystemIn the event this information is protected by the Federal Confidentiality of Alcohol and Drug Abuse Patient Records regulations: The Federal rules restrict any use of the information to criminally investigate or prosecute any alcohol or drug abuse patient.[facility] SystemIn the event this information is protected by the Federal Confidentiality of Alcohol and Drug Abuse Patient Records regulations: The Federal rules restrict any use of the information to criminally investigate or prosecute any alcohol or drug abuse patient.[facility] SystemIn the event this information is protected by the Federal Confidentiality of Alcohol and Drug Abuse Patient Records regulations: The Federal rules restrict any use of the information to criminally investigate or prosecute any alcohol or drug abuse patient.[facility] SystemIn the event this information is protected by the Federal Confidentiality of Alcohol and Drug Abuse Patient Records regulations: The Federal rules restrict any use of the information to criminally investigate or prosecute any alcohol or drug abuse patient.[facility] SystemIn the event this information is protected by the Federal Confidentiality of Alcohol and Drug Abuse Patient Records regulations: The Federal rules restrict any use of the information to criminally investigate or prosecute any alcohol or drug abuse patient.[facility] SystemIn the event this information is protected by the Federal Confidentiality of Alcohol and Drug Abuse Patient Records regulations: The Federal rules restrict any use of the information to criminally investigate or prosecute any alcohol or drug abuse patient.[facility] SystemIn the event this information is protected by the Federal Confidentiality of Alcohol and Drug Abuse Patient Records regulations: The Federal rules restrict any use of the information to criminally investigate or prosecute any alcohol or drug abuse patient.[facility] SystemIn the event this information is protected by the Federal Confidentiality of Alcohol and Drug Abuse Patient Records regulations: The Federal rules restrict any use of the information to criminally investigate or prosecute any alcohol or drug abuse patient.[facility] SystemIn the event this information is protected by the Federal Confidentiality of Alcohol and Drug Abuse Patient Records regulations: The Federal rules restrict any use of the information to criminally investigate or prosecute any alcohol or drug abuse patient.[facility] SystemIn the event this information is protected by the Federal Confidentiality of Alcohol and Drug Abuse Patient Records regulations: The Federal rules restrict any use of the information to criminally investigate or prosecute any alcohol or drug abuse patient.[facility] SystemIn the event this information is protected by the Federal Confidentiality of Alcohol and Drug Abuse Patient Records regulations: The Federal rules restrict any use of the information to criminally investigate or prosecute any alcohol or drug abuse patient.[facility] SystemIn the event this information is protected by the Federal Confidentiality of Alcohol and Drug Abuse Patient Records regulations: The Federal rules restrict any use of the information to criminally investigate or prosecute any alcohol or drug abuse patient.[facility] SystemIn the event this information is protected by the Federal Confidentiality of Alcohol and Drug Abuse Patient Records regulations: The Federal rules restrict any use of the information to criminally investigate or prosecute any alcohol or drug abuse patient.[facility] SystemIn the event this information is protected by the Federal Confidentiality of Alcohol and Drug Abuse Patient Records regulations: The Federal rules restrict any use of the information to criminally investigate or prosecute any alcohol or drug abuse patient.[facility] SystemIn the event this information is protected by the Federal Confidentiality of Alcohol and Drug Abuse Patient Records regulations: The Federal rules restrict any use of the information to criminally investigate or prosecute any alcohol or drug abuse patient.[facility] SystemIn the event this information is protected by the Federal Confidentiality of Alcohol and Drug Abuse Patient Records regulations: The Federal rules restrict any use of the information to criminally investigate or prosecute any alcohol or drug abuse patient.[facility] SystemIn the event this information is protected by the Federal Confidentiality of Alcohol and Drug Abuse Patient Records regulations: The Federal rules restrict any use of the information to criminally investigate or prosecute any alcohol or drug abuse patient.[facility] SystemIn the event this information is protected by the Federal Confidentiality of Alcohol and Drug Abuse Patient Records regulations: The Federal rules restrict any use of the information to criminally investigate or prosecute any alcohol or drug abuse patient.[facility] SystemIn the event this information is protected by the Federal Confidentiality of Alcohol and Drug Abuse Patient Records regulations: The Federal rules restrict any use of the information to criminally investigate or prosecute any alcohol or drug abuse patient.[facility] SystemIn the event this information is protected by the Federal Confidentiality of Alcohol and Drug Abuse Patient Records regulations: The Federal rules restrict any use of the information to criminally investigate or prosecute any alcohol or drug abuse patient.[facility] SystemIn the event this information is protected by the Federal Confidentiality of Alcohol and Drug Abuse Patient Records regulations: The Federal rules restrict any use of the information to criminally investigate or prosecute any alcohol or drug abuse patient.[facility] SystemIn the event this information is protected by the Federal Confidentiality of Alcohol and Drug Abuse Patient Records regulations: The Federal rules restrict any use of the information to criminally investigate or prosecute any alcohol or drug abuse patient.[facility] SystemIn the event this information is protected by the Federal Confidentiality of Alcohol and Drug Abuse Patient Records regulations: The Federal rules restrict any use of the information to criminally investigate or prosecute any alcohol or drug abuse patient.[facility] SystemIn the event this information is protected by the Federal Confidentiality of Alcohol and Drug Abuse Patient Records regulations: The Federal rules restrict any use of the information to criminally investigate or prosecute any alcohol or drug abuse patient.[facility] SystemIn the event this information is protected by the Federal Confidentiality of Alcohol and Drug Abuse Patient Records regulations: The Federal rules restrict any use of the information to criminally investigate or prosecute any alcohol or drug abuse patient.[facility] SystemIn the event this information is protected by the Federal Confidentiality of Alcohol and Drug Abuse Patient Records regulations: The Federal rules restrict any use of the information to criminally investigate or prosecute any alcohol or drug abuse patient.[facility] SystemIn the event this information is protected by the Federal Confidentiality of Alcohol and Drug Abuse Patient Records regulations: The Federal rules restrict any use of the information to criminally investigate or prosecute any alcohol or drug abuse patient.[facility] SystemIn the event this information is protected by the Federal Confidentiality of Alcohol and Drug Abuse Patient Records regulations: The Federal rules restrict any use of the information to criminally investigate or prosecute any alcohol or drug abuse patient.[facility] SystemIn the event this information is protected by the Federal Confidentiality of Alcohol and Drug Abuse Patient Records regulations: The Federal rules restrict any use of the information to criminally investigate or prosecute any alcohol or drug abuse patient.[facility] SystemIn the event this information is protected by the Federal Confidentiality of Alcohol and Drug Abuse Patient Records regulations: The Federal rules restrict any use of the information to criminally investigate or prosecute any alcohol or drug abuse patient.[facility] SystemIn the event this information is protected by the Federal Confidentiality of Alcohol and Drug Abuse Patient Records regulations: The Federal rules restrict any use of the information to criminally investigate or prosecute any alcohol or drug abuse patient.[facility] SystemIn the event this information is protected by the Federal Confidentiality of Alcohol and Drug Abuse Patient Records regulations: The Federal rules restrict any use of the information to criminally investigate or prosecute any alcohol or drug abuse patient.[facility] SystemIn the event this information is protected by the Federal Confidentiality of Alcohol and Drug Abuse Patient Records regulations: The Federal rules restrict any use of the information to criminally investigate or prosecute any alcohol or drug abuse patient.[facility] SystemIn the event this information is protected by the Federal Confidentiality of Alcohol and Drug Abuse Patient Records regulations: The Federal rules restrict any use of the information to criminally investigate or prosecute any alcohol or drug abuse patient.[facility] SystemIn the event this information is protected by the Federal Confidentiality of Alcohol and Drug Abuse Patient Records regulations: The Federal rules restrict any use of the information to criminally investigate or prosecute any alcohol or drug abuse patient.[facility] SystemIn the event this information is protected by the Federal Confidentiality of Alcohol and Drug Abuse Patient Records regulations: The Federal rules restrict any use of the information to criminally investigate or prosecute any alcohol or drug abuse patient.[facility] SystemIn the event this information is protected by the Federal Confidentiality of Alcohol and Drug Abuse Patient Records regulations: The Federal rules restrict any use of the information to criminally investigate or prosecute any alcohol or drug abuse patient.[facility] SystemIn the event this information is protected by the Federal Confidentiality of Alcohol and Drug Abuse Patient Records regulations: The Federal rules restrict any use of the information to criminally investigate or prosecute any alcohol or drug abuse patient.[facility] SystemIn the event this information is protected by the Federal Confidentiality of Alcohol and Drug Abuse Patient Records regulations: The Federal rules restrict any use of the information to criminally investigate or prosecute any alcohol or drug abuse patient.[facility] SystemIn the event this information is protected by the Federal Confidentiality of Alcohol and Drug Abuse Patient Records regulations: The Federal rules restrict any use of the information to criminally investigate or prosecute any alcohol or drug abuse patient.[facility] SystemIn the event this information is protected by the Federal Confidentiality of Alcohol and Drug Abuse Patient Records regulations: The Federal rules restrict any use of the information to criminally investigate or prosecute any alcohol or drug abuse patient.[facility] SystemIn the event this information is protected by the Federal Confidentiality of Alcohol and Drug Abuse Patient Records regulations: The Federal rules restrict any use of the information to criminally investigate or prosecute any alcohol or drug abuse patient.[facility] SystemIn the event this information is protected by the Federal Confidentiality of Alcohol and Drug Abuse Patient Records regulations: The Federal rules restrict any use of the information to criminally investigate or prosecute any alcohol or drug abuse patient.[facility] SystemIn the event this information is protected by the Federal Confidentiality of Alcohol and Drug Abuse Patient Records regulations: The Federal rules restrict any use of the information to criminally investigate or prosecute any alcohol or drug abuse patient.[facility] SystemIn the event this information is protected by the Federal Confidentiality of Alcohol and Drug Abuse Patient Records regulations: The Federal rules restrict any use of the information to criminally investigate or prosecute any alcohol or drug abuse patient.[facility] SystemIn the event this information is protected by the Federal Confidentiality of Alcohol and Drug Abuse Patient Records regulations: The Federal rules restrict any use of the information to criminally investigate or prosecute any alcohol or drug abuse patient.[facility] SystemIn the event this information is protected by the Federal Confidentiality of Alcohol and Drug Abuse Patient Records regulations: The Federal rules restrict any use of the information to criminally investigate or prosecute any alcohol or drug abuse patient.[facility] SystemIn the event this information is protected by the Federal Confidentiality of Alcohol and Drug Abuse Patient Records regulations: The Federal rules restrict any use of the information to criminally investigate or prosecute any alcohol or drug abuse patient.[facility] SystemIn the event this information is protected by the Federal Confidentiality of Alcohol and Drug Abuse Patient Records regulations: The Federal rules restrict any use of the information to criminally investigate or prosecute any alcohol or drug abuse patient.[facility] SystemIn the event this information is protected by the Federal Confidentiality of Alcohol and Drug Abuse Patient Records regulations: The Federal rules restrict any use of the information to criminally investigate or prosecute any alcohol or drug abuse patient.[facility] SystemIn the event this information is protected by the Federal Confidentiality of Alcohol and Drug Abuse Patient Records regulations: The Federal rules restrict any use of the information to criminally investigate or prosecute any alcohol or drug abuse patient.[facility] SystemIn the event this information is protected by the Federal Confidentiality of Alcohol and Drug Abuse Patient Records regulations: The Federal rules restrict any use of the information to criminally investigate or prosecute any alcohol or drug abuse patient.[facility] SystemIn the event this information is protected by the Federal Confidentiality of Alcohol and Drug Abuse Patient Records regulations: The Federal rules restrict any use of the information to criminally investigate or prosecute any alcohol or drug abuse patient.[facility] SystemIn the event this information is protected by the Federal Confidentiality of Alcohol and Drug Abuse Patient Records regulations: The Federal rules restrict any use of the information to criminally investigate or prosecute any alcohol or drug abuse patient.[facility] SystemIn the event this information is protected by the Federal Confidentiality of Alcohol and Drug Abuse Patient Records regulations: The Federal rules restrict any use of the information to criminally investigate or prosecute any alcohol or drug abuse patient.[facility] SystemIn the event this information is protected by the Federal Confidentiality of Alcohol and Drug Abuse Patient Records regulations: The Federal rules restrict any use of the information to criminally investigate or prosecute any alcohol or drug abuse patient.[facility] SystemIn the event this information is protected by the Federal Confidentiality of Alcohol and Drug Abuse Patient Records regulations: The Federal rules restrict any use of the information to criminally investigate or prosecute any alcohol or drug abuse patient.[facility] SystemIn the event this information is protected by the Federal Confidentiality of Alcohol and Drug Abuse Patient Records regulations: The Federal rules restrict any use of the information to criminally investigate or prosecute any alcohol or drug abuse patient.[facility] SystemIn the event this information is protected by the Federal Confidentiality of Alcohol and Drug Abuse Patient Records regulations: The Federal rules restrict any use of the information to criminally investigate or prosecute any alcohol or drug abuse patient.[facility] SystemIn the event this information is protected by the Federal Confidentiality of Alcohol and Drug Abuse Patient Records regulations: The Federal rules restrict any use of the information to criminally investigate or prosecute any alcohol or drug abuse patient.[facility] SystemIn the event this information is protected by the Federal Confidentiality of Alcohol and Drug Abuse Patient Records regulations: The Federal rules restrict any use of the information to criminally investigate or prosecute any alcohol or drug abuse patient.[facility] SystemIn the event this information is protected by the Federal Confidentiality of Alcohol and Drug Abuse Patient Records regulations: The Federal rules restrict any use of the information to criminally investigate or prosecute any alcohol or drug abuse patient.[facility] Reason for Visit (unrecogniz ed section and content) Reason Comments Appointment Confirmation Reason Comments Results Reason Comments Source Inspector - Other Introduction Reason Comments Established Patient Reason Comments Consult Reason Comments Radiology NM Specialty Diagnoses / Procedures Referred By Contac t Referred To Contact MOLECULAR & FUNCTIONAL IMAGING Diagnoses 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) Procedures NM PET/CT SKULL-THIGH INITIAL PET IMAGING CT ATTENUATION SKULL BASE MID-THIGH Kirit Rosas, [address] [place] [address] Molecular & Functional Imaging [address] [place] [id number] Referral ID Status Reason Start Date Expiration Date V isits Requested Visits Authorized [id number] Closed Auto-Generate d Referral 01/18/2022 04/18/2022 1 1 Reason Comments Patient Question Reason Comments Patient Education Reason Onset Date Comments Simulation Request Form 02/25/2022 Reason Comments First Time Treatment Education Carboplat in/Taxol Reason Comments Source Inspector - Other Nutrition Appoi ntment Reason Comments New Patient Reason Comments Chemotherapy Treatment Specialty Diagnoses / Procedures Referred By [facility] t Referred To Contact Diagnoses Cancer of cervical esophagus (HCC) Procedures PACLITAXEL INJECTION CARBOPLATIN INJECTION Kirit Rosas, DO [address] [place] [address] Jo[facility] [address] [place] [address] Referral ID Status Reason Start Date Expiration Date V isits Requested Visits Authorized [id number] Authorized 02/24/2022 04/19/2022 5 5 Reason Comments Request Outside Medical Records Care Coordination Reason Comments Nutrition Assessment Reason Comments Radiotherapy On-treatment Visit Reason Comments Source Inspector - Other Toxicity Check Reason Comments Results Low potassium Reason Comments Non-Chemotherapy Treatment Reason Comments Medication Problem Reason Comments Results Follow Up EGD results. Needs P ET. 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) Procedures CT NECK SOFT TISSUE W IVCON CT SOFT TISSUE NECK W/CONTRAST MATERIAL Kirit Rosas, DO [address] [place] [address] Ct Imaging [facility] Referral ID Status Reason Start Date Expiration Date V isits Requested Visits Authorized [id number] Closed Auto-Generate d Referral 06/24/2022 07/24/2023 1 1 Reason Comments AVS 10/21/[address] Specialty Diagnoses / Procedures Referred By [facility] Referred To Contact CT IMAGING Diagnoses 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) Procedures CT CHEST W IVCON DIAGNOSTIC COMPUTED TOMOGRAPHY THORAX W/CONTRAST Kirit Rosas, DO [address] [place] [address] [place] [address] Referral ID Status Reason Start Date Expiration Date V isits Requested Visits Authorized [id number] Closed Auto-Generate d Referral 10/21/2022 11/20/2023 1 1 Specialty Diagnoses / Procedures Referred By Contac t Referred To Contact CT IMAGING Diagnoses 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) Procedures CT CHEST W IVCON DIAGNOSTIC COMPUTED TOMOGRAPHY THORAX W/CONTRAST Kirit Rosas, DO [address] [place] [address] [place] [address] Referral ID Status Reason Start Date Expiration Date V isits Requested Visits Authorized [id number] Closed Auto-Generate d Referral 04/27/2023 05/26/2024 1 1 Specialty Diagnoses / Procedures Referred By Contac t Referred To Contact CT IMAGING Diagnoses 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) Procedures CT CHEST W IVCON DIAGNOSTIC COMPUTED TOMOGRAPHY THORAX W/CONTRAST Sandra Cruz APRN.EKG MONITOR [address] [place] [address] Phone: tel: fax: [place] [address] Referral ID Status Reason Start Date Expiration Date V isits Requested Visits Authorized [id number] Closed Auto-Generate d Referral 04/30/2024 11/30/2024 1 1 Care Teams (unrecognized sec tion and content) Gopherman Relationship Specialty Start Date End Date Pcp, No PCP - General 09/04/21 03/22/22 Gopherman Relationship Specialty Start Date End Date Pcp, No PCP - General 09/04/21 03/22/22 Gopherman Relationship Specialty Start Date End Date Pcp, No PCP - General 09/04/21 03/22/22 Gopherman Relationship Specialty Start Date End Date Pcp, No PCP - General 09/04/21 03/22/22 Gopherman Relationship Specialty Start Date End Date Pcp, No PCP - General 09/04/21 03/22/22 Gopherman Relationship Specialty Start Date End Date Pcp, No PCP - General 09/04/21 03/22/22 Shannon Dinh MD, [address] [place], [place] [address] Physician Radiation Oncology 01/28/22 Gopherman Relationship Specialty Start Date End Date Pcp, No PCP - General 09/04/21 03/22/22 Shannon Dinh MD, [address] [place] [address] Physician Radiation Oncology 01/28/22 Gopherman Relationship Specialty Start Date End Date Mirtha Qiu [address] [place] [address] PCP - General Family Medicine 02/24/22 Shannon Dinh MD, [address] [place] [address] Physician Radiation Oncology 01/28/22 Gopherman Relationship Specialty Start Date End Date Mirtha Qiu [address] [place] [address] PCP - General Family Medicine 02/24/22 Shannon Dinh MD, [address] [place] [address] Physician Radiation Oncology 01/28/22 Gopherman Relationship Specialty Start Date End Date Mirtha Qiu [address] [place] [address] PCP - General Family Medicine 02/24/22 Shannon Dinh MD, [address] [place] [address] Physician Radiation Oncology 01/28/22 Gopherman Relationship Specialty Start Date End Date Mirtha Qiu [address] [place] [address] PCP - General Family Medicine 02/24/22 Shannon Dinh MD, [address] [place] [address] Physician Radiation Oncology 01/28/22 Gopherman Relationship Specialty Start Date End Date Mirtha Qiu [address] [facility] [address] [place] [address] PCP - General Family Medicine 02/24/22 Shannon Dinh MD, [address] [place] [address] Physician Radiation Oncology 01/28/22 Kacie Stewart RN Specialty Source Inspector Oncology 03/02/22 Gopherman Relationship Specialty Start Date End Date Mirtha Qiu [address] [facility] [address] [place] [address] PCP - General Family Medicine 02/24/22 Shannon Dinh MD, [address] [place] [address] Physician Radiation Oncology 01/28/22 Kacie Stewart RN Specialty Source Inspector Oncology 03/02/22 Gopherman Relationship Specialty Start Date End Date Mirtha Qiu [address] [facility] [address] [place] [address] PCP - General Family Medicine 02/24/22 Shannon Dinh MD, [address] [place] [address] Physician Radiation Oncology 01/28/22 Kacie Stewart RN Specialty Source Inspector Oncology 03/02/22 Gopherman Relationship Specialty Start Date End Date Pcp, No PCP - General 09/04/21 02/23/22 Shannon Dinh MD, [address] [place] [address] Physician Radiation Oncology 01/28/22 Gopherman Relationship Specialty Start Date End Date Mirtha Qiu [address] [facility] [address] [place] [address] PCP - General Family Medicine 02/24/22 Shannon Dinh MD, [address] [place] [address] Physician Radiation Oncology 01/28/22 Kacie Stewart RN Specialty Source Inspector Oncology 03/02/22 Gopherman Relationship Specialty Start Date End Date Mirtha Qiu [address] [facility] [address] [place] [address] PCP - General Family Medicine 02/24/22 Shannon Dinh MD, [address] [place] [address] Physician Radiation Oncology 01/28/22 Kacie Stewart RN Specialty Source Inspector Oncology 03/02/22 Gopherman Relationship Specialty Start Date End Date Mirtha Qiu Drea [address] [facility] [address] [place] [address] PCP - General Family Medicine 02/24/22 Shannon Dinh MD, [address] [place] [address] Physician Radiation Oncology 01/28/22 Kacie Stewart RN Specialty Source Inspector Oncology 03/02/22 Gopherman Relationship Specialty Start Date End Date Mirtha Qiu [address] [facility] [facility] [address] [place] [address] PCP - General Family Medicine 02/24/22 Shannon Dinh MD, [address] [place] [address] Physician Radiation Oncology 01/28/22 Kacie Stewart RN Specialty Source Inspector Oncology 03/02/22 Brooklyn Perkins, RD [address] [place] [address] Registered Dietitian Nutrition 03/08/22 Gopherman Relationship Specialty Start Date End Date Mirtha Qiu [address] [place] [address] PCP - General Family Medicine 02/24/22 Shannon Dinh MD, [address] [place] [address] Physician Radiation Oncology 01/28/22 Kacie Stewart, RN Specialty Source Inspector Oncology 03/02/[address] [place] [address] Registered Dietitian Nutrition 03/08/22 Gopherman Relationship Specialty Start Date End Date Mirtha Qiu [address] [place] [address] PCP - General Family Medicine 02/24/22 Shannon Dinh MD, [address] [place] [address] Physician Radiation Oncology 01/28/22 Kacie Stewart RN Specialty Source Inspector Oncology 03/02/[address] [place] [address] Registered Dietitian Nutrition 03/08/22 Gopherman Relationship Specialty Start Date End Date Mirtha Qiu [address] [place] [address] PCP - General Family Medicine 02/24/22 Shannon Dinh MD, [address] [place] [address] Physician Radiation Oncology 01/28/22 Kacie Stewart RN Specialty Source Inspector Oncology 03/02/22 Brooklyn Perkins, RD [address] [place] [address] Registered Dietitian Nutrition 03/08/22 Gopherman Relationship Specialty Start Date End Date Mirtha Qiu [address] [place] [address] PCP - General Family Medicine 02/24/22 Shannon Dinh MD, [address] [place] [address] Physician Radiation Oncology 01/28/22 Kacie Stewart RN Specialty Source Inspector Oncology 03/02/22 Brooklyn Perkins, RD [address] [place] [address] Registered Dietitian Nutrition 03/08/22 Gopherman Relationship Specialty Start Date End Date Mirtha Qiu [address] [place] [address] PCP - General Family Medicine 02/24/22 Shannon Dinh MD, [address] [place] [address] Physician Radiation Oncology 01/28/22 Kacie Stewart RN Specialty Source Inspector Oncology 03/02/22 Brooklyn Perkins, RD [address] [place] [address] Registered Dietitian Nutrition 03/08/22 Gopherman Relationship Specialty Start Date End Date Mirtha Qiu [address] [place] [address] PCP - General Family Medicine 02/24/22 Shannon Dinh MD, [address] [place] [address] Physician Radiation Oncology 01/28/22 Kacie Stewart RN Specialty Source Inspector Oncology 03/02/22 Brooklyn Perkins, RD [address] [place] [address] Registered Dietitian Nutrition 03/08/22 Gopherman Relationship Specialty Start Date End Date Mirtha Qiu [address] [place] [address] PCP - General Family Medicine 02/24/22 Shannon Dinh MD, [address] [address] Physician Radiation Oncology 01/28/22 Kacie Stewart RN Specialty Source Inspector Oncology 03/02/[address] [place] [address] Registered Dietitian Nutrition 03/08/22 Gopherman Relationship Specialty Start Date End Date Mirtha Qiu [address] [facility] [address] [place] [address] PCP - General Family Medicine 02/24/22 Shannon Dinh MD, [address] [address] Physician Radiation Oncology 01/28/22 Kaice Stewart RN Specialty Source Inspector Oncology 03/02/[address] [place] [address] Registered Dietitian Nutrition 03/08/22 Gopherman Relationship Specialty Start Date End Date Mirtha Qiu [address] [place] [address] PCP - General Family Medicine 02/24/22 Shannon Dinh MD, [address] [place] [address] Physician Radiation Oncology 01/28/22 Kacie Stewart RN Specialty Source Inspector Oncology 03/02/22 Brooklyn Perkins, RD [address] [place] [address] Registered Dietitian Nutrition 03/08/22 Gopherman Relationship Specialty Start Date End Date Mirtha Qiu [address] [place] [address] PCP - General Family Medicine 02/24/22 Shannon Dinh MD, [address] [place] [address] Physician Radiation Oncology 01/28/22 Kacie Stewart RN Specialty Source Inspector Oncology 03/02/22 Brooklyn Perkins, RD [address] [place] [address] Registered Dietitian Nutrition 03/08/22 Gopherman Relationship Specialty Start Date End Date Mirtha Qiu [address] [place] [address] PCP - General Family Medicine 02/24/22 Shannon Dinh MD, [address] [place] [address] Physician Radiation Oncology 01/28/22 aKcie Setwart, RN Specialty Source Inspector Oncology 03/02/22 Brooklyn Perkins, RD [address] [place] [address] Registered Dietitian Nutrition 03/08/22 Gopherman Relationship Specialty Start Date End Date Mirtha Qiu [address] [place] [address] PCP - General Family Medicine 02/24/22 Shannon Dinh MD, [address] [place] [address] Physician Radiation Oncology 01/28/22 Kacie Stewart RN Specialty Source Inspector Oncology 03/02/[address] [place] [address] Registered Dietitian Nutrition 03/08/22 Gopherman Relationship Specialty Start Date End Date Mirtha Qiu [address] [facility] [address] [place] [address] PCP - General Family Medicine 02/24/22 Shannon Dinh MD, [address] [place] [address] Physician Radiation Oncology 01/28/22 Kacie Stewart RN Specialty Source Inspector Oncology 03/02/[address] [place] [address] Registered Dietitian Nutrition 03/08/22 Gopherman Relationship Specialty Start Date End Date Mirtha Qiu [address] [place] [address] PCP - General Family Medicine 02/24/22 Shannon Dinh MD, [address] [place] [address] Physician Radiation Oncology 01/28/22 Kacie Stewart RN Specialty Source Inspector Oncology 03/02/[address] [place] [address] Registered Dietitian Nutrition 03/08/22 Gopherman Relationship Specialty Start Date End Date Mirtha Qiu [address] [place] [address] PCP - General Family Medicine 02/24/22 Shannon Dinh MD, [address] [place] [address] Physician Radiation Oncology 01/28/22 Kacie Stewart RN Specialty Source Inspector Oncology 03/02/22 Brooklyn Perkins, RD [address] [place] [address] Registered Dietitian Nutrition 03/08/22 Kirit Rosas DO [address] [place] [address] Hematology/Oncology 04/06/22 Gopherman Relationship Specialty Start Date End Date Mirtha Qiu [address] [place] [address] PCP - General Family Medicine 02/24/22 Shannon Dinh MD, [address] [place] [address] Physician Radiation Oncology 01/28/22 Kacie Stewart RN Specialty Source Inspector Oncology 03/02/22 Brooklyn Perkins, RD [address] [place] [address] Registered Dietitian Nutrition 03/08/22 Kirit Rosas DO [address] [place] [address] Hematology/Oncology 04/06/22 Gopherman Relationship Specialty Start Date End Date Mirtha Qiu [address] [place] [address] PCP - General Family Medicine 02/24/22 Shannon Dinh MD, [address] [place] [address] Physician Radiation Oncology 01/28/22 Kacie Stewart, RN Specialty Source Inspector Oncology 03/02/[address] [place] [address] Registered Dietitian Nutrition 03/08/22 Kirit Rosas DO [address] [place] [address] Hematology/Oncology 04/06/22 Gopherman Relationship Specialty Start Date End Date Mirtha Qiu [address] [place] [address] PCP - General Family Medicine 02/24/22 Shannon Dinh MD, [address] [place] [address] Physician Radiation Oncology 01/28/22 Kacie Stewart, RN Specialty Source Inspector Oncology 03/02/[address] [place] [address] Registered Dietitian Nutrition 03/08/22 Kirit Rosas DO [address] [place] [address] Hematology/Oncology 04/06/22 Gopherman Relationship Specialty Start Date End Date Mirtha Qiu [address] [place] [address] PCP - General Family Medicine 02/24/22 Shannon Dinh MD, [address] [place] [address] Physician Radiation Oncology 01/28/22 Kacie Stewart, RN Specialty Source Inspector Oncology 03/02/22 Brooklyn Perkins, RD [address] [place] [address] Registered Dietitian Nutrition 03/08/22 Kirit Rosas, [address] [place] [address] Hematology/Oncology 04/06/22 Gopherman Relationship Specialty Start Date End Date Mirtha Qiu [address] [place] [address] PCP - General Family Medicine 02/24/22 Shannon Dinh MD, [address] [place] [address] Physician Radiation Oncology 01/28/22 Kacie Stewart RN Specialty Source Inspector Oncology 03/02/[address] [place] [address] Registered Dietitian Nutrition 03/08/22 Kirit Rosas, DO [address] [place] [address] Hematology/Oncology 04/06/22 Gopherman Relationship Specialty Start Date End Date Mirtha Qiu [address] [place] [address] PCP - General Family Medicine 02/24/22 Shannon Dinh MD, [address] [place] [address] Physician Radiation Oncology 01/28/22 Kacie Stewart RN Specialty Source Inspector Oncology 03/02/22 Brooklyn Perkins, RD [address] [place] [address] Registered Dietitian Nutrition 03/08/22 Kirit Rosas DO [address] [place] [address] Hematology/Oncology 04/06/22 Gopherman Relationship Specialty Start Date End Date Pcp, No PCP - General 09/04/21 02/23/22 Mirtha Qiu [address] [place] [address] PCP - General Family Medicine 02/24/22 Shannon Dinh MD, [address] [place] [address] Physician Radiation Oncology 01/28/22 Kacie Stewart RN Specialty Source Inspector Oncology 03/02/22 Brooklyn Perkins, RD [address] [place] [address] Registered Dietitian Nutrition 03/08/22 Kirit Rosas DO [address] [place] [address] Hematology/Oncology 04/06/22 Gopherman Relationship Specialty Start Date End Date Mirtha Qiu [address] [place] [address] PCP - General Family Medicine 02/24/22 Shannon Dinh MD, [address] [place] [address] Physician Radiation Oncology 01/28/22 Kacie Stewart RN Specialty Source Inspector Oncology 03/02/22 Brooklyn Perkins, RD [address] [place] [address] Registered Dietitian Nutrition 03/08/22 Kirit Rosas, [address] [place] [address] Hematology/Oncology 04/06/22 Gopherman Relationship Specialty Start Date End Date Mirtha Qiu [address] [place] [address] PCP - General Family Medicine 02/24/22 Shannon Dinh MD, [address] [place] [address] Physician Radiation Oncology 01/28/22 Kacie Stewart, RN Specialty Source Inspector Oncology 03/02/22 Brooklyn Perkins, RD [address] [place] [address] Registered Dietitian Nutrition 03/08/22 Kirit Rosas DO [address] [place] [address] Hematology/Oncology 04/06/22 Alberto Landis [address] [place] [address] Gastroenterology 05/05/22 Max Ortiz MD [address] [place] [address] Ent - Otolaryngology 05/05/22 Gopherman Relationship Specialty Start Date End Date Mirtha Qiu [address] [place] [address] PCP - General Family Medicine 02/24/22 Shannon Dinh MD, [address] [place] [address] Physician Radiation Oncology 01/28/22 Kacie Stewart, RN Specialty Source Inspector Oncology 03/02/22 Brooklyn Perkins, DEBO [address] [place] [address] Registered Dietitian Nutrition 03/08/22 Kirit Rosas, DO [address] [place] [address] Hematology/Oncology 04/06/[address] [place] [address] Gastroenterology 05/05/22 Max Ortiz MD [address] [place] [address] Ent - Otolaryngology 05/05/22 Gopherman Relationship Specialty Start Date End Date Mirtha Qiu [address] [place] [address] PCP - General Family Medicine 02/24/22 Shannon Dinh MD, [address] [place] [address] Physician Radiation Oncology 01/28/22 Kacie Stewart, JESSICA Specialty Source Inspector Oncology 03/02/22 Brooklyn Perkins, DEBO [address] [place] [address] Registered Dietitian Nutrition 03/08/22 Kirit Rosas, DO [address] [place] [address] Hematology/Oncology 04/06/22 Alberto Landis [address] [place] [address] Gastroenterology 05/05/22 Max Ortiz MD [address] [place], [place] [id number] Ent - Otolaryngology 05/05/22 Gopherman Relationship Specialty Start Date End Date Mirtha Qiu [address] [place] [address] PCP - General Family Medicine 02/24/22 Shannon Dinh MD, [address] [place] [address] Physician Radiation Oncology 01/28/22 Kacie Stewart, RN Specialty Source Inspector Oncology 03/02/[address] [place] [address] Registered Dietitian Nutrition 03/08/22 Kirit Rosas DO [address] [place] [address] Hematology/Oncology 04/06/22 Alberto Landis [address] [place] [address] Gastroenterology 05/05/22 Max Ortiz MD [address] [place] [address] Ent - Otolaryngology 05/05/22 Gopherman Relationship Specialty Start Date End Date Mirtha Qiu [address] [place] [address] PCP - General Family Medicine 02/24/22 Shannon Dinh MD, [address] [place] [address] Physician Radiation Oncology 01/28/22 Kacie Stewart, RN Specialty Source Inspector Oncology 03/02/22 Brooklyn Perkins, RD [address] [place] [address] Registered Dietitian Nutrition 03/08/22 Kirit Rosas, DO [address] [place] [address] Hematology/Oncology 04/06/[address] [place] [address] Gastroenterology 05/05/22 Max Ortiz MD [address] [facility] [place] [id number] Ent - Otolaryngology 05/05/22 Gopherman Relationship Specialty Start Date End Date Mirtha Qiu [address] [place] [address] PCP - General Family Medicine 02/24/22 Shannon Dinh MD, [address] [place] [address] Physician Radiation Oncology 01/28/22 Kacie Stewart, RN Specialty Source Inspector Oncology 03/02/22 Brooklyn Perkins, RD [address] [place] [address] Registered Dietitian Nutrition 03/08/22 Kirit Rosas, DO [address] [place] [address] Hematology/Oncology 04/06/22 Alberto Landis [address] [place] [address] Gastroenterology 05/05/22 Max Ortiz MD [address] [place], [place] [id number] Ent - Otolaryngology 05/05/22 Gopherman Relationship Specialty Start Date End Date Mirtha Qiu [address] [place] [address] PCP - General Family Medicine 02/24/22 Shannon Dinh MD, [address] [place] [address] Physician Radiation Oncology 01/28/22 Kacie Stewart RN Specialty Source Inspector Oncology 03/02/[address] [place] [address] Registered Dietitian Nutrition 03/08/22 Kirit Rosas DO [address] [place] [address] Hematology/Oncology 04/06/22 Alberto Landis [address] [place] [address] Gastroenterology 05/05/22 Max Ortiz MD [address] [place] [address] Ent - Otolaryngology 05/05/22 Gopherman Relationship Specialty Start Date End Date Mirtha Qiu [address] [place] [address] PCP - General Family Medicine 02/24/22 Shannon Dinh MD, [address] [place] [address] Physician Radiation Oncology 01/28/22 Kacie Stewart RN Specialty Source Inspector Oncology 03/02/[address] [place] [address] Registered Dietitian Nutrition 03/08/22 Kirit Rosas DO [address] [place] [address] Hematology/Oncology 04/06/22 Alberto Landis [address] [place] [address] Gastroenterology 05/05/22 Max Ortiz MD [address] [place] [address] Ent - Otolaryngology 05/05/22 Gopherman Relationship Specialty Start Date End Date Mirtha Qiu [address] [place], [place] [address] PCP - General Family Medicine 02/24/22 Shannon Dinh MD, [address] [place] [address] Physician Radiation Oncology 01/28/22 Kacie Stewart, JESSICA Specialty Source Inspector Oncology 03/02/[address] [place] [address] Registered Dietitian Nutrition 03/08/22 Kirit Rosas DO [address] [place] [address] Hematology/Oncology 04/06/22 Alberto Landis [address] [place] [address] Gastroenterology 05/05/22 Max Ortiz MD [address] [facility] [place], [place] [id number] Ent - Otolaryngology 05/05/22 Gopherman Relationship Specialty Start Date End Date Mirtha Qiu [address] [place] [address] PCP - General Family Medicine 02/24/22 Shannon Dinh MD, [address] [place] [address] Physician Radiation Oncology 01/28/22 Kacie Stewart, JESSICA Specialty Source Inspector Oncology 03/02/[address] [place] [address] Registered Dietitian Nutrition 03/08/22 Kirit Rosas DO [address] [place] [address] Hematology/Oncology 04/06/22 Alberto Landis MD [address] [place] [address] Gastroenterology 05/05/22 Max Ortiz MD [address] [place], [place] [id number] Ent - Otolaryngology 05/05/22 Team Status: Active Member Role Status Dates Dr. Mirtha Qiu MD Family Provider Active Dr. Mirtha Qiu MD Primary Care Provider Active Team Status: Active Member Role Status Dates Dr. Mirtha Qiu MD Primary Care Provider Active Dr. Lopez Barrios MD Attending Provider Active Team Status: Inactive Member Role Status Dates Dr. Mirtha Qiu MD Primary Care Prov ider, Attending Provider, Referring Provider Active Gopherman Relationship Specialty Start Date End Date Mirtha Qiu [address] [place], [place] [address] PCP - General Family Medicine 02/24/22 Shannon Dinh MD, [address] [place], [place] [id number] Physician Radiation Oncology 01/28/22 Kacie Stewart RN Specialty Source Inspector Oncology 03/02/[address] [place] [place], [place] [address] Registered Dietitian Nutrition 03/08/22 Kirit Rosas DO [address] [place] [address] Hematology/Oncology 04/06/22 Alberto Landis MD [address] [place], [place] [address] Gastroenterology 05/05/22 Max Ortiz MD [address] [place] [address] Ent - Otolaryngology 05/05/22 Gopherman Relationship Specialty Start Date End Date Mirtha Qiu [address] [place] [address] PCP - General Family Medicine 02/24/22 Shannon Dinh MD [address] [place] [address] Physician Radiation Oncology 01/28/22 Kacie Stewart RN Specialty Source Inspector Oncology 03/02/[address] [place] [address] Registered Dietitian Nutrition 03/08/22 Kirit Rosas DO [address] [place] [address] Hematology/Oncology 04/06/22 Alberto Landis MD [address] [place] [address] Gastroenterology 05/05/22 Max Ortiz MD [address] [place] [address] Ent - Otolaryngology 05/05/22 Gopherman Relationship Specialty Start Date End Date Mirtha Qiu [address] [place] [address] PCP - General Family Medicine 02/24/22 Shannon Dinh MD [address] [place] [address] Physician Radiation Oncology 01/28/22 Kacie Stewart RN Specialty Source Inspector Oncology 03/02/22 Brooklyn Perkins, DEBO [address] [place] [address] Registered Dietitian Nutrition 03/08/22 Kirit Rosas DO [address] [place] [address] Hematology/Oncology 04/06/22 Alberto Landis MD [address] [place] [address] Gastroenterology 05/05/22 Max Ortiz MD [address] [place] [address] Ent - Otolaryngology 05/05/22 Gopherman Relationship Specialty Start Date End Date Mirtha Qiu [address] [place], [place] [id number] PCP - General Family Medicine 02/24/22 Shannon Dinh MD [address] [place] [address] Physician Radiation Oncology 01/28/22 Kacie Stewart RN Specialty Source Inspector Oncology 03/02/[address] [place] [address] Registered Dietitian Nutrition 03/08/22 Kirit Rosas DO [address] [place] [address] Hematology/Oncology 04/06/22 Alberto Landis MD [address] [place] [address] Gastroenterology 05/05/22 Max Ortiz MD [address] [place], [place] [id number] Ent - Otolaryngology 05/05/22 Gopherman Relationship Specialty Start Date End Date Mirtha Qiu [address] [place] [address] PCP - General Family Medicine 02/24/22 Shannon Dinh MD [address] [place] [address] Physician Radiation Oncology 01/28/22 Kacie Stewart RN Specialty Source Inspector Oncology 03/02/[address] [place] [address] Registered Dietitian Nutrition 03/08/22 Kirit Rosas DO [address] [place] [address] Hematology/Oncology 04/06/22 Alberto Landis MD [address] [place] [address] Gastroenterology 05/05/22 Max Ortiz MD [address] [place], [place] [id number] Ent - Otolaryngology 05/05/22 Gopherman Relationship Specialty Start Date End Date Mirtha Qiu [address] [place] [address] PCP - General Family Medicine 02/24/22 Shannon Dinh MD [address] [place] [address] Physician Radiation Oncology 01/28/22 Kacie Stewart RN Specialty Source Inspector Oncology 03/02/[address] [place], [place] [address] Registered Dietitian Nutrition 03/08/22 Kirit Rosas DO [address] [place], [place] [address] Hematology/Oncology 04/06/22 Alberto Landis MD [address] [place] [address] Gastroenterology 05/05/22 Max Ortiz MD [address] [place], [place] [id number] Ent - Otolaryngology 05/05/22 Gopherman Relationship Specialty Start Date End Date Mirtha Qiu [address] [place] [address] PCP - General Family Medicine 02/24/22 Shannon Dinh MD [address] [place] [address] Physician Radiation Oncology 01/28/22 Kacie Stewart RN Specialty Source Inspector Oncology 03/02/[address] [place] [address] Registered Dietitian Nutrition 03/08/22 Kirit Rosas DO [address] [place] [address] Hematology/Oncology 04/06/22 Alberto Landis MD [address] [place] [address] Gastroenterology 05/05/22 Max Ortiz MD [address] [place] [address] Ent - Otolaryngology 05/05/22 Gopherman Relationship Specialty Start Date End Date Mirtha Qiu [address] [place] [address] PCP - General Family Medicine 02/24/22 Shannon Dinh MD [address] [place] [address] Physician Radiation Oncology 01/28/22 Kacie Stewart RN Specialty Source Inspector Oncology 03/02/[address] [place] [address] Registered Dietitian Nutrition 03/08/22 Kirit Rosas DO [address] [place] [address] Hematology/Oncology 04/06/22 Alberto Landis MD [address] [place] [address] Gastroenterology 05/05/22 Max Ortiz MD [address] [place] [address] Ent - Otolaryngology 05/05/22 Team Status: Active Member Role Status Dates Dr. Mirtha Qiu MD Primary Care Provider Active Team Status: Inactive Member Role Status Dates Dr. Mirtha Qiu MD Primary Care Provider Active Start: July 26, 2024 End: July 26, 2024 Dr. Vicki Dinh DO Attending Provider Active Start: July 26, 2024 End: July 26, 2024 Dr. Vicki Dinh DO Referring Provider Active Start: July 26, 2024 End: July 26, 2024 FOR RECORDS PERTAINING TO PATIENTS WHO ARE OR HAVE BEEN ENROLLED IN A CHEMICAL DEPENDENCY/SUBSTANCEABUSE PROGRAM, SOME INFORMATION MAY BE OMITTED. This clinical summary was aggregated from multiple sources. Caution should be exercised in using it in the provision of clinical care. This summary normalizes information from multiple sources, and as a consequence, information in this document may materially change the coding, format and clinical context of patient data. In addition, data may be omitted in some cases. CLINICAL DECISIONS SHOULD BE BASED ON THE PRIMARY CLINICAL RECORDS. [employer] [facility]. provides no warranty or guarantee of the accuracy or completeness of information in this document.
--- OUTSIDE RECORDS SUMMARY | 2024-12-10 07:43 | XMS RPT_ITS | CCD ---
Author Organization [facility] Care Team Providers Care Parking Attendant Name Role Phone Mirtha Qiu Unavailable Unavailable Unavailable Pcp, No Primary Care Provider Unavailcarlos Dinh MD, MD, Shannon Unavailable Mirtha Qiu Primary Care Provider Terry LOPEZ, Kacie Unavailable Unavailable Pcp, No Primary Care Provider UnavailBrooklyn Reyes RD Unavailable Kirit Rosas DO Unavailable Alberto Landis Unavailable Max Ortiz MD Unavailable [phone] PROVIDER, UNKNOWN Referring Unavailable PROVIDER, UNKNOWN Referring Unavailable MIRTHA QIU Primary Care Unavailable PROVIDER, UNKNOWN Referring Unavailable MIRTHA QIU Primary Care Unavailable PROVIDER, UNKNOWN Referring Unavailable Mirtha Qiu Primary Care Provider Terry LOPEZ, Kacie Unavailable Unavailable Brooklyn Perkins RD Unavailable Alberto Landis Unavailable Alberto Landis MD Unavailable Dr. Mirtha Qiu Primary Care Provider Dr. Lopez Barrios Attending Provider Fabrizio HURST, Shannon Unavailable Mirtha Qiu Primary Care Provider Dr. Mirtha Qiu MD Primary Care Provider Dr. Vicki Dinh DO Attending Provider Dr. [...] Jolliff, Mirtha S Primary Care Unavailable McMorrow KILN SETTER, Thomas Referring Unavailable McMorrow KILN SETTER, Thomas Attending Unavailable McMorrow KILN SETTER, Thomas Primary Care Unavailable McMorrow KILN SETTER, Thomas Attending Unavailable Jolliff, Mirtha S Primary [...] 11-21-2024 PSA,TOT SCREEN 1.25 ng/mL Normal 0.02-4.00 [facility] Comment on above: Order Comment: Order [...] values. Performed By: #### L 501.9910 #### [facility] Laboratory [facility] [address] [place], [place], [address] [facility] Visit (SP) Office (H EMAWS) -- KRYSTAL CORTES ([id number]) 1955 M Date Time Provider Department 11/15/24 8:00 AM SANDRA CRUZ During your visit today, we recorded the following information about you: Temperature Pulse Blood pressure Weight 97.9 degrees 62/minute 136/80 68.9 kg Sandra Cruz APRN.CNP 11/15/2024 9:00 AM Signed Chief Complaint Patient presents with: Established Patient HPI: rKystal Cortes is a 68 year old male who presents here today for follow up esophageal cancer. Per Dr. Rosas's previous note: H/o head neck cancer, hypertension and COPD as well as heavy alcohol use. 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 Afterward, he recalled anesthesiologist told him to see a city weighmaster because he may have a mass in [...] the patient had not followed up at [facility] since his first postoperative check in the spring. At the time of that surgery he w (more content not included)... Normal [facility] CT CHEST W IVCONon CT CHEST W IVCON * * *Final Report* * * DATE OF EXAM: Nov 07 2024 9:14AM [facility] 0539 - CT CHEST W IVCON [...] the chest. Stable borderline right hilar node Supervisor [employer]: PSCDavid Transcribe Date/Time: Nov 14 2024 8:18A Dictated by : ZOE ANGULO MD This examination was interpreted and the report reviewed and electronically signed by: ZOE ANGULO MD on Nov 14 2024 8:37AM EST [id number] Normal [facility] CT NECK SOFT TISSUE W IVCONo n 11-07-2024 CT NECK SOFT TISSUE W IVCON * * *Final Report* * * DATE OF EXAM: Nov 07 2024 9:14AM [facility] 0013 - CT NECK SOFT TISSUE [...] All dentition extracted with dentures in place. Tour Bus Driver (topogram) images: Noncontributory IMPRESSION: No cervical lymphadenopathy, fluid collection, or mass. Supervisor Al[employer] Fab[employer]ation: [facility] Transcribe Date/Time: Nov 07 2024 9:26A Dictated by : SAMUEL RAZO MD This examination was interpreted and the report reviewed and electronically signed by: SAMUEL RAZO MD on Nov 07 2024 9:40AM EST [id number] Normal [facility] Creatinine and Glomerular fi ltration rate.predicted panel (S/P/Bld)on 11-07-2024 Creatinine [Mass/Vol] 0.72 mg/dL Low 0.73-1.22 [facility] Comment on above: Order Comment: Coy mccann Type: BLOOD SPECIMEN Ordering Facility: [facility] Address: [address] [place] [address] Performed By: #### 4 5066-8 #### [facility] CLIA [id number] [address] [place] [address] [place] eGFRcr SerPlBld CKD-EPI 2020 100 mL/min/1.73m??? Normal >=60 [facility] Comment on above: Order Comment: Coy mccann Type: BLOOD SPECIMEN Ordering Facility: [facility] Address: [address] [place] [address] Result Comment: Roman mated Glomerular Filtration Rate [...] GFR. Performed By: #### 4 5066-8 #### [facility] CLIA [id number] [address] Anion gap in Serum or Plasma Ordered By: Vicki Dinh on 07-26-2024 Anion gap [Moles/Vol] 12 mmol/L 5-15 [facility] BUN/creatinine ratioOrdered By: Vicki Dinh on 07-26-2024 Urea nitrogen/Creatinine [Mass ratio] 8.9 mg/mg Low 10-20 [facility] Carbon dioxide, total [Moles /volume] in Central venous bloodOrdered By: Vicki Dihn on 07-26-2024 CO2 [Moles/Vol] 23.6 mmol/L Normal 21.0-32.0 [facility] Comment on above: Performed By: #### L 501.0900, L500.3600 #### [facility] Laboratory [address] [facility] [address] Chloride assayOrdered By: Arline Dinh on 07-26-2024 Chloride [Moles/Vol] 101 mmol/L Normal 98-108 [facility] Comment on above: Performed By: #### L 501.0900, L500.3600 #### [facility] [address] [facility] [address] Glomerular filtration rate ( GFR) estimation/1.73 sq m using serum, plasma, or whole bOrdered By: Vicki Dinh on 07-26-2024 GFR/1.73 sq M.predicted among non-blacks MDRD (S/P/Bld) [Vol rate/Area] 98 mL/min/{1.73_m2} Normal >60 [facility] Comment on above: mL/min/1.73m2 CKD-EP I Creatinine Equation (2020) Result Comment: mL/m in/1.73m2 CKD-EPI Creatinine Equation (2020) Performed By: #### L 501.0900, L500.3600 #### [facility] [address] [place], [address] Potassium measurement (mass/ volume)Ordered By: Vicki Dinh on 07-26-2024 Potassium (Unsp spec) [Mass/Vol] 4.4 mmol/L 3.3-5.1 [facility] Protein+Creatinine Ratio,Uri neon 07-26-2024 PROT:CRE RATIO 311 mg/g CRE High 0-200 [facility] Comment on above: Performed By: #### L 501.0900, L500.3600 #### [facility] [address] [place], [address] Protein (U) [Mass/Vol] 21.2 mg/dL High 0.0-12.0 [facility] Comment on above: Performed By: #### L 501.0900, L500.3600 #### [facility] [address] [place], [address] UR CREAT 68.10 mg/dL Normal 39.00-259.0 0 [facility] Comment on above: Performed By: #### L 501.0900, L500.3600 #### [facility] [address] [place], [address] Random urine creatinine marcial urement (mass/volume)Ordered By: Vicki Dinh on 07-26-2024 Creatinine Unsp time (U) [Mass/Vol] 68.10 mg/dL 39.00-259.0 0 [facility] Renal Profileon 07-26-2024 BUN/CRE 8.9 RATIO Low 10-20 [facility] Comment on above: Performed By: #### L 501.0900, L500.3600 #### [facility] [address] [place], [address] GAP 12 Normal 5-15 [facility] Comment on above: Performed By: #### L 501.0900, L500.3600 #### [facility] [address] [place], [address] Phosphate [Mass/Vol] 3.7 mg/dL Normal 2.7-4.5 [facility] Comment on above: Performed By: #### L 501.0900, L500.3600 #### [facility] [address] [place], [address] Potassium [Moles/Vol] 4.4 mmol/L Normal 3.3-5.1 [facility] Comment on above: Performed By: #### L 501.0900, L500.3600 #### [facility] [address] [place], [address] Serum creatinine measurement (mass/volume)Ordered By: Vicki Dinh on 07-26-2024 Creatinine [Mass/Vol] 0.77 mg/dL Normal 0.70-1.20 [facility] Comment on above: Performed By: #### L 501.0900, L500.3600 #### [facility] [address] [place], [address] Serum glucose measurement (m ass/volume)Ordered By: Vicki Dinh on 07-26-2024 Glucose [Mass/Vol] 111 mg/dL High 70-99 [facility] Comment on above: Performed By: #### L 501.0900, L500.3600 #### [facility] [address] [place], [address] Serum or plasma albumin marcial urement (mass/volume)Ordered By: Vicki Dinh on 07-26-2024 Albumin [Mass/Vol] 4.4 g/dL Normal 3.4-4.8 [facility] Comment on above: Performed By: #### L 501.0900, L500.3600 #### [facility] [address] [place], [address] Serum or plasma calcium marcial urement (mass/volume)Ordered By: Vicki Dinh on 07-26-2024 Calcium [Mass/Vol] 9.1 mg/dL Normal 7.6-11.0 [facility] Comment on above: Performed By: #### L 501.0900, L500.3600 #### [facility] [address] [place], [address] Serum or plasma urea nitroge n measurement (mass/volume)Ordered By: Vicki Dinh on 07-26-2024 Urea nitrogen [Mass/Vol] 7 mg/dL Normal 4-19 [facility] Comment on above: Performed By: #### L 501.0900, L500.3600 #### [facility] [address] [place], [address] Sodium levelOrdered By: Carol Dinh on 07-26-2024 Sodium [Moles/Vol] 137 mmol/L Normal 133-145 [facility] Comment on above: Performed By: #### L 501.0900, L500.3600 #### [facility] [address] [place], [place], [address] Urine protein measurement (m ass/volume)Ordered By: Vicki Dinh on 07-26-2024 Protein (U) [Mass/Vol] 21.2 mg/dL High 0.0-12.0 [facility] Urine protein/creatinine mas s ratioOrdered By: Vicki Dinh on 07-26-2024 Protein/Creatinine (U) [Mass ratio] 311 mg/g CRE High 0-200 [facility] CNOVSPon 05-07-2024 [facility] Visit (SP) Office (H EMAWS) -- KRYSTAL CORTES ([id number]) 1955 M Date Time Provider Department 05/07/24 8:00 AM SANDRA CRUZ During your visit today, we recorded the following information about you: Temperature Pulse Blood pressure Weight 98 degrees 53/minute 127/74 71.6 kg Sandra Cruz APRN.ACOUSTIC ENGINEER 05/09/2024 11:16 AM Signed Chief Complaint Patient [...] recalled anesthesiologist told him to see a city weighmaster because he may have a mass in [...] carcinoma of (more content not included)... Normal [facility] CREATININE BLDon 04-30-2024 Creatinine [Mass/Vol] 0.67 mg/dL Low 0.73-1.22 [facility] Comment on above: Order Comment: Coy mccann Type: BLOOD SPECIMEN Ordering Facility: [facility] Address: [address] [place] [address] Performed By: #### C RET1 #### [id number] [address] [place] [address] [place] Creatinine and Glomerular filtration rate.predicted panel (S/P/Bld) 102 mL/min/1.73m??? Normal >=60 [facility] Comment on above: Order Comment: Coy mccann Type: BLOOD SPECIMEN Ordering Facility: [facility] Address: [address] [place] [address] Result Comment: Roman mated Glomerular Filtration Rate [...] GFR. Performed By: #### C RET1 #### [facility] [id number] [address] [place] [address] [place] CT CHEST W IVCONon 5 CT CHEST W IVCON * * *Final Report* * * DATE OF EXAM: Apr 30 2024 9:12AM [facility] 0539 - CT CHEST W IVCON [...] Unchanged borderline enlarged right hilar lymph node Supervisor [employer]: [facility] Transcribe Date/Time: May 03 2024 10:26A Dictated by : SHARON GRIMALDO MD This examination was interpreted and the report reviewed and electronically signed by: SHARON GRIMALDO MD on May 03 2024 10:45AM EST [id number] Normal [facility] CT NECK SOFT TISSUE W IVCONo n 04-30-2024 CT NECK SOFT TISSUE W IVCON * * *Final Report* * * DATE OF EXAM: Apr 30 2024 9:12AM [facility] 0013 - CT NECK SOFT TISSUE [...] cervical adenopathy. Additional chronic findings, as described. Supervisor [employer]: ZAHEER Transcribe Date/Time: Apr 30 2024 10:28A Dictated by : SKYLAR CAO MD This examination was interpreted and the report reviewed and electronically signed by: SKYLAR CAO MD on Apr 30 2024 10:41AM EST [id number] Normal [facility] CT Neck W contrast Kev 04-20 IMPRESSION: No new or suspicious neck mass or cervical adenopathy. Additional chronic findings, as described. Supervisor [employer]: PSCDavid Transcribe Date/Time: Apr 30 2024 10:28A Dictated by : SKYLAR CAO MD This examination was interpreted and the report reviewed and electronically signed by: SKYLAR CAO MD on Apr 30 2024 10:41AM EST DIVISION OF RADIOLOGY * * *Final Report* * * DATE OF EXAM: Apr 30 2024 9:12AM [facility] 0013 - CT NECK SOFT TISSUE [...] Other: Not applicable. DIVISION OF RADIOLOGY Provider, [facility] - 04/30/2024 * * *Final Report* * * DATE OF EXAM: Apr 30 2024 9:12AM [facility] 0013 - CT NECK SOFT TISSUE [...] cervical adenopathy. Additional chronic findings, as described. Supervisor [employer]: PSCB Transcribe Date/Time: Apr 30 2024 10:28A Dictated by : SKYLAR CAO MD This examination was interpreted and the report reviewed and electronically signed by: SKYLAR CAO MD on Apr 30 2024 10:41AM EST [facility] Radiology Study observation (narrative) [facility] CT Neck W contrast IVOrdered By: Ccf Provider on 04-30-2024 [facility] Chest PA and Lateralon 12-10 Chest PA and Lateral [facility] [address] [place] [id number] Chest PA and Lateral MR#: [id number] Acct: [id number] Name: KRYSTAL CORTES Rep #: [id number] : 1955 M 68 From: Waylon Contreras MD PCP: Dr. Mirtha Qiu MD Status: REG CLI Study: Chest PA and Lateral Date of Exam: 12/11/23 Exam# [id number] Ordering Dr: Negar Martinez NP [id number] STUDY: X-RAY CHEST REASON FOR EXAM: Male, [...] Dr. Mirtha Qiu MD; Negar JIMENESC Juan Supervisor [employer]: Signed Normal [facility] CT Neck W contrast Kev 09-0 IMPRESSION: No neck mass or lymphadenopathy. Supervisor [employer]: PSCDavid Transcribe Date/Time: Oct 24 2023 12:08P Dictated by : JERRY STAFFORD MD This examination was interpreted and the report reviewed and electronically signed by: JERRY STAFFORD MD on Oct 24 2023 12:17PM [facility] DIVISION OF RADIOLOGY * * *Final Report* * * DATE OF EXAM: Oct 24 2023 9:37AM [facility] 0013 - CT NECK SOFT TISSUE [...] amalgam. Parotid and submandibular spaces are normal. Fire Equipment Operator spaces appear normal. Infrahyoid Neck: Hypopharynx, larynx, [...] in imaged lung apices. Other: Not applicable. Tour Bus Driver (topogram) images: No significant findings. DIVISION OF RADIOLOGY Provider, Tiffani Urrutia - 10/24/2023 * * *Final Report* * * DATE OF EXAM: Oct 24 2023 9:37AM [facility] 0013 - CT NECK SOFT TISSUE [...] amalgam. Parotid and submandibular spaces are normal. Fire Equipment Operator spaces appear normal. Infrahyoid Neck: Hypopharynx, larynx, [...] in imaged lung apices. Other: Not applicable. Tour Bus Driver (topogram) images: No significant findings. IMPRESSION IMPRESSION: No neck mass or lymphadenopathy. Supervisor [employer]: [employer]ER Transcribe Date/Time: Oct 24 2023 12:08P Dictated by : JERRY STAFFORD MD This examination was interpreted and the report reviewed and electronically signed by: JERRY STAFFORD MD on Oct 24 2023 12:17PM EST [facility] Radiology Study observation (narrative) [facility] CT Neck W contrast IVOrdered By: Ccf Provider on 10-24-2023 [facility] [address] Neck W contrast Kev [facility] No Panel Informationon 10-17 [facility] NM PET/CT SKULL-THIGH SUBQon 06-21-2022 NM PET/CT [...] uptake to suggest FDG avid neoplastic process.. Supervisor [employer]: ZAHEER Transcribe Date/Time: Jun 21 2022 10:01A Dictated by : JOSEPH BAXTER MD This examination was interpreted and the report reviewed and electronically signed by: JOSEPH BAXTER MD on Jun 21 2022 10:13AM EST [id number] [facility] PET/CT SKULL-THIGH SUBSEQ UENTon 06-21-2022 [facility] PET/CT SKULL-THIGH INITon 02-08-2022 [facility] PET/CT SKULL-THIGH INIT * * *Final Report* * * DATE OF EXAM: Feb 08 2022 8:16AM [facility] 0060 - CO PET/CT SKULL-THIGH INIT / PROCEDURE REASON: C15.4-Malignant [...] avid osseous process. No destructive/traumatic bony abnormality. Supervisor [employer]: ZAHEER Transcribe Date/Time: Feb 08 2022 9:20A Dictated by : DEB OWENS MD This examination was interpreted and the report reviewed and electronically signed by: DEB OWENS MD on Feb 08 2022 9:54AM EST [id number] Normal [facility] No Panel Informationon 02-08 [facility] EGD - THERAPEUTIC, EUS, OR T UBE INTERVENTIONSon 01-18-2022 [facility] Basophil percentageon 2021 Chloride [Moles/Vol] 100 mmol/L 98-107 [facility] Work Phone: Cholesterol [Mass/Vol] 194 mg/dL <200 [facility] Work Phone: Comment on above: <200 mg/dL Desirable 200-240 mg/dL Borderline >240 mg/dL High Risk Glucose [Mass/Vol] 105 mg/dL 74-106 [facility] Work Phone: Comment on above: Fasting Glucose resu lt from 100 to 125 mg/dL suggests IMPAIRED HOMEOSTASIS per A.D.A. criteria. Potassium [Moles/Vol] 4.4 mmol/L 3.5-5.1 [facility] Work Phone: Sodium [Moles/Vol] 139 mmol/L 136-145 [facility] Work Phone: Triglyceride [Mass/Vol] 43 mg/dL <199 [facility] Work Phone: Comment on above: The drugs N-Acetylcy steine and Metamizole may falsely depress this assay.Serum Triglycerides Reference Interval Normal <150 mg/dL Borderline high 150 - 199 mg/dL High 200 - 499 mg/dL Very High > or = 500 mg/dL Laboratory - Chemistry and C hemistry - challengeon 11-15-2021 CO2 [Moles/Vol] 30.0 mmol/L 21.0-32.0 [facility] Work Phone: Urea nitrogen/Creatinine [Mass ratio] 9.3 mg/mg 10-20 [facility] Work Phone: [phone] No Panel Informationon 11-15 Estimated GFR (MDRD) Amer 115 mL/min >60 [facility] Work Phone: Comment on above: GFR Calc Estimated GFR (MDRD) Non-Af Amer 95 mL/min >60 [facility] Work Phone: Comment on above: Non- GFR Calc Prostate Specific Antigen Screen 1.30 ng/mL 0.00-4.00 [facility] Work Phone: [phone] Comment on above: This test was perfor med using the TPSA assay method for [employer] chemistry system. Values obtained with differentassay methods cannot be used interchangably.When changing PSA assays in the course of monitoring apatient, additional sequential testing should be carriedout to confirm baseline values. Urine Microalbumin/Creatin ine Ratio 79.9 mg/g CRE <30 [facility] Work Phone: [phone] Serum or plasma calcium marcial urement (mass/volume)on 11-15-2021 Calcium [Mass/Vol] 9.3 mg/dL 8.5-10.1 [facility] Work Phone: [phone] Serum or plasma cholesterol in HDL measurement (mass/volume)on 11-15-2021 Cholesterol in HDL [Mass/Vol] 76 mg/dL >40 [facility] Work Phone: [phone] Comment on above: The drugs N-Acetylcy steine and Metamizole may falsely depress this assay. Reference Range HDL <40 mg/dL Low HDL Cholesterol HDL >or= 60 mg/dL High HDL Cholesterol Serum or plasma cholesterol in VLDL measurement (mass/volume)on 11-15-2021 Cholesterol in VLDL [Mass/Vol] 9 mg/dL 5-40 [facility] Work Phone: [phone] Serum or plasma creatinine m easurement (mass/volume)on 11-15-2021 Creatinine [Mass/Vol] 0.86 mg/dL 0.70-1.30 [facility] Work Phone: Comment on above: The validity of the calculated GFR & GFRAA in patients over 70 years has not been determined. Clinical correlation is essential. Serum or plasma low density lipoprotein (LDL) cholesterol measurement (mass/volume)on 11-15-2021 Cholesterol in LDL [Mass/Vol] 109 mg/dL 0-130 [facility] Work Phone: Serum or plasma urea nitroge n measurement (mass/volume)on 11-15-2021 Urea nitrogen [Mass/Vol] 8 mg/dL 7-18 [facility] Work Phone: Thin prep Papanicolaou smear with manual screeningon 11-15-2021 Thin prep Papanicolaou smear with manual screening 9 5-15 [facility] Work Phone: [phone] Thin prep Papanicolaou smear with manual screening 28.3 mg/L NO RANGE EST. [facility] Work Phone: Urine creatinine measurement (mass/volume)on 11-15-2021 Creatinine (U) [Mass/Vol] 35.40 mg/dL NO RANGE EST. [facility] Work Phone: Established Visit (Otolaryng ology)on [...] Tablet Vitals Vital Signs Recorded: 01Jun2021 10:15AM Ldymfjctpkf81 F Height5 ft 11 in Fesgfc267 lb BMI Yrufuizjsm10.29 kg/m2 BSA Calculated1.95 Tobacco Usea) Yes Fall [...] Touchworks No Panel Informationon 05-13 MG-Otolaryng ology-[facility] Work Phone: Operative Reports - [facility] [place] [address] Patient Name: KRYSTAL CORTES : 1955 Date of Service: 05/13/2021 Patient Location: [place] [address] Patient Type: O Surgeon: Guru Gallagher MD Report Type: Operative Reports PREOPERATIVE DIAGNOSIS: Floor of mouth lesion. POSTOPERATIVE DIAGNOSIS: Floor of mouth lesion. OPERATIONS/PROCEDURES: 1. Direct laryngoscopy. 2. Flexible bronchoscopy. 3. Flexible esophagoscopy. 4. Excision of a floor of mouth lesion and bilateral submandibular duct sialodochoplasty. SURGEON: Guru Gallagher MD POLE SANDER OPERATOR(S): Dr. Kera Arredondo. ANESTHESIA: OPERATIVE INDICATION: This [...] TT: 05/13/2021 04:00 PM EST DICTATION NUMBER: [id number] ZAIN JOB NUMBER: [id number] CC: Mirtha Qiu Electronic Signatures: Guru Gallagher) (Signed on 13-May-2021 17:02) Authored Unsigned, Draft (SYS GENERATED) (Entered on 13-May-2021 16:00) Entered Last Updated: 13-May-2021 17:02 by Guru Gallagher) Normal [facility] Order Reconciliationon 05-13 Order Reconciliation Page 1 [...] Document Arch (more content not included)... Normal [facility] Patient Profile - Preop v3on 05-13-2021 Patient Profile - Preop v3 Patient Profile - Preop: Initial Info: Patient DemographicsName: KRYSTAL CORTES Date: 1955 Address: [place] [address] Primary Phone [phone] How to be AddressedJim Spoken Language PreferredEnglish [...] Withspouse Living Arrangementshouse Resource/Environmental Concernsnone [place] Anticipated at [place] Tobacco Use: Tobacco [...] Past Medical History, Active Electronic Signatures: Beth Motngomery (RN) (Signed 13-May-2021 12:46) Authored: Initial Info, General Health, Health Mgmt, Relationship/Environ, Tobacco Use, Pre-op Checklist, Additional Information Last Updated: 13-May-2021 12:46 by Beth Montgomery (JESSICA) Normal [facility], [place], operated by [facility] Surgical Pathology Depar tmenton 05-13-2021 [facility] Surgical Pathology Department Name KRYSTAL CORTES [...] this case. Clinical History: Physician Contact Number: [id number] Fixative (A): Saline Clinical Diagnosis History ORAL [...] right 7 right tip, en face my/05/14/2021 [facility] Department of Pathology [id number] [place] [address] Normal [facility] Comment on above: Performed By: #### U [facility] ####[facility] Surgical Pathology [id number] [place] [id number] CORONAVIRUS 2019, SCREEN ASY MPTOMATICon 05-10-2021 SARS-CoV-2 (COVID-19) RNA REESE+probe Ql (Unsp spec) Not detected Normal Not Detected [facility] Comment on above: Result Comment: . This [...] patient management decisions. Fact sheet for providers: https://www.fda.gov/media/066031/download Fact sheet for patients: https://www.fda.gov/media/127739/download This test has received FDA Emergency Use Authorization (EUA) and has been verified by [facility] ([facility]). This test is only authorized for the duration of time that circumstances exist to justify the authorization of the emergency use of in vitro diagnostic tests for the detection of SARS-CoV-2 virus and/or diagnosis of COVID-19 infection under section 564(b)(1) of the Act, 21 U.S.C. 360bbb-3(b)(1), unless the authorization is terminated or revoked sooner. [facility] is certified under CLIA-88 as qualified to perform high complexity testing. Testing is performed in the [facility] laboratories located at [address] [place] [address]. Performed By: #### C [place] #### [place] [address] Lab Specimen Source Nasal, Nasopharyngeal Normal [facility] Comment on above: Performed By: #### C OV[place] #### [place] [address] Coronavirus 2019 RNA by PCR, Screening Asymptomticon 05-10-2021 Coronavirus 2019 RNA by PCR, Screening Asymptomtic Not detected Normal See Below [facility] Work Phone: Comment on above: SOURCE: [...] make patient management decisions.Fact sheet for providers: https://www.fda.gov/media/927876/downloadFact sheet for patients: https://www.fda.gov/media/708906/downloadThis test has received FDA Emergency Use Authorization (EUA) and has been verified by [facility] ([facility]). This test is only authorized for the duration of time that circumstances exist to justify the authorization of the emergency use of in vitro diagnostic tests for the detection of SARS-CoV-2 virus and/or diagnosis of COVID-19 infection under section 564(b)(1) of the Act, 21 U.S.C. 360bbb-3(b)(1), unless the authorization is terminated or revoked sooner. [facility] is certified under CLIA-88 as qualified to perform high complexity testing. Testing is performed in the [facility] laboratories located at [address] [place] [address]. Covid 19 Resultson 2 SARS-CoV-2 (COVID-19) RNA [...] You may also be contacted by the [facility] to see if any of [...] or Naproxen (Aleve) can also be used. Zqrr-eej-obsbkzy cough and cold medicines can be used according to the instructions on the package. Some dqxd-ign-fjzvfqo medicines also contain acetaminophen. Make sure you [...] water are not available, use alcohol-based hand heel sprayer first. Avoid touching your eyes, nose, and mouth [...] 24 cindy (more content not included)... Normal [facility] BASIC METABOLIC PANELon 04-20 Anion gap [Moles/Vol] 14 mmol/L Normal 10 - 20 [facility] Comment on above: Performed By: #### B MP ####[id number] [place] [address] Calcium [Mass/Vol] 9.0 mg/dL Normal 8.6 - 10.6 [facility] Comment on above: Performed By: #### B MP ####[id number] [place] [address] Chloride [Moles/Vol] 99 mmol/L Normal 98 - 107 [facility] Comment on above: Performed By: #### B MP ####[id number] [place] [address] Creatinine [Mass/Vol] 0.81 mg/dL Normal 0.50 - 1.30 [facility] Comment on above: Performed By: #### B MP ####[id number] [place] [address] eGFR MALE >90 Normal >90 [facility] Comment on above: Result Comment: CALC ULATIONS OF ESTIMATED GFR ARE PERFORMED USING THE 2020 CKD-EPI STUDY REFIT EQUATION WITHOUT THE RACE VARIABLE FOR THE IDMS-TRACEABLE CREATININE METHODS. https://jasn.asnjournals.org/content/early/ASN.5100355 988 Performed By: #### B MP ####[id number] [place] [address] Glucose [Mass/Vol] 86 mg/dL Normal 74 - 99 [facility] Comment on above: Performed By: #### B MP ####[id number] [place] [address] HCO3 (Bld) [Moles/Vol] 30 mmol/L Normal 21 - 32 [facility] Comment on above: Performed By: #### B MP ####[id number] [place] [address] Potassium [Moles/Vol] 4.1 mmol/L Normal 3.5 - 5.3 [facility] Comment on above: Performed By: #### B MP ####[id number] [place] [address] Sodium [Moles/Vol] 139 mmol/L Normal 136 - 145 [facility] Comment on above: Performed By: #### B MP ####[id number] [place] [address] Urea nitrogen [Mass/Vol] 9 mg/dL Normal 6 - 23 [facility] Comment on above: Performed By: #### B MP ####[id number] [place] [address] CBCon 05-05-2021 Erythrocyte distribution width (RBC) [Ratio] 12.5 % Normal 11.5 - 14.5 [facility] Comment on above: Performed By: #### C BC ####[id number] [place] [address] Hematocrit (Bld) [Volume fraction] 51.4 % Normal 41.0 - 52.0 [facility] Comment on above: Performed By: #### C BC ####[id number] [place] [address] Hemoglobin (Bld) [Mass/Vol] 17.0 g/dL Normal 13.5 - 17.5 [facility] Comment on above: Performed By: #### C BC ####[id number] [place] [address] MCHC (RBC) [Mass/Vol] 33.1 g/dL Normal 32.0 - 36.0 [facility] Comment on above: Performed By: #### C BC ####[id number] [place] [address] MCV (RBC) [Entitic vol] 102 fL High 80 - 100 [facility] Comment on above: Performed By: #### C BC ####[id number] [place] [address] NUCLEATED RBC 0.0 /100 WBC Normal 0.0-0.0 [facility] Comment on above: Performed By: #### C BC ####[id number] [place] [address] Platelets (Bld) [#/Vol] 247 10*3/uL Normal 150 - 450 [facility] Comment on above: Performed By: #### C BC ####[id number] [place] [address] RBC 5.04 x10E12/L Normal 4.50 - 5.90 [facility] Comment on above: Performed By: #### C BC ####[id number] [place] [address] WBC (Bld) [#/Vol] 7.9 10*3/uL Normal 4.4 - 11.3 [facility] Comment on above: Performed By: #### C BC ####[id number] [place] [address] Electrocardiogram 12 Leadon 05-05-2021 Electrocardiogram 12 Lead Ventricular Rate 52 Atrial Rate 52 P-R Interval 138 QRS Duration 84 Q-T Interval 454 QTC Calculation(Bazett) 422 P Honobia 73 R Honobia -87 T Honobia 47 QRS Count 8 Q Onset 214 P Onset 145 P Offset 203 T Offset 441 QTC Fredericia 432 Diagnosis Class Abnormal Diagnosis Sinus bradycardia Left axis deviation Abnormal ECG No previous ECGs available Confirmed by SERGEI FOSS MD ([id number]) on 05/06/2021 11:41:19 AM Normal [facility] Laboratory - Blood bankon ABO group Nom (Bld) A [facility] olaryng oly-[facility] Work Phone: Blood group antibody screen Ql Negative [facility] Work Phone: Rh immune globulin screen (Bld) [Interp] Positive [facility] Work Phone: Laboratory - Chemistry and C hemistry - challengeon 05-05-2021 Anion gap [Moles/Vol] 14 mmol/L 10 - 20 [facility] Work Phone: Calcium [Mass/Vol] 9.0 mg/dL 8.6 - 10.6 [facility] [facility] Work Phone: Chloride [Moles/Vol] 99 mmol/L 98 - 107 [facility]O tolaryng oly-[facility] Work Phone: CO2 [Moles/Vol] 30 mmol/L 21 - 32 MG-Otolar yng oly-[facility] Work Phone: Creatinine [Mass/Vol] 0.81 mg/dL See Below [facility] Work Phone: Comment on above: Reference Range: 0.5 0 - 1.30 Glucose [Mass/Vol] 86 mg/dL 74 - 99 [facility]-[place] laryng ology-[facility] Work Phone: Potassium [Moles/Vol] 4.1 mmol/L 3.5 - 5.3 [facility] Work Phone: Sodium [Moles/Vol] 139 mmol/L 136 - 145 [facility] laryng Kayy lechuga Work Phone: Urea nitrogen [...] (Bld) [#/Vol] 7.9 10*3/uL 4.4 - 11.3 [facility] laryng Kayy lechuga Work Phone: No Panel Informationon 05-05 >90 >90 [facility] Work Phone: Comment on above: CALCULATIONS OF ROMAN MATED GFR ARE PERFORMED USING THE 2020 CKD-EPI STUDY REFIT EQUATION WITHOUT THE RACE VARIABLE FOR THE IDMS-TRACEABLE CREATININE METHODS.https://jasn.asnjournals.org/content//ASN .1802589271 0.0 {/100_WBC} 0.0-0.0 [facility]Otolary ng [facility]logy[facility] Work Phone: [email or web address] 1:8080 /musescripts/[email or web address]?R etrieveTestByDateTime?Netta fjpFN=[id number]&Date=&Time=09%3a04%3a12%3a 00&TestType=ECG&Site=1&Out putType=PDF&Ext=PDF [facility] Work Phone: [...] 73 1 [facility] Work Phone: [phone] [facility] Work Phone: [phone] [facility] Work Phone: [phone] [facility] Work Phone: [phone] [facility] Work Phone: [phone] [facility] Work Phone: [phone] TYPE + SCREENon 05-05-2021 ABO TYPE A Normal [facility] Comment on above: Performed By: #### T +S #### [facility] [id number] [place] [address] RH TYPE Positive Normal [facility] Comment on above: Performed By: #### T +S #### [facility] [id number] [place] [address] Initial Visit (Otolaryngolog y)on 04-27-2021 Initial Visit [...] Tablet Vitals Vital Signs Recorded: 27Apr2021 08:47AM Bfegcwibtsv31.4 F Height5 ft 11 in Xtlxqy698 lb BMI Oyrpnkkmke49.01 kg/m2 BSA Calculated1.94 Tobacco Useb) No Fall [...] Apr 27 2021 9:12AM EST (Author) Normal [employer] Tobacco Screening.on 022 Fall risk assessment a) No falls within the last year [facility] Work Phone: Tobacco use status [facility]PH[facility] b) No [facility] Work Phone: Vital Signs Date Time Vital Sign Value Performing Clinician Facility 05-07-2024 07:58-0400 Body mass index (BMI) [Ratio] 22.98 kg/m2 Sandra Cruz APRN.CNP Work Phone: [facility] 05-07-2024 07:58-0400 Body temperature 98.01 [degF] Sandra Cruz APRN.ACOUSTIC ENGINEER Work Phone: [facility] 05-07-2024 07:58-0400 Body weight 71.6 kg Sandra Cruz APRN.CNP Work Phone: [facility] 05-07-2024 07:58-0400 Diastolic blood pressure 74 mm[Hg] Sandra Cruz APRN.ACOUSTIC ENGINEER Work Phone: [facility] 05-07-2024 07:58-0400 Heart rate 53 /min Sandra Cruz APRN.ACOUSTIC ENGINEER Work Phone: [facility] 05-07-2024 07:58-0400 SaO2% (BldA) [Mass fraction] 96 % Sandra Cruz APRN.CNP Work Phone: [facility] 05-07-2024 07:58-0400 Systolic blood pressure 127 mm[Hg] Kerby Cruz BLOCKMASON.ACOUSTIC ENGINEER Work Phone: [facility] 11-01-2023 08:09-0400 Body mass index (BMI) [Ratio] 22.82 kg/m2 Kerby Cruz BLOCKMASON.ACOUSTIC ENGINEER Work Phone: [facility] 11-01-2023 08:09-0400 Body temperature 97.39 [degF] Kerby Cruz BLOCKMASON.ACOUSTIC ENGINEER Work Phone: [facility] 11-01-2023 08:09-0400 Body weight 71.1 kg Sandra Cruz BLOCKMASON.ACOUSTIC ENGINEER Work Phone: [facility] 11-01-2023 08:09-0400 Diastolic blood pressure 81 mm[Hg] Kerby Cruz BLOCKMASON.ACOUSTIC ENGINEER Work Phone: [facility] 11-01-2023 08:09-0400 Heart rate 43 /min Sandra Thompsonenter BLOCKMASON.ACOUSTIC ENGINEER Work Phone: [facility] 11-01-2023 08:09-0400 SaO2% (BldA) [Mass fraction] 97 % Sandra Cruz BLOCKMASON.ACOUSTIC ENGINEER Work Phone: [facility] 11-01-2023 08:09-0400 Systolic blood pressure 170 mm[Hg] Sandra Cruz BLOCKMASON.ACOUSTIC ENGINEER Work Phone: [facility] 04-27-2023 08:06-0500 Body height 176.5 cm Kirit Angelai DO Work Phone: [facility] 04-27-2023 08:06-0500 Body temperature 97.81 [degF] Kirit Angelai DO Work Phone: [facility] 04-27-2023 08:06-0500 Body weight 73.26 kg Kirit Rosas DO Work Phone: [facility] 04-27-2023 08:06-0500 Diastolic blood pressure 75 mm[Hg] Kirit Angelai DO Work Phone: [facility] 04-27-2023 08:06-0500 Heart rate 51 /min Kirit Masci DO Work Phone: [facility] 04-27-2023 08:06-0500 SaO2% (BldA) [Mass fraction] 97 % Kirit Masci DO Work Phone: [facility] 04-27-2023 08:06-0500 Systolic blood pressure 157 mm[Hg] Kirit Masci DO Work Phone: [facility] 10-21-2022 10:27-0400 Body height 177 cm Kirit Masci DO Work Phone: [facility] 10-21-2022 10:27-0400 Body temperature 97.7 [degF] Kirit Masci DO Work Phone: [facility] 10-21-2022 10:27-0400 Body weight 72.35 kg Kirit Masci DO Work Phone: [facility] 10-21-2022 10:27-0400 Diastolic blood pressure 81 mm[Hg] Kirit Masci DO Work Phone: [facility] 10-21-2022 10:27-0400 Heart rate 47 /min Kirit Masci DO Work Phone: [facility] 10-21-2022 10:27-0400 SaO2% (BldA) [Mass fraction] 98 % Kirit Masci DO Work Phone: [facility] 10-21-2022 10:27-0400 Systolic blood pressure 164 mm[Hg] Kirit Masci DO Work Phone: [facility] 06-24-2022 08:48-0400 Body temperature 97.2 [degF] Kirit Masci DO Work Phone: [facility] 06-24-2022 08:48-0400 Body weight 72.58 kg Kirit Masci DO Work Phone: [facility] 06-24-2022 08:48-0400 Diastolic blood pressure 73 mm[Hg] Kirit Masci DO Work Phone: [facility] 06-24-2022 08:48-0400 Heart rate 50 /min Kirit Masci DO Work Phone: [facility] 06-24-2022 08:48-0400 SaO2% (BldA) [Mass fraction] 97 % Kirit Julio Césari DO Work Phone: [facility] 06-24-2022 08:48-0400 Systolic blood pressure 130 mm[Hg] Kirit Masci DO Work Phone: [facility] 05-05-2022 08:54-0400 Body temperature 97.5 [degF] Kirit Masci DO Work Phone: [facility] 05-05-2022 08:54-0400 Body weight 71.67 kg Kirit Masci DO Work Phone: [facility] 05-05-2022 08:54-0400 Diastolic blood pressure 64 mm[Hg] Kirit Masci DO Work Phone: [facility] 05-05-2022 08:54-0400 Heart rate 53 /min Kirit Masci DO Work Phone: [facility] 05-05-2022 08:54-0400 Systolic blood pressure 119 mm[Hg] Kirit Masci DO Work Phone: [facility] 04-12-2022 09:35-0500 Body temperature 97.7 [degF] Shannon Dinh MD, MD Work Phone: [facility] 04-12-2022 09:35-0500 Body weight 73.94 kg Shannon Dinh MD, MD Work Phone: [facility] 04-12-2022 09:35-0500 Diastolic blood pressure 62 mm[Hg] Shannon Dinh MD, MD Work Phone: [facility] 04-12-2022 09:35-0500 Heart rate 67 /min Shannon Dinh MD, MD Work Phone: [facility] 04-12-2022 09:35-0500 Respiratory rate 15 /min Shannon Dinh MD, MD Work Phone: [facility] 04-12-2022 09:35-0500 SaO2% (BldA) [Mass fraction] 100 % Shannon Dinh MD, MD Work Phone: [facility] 04-12-2022 09:35-0500 Systolic blood pressure 110 mm[Hg] Shannon Dinh MD, MD Work Phone: [facility] 04-11-2022 09:49-0500 Body temperature 97.5 [degF] Treatment Wstr Work Phone: [facility] 04-11-2022 09:49-0500 Body weight 72.12 kg Treatment Wstr Work Phone: [facility] 04-11-2022 09:49-0500 Diastolic blood pressure 62 mm[Hg] Treatment Wstr Work Phone: [facility] 04-11-2022 09:49-0500 Heart rate 62 /min Treatment Wstr Work Phone: [facility] 04-11-2022 09:49-0500 SaO2% (BldA) [Mass fraction] 98 % Treatment Wstr Work Phone: [facility] 04-11-2022 09:49-0500 Systolic blood pressure 116 mm[Hg] Treatment Wstr Work Phone: [facility] 04-06-2022 09:21-0500 Body temperature 97.7 [degF] Kerby Cruz BLOCKMASON.ACOUSTIC ENGINEER Work Phone: [facility] 04-06-2022 09:21-0500 Body weight 74.16 kg Sandra Cruz BLOCKMASON.ACOUSTIC ENGINEER Work Phone: [facility] 04-06-2022 09:21-0500 Diastolic blood pressure 61 mm[Hg] Sandra Cruz BLOCKMASON.ACOUSTIC ENGINEER Work Phone: [facility] 04-06-2022 09:21-0500 Heart rate 59 /min Sandra Cruz BLOCKMASON.ACOUSTIC ENGINEER Work Phone: [facility] 04-06-2022 09:21-0500 Systolic blood pressure 111 mm[Hg] Sandra Cruz BLOCKMASON.ACOUSTIC ENGINEER Work Phone: [facility] 04-05-2022 09:26-0500 Body temperature 98.91 [degF] Shannon Dinh MD, MD Work Phone: [facility] 04-05-2022 09:26-0500 Body weight 73.94 kg Shannon Dinh MD, MD Work Phone: [facility] 04-05-2022 09:26-0500 Diastolic blood pressure 59 mm[Hg] Shannon Dinh MD, MD Work Phone: [facility] 04-05-2022 09:26-0500 Heart rate 76 /min Shannon Dinh MD, MD Work Phone: [facility] 04-05-2022 09:26-0500 SaO2% (BldA) [Mass fraction] 96 % Shannon Dinh MD, MD Work Phone: [facility] 04-05-2022 09:26-0500 Systolic blood pressure 118 mm[Hg] Shannon Dinh MD, MD Work Phone: [facility] 04-04-2022 09:18-0500 Body temperature 97.7 [degF] Treatment Wstr Work Phone: [facility] 04-04-2022 09:18-0500 Body weight 74.39 kg Treatment Wstr Work Phone: [facility] 04-04-2022 09:18-0500 Diastolic blood pressure 72 mm[Hg] Treatment Wstr Work Phone: [facility] 04-04-2022 09:18-0500 Heart rate 61 /min Treatment Wstr Work Phone: [facility] 04-04-2022 09:18-0500 Systolic blood pressure 112 mm[Hg] Treatment Wstr Work Phone: [facility] 03-29-2022 08:45-0500 Body temperature 98.4 [degF] Shannon Dinh MD, MD Work Phone: [facility] 03-29-2022 08:45-0500 Body weight 73.12 kg Shannon Dinh MD, MD Work Phone: [facility] 03-29-2022 08:45-0500 Diastolic blood pressure 55 mm[Hg] Shannon Dinh MD, MD Work Phone: [facility] 03-29-2022 08:45-0500 Heart rate 69 /min Shannon Dihn MD, MD Work Phone: [facility] 03-29-2022 08:45-0500 Respiratory rate 15 /min Shannon Dinh MD, MD Work Phone: [facility] 03-29-2022 08:45-0500 SaO2% (BldA) [Mass fraction] 98 % Shannon Dinh MD, MD Work Phone: [facility] 03-29-2022 08:45-0500 Systolic blood pressure 104 mm[Hg] Shannon Dinh MD, MD Work Phone: [facility] 03-28-2022 10:00-0500 Body temperature 97.11 [degF] Treatment Wstr Work Phone: [facility] 03-28-2022 10:00-0500 Body weight 73.94 kg Treatment Wstr Work Phone: [facility] 03-28-2022 10:00-0500 Diastolic blood pressure 61 mm[Hg] Treatment Wstr Work Phone: [facility] 03-28-2022 10:00-0500 Respiratory rate 54 /min Treatment Wstr Work Phone: [facility] 03-28-2022 10:00-0500 Systolic blood pressure 126 mm[Hg] Treatment Wstr Work Phone: [facility] 03-22-2022 09:22-0500 Body temperature 98.6 [degF] Shannon Dinh MD, MD Work Phone: [facility] 03-22-2022 09:22-0500 Body weight 73.48 kg Shannon Dinh MD, MD Work Phone: [facility] 03-22-2022 09:22-0500 Diastolic blood pressure 75 mm[Hg] Shannon Dinh MD, MD Work Phone: [facility] 03-22-2022 09:22-0500 Heart rate 75 /min Shannon Dinh MD, MD Work Phone: [facility] 03-22-2022 09:22-0500 Respiratory rate 16 /min Shannon Dinh MD, MD Work Phone: [facility] 03-22-2022 09:22-0500 SaO2% (BldA) [Mass fraction] 99 % Shannon Dinh MD, MD Work Phone: [facility] 03-22-2022 09:22-0500 Systolic blood pressure 139 mm[Hg] Shannon Dinh MD, MD Work Phone: [facility] 03-21-2022 09:00-0500 Body temperature 97 [degF] Treatment Wstr Work Phone: [facility] 03-21-2022 09:00-0500 Body weight 73.48 kg Treatment Wstr Work Phone: [facility] 03-21-2022 09:00-0500 Diastolic blood pressure 57 mm[Hg] Treatment Wstr Work Phone: [facility] 03-21-2022 09:00-0500 Heart rate 61 /min Treatment Wstr Work Phone: [facility] 03-21-2022 09:00-0500 Respiratory rate 18 /min Treatment Wstr Work Phone: [facility] 03-21-2022 09:00-0500 SaO2% (BldA) [Mass fraction] 97 % Treatment Wstr Work Phone: [facility] 03-21-2022 09:00-0500 Systolic blood pressure 115 mm[Hg] Treatment Wstr Work Phone: [facility] 03-15-2022 09:26-0500 Body temperature 98.6 [degF] Shannon Dinh MD, MD Work Phone: [facility] 03-15-2022 09:26-0500 Body weight 75.3 kg Shannon Dinh MD, MD Work Phone: [facility] 03-15-2022 09:26-0500 Diastolic blood pressure 67 mm[Hg] Shannon Dinh MD, MD Work Phone: [facility] 03-15-2022 09:26-0500 Heart rate 79 /min Shannon Dinh MD, MD Work Phone: [facility] 03-15-2022 09:26-0500 Respiratory rate 16 /min Shannon Dinh MD, MD Work Phone: [facility] 03-15-2022 09:26-0500 SaO2% (BldA) [Mass fraction] 95 % Shannon Dinh MD, MD Work Phone: [facility] 03-15-2022 09:26-0500 Systolic blood pressure 141 mm[Hg] Shannon Dinh MD, MD Work Phone: [facility] 03-14-2022 08:25-0500 Body temperature 98.01 [degF] Kerby Cruz BLOCKMASON.ACOUSTIC ENGINEER Work Phone: [facility] 03-14-2022 08:25-0500 Body weight 75.3 kg Kerby Cruz BLOCKMASON.ACOUSTIC ENGINEER Work Phone: [facility] 03-14-2022 08:25-0500 Diastolic blood pressure 71 mm[Hg] Kerby Cruz BLOCKMASON.ACOUSTIC ENGINEER Work Phone: [facility] 03-14-2022 08:25-0500 Heart rate 50 /min Kerby Cruz BLOCKMASON.ACOUSTIC ENGINEER Work Phone: [facility] 03-14-2022 08:25-0500 Systolic blood pressure 129 mm[Hg] Kerby Cruz BLOCKMASON.ACOUSTIC ENGINEER Work Phone: [facility] 03-08-2022 09:36-0500 Body temperature 98.8 [degF] Shannon Dinh MD, MD Work Phone: [facility] 03-08-2022 09:36-0500 Body weight 74.16 kg Shannon Dinh MD, MD Work Phone: [facility] 03-08-2022 09:36-0500 Diastolic blood pressure 76 mm[Hg] Shannon Dinh MD, MD Work Phone: [facility] 03-08-2022 09:36-0500 Heart rate 72 /min Shannon Dinh MD, MD Work Phone: [facility] 03-08-2022 09:36-0500 SaO2% (BldA) [Mass fraction] 98 % Shannon Dinh MD, MD Work Phone: [facility] 03-08-2022 09:36-0500 Systolic blood pressure 146 mm[Hg] Shannon Dinh MD, MD Work Phone: [facility] 03-07-2022 08:45-0500 Body temperature 97.7 [degF] Treatment Wstr Work Phone: [facility] 03-07-2022 08:45-0500 Body weight 74.16 kg Treatment Wstr Work Phone: [facility] 03-07-2022 08:45-0500 Diastolic blood pressure 82 mm[Hg] Treatment Wstr Work Phone: [facility] 03-07-2022 08:45-0500 Heart rate 51 /min Treatment Wstr Work Phone: [facility] 03-07-2022 08:45-0500 Systolic blood pressure 173 mm[Hg] Treatment Wstr Work Phone: [facility] 02-24-2022 09:59-0500 Body temperature 98.2 [degF] Kirit Masci DO Work Phone: [facility] 02-24-2022 09:59-0500 Body weight 75.07 kg Kirit Masci DO Work Phone: [facility] 02-24-2022 09:59-0500 Diastolic blood pressure 72 mm[Hg] Kirit Masci DO Work Phone: [facility] 02-24-2022 09:59-0500 Heart rate 54 /min Kirit Masci DO Work Phone: [facility] 02-24-2022 09:59-0500 SaO2% (BldA) [Mass fraction] 97 % Kirit Masci DO Work Phone: [facility] 02-24-2022 09:59-0500 Systolic blood pressure 144 mm[Hg] Kirit Masci DO Work Phone: [facility] 01-31-2022 13:35-0500 Diastolic blood pressure 72 mm[Hg] Shannon Dinh MD, MD Work Phone: [facility] 01-31-2022 13:35-0500 Heart rate 59 /min Shannon Dinh MD, MD Work Phone: [facility] 01-31-2022 13:35-0500 Systolic blood pressure 148 mm[Hg] Shannon Dinh MD, MD Work Phone: [facility] 01-31-2022 13:33-0500 Body temperature 98.01 [degF] Shannon Dinh MD, MD Work Phone: [facility] 01-31-2022 13:33-0500 Body weight 75.75 kg Shannon Dinh MD, MD Work Phone: [facility] 01-31-2022 13:33-0500 Respiratory rate 16 /min Shannon Dinh MD, MD Work Phone: [facility] 01-31-2022 13:33-0500 SaO2% (BldA) [Mass fraction] 96 % Shannon Dinh MD, MD Work Phone: [facility] 01-26-2022 11:21-0500 Body temperature 97.59 [degF] Kirit Masci DO Work Phone: [facility] 01-26-2022 11:21-0500 Body weight 74.84 kg Kirit Masci DO Work Phone: [facility] 01-26-2022 11:21-0500 Diastolic blood pressure 77 mm[Hg] Kirit Masci DO Work Phone: [facility] 01-26-2022 11:21-0500 Heart rate 52 /min Kirit Masci DO Work Phone: [facility] 01-26-2022 11:21-0500 Systolic blood pressure 172 mm[Hg] Kirit Rosas DO Work Phone: [facility] 01-18-2022 09:25-0500 Diastolic blood pressure 63 mm[Hg] Bebo Braga MD Work Phone: [facility] 01-18-2022 09:25-0500 Heart rate 52 /min Bebo Braga MD Work Phone: [facility] 01-18-2022 09:25-0500 Respiratory rate 18 /min Bebo Braga MD Work Phone: [facility] 01-18-2022 09:25-0500 SaO2% (BldA) [Mass fraction] 95 % Bebo Braga MD Work Phone: [facility] 01-18-2022 09:25-0500 Systolic blood pressure 126 mm[Hg] Bebo Braga MD Work Phone: [facility] 01-18-2022 08:52-0500 Body temperature 96.8 [degF] Bebo Braga MD Work Phone: [facility] 01-18-2022 08:05-0500 Body height 180.3 cm Bebo Braga MD Work Phone: [facility] 01-18-2022 08:05-0500 Body weight 74.39 kg Bebo Braga MD Work Phone: [facility] 04-27-2021 08:47-0500 Body height 180.34 cm Mirtha Qiu Work Phone: [facility] [place] Work Phone: 04-27-2021 08:47-0500 Body mass index (BMI) [Ratio] 23.01 kg/m2 Mirtha Qiu Work Phone: [facility] Work Phone: 04-27-2021 08:47-0500 Body surface area Derived from formula 1.94 m2 Mirtha Qiu Work Phone: [facility] Work Phone: 04-27-2021 08:47-0500 Body temperature 97.4 [degF] Mirtha Headleylliff Work Phone: [facility] Work Phone: 04-27-2021 08:47-0500 Body weight 74.84 kg Mirtha Headleyllalecia Work Phone: [facility] Work Phone: 04-27-2021 08:47-0500 0 1 Mirtha Gino Lazarus Work Phone: [facility] Work Phone: Comment on above: [employer] Encounters Encounter Date Encounter Type Care Provider Facility Start: 12-10-2024 ambulatory [facility] KILN SETTER Facil ity:[facility] Start: 11-21-2024 ambulatory [facility] KILN SETTER Facil ity:[facility] Start: 11-15-2024 End: 11-15-2024 ambulatory MIRTHA QIU Facility:[facility] Start: 11-07-2024 End: 11-07-2024 ambulatory MIRTHA QIU Facility:[facility] Start: 07-26-2024 End: 07-26-[address] Mirtha Qiu MD Work Phone: [facility] Work Phone: Start: 07-26-2024 End: 07-26-[address] 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); Secondary malignant neoplasm of chest wall (HCC) Start: 11-01-2023 End: 11-01-2023 Patient encounter procedure Sandra Cruz BLOCKMASON.ACOUSTIC ENGINEER Work Phone: Hematology/Oncology Start: 10-24-2023 End: 10-24-2023 Subsequent hospital visit by physician Elisa [facility] (I-Stat) Work Phone: Cat Scan Comment on above: Cancer of cervical e sophagus (HCC) [C15.3] Start: 04-27-2023 End: 04-27-2023 ambulatory Kirit Rosas DO Work Phone: Hematology/Oncology Comment on above: 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); 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) Start: 04-27-2023 End: 04-27-2023 Patient encounter procedure Kirit Rosas DO Work Phone: [facility] Start: 04-21-2023 End: 04-21-2023 Subsequent hospital visit by physician [facility] [place] [employer] ([employer]) Work Phone: Cat Scan Comment on above: 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 Mirtha Qiu Work Phone: [facility] Start: 01-23-2023 End: 01-23-[address] Mirtha Qiu Work Phone: [facility] Work Phone: Start: 01-23-2023 End: 01-23-[address] Mirtha Qiu Work Phone: [facility]-Cardiovascular Services Work Phone: Start: 10-21-2022 Telephone [...] encounter procedure Kirit Rosas DO Work Phone: [facility] Start: 10-17-2022 End: 10-17-2022 Subsequent hospital visit by physician [facility] (I-Stat) Work Phone: Cat [...] encounter procedure Kirit Rosas DO Work Phone: [facility] [email or web address] Start: 06-21-2022 ambulatory MIRTHA Grijalva [facility] Start: 06-21-2022 End: 06-21-2022 Subsequent hospital [...] encounter procedure Kirit Rosas DO Work Phone: [facility] [email or web address] Start: 04-21-2022 Telephone encounter Kirit smith DO Work Phone: Hematology/Oncology Comment on above: Medication Problem Start: 04-13-2022 ambulatory Shannon Dinh MD Work Phone: Radiation Oncology Comment on above: Patient Education Start: 04-13-2022 Patient encounter procedure [facility] MD, MD [facility] Start: 04-13-2022 Radiation Oncology Note Shannon Dinh MD Work Phone: Radiation Oncology Comment on above: Completion Note Start: 04-12-2022 End: 04-12-2022 Nutrition therapy [place] Work Phone: Nutrition Therapy Comment on above: Nutrition Assessment Start: 04-12-2022 End: 04-12-2022 Patient encounter procedure Shannon Dinh MD Work Phone: Radiation Oncology Comment on above: 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) Start: 04-12-2022 End: 04-12-2022 ambulatory Treatment Rm 1 Joao [facility] Work Phone: Hematology/Oncology Comment on above: 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) Start: 04-11-2022 Telephone encounter Kirit smith DO Work Phone: Hematology/Oncology Comment on above: Results (Low potassi um) Start: 04-11-2022 End: 04-11-2022 ambulatory Treatment Rm 7 Joao [facility] Work Phone: Hematology/Oncology Comment on above: 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) Start: 04-06-2022 End: 04-06-2022 ambulatory Sandra Cruz BLOCKMASON.ACOUSTIC ENGINEER Work Phone: Hematology/Oncology Comment on above: 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) Start: 04-06-2022 End: 04-06-2022 Patient encounter procedure Sandra Cruz BLOCKMASON.ACOUSTIC ENGINEER Work Phone: [facility] Start: 04-05-2022 End: 04-05-2022 Patient encounter procedure Shannon Dinh MD Work Phone: Radiation Oncology Comment on above: 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) Start: 04-04-2022 End: 04-04-2022 ambulatory Treatment Rm 7 Joao [facility] Work Phone: Hematology/Oncology Comment on above: 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) Start: 03-29-2022 End: 03-29-2022 Patient encounter procedure Shannon Dinh MD Work Phone: Radiation Oncology Comment on above: 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) Start: 03-28-2022 End: 03-28-2022 ambulatory Treatment Rm 11 Joao [facility] Work Phone: Hematology/Oncology Comment on above: 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) Start: 03-25-2022 Orders Only Sandra rios APRN.ACOUSTIC ENGINEER Work Phone: Hematology/Oncology Comment on above: 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) Start: 03-22-2022 End: 03-22-[address] Work Phone: [facility] Start: 03-22-2022 End: 03-22-2022 Nutrition therapy [address] Work Phone: Nutrition Therapy Comment on above: Nutrition Assessment Start: 03-22-2022 End: 03-22-2022 Patient encounter procedure Shannon Dinh MD Work Phone: Radiation Oncology Comment on above: 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) Start: 03-21-2022 End: 03-21-2022 ambulatory Treatment Rm 8 [facility] Work Phone: Hematology/Oncology Comment on above: 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) Start: 03-18-2022 Orders Only Kirit Severino Work Phone: Hematology/Oncology Comment on above: 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); 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) Start: 03-16-2022 Telephone encounter Kacie Stewart RN He matology/Oncology Comment on above: Instant Print Operator - O ther (Toxicity Check ) Start: 03-15-2022 End: 03-15-2022 Patient encounter procedure Shannon Dinh MD Work Phone: Radiation Oncology Comment on above: 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) Start: 03-14-2022 End: 03-14-2022 ambulatory Treatment Rm 8 [facility] Work Phone: Hematology/Oncology Comment on above: 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) Start: 03-14-2022 End: 03-14-2022 Patient encounter procedure Sandra Thompsonluis fernando STEENACOUSTIC ENGINEER Work Phone: [facility] Start: 03-11-2022 Orders Only Kirit Severino Work Phone: Hematology/Oncology Comment on above: 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); 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) Start: 03-08-2022 Chart abstracting Max bianchi MD Work Phone: Otolaryngology Start: 03-08-2022 End: 03-08-[address] Work Phone: [facility] Start: 03-08-2022 End: 03-08-2022 Nutrition therapy [address] Work Phone: Nutrition Therapy Comment on above: Nutrition Assessment Start: 03-08-2022 End: 03-08-2022 Patient encounter procedure Shannon Dinh MD Work Phone: Radiation Oncology Comment on above: 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) Start: 03-07-2022 End: 03-07-2022 ambulatory Treatment Rm 6 Joao [facility] Work Phone: Hematology/Oncology Comment on above: 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) Start: 03-04-2022 Orders Only Kiirt Severino Work Phone: Hematology/Oncology Comment on above: 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); 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) Start: 03-03-2022 Telephone encounter Clarita neil RN Work Phone: Otolarynogology Comment on above: Request Outside [facility] Records; Care Coordination Start: 03-02-2022 Telephone encounter Kacie Stewart RN He matology/Oncology Comment on above: Instant Print Operator - O ther (Nutrition Appointment ) Start: 03-02-2022 End: 03-02-2022 site operations manager [facility] Work Phone: Hematology/Oncology Comment on above: Encounter for educat ion (Primary Dx) Start: 02-25-2022 ambulatory Shannon Dinh MD Work Phone: Radiation Oncology Comment on above: Patient Education Start: 02-25-2022 Patient encounter procedure Shannon Dinh MD, MD Work Phone: Where Was it Filmed [facility] [email or web address] Start: 02-25-2022 Radiation Oncology Note Shannon Dinh [...] procedure Kirit Rosas DO Work Phone: [facility] [email or web address] Start: 02-10-2022 End: 02-10-2022 Patient encounter procedure Max Ortiz MD Work Phone: Otolarynogology Comment on above: 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); 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 Start: 02-08-2022 ambulatory UNKNOWN PROVIDER Facili ty:[facility] Start: 02-08-2022 End: 02-08-2022 Subsequent hospital [...] Stewart RN He matology/Oncology Comment on above: Instant Print Operator - O ther (Introduction ) Start: 01-26-2022 End: 01-26-2022 ambulatory Kirit Rosas DO Work Phone: Hematology/Oncology Comment on above: 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); 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) Start: 01-26-2022 End: 01-26-2022 Patient encounter procedure Kirit Rosas DO Work Phone: [facility] Start: 01-18-2022 Telephone encounter Kirit smith [...] tion Results Start: 12-03-2021 End: 12-03-2021 ambulatory [facility] Work Phone: Start: 12-03-2021 End: 12-03-2021 Patient encounter procedure [facility]-Radiology, [facility] Start: 11-15-2021 End: 11-15-2021 Patient encounter procedure [facility] Start: 05-27-2021 Chart Update Mirtha Qiu Work Phone: MV-Vfmsruwxtpnbfg-Zcikbhc e Work Phone: Start: 05-13-2021 [facility] Provider: Guru Gallagher, Status: Pen, Time: 9:00 AM Mirtha Qiu Work Phone: [place]-Czqiwnuoykfzdb-Kfmluaj e Work Phone: Start: 05-11-2021 Chart Update Mirtha Qiu Work Phone: HX-Cmrdlatmdbbdpu-Dgfncml e Work Phone: Start: 04-27-2021 Office consultation new/estab patient 60 min Mirtha Qiu Work Phone: TE-Unyeukcmxfguxr-Hbipqre e Work Phone: Procedures Date Procedure Procedure Detail Performing Clinician Start: 07-26-2024 Serum inorganic phos phate measurement Dr. Mirtha Qiu MD Work Phone: Start: 04-30-2024 Ct soft tissue neck w/contrast material Sandra Cruz BLOCKMASON.ACOUSTIC ENGINEER Work Phone: Start: 10-24-2023 Ct soft tissue [...] above: Performed By: #### T +S #### [facility] [address] [place] [address] Colonoscopy Mirtha Christian Lazarus Work Phone: Operation on the ear Mirtha Christian Shashi chen Work Phone: Plan of Treatment Date Care Activity Detail Author Start: 11-30-2031 RSV Vaccine (1 - 1-d ose 75+ series) RSV Vaccine (1 - 1-dose 75+ series) [facility] Start: 06-21-2027 Urine microalbumin profile DTaP,Tdap,Td Vaccine (2 - Td or Tdap) [facility] Start: 10-23-2026 [facility] Start: 04-20-2026 [facility] Start: 10-17-2025 DIABETES SCREEN DIABETES SCREEN [facility] Start: 10-17-2025 [facility] Start: 06-24-2025 DIABETES SCREEN DIABETES SCREEN [facility] Start: 05-16-2025 DIABETES SCREEN DIABETES SCREEN [facility] Start: 05-02-2025 DIABETES SCREEN DIABETES SCREEN [facility] Start: 04-30-2025 Screening for malign ant neoplasm of lung Lung Cancer Screening [facility] Start: 04-25-2025 DIABETES SCREEN DIABETES SCREEN [facility] Start: 04-18-2025 DIABETES SCREEN DIABETES SCREEN [facility] Start: 04-11-2025 DIABETES SCREEN DIABETES SCREEN [facility] Start: 04-04-2025 DIABETES SCREEN DIABETES SCREEN [facility] Start: 03-28-2025 DIABETES SCREEN DIABETES SCREEN [facility] Start: 03-21-2025 DIABETES SCREEN DIABETES SCREEN [facility] Start: 03-14-2025 DIABETES SCREEN DIABETES SCREEN [facility] Start: 03-07-2025 DIABETES SCREEN DIABETES SCREEN [facility] Start: 12-28-2024 DIABETES SCREEN DIABETES SCREEN [facility] Start: 11-14-2024 End: 11-14-2024 ambulatory 11/14/2024 8:00 AM EDT Visit (SP) Office Hematology/Oncology [address] [place] [address] Sandra Cruz APRN.ACOUSTIC ENGINEER [address] [place] [address] 6 MTH OV/LAB&CT 11/07* Hematology/Oncology Comment on above: 6 MTH OV/LAB&CT 11/07 * Start: 11-07-2024 End: 02-06-2025 CREATININE BLD CREATININE BLD Lab Routine 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 of cervical esophagus (HCC) Expected: 11/07/2024 (Approximate), Expires: 02/06/2025 [facility] Comment on above: Expected: 11/07/2024 (Approximate), Expires: 02/06/2025 Start: 11-07-2024 End: 06-06-2025 CT Chest W contrast IV CT CHEST W IVCON Radiology Routine 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 of cervical esophagus (HCC) Expected: 11/07/2024 (Approximate), Expires: 06/06/2025 [facility] Comment on above: Expected: 11/07/2024 (Approximate), Expires: 06/06/2025 Start: 11-07-2024 End: 06-06-2025 CT Neck W contrast IV CT NECK SOFT TISSUE W IVCON Radiology Routine 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 of cervical esophagus (HCC) Expected: 11/07/2024 (Approximate), Expires: 06/06/2025 [facility] Work Phone: Comment on above: Expected: 11/07/2024 (Approximate), Expires: 06/06/2025 Start: 11-07-2024 End: 11-07-2024 Patient encounter procedure 11/07/2024 8:40 AM EDT Appointment Cat Scan [address] [place] [id number] 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]; Cancer of cervical esophagus (HCC) [C15.3] Cat Scan Comment on above: 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]; Cancer of cervical esophagus (HCC) [C15.3] Start: 11-07-2024 End: 11-07-2024 ambulatory 11/07/2024 8:30 AM EDT Results Only Brittany Pérez [facility] Laboratory [address] [place] [address] labs Brittany [place] [facility] Comment on above: labs Start: 10-23-2024 Screening for malign ant neoplasm of lung Lung Cancer Screening [facility] Start: 05-07-2024 End: 05-07-2024 ambulatory 05/07/2024 8:00 AM EDT Visit (SP) Office Hematology/Oncology [address] [place] [address] Sandra Cruz APRN.ACOUSTIC ENGINEER [address] [place] [address] 6 MTH OV* Hematology/Oncology Comment on above: 6 MTH OV* Start: 04-30-2024 End: 07-30-2024 CREATININE BLD CREATININE BLD Lab Routine 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) Expected: 04/30/2024 (Approximate), Expires: 07/30/2024 [facility] Comment on above: Expected: 04/30/2024 (Approximate), Expires: 07/30/2024 Start: 04-30-2024 End: 11-30-2024 CT Chest W contrast IV [facility] Comment on above: Expected: 04/30/2024 (Approximate), Expires: 11/30/2024 Start: 04-30-2024 End: 11-30-2024 CT Neck W contrast IV CT NECK SOFT TISSUE W IVCON Radiology Routine 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) Expected: 04/30/2024 (Approximate), Expires: 11/30/2024 [facility] Work Phone: Comment on above: Expected: 04/30/2024 (Approximate), Expires: 11/30/2024 Start: 04-30-2024 End: 04-30-2024 Patient encounter procedure 04/30/2024 8:40 AM EDT Appointment Cat Scan [address] [place] [address] CT CHEST Cat Scan Comment on above: CT CHEST Start: 04-30-2024 End: 04-30-2024 ambulatory 04/30/2024 7:30 AM EDT Results Only Brittany Shelbywn [facility] Laboratory [address] [place] [address] LABS [facility] Comment on above: LABS Start: 04-20-2024 Screening for malign ant neoplasm of lung Lung Cancer Screening [facility] Start: 02-21-2024 Advance Directive Discussion Advance Directive Discussion [facility] Start: 11-01-2023 End: 11-01-2023 ambulatory 11/01/2023 8:00 AM EDT Visit (SP) Office Hematology/Oncology [address] [place] [address] Sandra Cruz APRN.ACOUSTIC ENGINEER [address] [place] [address] 6MO OV/ CT AND LABS 9/3* r/s from 10/30 Hematology/Oncology Comment on above: 6MO OV/ CT AND LABS /3* r/s from 10/30 Start: 10-22-2023 Covid-19 Vaccine ( season) Covid-19 Vaccine ( season) [facility] Start: 10-22-2023 Covid-19 Vaccine ( season) Covid-19 Vaccine ( season) [facility] Start: 10-22-2023 Influenza vaccination Influenza Vacc ine (#1) [facility] Start: 10-18-2023 Influenza vaccination LUNG CANCER SC GOLD [facility] Start: 10-18-2023 Screening for malign ant neoplasm of lung Lung Cancer Screening [facility] Start: 04-21-2023 End: 07-21-2023 Basic metabolic 2000 panel - Serum or Plasma BASIC METABOLIC PNL Lab STAT 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) Expected: 04/21/2023, Expires: 07/21/2023 [facility] Work Phone: Comment on above: Expected: 04/21/2023 , Expires: 07/21/2023 Start: 04-21-2023 End: 07-21-2023 CBC W Auto Differential panel - Blood CBC + DIFF Lab STAT 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) Expected: 04/21/2023, Expires: 07/21/2023 [facility] Work Phone: Comment on above: Expected: 04/21/2023 , Expires: 07/21/2023 Start: 04-21-2023 End: 07-21-2023 Hepatic function 2000 panel - Serum or Plasma HEPATIC FUNCTION PNL Lab Routine 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) Expected: 04/21/2023, Expires: 07/21/2023 [facility] Work Phone: Comment on above: Expected: 04/21/2023 , Expires: 07/21/2023 Start: 02-20-2023 Advance Directive Discussion Advance Directive Discussion [facility] Start: 02-20-2023 Depression Assessment Depression Ass essment [facility] Start: 01-11-2023 Influenza vaccination LUNG CANCER SC REENING [facility] Start: 10-21-2022 Covid-19 Vaccine ( season) Covid-19 Vaccine ( season) [facility] Start: 10-21-2022 Influenza vaccination [facility] Start: 10-17-2022 End: 12-17-2022 Basic metabolic 2000 panel - Serum or Plasma BASIC METABOLIC PNL Lab STAT 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) Expected: 10/17/2022, Expires: 12/17/2022 [facility] Work Phone: Comment on above: Expected: 10/17/2022 , Expires: 12/17/2022 Start: 10-17-2022 End: 12-17-2022 CBC W Auto Differential panel - Blood CBC + DIFF Lab STAT 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) Expected: 10/17/2022, Expires: 12/17/2022 [facility] Work Phone: Comment on above: Expected: 10/17/2022 , Expires: 12/17/2022 Start: 10-17-2022 End: 12-17-2022 Hepatic function 2000 panel - Serum or Plasma HEPATIC FUNCTION PNL Lab Routine 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) Expected: 10/17/2022, Expires: 12/17/2022 [facility] Work Phone: Comment on above: Expected: 10/17/2022 , Expires: 12/17/2022 Start: 03-14-2022 End: 05-14-2022 CBC W Auto Differential panel - Blood CBC + DIFF Lab STAT 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) Expected: 03/14/2022, Expires: 05/14/2022 [facility] Work Phone: Comment on above: Expected: 03/14/2022 , Expires: 05/14/2022 Start: 03-14-2022 End: 05-14-2022 Comprehensive metabolic 2000 panel - Serum or Plasma COMP METABOLIC PANEL Lab STAT 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) Expected: 03/14/2022, Expires: 05/14/2022 [facility] Work Phone: Comment on above: Expected: 03/14/2022 , Expires: 05/14/2022 Start: 03-14-2022 End: 05-14-2022 Magnesium [Mass/volume] in Serum or Plasma MAGNESIUM BLD Lab STAT 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) Expected: 03/14/2022, Expires: 05/14/2022 [facility] Work Phone: Comment on above: Expected: 03/14/2022 , Expires: 05/14/2022 Start: 03-07-2022 End: 05-07-2022 CBC W Auto Differential panel - Blood CBC + DIFF Lab STAT 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) Expected: 03/07/2022, Expires: 05/07/2022 [facility] Work Phone: Comment on above: Expected: 03/07/2022 , Expires: 05/07/2022 Start: 03-07-2022 End: 05-07-2022 Comprehensive metabolic 2000 panel - Serum or Plasma COMP METABOLIC PANEL Lab STAT 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) Expected: 03/07/2022, Expires: 05/07/2022 [facility] Work Phone: Comment on above: Expected: 03/07/2022 , Expires: 05/07/2022 Start: 03-07-2022 End: 05-07-2022 Magnesium [Mass/volume] in Serum or Plasma MAGNESIUM BLD Lab STAT 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) Expected: 03/07/2022, Expires: 05/07/2022 [facility] Work Phone: Comment on above: Expected: 03/07/2022 , Expires: 05/07/2022 Start: 02-20-2022 ADVANCE DIRECTIVE DISCUSSION ADVANCE DIRECTIVE DISCUSSION [facility] Start: 02-20-2022 DEPRESSION ASSESSMENT DEPRESSION ASS ESSMENT [facility] Start: 2021 ADVANCE DIRECTIVE DISCUSSION ADVANCE DIRECTIVE DISCUSSION [facility] Start: 10-21-2021 Influenza vaccination INFLUENZA (#1) [facility] Start: 06-01-2021 POV, Provider: Guru Gallagher, Status: Pen, Time: 10:30 AM POV, Provider: Guru Gallagher, Status: Pen, Time: 10:30 AM [facility]-Tvnfvequuucfty-Yy [facility] Work Phone: Start: 05-13-2021 [facility]: Guru Gallagher, Status: Pen, Time: 9:00 AM [facility], Provider: Guru Gallagher, Status: Pen, Time: 9:00 AM KJ-Fxofuywfpualpf-Iu [facility] Work Phone: Start: 03-30-2021 COVID-19 VACCINE (4 - Booster for Pfizer series) COVID-19 VACCINE (4 - Booster for Pfizer series) [facility] Start: 03-30-2021 COVID-19 VACCINE (4 - Pfizer risk series) COVID-19 VACCINE (4 - Pfizer risk series) [facility] Start: 02-20-2021 DEPRESSION ASSESSMENT DEPRESSION ASS ESSMENT [facility] Start: 2016 RSV Vaccine (1 - 1-d ose 60+ series) RSV Vaccine (1 - 1-dose 60+ series) [facility] Start: 11-30-2011 PROSTATE CANCER SCREENING DISCUSSION PROSTATE CANCER SCREENING DISCUSSION [facility] Start: 11-30-2011 Prostate specific antigen measurement Prostate Cancer Screening Discussion [facility] Start: 2006 SHINGRIX VACCINE (1 of 2) SHINGRIX VACCINE (1 of 2) [facility] Start: 2001 COLOGUARD (FIT-DNA) COLOGUARD (FIT-D NA) [facility] Start: 2001 Colonoscopy COLONOSCOPY [facility] Start: 2001 COLORECTAL CANCER SCREENING COLORECTAL CANCER SCREENING [facility] Start: [address] COLONOGRAPHY [facility] Start: 2001 FECAL OCCULT BLOOD FECAL OCCULT BLOO D [facility] Start: 2001 Screening for malign ant neoplasm of colon [facility] Start: 2001 SIGMOIDOSCOPY SIGMOIDOSCOPY [facility] Start: 11-30-1991 Lipid 1996 panel - S oriana or Plasma Lipid Screening [facility] Start: 11-30-1991 Lipid panel Lipid Screening [facility] Start: 11-30-1991 LIPID SCREEN LIPID SCREEN [facility] Start: 11-30-1975 SHINGRIX VACCINE (1 of 2) SHINGRIX VACCINE (1 of 2) [facility] Start: 11-30-1975 Urine microalbumin profile DTAP,TDAP,TD (1 - Tdap) [facility] Start: 1974 Anxiety Screening Anxiety Screening [facility] Start: 1974 Depression Screening Depression Scre ening [facility] Start: 1974 HEPATITIS C SCREENING HEPATITIS C [facility] Start: 1974 Hepatitis C screening Hepatitis C [facility] Start: 1974 HIV SCREENING HIV SCREENING [facility] Start: 1962 Pneumococcal Vaccine : 65+ (1 - PCV) Pneumococcal Vaccine: 65+ (1 - PCV) [facility] Start: 1962 Pneumococcal Vaccine : 65+ (1 of 2 - PCV) Pneumococcal Vaccine: 65+ (1 of 2 - PCV) [facility] Start: 1962 PNEUMOCOCCAL: 65+ (1 - PCV) PNEUMOCOCCAL: 65+ (1 - PCV) [facility] Start: 1956 ABDOMINAL AORTIC ANEURYSM SCREENING ABDOMINAL AORTIC ANEURYSM SCREENING [facility] Start: 1956 Abdominal aortic aneurysm screening Abdominal Aortic Aneurysm Screening [facility] End: 03-18-2023 CBC W Auto Differential panel - Blood CBC + DIFF Lab STAT 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) Once per week for 52 Occurrences starting 03/18/2022 until 03/18/2023 [facility] Work Phone: Comment on above: Once per week for 52 Occurrences starting 03/18/2022 until 03/18/2023 End: 03-18-2023 Comprehensive metabolic 2000 panel - Serum or Plasma COMP METABOLIC PANEL Lab STAT 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) Once per week for 52 Occurrences starting 03/18/2022 until 03/18/2023 [facility] Work Phone: Comment on above: Once per week for 52 Occurrences starting 03/18/2022 until 03/18/2023 CT Chest W contrast IV CT CHEST W IVCON Radiology Routine 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) 04/21/2023 9:20 AM EST [facility] Work Phone: End: 05-26-2024 CT Chest W contrast IV CT CHEST W IVCON Radiology Routine 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) 1 Occurrences starting 04/27/2023 until 05/26/2024 [facility] Work Phone: Comment on above: 1 Occurrences starti ng 04/27/2023 until 05/26/2024 CT Chest W contrast IV CT CHEST W IVCON Radiology Routine 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) 10/24/2023 9:37 AM EDT [facility] Work Phone: End: 07-24-2023 CT CHEST W IVCON CT CHEST W IVCON Radiology Routine 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) 1 Occurrences starting 06/24/2022 until 07/24/2023 [facility] Work Phone: Comment on above: 1 Occurrences starti ng 06/24/2022 until 07/24/2023 End: 11-20-2023 CT CHEST W IVCON CT CHEST W IVCON Radiology Routine 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) 1 Occurrences starting 10/21/2022 until 11/20/2023 [facility] Work Phone: Comment on above: 1 Occurrences starti ng 10/21/2022 until 11/20/2023 End: 05-26-2024 CT Neck W contrast IV CT NECK SOFT TISSUE W IVCON Radiology Routine 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) 1 Occurrences starting 04/27/2023 until 05/26/2024 [facility] Work Phone: Comment on above: 1 Occurrences starti ng 04/27/2023 until 05/26/2024 CT SIM PLANNING RADIATION ONCOLOGY CT SIM PLANNING RADIATION ONCOLOGY Radiology Routine 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) Ordered: 02/28/2022 [facility] Work Phone: Comment on above: Ordered: 02/28/2022 End: 07-24-2023 Ct soft tissue neck w/contrast material CT NECK SOFT TISSUE W IVCON Radiology Routine 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) 1 Occurrences starting 06/24/2022 until 07/24/2023 [facility] Work Phone: Comment on above: 1 Occurrences starti ng 06/24/2022 until 07/24/2023 End: 11-20-2023 Ct soft tissue neck w/contrast material CT NECK SOFT TISSUE W IVCON Radiology Routine 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) 1 Occurrences starting 10/21/2022 until 11/20/2023 [facility] Work Phone: Comment on above: 1 Occurrences starti ng 10/21/2022 until 11/20/2023 End: 03-18-2023 Magnesium [Mass/volume] in Serum or Plasma MAGNESIUM BLD Lab STAT 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) Once per week for 52 Occurrences starting 03/18/2022 until 03/18/2023 [facility] Work Phone: Comment on above: Once per week for 52 Occurrences starting 03/18/2022 until 03/18/2023 End: 06-04-2023 NM PET/CT SKULL-THIGH SUBSEQUENT NM PET/CT SKULL-THIGH SUBSEQUENT Radiology Routine 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) 1 Occurrences starting 05/05/2022 until 06/04/2023 [facility] Work Phone: Comment on above: 1 Occurrences starti ng 05/05/2022 until 06/04/2023 [facility] Payers Date Payer Category Payer Self-pay [id number] 2021 Medicare (Managed Care) CHERYL CARL [facility] [id number] 2021 Unknown 2021 Unknown [id number] 2007 Unknown DO NOT USE NG S [facility] [id number] Unknown ANTHKRISTIAN [id number] Unknown [facility] [id number] Unknown [id number] Unknown [id number] Unknown [id number] Unknown [id number] Unknown [id number] Social History Date Type Detail Facility Start: 01-18-2022 End: 03-04-2022 Former smoker Former smoker [facility] Start: 1955 Sex Assigned At Male [facility] Start: 12-28-2021 End: 05-07-2024 Tobacco smoking status NHIS Smokes tobacco daily [facility] History of tobacco use Cigarette Smoker [facility] Start: 12-28-2021 End: 05-07-2024 Tobacco use and exposure Smokeless tobacco non-user [facility] Start: 12-28-2021 End: 05-07-2024 Alcohol intake Current drinker of alcohol (finding) [facility] Start: 12-28-2021 Alcohol Comment daily [facility] Start: 1955 [facility] Start: 01-08-2022 End: 01-18-2022 Exposure to SARS-CoV-2 (event) Not sure [facility] Start: 03-14-2022 Tobacco Comment Pt has cut grabiel k to 1/2 pack daily. [facility] Start: 03-04-2022 End: 06-24-2022 Tobacco use panel [facility] National Score (1-10 0), lower number is lower risk 62 [facility] Start: 03-02-2022 Gender identity Identifies as male gender (finding) [facility] Start: 03-02-2022 Sexual orientation Heterosexual (fin ding) [facility] Start: 05-07-2024 Alcohol Comment daily 2-4 beers [facility] Tobacco smoking stat [facility] Unknown if ever smoked [facility] Work Phone: Clinical Notes 05-13-2021 to 11-15-2024 Sandra Cruz APRN.ACOUSTIC ENGINEER - 05/07/2024 8:20 AM Natalia Merlos RT(R) - 04/30/2024 8:40 AM Sandra Del Rio APRN.ACOUSTIC ENGINEER - 11/01/2023 8:26 AM Kirit Sylvester DO - 04/27/2023 8:33 AM EST Note Date & Type Note Facility 11-15-2024 Note HNO ID: [id number] Author: SANDRA CRUZ APRN.ACOUSTIC ENGINEER Service: ? Author Type: Nurse Practitioner Type: [...] recalled anesthesiologist told him to see a city weighmaster because he may have a mass in [...] the patient had not followed up at [facility] since his first postoperative check in the spring. At the time of that surgery he was observed to have a possible mass in the proximal esophagus and was told to see a city weighmaster. 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 -T1sm (based on invasion into submucosa) N1 (one LN level 2L) M0 (PET negative (more content not included)... [facility] 11-07-2024 Note HNO ID: [id number] Author: NATALIA KHAN RT(R) Service: ? Author Type: Supervisor Model Making Type: Progress Notes Filed: 11/07/2024 15:33 Note [...] PATIENT PRESENTS WITH AN IMPLANTABLE OR ATTACHED SHIP RIGGER APPRENTICE: n/an/a ALLERGIES: Reviewed and unchanged CONTRAST ALLERGY: [...] No SIGNATURE: RT Marixa(Som) PATIENT NAME: Krystal Cortse DATE: November 07, 2024 TIME: 3:32 PM [facility] 05-07-2024 Note HNO ID: [id number] Author: SANDRA CRUZ APRN.DARIAN Service: ? Author [...] recalled anesthesiologist told him to see a city weighmaster because he may have a mass in [...] the patient had not followed up at [facility] since his first postoperative check in the spring. At the time of that surgery (more content not included)... [facility] 05-07-2024 History of Present illness Narrative Chief [...] recalled anesthesiologist told him to see a city weighmaster because he may have a mass in [...] the patient had not followed up at [facility] since his first postoperative check in the spring. At the time of that surgery he was observed to have a possible mass in the proximal esophagus and was told to see a city weighmaster. A more recent evaluation of that with [...] Assessment: -Was evaluated by Dr. Ortiz at [facility] but hasn't been back since. Plan: -Follow-up [...] Sandra Cruz APRN.DARIAN documented in this encounter [facility] 04-30-2024 History of Present illness Narrative Radiology [...] PATIENT PRESENTS WITH AN IMPLANTABLE OR ATTACHED SHIP RIGGER APPRENTICE: No ALLERGIES: Reviewed and unchanged CONTRAST ALLERGY: [...] TIME: 3:16 PM documented in this encounter [facility] 04-30-2024 Note HNO ID: [id number] Author: NATALIA KHAN RT(R) Service: ? Author Type: Supervisor Model Making Type: Progress Notes Filed: 04/30/2024 15:17 Note [...] PATIENT PRESENTS WITH AN IMPLANTABLE OR ATTACHED SHIP RIGGER APPRENTICE: No ALLERGIES: Reviewed and unchanged CONTRAST ALLERGY: [...] DATE: April 30, 2024 TIME: 3:16 PM [facility] 11-01-2023 History of Present illness Narrative Chief [...] recalled anesthesiologist told him to see a city weighmaster because he may have a mass in [...] the patient had not followed up at [facility] since his first postoperative check in the spring. At the time of that surgery he was observed to have a possible mass in the proximal esophagus and was told to see a city weighmaster. A more recent evaluation of that with [...] Assessment: -Was evaluated by Dr. Ortiz at [facility] but hasn't been back since. Plan: -Follow-up [...] Sandra Cruz APRN.DARIAN documented in this encounter [facility] 10-24-2023 History of Present illness Narrative Radiology [...] PATIENT PRESENTS WITH AN IMPLANTABLE OR ATTACHED SHIP RIGGER APPRENTICE: No ALLERGIES: Reviewed and unchanged CONTRAST ALLERGY: [...] Marixa(Som) PATIENT NAME: Krystal Cortes DATE: October 24, 2023 TIME: 3:04 PM documented in this encounter [facility] 04-27-2023 History of Present illness Narrative Oncologic [...] recalled anesthesiologist told him to see a city weighmaster because he may have a mass in [...] Abs Lymph 1.00 - 4.00 k/uL 1.05 [place]% % 9.7 Abs [place] <0.87 k/uL 0.53 Eosin% % 3.5 Abs [...] the patient had not followed up at [facility] since his first postoperative check in the spring. At the time of that surgery he was observed to have a possible mass in the proximal esophagus and was told to see a city weighmaster. A more recent evaluation of that with [...] Assessment: -Was evaluated by Dr. Ortiz at [facility] but hasn't been back since. Plan: -Follow-up with ENT. Portions of this documentation were copied and pasted from previous office visit notes in order to provide a cohesive continuity of the history. The note has been reviewed and edited and updated as necessary. I spent a total of 20 minutes on the date of the service which included preparing to see the patient, [id number] patient care, completing clinical documentation, obtaining and/or reviewing separately obtained history, performing a medically appropriate examination, counseling and educating the patient/family/caregiver, ordering medications, tests, or procedures, communicating with other HCPs (not separately reported), and communicating results to the patient/family/caregiver. Kirit Rosas DO documented in this encounter [facility] 04-21-2023 History of Present illness Narrative Radiology [...] PATIENT PRESENTS WITH AN IMPLANTABLE OR ATTACHED SHIP RIGGER APPRENTICE: No ALLERGIES: Reviewed and unchanged CONTRAST ALLERGY: [...] TIME: 4:13 PM documented in this encounter [facility] 10-21-2022 Miscellaneous Notes Referral faxed and scanned in scanned docs Check out comments: CBC/CMP / CT Neck and Chest prior to 6 month F/USCHEDULED Referral to Dr. Landis for EGD -FAXED F/U appt.. with [facility]- PT STATED HE WOULD CALL [facility] AND GET SCHEDULED - 11/12/23 Scheduled w/ PCP 11/18/22 documented in this encounter [facility] 10-21-2022 Miscellaneous Notes Information faxed as directed. [...] Kirit Rosas DO documented in this encounter [facility] 10-21-2022 History of Present illness Narrative Oncologic [...] recalls anesthesiologist told him to see a city weighmaster because he may have a mass in [...] fungi. 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 EGD/EUS 01/18/2022: Malignant esophageal tumor [...] No jaundice or rash. No petechiae. NEUROLOGIC: gold marker II-XII are grossly intact. No focal motor [...] Abs Lymph 1.00 - 4.00 k/uL 1.01 [place]air% % 11.2 Abs [place] <0.87 k/uL 0.55 Eosin% % 3.3 Abs [...] the patient had not followed up at [facility] since his first postoperative check in the spring. At the time of that surgery he was observed to have a possible mass in the proximal esophagus and was told to see a city weighmaster. A more recent evaluation of that with [...] Assessment: -Was evaluated by Dr. Ortiz at [facility] but hasn't been back since. Plan: -Will [...] which included preparing to see the patient, [id number] patient care, completing clinical documentation, obtaining and/or reviewing separately obtained history, performing a medically appropriate examination, counseling and educating the patient/family/caregiver, ordering medications, tests, or procedures, communicating with other HCPs (not separately reported), and communicating results to the patient/family/caregiver. Kirit Rosas DO documented in this encounter [facility] 10-17-2022 History of Present illness Narrative Radiology [...] TIME: 2:26 PM documented in this encounter [facility] 06-24-2022 History of Present illness Narrative Oncologic [...] recalls anesthesiologist told him to see a city weighmaster because he may have a mass in [...] fungi. 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 EGD/EUS 01/18/2022: Malignant esophageal tumor [...] No jaundice or rash. No petechiae. NEUROLOGIC: gold marker II-XII are grossly intact. No focal motor [...] Abs Lymph 1.00 - 4.00 k/uL 1.19 [place]air% % 13.0 Abs [place] <0.87 k/uL 0.74 Eosin% % 3.5 Abs [...] the patient had not followed up at [facility] since his first postoperative check in the spring. At the time of that surgery he was observed to have a possible mass in the proximal esophagus and was told to see a city weighmaster. A more recent evaluation of that with [...] Assessment: -Was evaluated by Dr. Ortiz at [facility]. Plan: -Follow-up with Dr. Ortiz as scheduled next week. Portions of this documentation were copied and pasted from previous office visit notes in order to provide a cohesive continuity of the history. The note has been reviewed and edited and updated as necessary. I spent a total of 25 minutes on the date of the service which included preparing to see the patient, [id number] patient care, completing clinical documentation, obtaining and/or reviewing separately obtained history, performing a medically appropriate examination, counseling and educating the patient/family/caregiver, ordering medications, tests, or procedures, and communicating results to the patient/family/caregiver. Kirit Rosas DO documented in this encounter [facility] 06-21-2022 Note HNO ID: [id number] Author: RT Radha(R) Service: Nuclear Medicine Author [...] [email or web address] SIGNATURE: RT Radha(R) PATIENT NAME: Krystal Cortes DATE: June 21, 2022 TIME: 7:01 AM PAGER/CONTACT #: [facility] 06-21-2022 History of Present illness Narrative [...] safety can be found using this link: [email or web address] SIGNATURE: RT Radha(R) PATIENT NAME: Krystal Cortes DATE: June 21, 2022 TIME: 7:01 AM PAGER/CONTACT #: documented in this encounter [facility] 05-17-2022 Miscellaneous Notes See [employer] message. Marine Bush LPN Depends on the results of today's labs. I will send him a [employer] message once things are resulted and I have had a chance to review. Kirit Rosas DO Patient presented at [facility] asking if he needs to continue with weekly CBC/CMP blood draws. Patient has completed both chemo and radiation. Please advise. (Patient will be watching to see if lab appointments are made on MyChart.) Kiya Villalba documented in this encounter [facility] 05-10-2022 Nurse Note Tobacco Use: 1 packs/day, for 40 years. Types: Cigarettes. Ready to quit: Yes. Was smoking cessation packet given? Yes - Patient received smoking cessation packet at previous [facility] office visit. Was a referral initiated?Patient declined. documented in this encounter [facility] 05-10-2022 History of Present illness Narrative [facility] Note CC: CA - cancer [...] deep margin <0.1mm). He has also undergone DRAFTER ENGINEERING for [id number] SCC of the proximal esophagus (5600cGY in [...] s/p excision 04/2021 and recent completion of DRAFTER ENGINEERING on 04/11/2022 for esophageal SCC presenting for routine follow up of taylor of mouth SCC. Patient is doing well now 1 year post-op. 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 EGD/EUS 01/18/2022: Malignant esophageal tumor [...] No jaundice or rash. No petechiae. NEUROLOGIC: gold marker II-XII are grossly intact. No focal motor [...] Lymph 1.00 - 4.00 k/uL 0.98 (L) Telfair% % 13.6 Abs Telfair <0.87 k/uL 0.67 Eosin% % 1.4 Abs [...] the patient had not followed up at [facility] since his first postoperative check in the spring. At the time of that surgery he was observed to have a possible mass in the proximal esophagus and was told to see a city weighmaster. A more recent evaluation of that with [...] Assessment: -Was evaluated by Dr. Ortiz at [facility]. Plan: -Follow-up with Dr. Ortiz as scheduled next week. Portions of this documentation were copied and pasted from previous office visit notes in order to provide a cohesive continuity of the history. The note has been reviewed and edited and updated as necessary. I spent a total of 25 minutes on the date of the service which included preparing to see the patient, [id number] patient care, completing clinical documentation, obtaining and/or reviewing separately obtained history, performing a medically appropriate examination, counseling and educating the patient/family/caregiver, ordering medications, tests, or procedures, communicating with other HCPs (not separately reported), and communicating results to the patient/family/caregiver. Kirit Rosas DO Est. Pt, discuss recent lab results, 4 week f/u Clarita Kinney LPN documented in this encounter [facility] 04-21-2022 Miscellaneous Notes Pt returned call, given instructions, voices understanding. Sofya Dhillon LPN Message left for patient to contact office for medication instructions. Dr. Rosas would like patient to discontinue Lasix. Medication list needs updated once patient has been notified. [facility] Marine Bush LPN documented in this encounter [facility] 04-13-2022 Nurse Note Written discharge instructions given and reviewed with patient. Patient verbalizes understanding. Encouraged to call with any questions or concerns. Instruction for 4 week phone call follow up appointment given by Dr. Dinh. documented in this encounter [facility] 04-13-2022 History of Present illness Narrative KRYSTAL CORTES [id number] : 1955 04/13/2022 [facility] Department of Radiation Oncology RADIATION ONCOLOGY - [...] cc: Kirit Rosas [address] [facility] [id number] documented in this encounter [facility] 04-12-2022 Nurse Note Radiation Therapy - Nursing Note (OTV) PATIENT NAME: Krystal Cortes PATIENT April 12, 2022 [facility] FACILITY/LOCATION: [place] NURSING NOTE TYPE: CHEST Subjective Data See pain assessment Additional Data Do you want to see a Letter Carrier? No Status: Patient is male Stress Scale: [...] Jennifer Santillan RN documented in this encounter [facility] 04-12-2022 History of Present illness Narrative Pt did not show for appt. Pt should make appt as needed. documented in this encounter [facility] 04-12-2022 History of Present illness Narrative Radiation [...] Shannon Dinh MD documented in this encounter [facility] 04-11-2022 Miscellaneous Notes Patient has been scheduled [...] on for electrolyte infusion tomorrow? Orders in [place]. Kirit Rosas DO documented in this encounter [facility] 04-06-2022 History of Present illness Narrative Chief [...] recalls anesthesiologist told him to see a city weighmaster because he may have a mass in [...] fungi. 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 EGD/EUS 01/18/2022: Malignant esophageal tumor [...] - 4.00 k/uL 0.55 (L) 0.49 (L) Telfair% % 14.6 14.1 Abs Telfair <0.87 k/uL 0.36 0.29 Eosin% % 1.2 [...] the patient had not followed up at [facility] since his first postoperative check in the spring. At the time of that surgery he was observed to have a possible mass in the proximal esophagus and was told to see a city weighmaster. More recent evaluation of that with biopsy [...] -Was recently evaluated by Dr. Ortiz at [facility]. Plan for now is to monitor. Plan: -Follow-up with Dr. Ortiz in 3 months as scheduled. - Overall tolerating taxol/carbo/radiation well. - Reviewed last Mondays labs. - Continue current medications. - EGD 8 weeks after completing therapy-Dr. Landis/[facility]. - Continue weekly labs-on Monday. - [...] Sandra Cruz APRN.DARIAN documented in this encounter [facility] 04-05-2022 History of Present illness Narrative Radiation [...] Shannon Dinh MD documented in this encounter [facility] 04-05-2022 Nurse Note Radiation Therapy - Nursing Note (OTV) PATIENT NAME: Krystal Cortes PATIENT April 05, 2022 [facility] FACILITY/LOCATION: [place] NURSING NOTE TYPE: HEAD AND NECK Subjective Data see pain assessment Additional Data Do you want to see a Letter Carrier? Yes appointment already scheduled Status: Patient is [...] Zehra Steen RN documented in this encounter [facility] 03-29-2022 History of Present illness Narrative Radiation [...] Shannon Dinh MD documented in this encounter [facility] 03-29-2022 Nurse Note Radiation Therapy - Nursing Note (OTV) PATIENT NAME: Krystal Cortes PATIENT March 29, 2022 [facility] FACILITY/LOCATION: [place] NURSING NOTE TYPE: CHEST Subjective Data See pain assessment Additional Data Do you want to see a Letter Carrier? No Status: Patient is male Stress Scale: On a scale of 0 to 10, what number best describes how much distress you have experienced in the past week?(0 being no distress and 10 being extreme distress) 2 Social work notified: Pt denied need to see bilingual social worker at this time. Nursing Assessment Fatigue: none [...] Jennifer Santillan RN documented in this encounter [facility] 03-22-2022 History of Present illness Narrative Oncology [...] Dosing Weight: 74.2 kg Estimated kilocalorie needs: 6050-0913 kilocalories determined by 30-35 kcal/kg Estimated protein needs: 89-111 grams determined by 1.2-1.5 g/kg Dosing weight Estimated fluid needs: 1111-5016 milliliters based on 1 mL per kcal [...] Perkins RD, GELY documented in this encounter [facility] 03-22-2022 History of Present illness Narrative Radiation [...] Shannon Dinh MD documented in this encounter [facility] 03-22-2022 Nurse Note Radiation Therapy - Nursing Note (OTV) PATIENT NAME: Krystal Cortes PATIENT March 22, 2022 [facility] FACILITY/LOCATION: [place] NURSING NOTE TYPE: chest Subjective Data sore throat 2-3 on pain scale worse with swallowing- on Monday but improved over weekend Additional Data Do you want to see a Letter Carrier? Yes today Status: Patient is male Stress Scale: On a scale of 0 to 10, what number best describes how much distress you have experienced in the past week?(0 being no distress and 10 being extreme distress) 3 Social work notified: Pt denied need to see bilingual social worker at this time. Nursing Assessment Fatigue: none [...] Zehra Steen RN documented in this encounter [facility] 03-16-2022 Miscellaneous Notes TOXICITY CHECK SYMPTOM ASSESSMENT [...] Kacie Stewart RN documented in this encounter [facility] 03-15-2022 Nurse Note Radiation Therapy - Nursing Note (OTV) PATIENT NAME: Krystal Cortes PATIENT March 15, 2022 [facility] FACILITY/LOCATION: [facility] NOTE TYPE: CHEST Subjective Data Pt reports slight heartburn last night Additional Data Do you want to see a Letter Carrier? No Status: Patient is male Stress Scale: [...] Jennifer Santillan RN documented in this encounter [facility] 03-15-2022 History of Present illness Narrative Radiation [...] Shannon Dinh MD documented in this encounter [facility] 03-14-2022 History of Present illness Narrative Chief [...] recalls anesthesiologist told him to see a city weighmaster because he may have a mass in [...] fungi. 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 EGD/EUS 01/18/2022: Malignant esophageal tumor [...] 1.00 - 4.00 k/uL 2.31 1.67 1.35 Telfair% % 10.2 10.0 8.9 Abs Telfair <0.87 k/uL 0.80 0.75 0.48 Eosin% % [...] the patient had not followed up at [facility] since his first postoperative check in the spring. At the time of that surgery he was observed to have a possible mass in the proximal esophagus and was told to see a city weighmaster. More recent evaluation of that with biopsy [...] -Was recently evaluated by Dr. Ortiz at [facility]. Plan for now is to monitor. Plan: [...] Sandra Cruz APRN.DARIAN documented in this encounter [facility] 03-08-2022 History of Present illness Narrative Reviewed patient's hospital pathology from april 2021 FOM excision Moderately diff SCCA. 1.7 cm 2.5 mm DOI No LVSI +PNI Some dysplasia at margin and close deep margin <0.1mm Will continue to follow patient closely. Max Ortiz MD documented in this encounter [facility] 03-08-2022 History of Present illness Narrative Oncology [...] Dosing Weight: 74.2 kg Estimated kilocalorie needs: 1365-1285 kilocalories determined by 30-35 kcal/kg Estimated protein needs: 89-111 grams determined by 1.2-1.5 g/kg Dosing weight Estimated fluid needs: 7267-9372 milliliters based on 1 mL per kcal [...] Perkins RD, GELY documented in this encounter [facility] 03-08-2022 History of Present illness Narrative Radiation [...] Shannon Dinh MD documented in this encounter [facility] 03-08-2022 Nurse Note Radiation Therapy - Nursing Note (OTV) PATIENT NAME: Krystal Cortes PATIENT March 08, 2022 [facility] FACILITY/LOCATION: [place] NURSING NOTE TYPE: ABDOMEN Subjective Data no complaints Additional Data Do you want to see a Letter Carrier? Yes has appointment today Status: Patient is male Stress Scale: On a scale of 0 to 10, what number best describes how much distress you have experienced in the past week?(0 being no distress and 10 being extreme distress) 1 Social work notified: Pt denied need to see bilingual social worker at this time. Nursing Assessment Fatigue: none [...] Zehra Steen RN documented in this encounter [facility] 03-03-2022 Miscellaneous Notes Requested treatment details from Dr. Gallagher about excision of floor of mouth and pathology report. [phone] spoke with Pat. Records received and scanned into patient chart. Notified Dr. Ortiz. Clarita Piedra RN documented in this encounter [facility] 03-02-2022 Miscellaneous Notes Spoke with patient and scheduled. Please schedule patient to see Brookyln Perkins when patient is here for XRT. Order filed, please sign. Thank you. Kacie Stewart RN documented in this encounter [facility] 03-02-2022 Nurse Note This visit was completed [...] Social Work and nutrition Kacie Stewart RN Instant Print Operator Pre Chemo Patient identified by name and date of . YES Confirmed date and time for chemotherapy ? YES Other appointments (labs, imaging) discussed? YES Discussed where to park (mechanical test engineer), charge for parking YES Discussed where to [...] Kacie Stewart RN documented in this encounter [facility] 02-25-2022 Nurse Note Radiation Therapy - Patient Education Note PATIENT NAME: Krystal Cortes PATIENT February 25, 2022 [facility] FACILITY/LOCATION: [place] READINESS TO LEARN Cognitive Ability: Alert and [...] need for social work, van service, and jewel grinder. Was approved? unkown Signed by: Jennifer Santillan RN documented in this encounter [facility] 02-25-2022 Miscellaneous Notes Therapists notified and will contact pt. Pt is wondering if the 11:30 today appt is still available. He was originally offered today. His scheduled changed that he could do it if it would be possible. Please call his cell. documented in this encounter [facility] 02-25-2022 History of Present illness Narrative KRYSTAL CORTES N [id number] 02/25/2022 [facility] Department of Radiation Oncology Treatment Planning Note [...] M.D. :14 PM documented in this encounter [facility] 02-25-2022 History of Present illness Narrative KRYSTAL CORTES [id number] 02/25/2022 [facility] Department of Radiation Oncology [facility] RADIATION ONCOLOGY SIMULATION NOTE DATE [...] M.D./igor 32:14 PM documented in this encounter [facility] 02-24-2022 History of Present illness Narrative Oncologic [...] recalls anesthesiologist told him to see a city weighmaster because he may have a mass in [...] fungi. 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 [...] No jaundice or rash. No petechiae. NEUROLOGIC: gold marker II-XII are grossly intact. No focal motor [...] the patient had not followed up at [facility] since his first postoperative check in the spring. At the time of that surgery he was observed to have a possible mass in the proximal esophagus and was told to see a city weighmaster. More recent evaluation of that with biopsy [...] -Was recently evaluated by Dr. Ortiz at [facility]. Plan for now is to monitor. Plan: [...] with more than 50% of the total [id number] time of the visit in reviewing test results, plan of care. discussion for chemotherapy and coordination of care. Kirit Rosas DO documented in this encounter [facility] 02-10-2022 Nurse Note Tobacco Use: 1 packs/day, for 40 years. Types: Cigarettes Was smoking cessation packet given? N/A - Patient is a non-smoker or quit >1 year ago. Was a referral initiated?N/A Patient is a non-smoker documented in this encounter [facility] 02-10-2022 History of Present illness Narrative Brayan [...] with resection by Dr. Quiñones at the [facility] in 04/2021. He was told that [...] SURGICAL HISTORY Procedure Laterality Date EGD W/O [facility] SPEC VARICIES INJ 11/2021 SKIN BX, 1 [...] cell carcinoma in April 2021. Dr. Gallagher [facility]. He was told he did not need [...] his pathology report for updated staging from [facility]. At this point I would recommend watching him closely for the head and neck and proceeding with treatment of his esophageal cancer. - follow-up in 3 months Max Ortiz MD documented in this encounter [facility] 02-08-2022 Note HNO ID: [id number] Author: Radha Goldman RT(R) Service: Nuclear Medicine [...] [id number] PATIENT DISCHARGED TO: Ambulatory patient, left [place] department area. A Diagnostic radioactive procedure has taken place, with no further precautions necessary other than routine body substance precautions. More information regarding radiation safety can be found using this link: [email or web address] SIGNATURE: RT Hina(R) PATIENT NAME: Krystal Cortes DATE: February 08, 2022 TIME: 7:09 AM PAGER/CONTACT #: [facility] 02-08-2022 History of Present illness Narrative [...] AM PAGER/CONTACT #: documented in this encounter [facility] 01-31-2022 Nurse Note Radiation Therapy - Nursing Note (Consult) PATIENT NAME: Krystal Cortes PATIENT January 31, 2022 [facility] FACILITY/LOCATION: [place] Chief Complaint: consult Reason for visit: Consult. Referring physician: Internal provider Dr Masci Subjective Data: no c/o Additional Data Do you want to see a Letter Carrier? No Are you interested in information about fertility? No Status: Patient is male Stress Scale: On a scale of 0 to 10, what number best describes how much distress you have experienced in the past week?(0 being no distress and 10 being extreme distress) 2 Social work notified: Pt denied need to see bilingual social worker at this time. SIGNED by: Jennifer Santillan RN documented in this encounter [facility] 01-31-2022 History of Present illness Narrative Radiation [...] with resection by Dr. Quiñones at the [facility] in 04/2021. He was told that [...] that other personnel such as radiation therapists, christian science reader, and physicists will participate in planning and delivery of radiation treatment. Permanent tattoo goyal will be placed to aid with positioning for daily treatment and the patient consented. Patient will have a simulation procedure after staging completes. Thank you very much for allowing us to participate in his care. Signed by: Shannon Dinh MD cc: Kirit Rosas [address] [facility] [id number] documented in this encounter [facility] 01-26-2022 Miscellaneous Notes Met with patient and introduced myself. Patient was given a My Journey binder with chemocare information, office contact information, thermometer, and additional chemotherapy resource booklets. Patient aware this nurse will review on scheduled appointment date. Kacie Stewart RN documented in this encounter [facility] 01-26-2022 History of Present illness Narrative Oncologic [...] recalls anesthesiologist told him to see a city weighmaster because he may have a mass in [...] uses. 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 [...] No jaundice or rash. No petechiae. NEUROLOGIC: gold marker II-XII are grossly intact. No focal motor [...] the patient had not followed up at [facility] since his first postoperative check in the spring. At the time of that surgery he was observed to have a possible mass in the proximal esophagus and was told to see a city weighmaster. Recent evaluation of that with biopsy demonstrated [...] Dinh for opinion on radiation. -Referral to [facility] for evaluation of previous head neck [...] with more than 50% of the total xgqo-km-hhob time of the visit in reviewing test results, plan of care. discussion/consent for chemotherapy and coordination of care Kirit Rosas DO documented in this encounter [facility] 01-18-2022 Miscellaneous Notes LM for patient to [...] Kirit Rosas DO documented in this encounter [facility] 01-18-2022 Nurse Note AMBULATORY PATIENT EDUCATION NOTE [...] In Department: GASTROENTEROLOGY documented in this encounter [facility] 01-11-2022 Miscellaneous Notes Yes, he saw Dr Jose Rafael Brar. I will fax note. Sofya Dhillon LPN Please fax a copy of the CT neck report to Dr. Brar's office. Patient was to have an appointment with either him or Dr. Newman. Has that been scheduled yet? Kirit Rosas DO documented in this encounter [facility] 01-11-2022 Miscellaneous Notes Attempted to reach the patient at the contact number that they provided [phone] (home) . Unable to speak with patient so without identifying the patient the following information was left on their voice mail: Date of procedure, location and report time A message was left informing the patient/patient lead generation representative they must have a responsible adult [...] Number to call with questions or concerns [phone] Number to call to cancel their procedure [phone] Hawa Salgado LPN documented in this encounter [facility] 05-28-2021 Note KRYSTAL CORTES was pr esented [...] 28-May-2021 08:40 by León Vera (N MGR) [facility] 05-13-2021 Note PROCEDURE DETAILS Preoperative Diagnosis: Floor of mouth lesion Postoperative Diagnosis: Floor of mouth lesion Surgeon: Dr. Gallagher Resident/Fellow/Other Calibration Tester: Dr. Arredondo Procedure: 1. direct laryngoscopy 2. [...] Last Updated: 13-May-2021 16:59 by Guru Gallagher) [facility] 05-13-2021 Note History & Physical R eviewed: [...] the note. I personally evaluated the patient [id number] Electronic Signatures: Guru Gallagher) (Signed 13-May-2021 16:50) Authored: Note Completion Co-Signer: History & Physical Reviewed, ERAS, Consent, Note Completion Kera Arredondo (DO (Resident)) (Signed 13-May-2021 05:51) Authored: History & Physical Reviewed, ERAS, Consent, Note Completion Last Updated: 13-May-2021 16:50 by Guru Gallagher) [facility] Chief complaint Narrative - Reported Consultation for the management of an oral cavity lesion. 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) [facility] Diagnosis 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)- Primary Malignant neoplasm of upper third of esophagus [facility] Diagnosis 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) Malignant neoplasm of middle third of esophagus [facility] Diagnosis Cancer of cervical esophagus (HCC)- [...] symptoms related to the presence of this mass.[facility] Work Phone: Reason for referral (narrative)* Outpatient Procedure (Routine) - Closed Specialty Diagnoses / Procedures Referred By Contac t Referred To Contact [facility] Diagnoses 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) Procedures EGD - THERAPEUTIC, EUS, OR TUBE INTERVENTIONS EDG US EXAM SURGICAL ALTER STOM DUODENUM/JEJUNUM Masci, Kirit A, DO [address] [place] [address] [facility] [address] [place] [address] Referral ID Status Reason Start Date Expiration Date V isits Requested Visits Authorized [id number] Closed Auto-Generate d Referral 12/28/2021 12/28/2022 1 1 [facility] for referral (narrative)* Diagnostic Procedure Only (Urgent) - Closed Specialty Diagnoses / Procedures Referred By Contac t Referred To Contact [facility] Diagnoses 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) Procedures NM PET/CT SKULL-THIGH INITIAL PET IMAGING CT ATTENUATION SKULL BASE MID-THIGH Kirit Rosas DO [address] [place] [address] [facility] [address] [place], [place] [id number] Referral ID Status Reason Start Date Expiration Date V isits Requested Visits Authorized [id number] Closed Auto-Generate d Referral 01/18/2022 04/18/2022 1 1 [facility] for referral (narrative)* Diagnostic Procedure Only (Urgent) - Closed Specialty Diagnoses / Procedures Referred By Contac t Referred To Contact MOLECULAR & FUNCTIONAL IMAGING Diagnoses 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) Procedures NM PET/CT SKULL-THIGH INITIAL PET IMAGING CT ATTENUATION SKULL BASE MID-THIGH Kirit Rosas, DO [address] [place] [address] [facility] [address] [id number] Referral ID Status Reason Start Date Expiration Date V isits Requested Visits Authorized [id number] Closed Auto-Generate d Referral 01/18/2022 04/18/2022 [facility] Procedure Only (Routine) - Authorized Specialty Diagnoses / Procedures Referred By Contac t Referred To Contact MOLECULAR & FUNCTIONAL IMAGING Diagnoses 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) Procedures NM PET/CT SKULL-THIGH SUBSEQUENT PET IMAGING CT ATTENUATION SKULL BASE MID-THIGH Kirit Rosas DO [address] [place] [address] [facility] [address] [place] [address] Referral ID Status Reason Start Date Expiration Date Visits Requested Visits Authorized [id number] Authorized Auto-Generat ed Referral 05/05/2022 06/04/2023 1 1 [facility] for referral (narrative)* Diagnostic Procedure Only (Routine) - Closed Specialty Diagnoses / Procedures Referred By Seeac t Referred To Contact MOLECULAR & FUNCTIONAL IMAGING Diagnoses 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) Procedures NM PET/CT SKULL-THIGH SUBSEQUENT PET IMAGING CT ATTENUATION SKULL BASE MID-THIGH Kirit Rosas, DO [address] [place] [address] [facility] [address] [place] [address] Referral ID Status Reason Start Date Expiration Date V isits Requested Visits Authorized [id number] Closed Auto-Generate d Referral 05/05/2022 06/04/2023 1 1 [facility] for referral (narrative)No reason for referral information availableWGood [facility] Work Phone: Reason for visit Narrative* Outpatient Procedure (Routine) - Closed Specialty Diagnoses / Procedures Referred By Contac t Referred To Contact [facility] Diagnoses 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) Procedures EGD - THERAPEUTIC, EUS, OR TUBE INTERVENTIONS EDG US EXAM SURGICAL ALTER STOM DUODENUM/JEJUNUM Kirit Rosas, [address] [place] [address] [facility] [address] [place] [address] Referral ID Status Reason Start Date Expiration Date V isits Requested Visits Authorized [id number] Closed Auto-Generate d Referral 12/28/2021 12/28/2022 1 1 [facility] Diagnostic Procedure Only (Routine) - Closed Specialty Diagnoses / Procedures Referred By Maddy t Referred To Contact MOLECULAR & FUNCTIONAL IMAGING Diagnoses 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) Procedures NM PET/CT SKULL-THIGH SUBSEQUENT PET IMAGING CT ATTENUATION SKULL BASE MID-THIGH Kirit Rosas, DO [address] [place] [address] [facility] [address] [phone] Referral ID Status Reason Start Date Expiration Date V isits Requested Visits Authorized [id number] Closed Auto-Generate d Referral 05/05/2022 06/04/2023 1 1 [facility] Summary Purpose Family History No Family History [...] Shannon Dinh MD, [address] [place] [address] Referral ID Status Reason Start Date Expiration Date Visits Requested Visits Authorized [id number] Pending Review PCP Requested Referral 02/28/2022 05/26/2022 1 1 Specialty Diagnoses / Procedures Referred By Contac t Referred To Contact CT IMAGING Diagnoses 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) Procedures CT NECK SOFT TISSUE W IVCON CT SOFT TISSUE NECK W/CONTRAST MATERIAL Kirit Rosas, DO [address] [place] [address] Ct Imaging Referral ID Status Reason Start Date Expiration Date Visits Requested Visits Authorized [id number] Authorized Auto-Generat ed Referral 06/24/2022 07/24/2023 1 1 Specialty Diagnoses / Procedures Referred By Contac t Referred To Contact CT IMAGING Diagnoses 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) Procedures CT CHEST W IVCON DIAGNOSTIC COMPUTED TOMOGRAPHY THORAX W/CONTRAST Kirit Rosas, DO [address] [place] [address] Ct Imaging Referral ID Status Reason Start Date Expiration Date Visits Requested Visits Authorized [id number] Authorized Auto-Generat ed Referral 06/24/2022 07/24/2023 1 1 Specialty Diagnoses / Procedures Referred By Contac t Referred To Contact CT IMAGING Diagnoses 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) Procedures CT NECK SOFT TISSUE W IVCON CT SOFT TISSUE NECK W/CONTRAST MATERIAL Kirit Rosas, DO [address] [place] [address] [place] [address] Referral ID Status Reason Start Date Expiration Date Visits Requested Visits Authorized [id number] Authorized Auto-Generat ed Referral 10/21/2022 11/20/2023 1 1 Specialty Diagnoses / Procedures Referred By Contac t Referred To Contact CT IMAGING Diagnoses 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) Procedures CT CHEST W IVCON DIAGNOSTIC COMPUTED TOMOGRAPHY THORAX W/CONTRAST Kirit Rosas, DO [address] [place] [address] Ct Imaging [id number] Referral ID Status Reason Start Date Expiration Date Visits Requested Visits Authorized [id number] Authorized Auto-Generat ed Referral 10/21/2022 11/20/2023 1 1 Referral ID Status Reason Start Date Expiration Date V isits Requested Visits Authorized [id number] Closed Auto-Generate d Referral 06/24/2022 07/24/2023 1 1 Referral ID Status Reason Start Date Expiration Date V isits Requested Visits Authorized [id number] Closed Auto-Generate d Referral 06/24/2022 07/24/2023 1 1 Referral ID Status Reason Start Date Expiration Date V isits Requested Visits Authorized [id number] Closed Auto-Generate d Referral 10/21/2022 11/20/2023 1 1 Specialty Diagnoses / Procedures Referred By Contac t Referred To Contact CT IMAGING Diagnoses 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) Procedures CT CHEST W IVCON DIAGNOSTIC COMPUTED TOMOGRAPHY THORAX W/CONTRAST Kirit Rosas, DO [address] [place] [address] Ct [facility] [place] [address] Referral ID Status Reason Start Date Expiration Date Visits Requested Visits Authorized [id number] Authorized Auto-Generat ed Referral 04/27/2023 05/26/2024 1 1 Specialty Diagnoses / Procedures Referred By Contac t Referred To Contact CT IMAGING Diagnoses 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) Procedures CT NECK SOFT TISSUE W IVCON CT SOFT TISSUE NECK W/CONTRAST MATERIAL Kirit Rosas, DO [address] [facility] [place] [address] [place] [address] Referral ID Status Reason Start Date Expiration Date Visits Requested Visits Authorized [id number] Authorized Auto-Generat ed Referral 04/27/2023 05/26/2024 1 1 Referral ID Status Reason Start Date Expiration Date V isits Requested Visits Authorized [id number] Closed Auto-Generate d Referral 04/27/2023 05/26/2024 1 1 Specialty Diagnoses / Procedures Referred By Contac t Referred To Contact CT IMAGING Diagnoses 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) Procedures CT CHEST W IVCON DIAGNOSTIC COMPUTED TOMOGRAPHY THORAX W/CONTRAST Sandra Cruz, BRY.ACOUSTIC ENGINEER [address] [place] [address] [place] [address] Referral ID Status Reason Start Date Expiration Date Visits Requested Visits Authorized [id number] Authorized Auto-Generat ed Referral 04/30/2024 11/30/2024 1 1 Specialty Diagnoses / Procedures Referred By Contac t Referred To Contact CT IMAGING Diagnoses 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) Procedures CT NECK SOFT TISSUE W IVCON CT SOFT TISSUE NECK W/CONTRAST MATERIAL Sandra Cruz, BLOCKMASON.ACOUSTIC ENGINEER [address] [place] [address] [place] [address] Referral ID Status Reason Start Date Expiration Date Visits Requested Visits Authorized [id number] Authorized Auto-Generat ed Referral 04/30/2024 11/30/2024 1 1 Additional Source Comments (unrecognized sect ion and content) No Status Records FoundNo Status Records FoundNo Status Records FoundNo Status Records FoundNo Status Records Found INFORMATION SOURCE (unrecogn ized section and content) DATE CREATED AUTHOR 06/02/2021 [facility] DATE CREATED AUTHOR AUTHOR'S ORGANIZ ATION 01/22/2022 [employer] DATE CREATED AUTHOR AUTHOR'S ORGANIZ ATION 06/21/2022 [facility] DATE CREATED AUTHOR AUTHOR'S ORGANIZ ATION 11/15/2024 [facility] DATE CREATED AUTHOR AUTHOR'S ORGANIZ ATION 2024 [facility] Goals (unrecognized section and content) Goals [...] or prosecute any alcohol or drug abuse patient.[facility] the event this information is protected by the Federal Confidentiality of Alcohol and Drug Abuse Patient Records regulations: The Federal rules restrict any use of the information to criminally investigate or prosecute any alcohol or drug abuse patient.[facility] CampusIn the event this information is protected by the Federal Confidentiality of Alcohol and Drug Abuse Patient Records regulations: The Federal rules restrict any use of the information to criminally investigate or prosecute any alcohol or drug abuse patient.[facility] CampusIn the event this information is protected by the Federal Confidentiality of Alcohol and Drug Abuse Patient Records regulations: The Federal rules restrict any use of the information to criminally investigate or prosecute any alcohol or drug abuse patient.[facility] CampusIn the event this information is protected by the Federal Confidentiality of Alcohol and Drug Abuse Patient Records regulations: The Federal rules restrict any use of the information to criminally investigate or prosecute any alcohol or drug abuse patient.[facility] CampusIn the event this information is protected by the Federal Confidentiality of Alcohol and Drug Abuse Patient Records regulations: The Federal rules restrict any use of the information to criminally investigate or prosecute any alcohol or drug abuse patient.[facility] CampusIn the event this information is protected by the Federal Confidentiality of Alcohol and Drug Abuse Patient Records regulations: The Federal rules restrict any use of the information to criminally investigate or prosecute any alcohol or drug abuse patient.[facility] CampusIn the event this information is protected by the Federal Confidentiality of Alcohol and Drug Abuse Patient Records regulations: The Federal rules restrict any use of the information to criminally investigate or prosecute any alcohol or drug abuse patient.[facility] CampusIn the event this information is protected by the Federal Confidentiality of Alcohol and Drug Abuse Patient Records regulations: The Federal rules restrict any use of the information to criminally investigate or prosecute any alcohol or drug abuse patient.[facility] CampusIn the event this information is protected by the Federal Confidentiality of Alcohol and Drug Abuse Patient Records regulations: The Federal rules restrict any use of the information to criminally investigate or prosecute any alcohol or drug abuse patient.[facility] CampusIn the event this information is protected by the Federal Confidentiality of Alcohol and Drug Abuse Patient Records regulations: The Federal rules restrict any use of the information to criminally investigate or prosecute any alcohol or drug abuse patient.[facility] CampusIn the event this information is protected by the Federal Confidentiality of Alcohol and Drug Abuse Patient Records regulations: The Federal rules restrict any use of the information to criminally investigate or prosecute any alcohol or drug abuse patient.[facility] CampusIn the event this information is protected by the Federal Confidentiality of Alcohol and Drug Abuse Patient Records regulations: The Federal rules restrict any use of the information to criminally investigate or prosecute any alcohol or drug abuse patient.[facility] CampusIn the event this information is protected by the Federal Confidentiality of Alcohol and Drug Abuse Patient Records regulations: The Federal rules restrict any use of the information to criminally investigate or prosecute any alcohol or drug abuse patient.[facility] CampusIn the event this information is protected by the Federal Confidentiality of Alcohol and Drug Abuse Patient Records regulations: The Federal rules restrict any use of the information to criminally investigate or prosecute any alcohol or drug abuse patient.[facility] CampusIn the event this information is protected by the Federal Confidentiality of Alcohol and Drug Abuse Patient Records regulations: The Federal rules restrict any use of the information to criminally investigate or prosecute any alcohol or drug abuse patient.[facility] CampusIn the event this information is protected by the Federal Confidentiality of Alcohol and Drug Abuse Patient Records regulations: The Federal rules restrict any use of the information to criminally investigate or prosecute any alcohol or drug abuse patient.[facility] CampusIn the event this information is protected by the Federal Confidentiality of Alcohol and Drug Abuse Patient Records regulations: The Federal rules restrict any use of the information to criminally investigate or prosecute any alcohol or drug abuse patient.[facility] CampusIn the event this information is protected by the Federal Confidentiality of Alcohol and Drug Abuse Patient Records regulations: The Federal rules restrict any use of the information to criminally investigate or prosecute any alcohol or drug abuse patient.[facility] CampusIn the event this information is protected by the Federal Confidentiality of Alcohol and Drug Abuse Patient Records regulations: The Federal rules restrict any use of the information to criminally investigate or prosecute any alcohol or drug abuse patient.[facility] CampusIn the event this information is protected by the Federal Confidentiality of Alcohol and Drug Abuse Patient Records regulations: The Federal rules restrict any use of the information to criminally investigate or prosecute any alcohol or drug abuse patient.[facility] CampusIn the event this information is protected by the Federal Confidentiality of Alcohol and Drug Abuse Patient Records regulations: The Federal rules restrict any use of the information to criminally investigate or prosecute any alcohol or drug abuse patient.[facility] CampusIn the event this information is protected by the Federal Confidentiality of Alcohol and Drug Abuse Patient Records regulations: The Federal rules restrict any use of the information to criminally investigate or prosecute any alcohol or drug abuse patient.[facility] CampusIn the event this information is protected by the Federal Confidentiality of Alcohol and Drug Abuse Patient Records regulations: The Federal rules restrict any use of the information to criminally investigate or prosecute any alcohol or drug abuse patient.[facility] CampusIn the event this information is protected by the Federal Confidentiality of Alcohol and Drug Abuse Patient Records regulations: The Federal rules restrict any use of the information to criminally investigate or prosecute any alcohol or drug abuse patient.[facility] CampusIn the event this information is protected by the Federal Confidentiality of Alcohol and Drug Abuse Patient Records regulations: The Federal rules restrict any use of the information to criminally investigate or prosecute any alcohol or drug abuse patient.[facility] CampusIn the event this information is protected by the Federal Confidentiality of Alcohol and Drug Abuse Patient Records regulations: The Federal rules restrict any use of the information to criminally investigate or prosecute any alcohol or drug abuse patient.[facility] CampusIn the event this information is protected by the Federal Confidentiality of Alcohol and Drug Abuse Patient Records regulations: The Federal rules restrict any use of the information to criminally investigate or prosecute any alcohol or drug abuse patient.[facility] CampusIn the event this information is protected by the Federal Confidentiality of Alcohol and Drug Abuse Patient Records regulations: The Federal rules restrict any use of the information to criminally investigate or prosecute any alcohol or drug abuse patient.[facility] CampusIn the event this information is protected by the Federal Confidentiality of Alcohol and Drug Abuse Patient Records regulations: The Federal rules restrict any use of the information to criminally investigate or prosecute any alcohol or drug abuse patient.[facility] CampusIn the event this information is protected by the Federal Confidentiality of Alcohol and Drug Abuse Patient Records regulations: The Federal rules restrict any use of the information to criminally investigate or prosecute any alcohol or drug abuse patient.[facility] CampusIn the event this information is protected by the Federal Confidentiality of Alcohol and Drug Abuse Patient Records regulations: The Federal rules restrict any use of the information to criminally investigate or prosecute any alcohol or drug abuse patient.[facility] CampusIn the event this information is protected by the Federal Confidentiality of Alcohol and Drug Abuse Patient Records regulations: The Federal rules restrict any use of the information to criminally investigate or prosecute any alcohol or drug abuse patient.[facility] CampusIn the event this information is protected by the Federal Confidentiality of Alcohol and Drug Abuse Patient Records regulations: The Federal rules restrict any use of the information to criminally investigate or prosecute any alcohol or drug abuse patient.[facility] CampusIn the event this information is protected by the Federal Confidentiality of Alcohol and Drug Abuse Patient Records regulations: The Federal rules restrict any use of the information to criminally investigate or prosecute any alcohol or drug abuse patient.[facility] CampusIn the event this information is protected by the Federal Confidentiality of Alcohol and Drug Abuse Patient Records regulations: The Federal rules restrict any use of the information to criminally investigate or prosecute any alcohol or drug abuse patient.[facility] CampusIn the event this information is protected by the Federal Confidentiality of Alcohol and Drug Abuse Patient Records regulations: The Federal rules restrict any use of the information to criminally investigate or prosecute any alcohol or drug abuse patient.[facility] CampusIn the event this information is protected by the Federal Confidentiality of Alcohol and Drug Abuse Patient Records regulations: The Federal rules restrict any use of the information to criminally investigate or prosecute any alcohol or drug abuse patient.[facility] CampusIn the event this information is protected by the Federal Confidentiality of Alcohol and Drug Abuse Patient Records regulations: The Federal rules restrict any use of the information to criminally investigate or prosecute any alcohol or drug abuse patient.[facility] CampusIn the event this information is protected by the Federal Confidentiality of Alcohol and Drug Abuse Patient Records regulations: The Federal rules restrict any use of the information to criminally investigate or prosecute any alcohol or drug abuse patient.[facility] CampusIn the event this information is protected by the Federal Confidentiality of Alcohol and Drug Abuse Patient Records regulations: The Federal rules restrict any use of the information to criminally investigate or prosecute any alcohol or drug abuse patient.[facility] CampusIn the event this information is protected by the Federal Confidentiality of Alcohol and Drug Abuse Patient Records regulations: The Federal rules restrict any use of the information to criminally investigate or prosecute any alcohol or drug abuse patient.[facility] CampusIn the event this information is protected by the Federal Confidentiality of Alcohol and Drug Abuse Patient Records regulations: The Federal rules restrict any use of the information to criminally investigate or prosecute any alcohol or drug abuse patient.[facility] CampusIn the event this information is protected by the Federal Confidentiality of Alcohol and Drug Abuse Patient Records regulations: The Federal rules restrict any use of the information to criminally investigate or prosecute any alcohol or drug abuse patient.[facility] CampusIn the event this information is protected by the Federal Confidentiality of Alcohol and Drug Abuse Patient Records regulations: The Federal rules restrict any use of the information to criminally investigate or prosecute any alcohol or drug abuse patient.[facility] CampusIn the event this information is protected by the Federal Confidentiality of Alcohol and Drug Abuse Patient Records regulations: The Federal rules restrict any use of the information to criminally investigate or prosecute any alcohol or drug abuse patient.[facility] CampusIn the event this information is protected by the Federal Confidentiality of Alcohol and Drug Abuse Patient Records regulations: The Federal rules restrict any use of the information to criminally investigate or prosecute any alcohol or drug abuse patient.[facility] CampusIn the event this information is protected by the Federal Confidentiality of Alcohol and Drug Abuse Patient Records regulations: The Federal rules restrict any use of the information to criminally investigate or prosecute any alcohol or drug abuse patient.[facility] CampusIn the event this information is protected by the Federal Confidentiality of Alcohol and Drug Abuse Patient Records regulations: The Federal rules restrict any use of the information to criminally investigate or prosecute any alcohol or drug abuse patient.[facility] CampusIn the event this information is protected by the Federal Confidentiality of Alcohol and Drug Abuse Patient Records regulations: The Federal rules restrict any use of the information to criminally investigate or prosecute any alcohol or drug abuse patient.[facility] CampusIn the event this information is protected by the Federal Confidentiality of Alcohol and Drug Abuse Patient Records regulations: The Federal rules restrict any use of the information to criminally investigate or prosecute any alcohol or drug abuse patient.[facility] CampusIn the event this information is protected by the Federal Confidentiality of Alcohol and Drug Abuse Patient Records regulations: The Federal rules restrict any use of the information to criminally investigate or prosecute any alcohol or drug abuse patient.[facility] CampusIn the event this information is protected by the Federal Confidentiality of Alcohol and Drug Abuse Patient Records regulations: The Federal rules restrict any use of the information to criminally investigate or prosecute any alcohol or drug abuse patient.[facility] CampusIn the event this information is protected by the Federal Confidentiality of Alcohol and Drug Abuse Patient Records regulations: The Federal rules restrict any use of the information to criminally investigate or prosecute any alcohol or drug abuse patient.[facility] CampusIn the event this information is protected by the Federal Confidentiality of Alcohol and Drug Abuse Patient Records regulations: The Federal rules restrict any use of the information to criminally investigate or prosecute any alcohol or drug abuse patient.[facility] CampusIn the event this information is protected by the Federal Confidentiality of Alcohol and Drug Abuse Patient Records regulations: The Federal rules restrict any use of the information to criminally investigate or prosecute any alcohol or drug abuse patient.[facility] CampusIn the event this information is protected by the Federal Confidentiality of Alcohol and Drug Abuse Patient Records regulations: The Federal rules restrict any use of the information to criminally investigate or prosecute any alcohol or drug abuse patient.[facility] CampusIn the event this information is protected by the Federal Confidentiality of Alcohol and Drug Abuse Patient Records regulations: The Federal rules restrict any use of the information to criminally investigate or prosecute any alcohol or drug abuse patient.[facility] CampusIn the event this information is protected by the Federal Confidentiality of Alcohol and Drug Abuse Patient Records regulations: The Federal rules restrict any use of the information to criminally investigate or prosecute any alcohol or drug abuse patient.[facility] CampusIn the event this information is protected by the Federal Confidentiality of Alcohol and Drug Abuse Patient Records regulations: The Federal rules restrict any use of the information to criminally investigate or prosecute any alcohol or drug abuse patient.[facility] CampusIn the event this information is protected by the Federal Confidentiality of Alcohol and Drug Abuse Patient Records regulations: The Federal rules restrict any use of the information to criminally investigate or prosecute any alcohol or drug abuse patient.[facility] CampusIn the event this information is protected by the Federal Confidentiality of Alcohol and Drug Abuse Patient Records regulations: The Federal rules restrict any use of the information to criminally investigate or prosecute any alcohol or drug abuse patient.[facility] CampusIn the event this information is protected by the Federal Confidentiality of Alcohol and Drug Abuse Patient Records regulations: The Federal rules restrict any use of the information to criminally investigate or prosecute any alcohol or drug abuse patient.[facility] CampusIn the event this information is protected by the Federal Confidentiality of Alcohol and Drug Abuse Patient Records regulations: The Federal rules restrict any use of the information to criminally investigate or prosecute any alcohol or drug abuse patient.[facility] Reason for Visit (unrecogniz ed section and content) Reason Comments Appointment Confirmation Reason Comments Results 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 Reason Comments Established Patient Reason Comments Consult Reason Comments Radiology NM Specialty Diagnoses / Procedures Referred By Contac t Referred To Contact MOLECULAR & FUNCTIONAL IMAGING Diagnoses 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) Procedures NM PET/CT SKULL-THIGH INITIAL PET IMAGING CT ATTENUATION SKULL BASE MID-THIGH Kirit Rosas, [address] [place] [address] Molecular & Functional Imaging [address] [place] [address] Referral ID Status Reason Start Date Expiration Date V isits Requested Visits Authorized [id number] Closed Auto-Generate d Referral 01/18/2022 04/18/2022 1 1 Reason Comments Patient Question Reason Comments Patient Education Reason Onset Date Comments Simulation Request Form 02/25/2022 Reason Comments First Time Treatment Education Carboplat in/Taxol Reason Comments Instant Print Operator - Other Nutrition Appoi ntment Reason Comments New Patient Reason Comments Chemotherapy Treatment Specialty Diagnoses / Procedures Referred By [facility] t Referred To Contact Diagnoses Cancer of cervical esophagus (HCC) Procedures PACLITAXEL INJECTION CARBOPLATIN INJECTION Kirit Rosas, DO [address] [place] [address] Joao [facility] [address] [place] [address] Referral ID Status Reason Start Date Expiration Date V isits Requested Visits Authorized [id number] Authorized 02/24/2022 04/19/2022 5 5 Reason Comments Request Outside Medical Records Care Coordination Reason Comments Nutrition Assessment Reason Comments Radiotherapy On-treatment Visit Reason Comments Instant Print Operator - Other Toxicity Check Reason Comments Results Low potassium Reason Comments Non-Chemotherapy Treatment Reason Comments Medication Problem Reason Comments Results Follow Up EGD results. Needs P ET. 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) Procedures CT NECK SOFT TISSUE W IVCON CT SOFT TISSUE NECK W/CONTRAST MATERIAL Kirit Rosas, DO [address] [place] [address] Ct Imaging [facility] Referral ID Status Reason Start Date Expiration Date V isits Requested Visits Authorized [id number] Closed Auto-Generate d Referral 06/24/2022 07/24/2023 1 1 Reason Comments AVS 10/21/[address] Specialty Diagnoses / Procedures Referred By [facility] Referred To Contact CT IMAGING Diagnoses 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) Procedures CT CHEST W IVCON DIAGNOSTIC COMPUTED TOMOGRAPHY THORAX W/CONTRAST Kirit Rosas, DO [address] [place] [address] [place] [address] Referral ID Status Reason Start Date Expiration Date V isits Requested Visits Authorized [id number] Closed Auto-Generate d Referral 10/21/2022 11/20/2023 1 1 Specialty Diagnoses / Procedures Referred By Contac t Referred To Contact CT IMAGING Diagnoses 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) Procedures CT CHEST W IVCON DIAGNOSTIC COMPUTED TOMOGRAPHY THORAX W/CONTRAST Kirit Rosas, DO [address] [place] [address] [place] [address] Referral ID Status Reason Start Date Expiration Date V isits Requested Visits Authorized [id number] Closed Auto-Generate d Referral 04/27/2023 05/26/2024 1 1 Specialty Diagnoses / Procedures Referred By Contac t Referred To Contact CT IMAGING Diagnoses 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) Procedures CT CHEST W IVCON DIAGNOSTIC COMPUTED TOMOGRAPHY THORAX W/CONTRAST Sandra Cruz APRN.ACOUSTIC ENGINEER [address] [place] [address] Phone: tel: fax: [place] [address] Referral ID Status Reason Start Date Expiration Date V isits Requested Visits Authorized [id number] Closed Auto-Generate d Referral 04/30/2024 11/30/2024 1 1 Care Teams (unrecognized sec tion and content) Parking Attendant Relationship Specialty Start Date End Date Pcp, No PCP - General 09/04/21 03/22/22 Parking Attendant Relationship Specialty Start Date End Date Pcp, No PCP - General 09/04/21 03/22/22 Parking Attendant Relationship Specialty Start Date End Date Pcp, No PCP - General 09/04/21 03/22/22 Parking Attendant Relationship Specialty Start Date End Date Pcp, No PCP - General 09/04/21 03/22/22 Parking Attendant Relationship Specialty Start Date End Date Pcp, No PCP - General 09/04/21 03/22/22 Parking Attendant Relationship Specialty Start Date End Date Pcp, No PCP - General 09/04/21 03/22/22 Shannon Dinh MD, [address] [place], [place] [address] Physician Radiation Oncology 01/28/22 Parking Attendant Relationship Specialty Start Date End Date Pcp, No PCP - General 09/04/21 03/22/22 Shannon Dinh MD, [address] [place] [address] Physician Radiation Oncology 01/28/22 Parking Attendant Relationship Specialty Start Date End Date Mirtha Qiu [address] [place] [address] PCP - General Family Medicine 02/24/22 Shannon Dinh MD, [address] [place] [address] Physician Radiation Oncology 01/28/22 Parking Attendant Relationship Specialty Start Date End Date Mirtha Qiu [address] [place] [address] PCP - General Family Medicine 02/24/22 Shannon Dinh MD, [address] [place] [address] Physician Radiation Oncology 01/28/22 Parking Attendant Relationship Specialty Start Date End Date Mirtha Qiu [address] [place] [address] PCP - General Family Medicine 02/24/22 Shannon Dinh MD, [address] [place] [address] Physician Radiation Oncology 01/28/22 Parking Attendant Relationship Specialty Start Date End Date Mirtha Qiu [address] [place] [address] PCP - General Family Medicine 02/24/22 Shannon Dinh MD, [address] [place] [address] Physician Radiation Oncology 01/28/22 Parking Attendant Relationship Specialty Start Date End Date Mirtha Qiu [address] [facility] [address] [place] [address] PCP - General Family Medicine 02/24/22 Shannon Dinh MD, [address] [place] [address] Physician Radiation Oncology 01/28/22 Kacie Stewart RN Specialty Instant Print Operator Oncology 03/02/22 Parking Attendant Relationship Specialty Start Date End Date Mirtha Qiu [address] [facility] [address] [place] [address] PCP - General Family Medicine 02/24/22 Shannon Dinh MD, [address] [place] [address] Physician Radiation Oncology 01/28/22 Kacie Stewart RN Specialty Instant Print Operator Oncology 03/02/22 Parking Attendant Relationship Specialty Start Date End Date Mirtha Qiu [address] [facility] [address] [place] [address] PCP - General Family Medicine 02/24/22 Shannon Dinh MD, [address] [place] [address] Physician Radiation Oncology 01/28/22 Kacie Stewart RN Specialty Instant Print Operator Oncology 03/02/22 Parking Attendant Relationship Specialty Start Date End Date Pcp, No PCP - General 09/04/21 02/23/22 Shannon Dinh MD, [address] [place] [address] Physician Radiation Oncology 01/28/22 Parking Attendant Relationship Specialty Start Date End Date Mirtha Qiu [address] [facility] [address] [place] [address] PCP - General Family Medicine 02/24/22 Shannon Dinh MD, [address] [place] [address] Physician Radiation Oncology 01/28/22 Kacie Stewart RN Specialty Instant Print Operator Oncology 03/02/22 Parking Attendant Relationship Specialty Start Date End Date Mirtha Qiu [address] [facility] [address] [place] [address] PCP - General Family Medicine 02/24/22 Shannon Dinh MD, [address] [place] [address] Physician Radiation Oncology 01/28/22 Kacie Stewart RN Specialty Instant Print Operator Oncology 03/02/22 Parking Attendant Relationship Specialty Start Date End Date Mirtha Qiu Drea [address] [facility] [address] [place] [address] PCP - General Family Medicine 02/24/22 Shannon Dinh MD, [address] [place] [address] Physician Radiation Oncology 01/28/22 Kacie Stewart RN Specialty Instant Print Operator Oncology 03/02/22 Parking Attendant Relationship Specialty Start Date End Date Mirtha Qiu [address] [facility] [address] [place] [address] PCP - General Family Medicine 02/24/22 Shannon Dinh MD, [address] [place] [address] Physician Radiation Oncology 01/28/22 Kacie Stewart RN Specialty Instant Print Operator Oncology 03/02/22 Brooklyn Perkins, RD [address] [place] [address] Registered Dietitian Nutrition 03/08/22 Parking Attendant Relationship Specialty Start Date End Date Mirtha Qiu [address] [place] [address] PCP - General Family Medicine 02/24/22 Shannon Dinh MD, [address] [place] [address] Physician Radiation Oncology 01/28/22 Kacie Stewart, RN Specialty Instant Print Operator Oncology 03/02/[address] [place] [address] Registered Dietitian Nutrition 03/08/22 Parking Attendant Relationship Specialty Start Date End Date Mirtha Qiu [address] [place] [address] PCP - General Family Medicine 02/24/22 Shannon Dinh MD, [address] [place] [address] Physician Radiation Oncology 01/28/22 Kacie Stewart RN Specialty Instant Print Operator Oncology 03/02/[address] [place] [address] Registered Dietitian Nutrition 03/08/22 Parking Attendant Relationship Specialty Start Date End Date Mirtha Qiu [address] [place] [address] PCP - General Family Medicine 02/24/22 Shannon Dinh MD, [address] [place] [address] Physician Radiation Oncology 01/28/22 Kacie Stewart RN Specialty Instant Print Operator Oncology 03/02/22 Brooklyn Perkins, RD [address] [place] [address] Registered Dietitian Nutrition 03/08/22 Parking Attendant Relationship Specialty Start Date End Date Mirtha Qiu [address] [place] [address] PCP - General Family Medicine 02/24/22 Shannon Dinh MD, [address] [place] [address] Physician Radiation Oncology 01/28/22 Kacie Stewart RN Specialty Instant Print Operator Oncology 03/02/22 Brooklyn Perkins, RD [address] [place] [address] Registered Dietitian Nutrition 03/08/22 Parking Attendant Relationship Specialty Start Date End Date Mirtha Qiu [address] [place] [address] PCP - General Family Medicine 02/24/22 Shannon Dinh MD, [address] [place] [address] Physician Radiation Oncology 01/28/22 Kacie Stewart RN Specialty Instant Print Operator Oncology 03/02/22 Brooklyn Perkins, RD [address] [place] [address] Registered Dietitian Nutrition 03/08/22 Parking Attendant Relationship Specialty Start Date End Date Mirtha Qiu [address] [place] [address] PCP - General Family Medicine 02/24/22 Shannon Dinh MD, [address] [place] [address] Physician Radiation Oncology 01/28/22 Kacie Stewart RN Specialty Instant Print Operator Oncology 03/02/22 Brooklyn Perkins, RD [address] [place] [address] Registered Dietitian Nutrition 03/08/22 Parking Attendant Relationship Specialty Start Date End Date Mirtha Qiu [address] [place] [address] PCP - General Family Medicine 02/24/22 Shannon Dinh MD, [address] [address] Physician Radiation Oncology 01/28/22 Kacie Stewart RN Specialty Instant Print Operator Oncology 03/02/[address] [place] [address] Registered Dietitian Nutrition 03/08/22 Parking Attendant Relationship Specialty Start Date End Date Mirtha Qiu [address] [facility] [address] [place] [address] PCP - General Family Medicine 02/24/22 Shannon Dinh MD, [address] [address] Physician Radiation Oncology 01/28/22 Kacie Stewart RN Specialty Instant Print Operator Oncology 03/02/[address] [place] [address] Registered Dietitian Nutrition 03/08/22 Parking Attendant Relationship Specialty Start Date End Date Mirtha Qiu [address] [place] [address] PCP - General Family Medicine 02/24/22 Shannon Dinh MD, [address] [place] [address] Physician Radiation Oncology 01/28/22 Kacie Stewart RN Specialty Instant Print Operator Oncology 03/02/22 Brooklyn Perkins, RD [address] [place] [address] Registered Dietitian Nutrition 03/08/22 Parking Attendant Relationship Specialty Start Date End Date Mirtha Qiu [address] [place] [address] PCP - General Family Medicine 02/24/22 Shannon Dinh MD, [address] [place] [address] Physician Radiation Oncology 01/28/22 Kacie Stewart RN Specialty Instant Print Operator Oncology 03/02/22 Brooklyn Perkins, RD [address] [place] [address] Registered Dietitian Nutrition 03/08/22 Parking Attendant Relationship Specialty Start Date End Date Mirtha Qiu [address] [place] [address] PCP - General Family Medicine 02/24/22 Shannon Dinh MD, [address] [place] [address] Physician Radiation Oncology 01/28/22 Kacie Stewart, RN Specialty Instant Print Operator Oncology 03/02/22 Brooklyn Perkins, RD [address] [place] [address] Registered Dietitian Nutrition 03/08/22 Parking Attendant Relationship Specialty Start Date End Date Mirtha Qiu [address] [place] [address] PCP - General Family Medicine 02/24/22 Shannon Dinh MD, [address] [place] [address] Physician Radiation Oncology 01/28/22 Kacie Stewart RN Specialty Instant Print Operator Oncology 03/02/[address] [place] [address] Registered Dietitian Nutrition 03/08/22 Parking Attendant Relationship Specialty Start Date End Date Mirtha Qui [address] [facility] [address] [place] [address] PCP - General Family Medicine 02/24/22 Shannon Dinh MD, [address] [place] [address] Physician Radiation Oncology 01/28/22 Kacie Stewart RN Specialty Instant Print Operator Oncology 03/02/[address] [place] [address] Registered Dietitian Nutrition 03/08/22 Parking Attendant Relationship Specialty Start Date End Date Mirtha Qiu [address] [place] [address] PCP - General Family Medicine 02/24/22 Shannon Dinh MD, [address] [place] [address] Physician Radiation Oncology 01/28/22 Kacie Stewart RN Specialty Instant Print Operator Oncology 03/02/[address] [place] [address] Registered Dietitian Nutrition 03/08/22 Parking Attendant Relationship Specialty Start Date End Date Mirtha iQu [address] [place] [address] PCP - General Family Medicine 02/24/22 Shannon Dinh MD, [address] [place] [address] Physician Radiation Oncology 01/28/22 Kacie Stewart RN Specialty Instant Print Operator Oncology 03/02/22 Brooklyn Perkins, RD [address] [place] [address] Registered Dietitian Nutrition 03/08/22 Kirit Rosas DO [address] [place] [address] Hematology/Oncology 04/06/22 Parking Attendant Relationship Specialty Start Date End Date Mirtha Qiu [address] [place] [address] PCP - General Family Medicine 02/24/22 Shannon Dinh MD, [address] [place] [address] Physician Radiation Oncology 01/28/22 Kacie Stewart RN Specialty Instant Print Operator Oncology 03/02/22 Brooklyn Perkins, RD [address] [place] [address] Registered Dietitian Nutrition 03/08/22 Kirit Rosas DO [address] [place] [address] Hematology/Oncology 04/06/22 Parking Attendant Relationship Specialty Start Date End Date Mirtha Qiu [address] [place] [address] PCP - General Family Medicine 02/24/22 Shannon Dinh MD, [address] [place] [address] Physician Radiation Oncology 01/28/22 Kacie Stewart, RN Specialty Instant Print Operator Oncology 03/02/[address] [place] [address] Registered Dietitian Nutrition 03/08/22 Kirit Rosas DO [address] [place] [address] Hematology/Oncology 04/06/22 Parking Attendant Relationship Specialty Start Date End Date Mirtha Qiu [address] [place] [address] PCP - General Family Medicine 02/24/22 Shannon Dinh MD, [address] [place] [address] Physician Radiation Oncology 01/28/22 Kacie Stewart, RN Specialty Instant Print Operator Oncology 03/02/[address] [place] [address] Registered Dietitian Nutrition 03/08/22 Kirit Rosas DO [address] [place] [address] Hematology/Oncology 04/06/22 Parking Attendant Relationship Specialty Start Date End Date Mirtha Qiu [address] [place] [address] PCP - General Family Medicine 02/24/22 Shannon Dinh MD, [address] [place] [address] Physician Radiation Oncology 01/28/22 Kacie Stewart, RN Specialty Instant Print Operator Oncology 03/02/22 Brooklyn Perkins, RD [address] [place] [address] Registered Dietitian Nutrition 03/08/22 Kirit Rosas, [address] [place] [address] Hematology/Oncology 04/06/22 Parking Attendant Relationship Specialty Start Date End Date Mirtha Qiu [address] [place] [address] PCP - General Family Medicine 02/24/22 Shannon Dinh MD, [address] [place] [address] Physician Radiation Oncology 01/28/22 Kacie Stewart RN Specialty Instant Print Operator Oncology 03/02/[address] [place] [address] Registered Dietitian Nutrition 03/08/22 Kirit Rosas, DO [address] [place] [address] Hematology/Oncology 04/06/22 Parking Attendant Relationship Specialty Start Date End Date Mirtha Qiu [address] [place] [address] PCP - General Family Medicine 02/24/22 Shannon Dinh MD, [address] [place] [address] Physician Radiation Oncology 01/28/22 Kacie Stewart RN Specialty Instant Print Operator Oncology 03/02/22 Brooklyn Perkins, RD [address] [place] [address] Registered Dietitian Nutrition 03/08/22 Kirit Rosas DO [address] [place] [address] Hematology/Oncology 04/06/22 Parking Attendant Relationship Specialty Start Date End Date Pcp, No PCP - General 09/04/21 02/23/22 Mirtha Qiu [address] [place] [address] PCP - General Family Medicine 02/24/22 Shannon Dinh MD, [address] [place] [address] Physician Radiation Oncology 01/28/22 Kacie Stewart RN Specialty Instant Print Operator Oncology 03/02/22 Brooklyn Perkins, RD [address] [place] [address] Registered Dietitian Nutrition 03/08/22 Kirit Rosas DO [address] [place] [address] Hematology/Oncology 04/06/22 Parking Attendant Relationship Specialty Start Date End Date Mirtha Qiu [address] [place] [address] PCP - General Family Medicine 02/24/22 Shannon Dinh MD, [address] [place] [address] Physician Radiation Oncology 01/28/22 Kacie Stewart RN Specialty Instant Print Operator Oncology 03/02/22 Brooklyn Perkins, RD [address] [place] [address] Registered Dietitian Nutrition 03/08/22 Kirit Rosas, [address] [place] [address] Hematology/Oncology 04/06/22 Parking Attendant Relationship Specialty Start Date End Date Mirtha Qiu [address] [place] [address] PCP - General Family Medicine 02/24/22 Shannon Dinh MD, [address] [place] [address] Physician Radiation Oncology 01/28/22 Kacie Stewart, RN Specialty Instant Print Operator Oncology 03/02/22 Brooklyn Perkins, RD [address] [place] [address] Registered Dietitian Nutrition 03/08/22 Kirit Rosas DO [address] [place] [address] Hematology/Oncology 04/06/22 Alberto Landis [address] [place] [address] Gastroenterology 05/05/22 Max Ortiz MD [address] [place] [address] Ent - Otolaryngology 05/05/22 Parking Attendant Relationship Specialty Start Date End Date Mirtha Qiu [address] [place] [address] PCP - General Family Medicine 02/24/22 Shannon Dinh MD, [address] [place] [address] Physician Radiation Oncology 01/28/22 Kacie Stewart, RN Specialty Instant Print Operator Oncology 03/02/22 Brooklyn Perkins, DEBO [address] [place] [address] Registered Dietitian Nutrition 03/08/22 Kirit Rosas, DO [address] [place] [address] Hematology/Oncology 04/06/[address] [place] [address] Gastroenterology 05/05/22 Max Oritz MD [address] [place] [address] Ent - Otolaryngology 05/05/22 Parking Attendant Relationship Specialty Start Date End Date Mirtha Qiu [address] [place] [address] PCP - General Family Medicine 02/24/22 Shannon Dinh MD, [address] [place] [address] Physician Radiation Oncology 01/28/22 Kacie Stewart, JESSICA Specialty Instant Print Operator Oncology 03/02/22 Brooklyn Perkins, DEBO [address] [place] [address] Registered Dietitian Nutrition 03/08/22 Kirit Rosas, DO [address] [place] [address] Hematology/Oncology 04/06/22 Alberto Landis [address] [place] [address] Gastroenterology 05/05/22 Max Ortiz MD [address] [place], [place] [id number] Ent - Otolaryngology 05/05/22 Parking Attendant Relationship Specialty Start Date End Date Mirtha Qiu [address] [place] [address] PCP - General Family Medicine 02/24/22 Shannon Dinh MD, [address] [place] [address] Physician Radiation Oncology 01/28/22 Kacie Stewart, RN Specialty Instant Print Operator Oncology 03/02/[address] [place] [address] Registered Dietitian Nutrition 03/08/22 Kirit Rosas DO [address] [place] [address] Hematology/Oncology 04/06/22 Alberto Landis [address] [place] [address] Gastroenterology 05/05/22 Max Ortiz MD [address] [place] [address] Ent - Otolaryngology 05/05/22 Parking Attendant Relationship Specialty Start Date End Date Mirtha Qiu [address] [place] [address] PCP - General Family Medicine 02/24/22 Shannon Dinh MD, [address] [place] [address] Physician Radiation Oncology 01/28/22 Kacie Stewart, RN Specialty Instant Print Operator Oncology 03/02/22 Brooklyn Perkins, RD [address] [place] [address] Registered Dietitian Nutrition 03/08/22 Kirit Rosas, DO [address] [place] [address] Hematology/Oncology 04/06/[address] [place] [address] Gastroenterology 05/05/22 Max Ortiz [facility] [address] [facility] [place], [place] [id number] Ent - Otolaryngology 05/05/22 Parking Attendant Relationship Specialty Start Date End Date Mirtha Qiu [address] [place] [address] PCP - General Family Medicine 02/24/22 Shannon Dinh MD, [address] [place] [address] Physician Radiation Oncology 01/28/22 Kacie Stewart, RN Specialty Instant Print Operator Oncology 03/02/22 Brooklyn Perkins, RD [address] [place] [address] Registered Dietitian Nutrition 03/08/22 Kirit Rosas, DO [address] [place] [address] Hematology/Oncology 04/06/22 Alberto Landis [address] [place] [address] Gastroenterology 05/05/22 Max Ortiz MD [address] [place], [place] [id number] Ent - Otolaryngology 05/05/22 Parking Attendant Relationship Specialty Start Date End Date Mirtha Qiu [address] [place] [address] PCP - General Family Medicine 02/24/22 Shannon Dinh MD, [address] [place] [address] Physician Radiation Oncology 01/28/22 Kacie Stewart RN Specialty Instant Print Operator Oncology 03/02/[address] [place] [address] Registered Dietitian Nutrition 03/08/22 Kirit Rosas DO [address] [place] [address] Hematology/Oncology 04/06/22 Alberto Landis [address] [place] [address] Gastroenterology 05/05/22 Max Ortiz MD [address] [place] [address] Ent - Otolaryngology 05/05/22 Parking Attendant Relationship Specialty Start Date End Date Mirtha Qiu [address] [place] [address] PCP - General Family Medicine 02/24/22 Shannon Dinh MD, [address] [place] [address] Physician Radiation Oncology 01/28/22 Kacie Stewart RN Specialty Instant Print Operator Oncology 03/02/[address] [place] [address] Registered Dietitian Nutrition 03/08/22 Kirit Rosas DO [address] [place] [address] Hematology/Oncology 04/06/22 Alberto Landis [address] [place] [address] Gastroenterology 05/05/22 Max Ortiz MD [address] [facility] [place] [address] Ent - Otolaryngology 05/05/22 Parking Attendant Relationship Specialty Start Date End Date Mirtha Qiu [address] [place], [place] [address] PCP - General Family Medicine 02/24/22 Shannon Dinh MD, [address] [place] [address] Physician Radiation Oncology 01/28/22 Kacie Stewart, JESSICA Specialty Instant Print Operator Oncology 03/02/[address] [place] [address] Registered Dietitian Nutrition 03/08/22 Kirit Rosas DO [address] [place] [address] Hematology/Oncology 04/06/22 Alberto Landis [address] [place] [address] Gastroenterology 05/05/22 Max Ortiz MD [address] [facility] [place] [id number] Ent - Otolaryngology 05/05/22 Parking Attendant Relationship Specialty Start Date End Date Mirtha Qiu [address] [place] [address] PCP - General Family Medicine 02/24/22 Shannon Dinh MD, [address] [place] [address] Physician Radiation Oncology 01/28/22 Kacie Stewart, JESSICA Specialty Instant Print Operator Oncology 03/02/[address] [place] [address] Registered Dietitian Nutrition 03/08/22 Kirit Rosas DO [address] [place] [address] Hematology/Oncology 04/06/22 Alberto Landis MD [address] [place] [address] Gastroenterology 05/05/22 Max Ortiz MD [address] [place], [place] [id number] Ent - Otolaryngology 05/05/22 Team Status: Active [...] Prov ider, Attending Provider, Referring Provider Active Parking Attendant Relationship Specialty Start Date End Date Mirtha Qiu [address] [place], [place] [address] PCP - General Family Medicine 02/24/22 Shannon Dinh MD, [address] [place], [place] [id number] Physician Radiation Oncology 01/28/22 Kacie Stewart RN Specialty Instant Print Operator Oncology 03/02/[address] [place], [place] [address] Registered Dietitian Nutrition 03/08/22 Kirit Rosas DO [address] [place] [address] Hematology/Oncology 04/06/22 Alberto Landis MD [address] [place], [place] [address] Gastroenterology 05/05/22 Max Ortiz MD [address] [place] [address] Ent - Otolaryngology 05/05/22 Parking Attendant Relationship Specialty Start Date End Date Mirtha Qiu [address] [place] [address] PCP - General Family Medicine 02/24/22 Shannon Dinh MD [address] [place] [address] Physician Radiation Oncology 01/28/22 Kacie Stewart RN Specialty Instant Print Operator Oncology 03/02/[address] [place] [address] Registered Dietitian Nutrition 03/08/22 Kirit Rosas DO [address] [place] [address] Hematology/Oncology 04/06/22 Alberto Landis MD [address] [place] [address] Gastroenterology 05/05/22 Max Ortiz MD [address] [place] [address] Ent - Otolaryngology 05/05/22 Parking Attendant Relationship Specialty Start Date End Date Mirtha Qiu [address] [place] [address] PCP - General Family Medicine 02/24/22 Shannon Dinh MD [address] [place] [address] Physician Radiation Oncology 01/28/22 Kacie Stewart RN Specialty Instant Print Operator Oncology 03/02/22 Brooklyn Perkins, DEBO [address] [place] [address] Registered Dietitian Nutrition 03/08/22 Kirit Rosas DO [address] [place] [address] Hematology/Oncology 04/06/22 Alberto Landis MD [address] [place] [address] Gastroenterology 05/05/22 Max Ortiz MD [address] [place] [address] Ent - Otolaryngology 05/05/22 Parking Attendant Relationship Specialty Start Date End Date Mirtha Qiu [address] [place], [place] [address] PCP - General Family Medicine 02/24/22 Shannon Dinh MD [address] [place] [address] Physician Radiation Oncology 01/28/22 Kacie Stewart RN Specialty Instant Print Operator Oncology 03/02/[address] [place] [address] Registered Dietitian Nutrition 03/08/22 Kirit Rosas DO [address] [place] [address] Hematology/Oncology 04/06/22 Alberto Landis MD [address] [place] [address] Gastroenterology 05/05/22 Max Ortiz MD [address] [place], [place] [id number] Ent - Otolaryngology 05/05/22 Parking Attendant Relationship Specialty Start Date End Date Mirtha Qiu [address] [place] [address] PCP - General Family Medicine 02/24/22 Shannon Dinh MD [address] [place] [address] Physician Radiation Oncology 01/28/22 Kacie Stewart RN Specialty Instant Print Operator Oncology 03/02/[address] [place] [address] Registered Dietitian Nutrition 03/08/22 Kirit Rosas DO [address] [place] [address] Hematology/Oncology 04/06/22 Alberto Landis MD [address] [place] [address] Gastroenterology 05/05/22 Max Ortiz MD [address] [facility] [place], [place] [id number] Ent - Otolaryngology 05/05/22 Parking Attendant Relationship Specialty Start Date End Date Mirtha Qiu [address] [place] [address] PCP - General Family Medicine 02/24/22 Shannon Dinh MD [address] [place] [address] Physician Radiation Oncology 01/28/22 Kacie Stewart RN Specialty Instant Print Operator Oncology 03/02/[address] [place], [place] [address] Registered Dietitian Nutrition 03/08/22 Kirit Rosas DO [address] [place], [place] [address] Hematology/Oncology 04/06/22 Alberto Landis MD [address] [place] [address] Gastroenterology 05/05/22 Max Ortiz MD [address] [place], [place] [id number] Ent - Otolaryngology 05/05/22 Parking Attendant Relationship Specialty Start Date End Date Mirtha Qiu [address] [place] [address] PCP - General Family Medicine 02/24/22 Shannon Dinh MD [address] [place] [address] Physician Radiation Oncology 01/28/22 Kacie Stewart RN Specialty Instant Print Operator Oncology 03/02/[address] [place] [address] Registered Dietitian Nutrition 03/08/22 Kirit Rosas DO [address] [place] [address] Hematology/Oncology 04/06/22 Alberto Landis MD [address] [place] [address] Gastroenterology 05/05/22 Max Ortiz MD [address] [place] [address] Ent - Otolaryngology 05/05/22 Parking Attendant Relationship Specialty Start Date End Date Mirtha Qiu [address] [place] [address] PCP - General Family Medicine 02/24/22 Shannon Dinh MD [address] [place] [address] Physician Radiation Oncology 01/28/22 Kacie Stewart RN Specialty Instant Print Operator Oncology 03/02/[address] [place] [address] Registered Dietitian Nutrition 03/08/22 Kirit Rosas DO [address] [place] [address] Hematology/Oncology 04/06/22 Alberto Landis MD [address] [place] [address] Gastroenterology 05/05/22 Max Ortiz MD [address] [place] [address] Ent - Otolaryngology 05/05/22 Team Status: Active [...] BE BASED ON THE PRIMARY CLINICAL RECORDS. [employer] [facility]. provides no warranty or guarantee of the accuracy or completeness of information in this document.
== END | disposition home or self-care (01) ==
LOC: CT 07:33
DX: F17.210 Nicotine dependence, cigarettes, uncomplicated (principal)
CPT/HCPCS: 71271

== ENCOUNTER → 2024-12-31 | Outpatient (CLI) | payer MEDICARE, SELFPAY ==
--- NOTE | 2024-12-31 07:07 | MRI_ITS ---
PROCEDURE: BRAIN W/WO CONTRAST 12/31/2024 REASON FOR EXAM: ASYMMETRIC HEARING LOSS TECHNIQUE: Procedure Code: [id number] Modality: MR Procedure: BRAIN W/WO CONTRAST Multiplanar and multisequence images were obtained. CONTRAST: VOLUME: mL FINDINGS: The bilateral internal auditory canals appear unremarkable. The cisternal and canalicular segments of cranial nerves 7 and 8 appear unremarkable bilaterally. The cisternal and caval segments of cranial nerves 5 appear unremarkable bilaterally. The bilateral Meckel's caves appear unremarkable. The cerebellar pontine angles are clear bilaterally. No abnormal enhancement. Scattered FLAIR hyperintense foci are noted throughout the bilateral cerebral white matter, nonspecific and without corresponding enhancement. This probably represents chronic microvascular ischemic changes. The gifford-white matter differentiation is appropriate. The ventricles are normal in size and configuration. No midline shift. The midline structures are intact, specifically the corpus callosum, septum pellucidum, pituitary gland, and cerebellar vermis. The cervicomedullary junction appears unremarkable. The paranasal sinuses and mastoid air cells are clear. Diffusion-weighted images demonstrate no restricted diffusion. No abnormal enhancement pattern. MRI/Brain W/WO Contrast IMPRESSION: Unremarkable MR appearance of the bilateral internal auditory canals. Nonspecific, nonenhancing FLAIR hyperintense foci throughout the bilateral cere bral white matter, probably representing chronic microvascular ischemic changes. Other diagnostic etiologies include findings w hich can be seen in patients experiencing migraine headaches, and less likely a demyelinating process. Reading Location: [id number]
--- OUTSIDE RECORDS SUMMARY | 2024-12-31 07:18 | XMS RPT_ITS | CCD ---
Author Organization [facility] Care Team Providers Care Jv Baseball Coach Name Role Phone Mirtha Qiu Unavailable Unavailable Unavailable Pcp, No Primary Care Provider Unavailcarlos Dinh MD, MD, Shannon Unavailable Mirtha Qiu Primary Care Provider [phone] Terry LOPEZ, Kacie Unavailable Unavailable Pcp, No Primary Care Provider UnavailBrooklyn Reyes RD Unavailable Kirit Rosas DO Unavailable Alberto Landis Unavailable Max Ortiz MD Unavailable [phone] PROVIDER, UNKNOWN Referring Unavailable PROVIDER, UNKNOWN Referring [...] Unavailable Mirtha Qiu Primary Care Provider [phone] Dr. Mirtha Qiu MD Primary Care Provider Dr. Vicki Dinh DO Attending Provider Dr. Vicki Dinh DO Referring Provider [phone] JOLLIFF, MIRTHA DREA Primary Care Unavailable CRUZ, [...] SANDRA Attending Unavailable CRUZ, SANDRA Referring Unavailable Jolliff, Mirtha S Primary Care Unavailable Vicki Dinh Attending Unavailable Vicki Dinh Referring Unavailable Jomanueliff, Mirtha S Primary Care Unavailable Vicki Dinh Attending Unavailable McMorrow ENVIRONMENTAL PLANNING ENGINEER, Thomas Primary Care Unavailable Kam Brar Attending Unavailable Kam Brar Referring Unavailable McMorrow ENVIRONMENTAL PLANNING ENGINEER, Thomas Attending Unavailable Jolliff, Mirtha S Primary Care Unavailable McMorrow ENVIRONMENTAL PLANNING ENGINEER, Thomas Primary Care Unavailable McMorrow ENVIRONMENTAL PLANNING ENGINEER, Thomas Attending Unavailable McMorrow ENVIRONMENTAL PLANNING ENGINEER, Thomas Referring Unavailable Medications Current Medications Medication Drug [...] of mouth, unspecified] Onset: 01-26-2022 01-26-2022 Chronic Diseases of mouth; excluding dental (3 [...] left ear and external auricular canal] Episodic Other screening for suspected conditions (not mental disorders or infectious disease) (1 source) Encounter for screening for malignant neoplasm of prostate; Translations: [Encounter for screening for malignant neoplasm of prostate] Onset: 12-16-2024 Episodic Secondary malignancies (6 sources) Secondary malignant neoplasm of chest wall; Translations: [Secondary malignant neoplasm of other specified sites] 11-01-2023 Chronic Secondary malignancies (1 source) Secondary malignant neoplasm of other specified sites; Translations: [Secondary malignant neoplasm of chest wall (HCC)] Onset: 04-30-2024 Chronic Substance-related disorders (1 source) Nicotine dependence, cigarettes, uncomplicated; Translations: [Nicotine dependence, cigarettes, uncomplicated] Onset: 12-13-2024 Chronic Unclassified (1 source) Radiology NM Onset: 06-21-2022 Past or Other Problems Problem Classification Problem Date Documented Da te Episodic/Chronic Genitourinary symptoms and ill-defined conditions (2 sources) Proteinuria, unspecified; Translations: [Proteinuria, unspecified] Onset: 07-26-2024 Episodic Results Test Name Value Interpretation Reference Range Facility Low Dose CT Lung Screeningon 12-10-[address] Lung Screening [facility] [address] [place] [id number] Lung Screening MR#: [id number] Acct: [id number] Name: KRYSTAL CORTES Rep #: [id number] : 1955 M 69 From: Blu Osborne MD PCP: Thomas Woodruff NP ENVIRONMENTAL PLANNING ENGINEER-C Status: REG CLI Study: Low Dose CT Lung Screening Date of Exam: 12/10 Exam# [id number] Ordering Dr: Thomas Woodruff NP ENVIRONMENTAL PLANNING ENGINEER -C PROCEDURE: LOW DOSE CT LUNG SCREENING 12/10/2024 REASON FOR EXAM: TOBACCO USE TECHNIQUE: Procedure Code: CTLUNGSCREEN Modality: CT Procedure: LOW DOSE CT LUNG SCREENING Coronal and Sagittal reconstruction series were provided. One or more dose reduction techniques were used (e.g., Automated exposure control, adjustment of the mA and/or kV according to patient size, use of iterative reconstruction technique). REFERENCE LINK: [facility] Lung-RADS RADIATION DOSE SUMMARY: CTDlvol: 2.01 mGy DLP: 79.27 mGycm COMPARISON: None. FINDINGS: PULMONARY NODULES: (Only nodules >3mm are reported) Lower neck:The thyroid gland is grossly unremarkable. There is no supraclavicular lymphadenopathy. Mediastinum:No abnormal masses or lymphadenopathy. Heart and Vasculature:The heart size is normal. There is no pericardial effusion. There is calcific vascular disease of the coronary arteries and thoracic aorta. Esophagus:Normal. Upper Abdomen:There is calcific vascular disease of the visualized abdominal aorta. Chest wall:The soft tissues of the chest wall appear unremarkable. There is no axillary lymphadenopathy. There is multilevel degenerative disc disease of the lower cervical and upper thoracic spine. Lungs, airways and pleura: There is moderate upper lobe predominant centrilobular emphysema. There are no pulmonary nodules. There are no pleural effusions. CT/Low Dose CT Lung Screening IMPRESSION: 1. Emphysema. 2. There are no pulmonary nodules. 3. Calcific vascular disease. 4. Other findings as noted. Lung-RADS Category: 1 S: Negative. Emphysema. Calcific vascular disease. Recommendation: Follow up low-dose chest CT in 12 months. Reading Location: [place] [address] CC: Thomas ROMO ENVIRONMENTAL PLANNING ENGINEER-Abdi McMorrow Pharmacy Technician Assistant: Signed Normal [facility] PSA,Total - Annual Screenon 11-21-2024 PSA,TOT SCREEN 1.25 ng/mL Normal 0.02-4.00 [facility] Comment on above: Order Comment: Order Date: [...] values. Performed By: #### L 501.9910 #### [facility] Laboratory [address] [place], [address] CNOVSPon 11-15-2024 [facility] Visit (SP) Office ([facility]) -- KRYSTAL [id number]) 1955 Date Time Provider Department 11/15/24 8:00 AM SANDRA CRUZ During your visit today, we recorded the following information about you: Temperature Pulse Blood pressure Weight 97.9 degrees 62/minute 136/80 68.9 kg Sandra Cruz APRN.HEPATOLOGY PHYSICIAN 11/15/2024 9:00 AM Signed Chief Complaint Patient [...] recalled anesthesiologist told him to see a commercial artist lettering because he may have a mass in [...] the patient had not followed up at [facility] since his first postoperative check in the spring. At the time of that surgery he w (more content not included)... Normal [facility] CT CHEST W IVCONon 5 CT CHEST W IVCON * * *Final Report* * * DATE OF EXAM: Nov 07 2024 9:14AM [facility] 0539 - CT CHEST W IVCON / [...] the chest. Stable borderline right hilar node Pharmacy Technician Assistant: ZAHEER Transcribe Date/Time: Nov 14 2024 8:18A Dictated by : ZOE ANGULO MD This examination was interpreted and the report reviewed and electronically signed by: ZOE ANGULO MD on Nov 14 2024 8:37AM EST [id number] Normal [facility] CT NECK SOFT TISSUE W IVCONo n 11-07-2024 CT NECK SOFT TISSUE W IVCON * * *Final Report* * * DATE OF EXAM: Nov 07 2024 9:14AM [facility] 0013 - CT NECK SOFT TISSUE W [...] All dentition extracted with dentures in place. Line Runner (topogram) images: Noncontributory IMPRESSION: No cervical lymphadenopathy, fluid collection, or mass. [facility] Transcribe Date/Time: Nov 07 2024 9:26A Dictated by : SAMUEL RAZO MD This examination was interpreted and the report reviewed and electronically signed by: SAMUEL RAZO MD on Nov 07 2024 9:40AM EST [id number] Normal [facility] Creatinine and Glomerular fi ltration rate.predicted panel (S/P/Bld)on 11-07-2024 Creatinine [Mass/Vol] 0.72 mg/dL Low 0.73-1.22 [facility] Comment on above: Order Comment: Speci men Type: BLOOD SPECIMEN Ordering Facility: [facility] Address: [address] [place], [place] [address] [address] Performed By: #### 4 5066-8 #### [facility] CLIA [id number] [address] [place] [address] [place] eGFRcr SerPlBld CKD-EPI 2020 100 mL/min/1.73m??? Normal >=60 [facility] Comment on above: Order Comment: Speci men Type: BLOOD SPECIMEN Ordering Facility: [facility] Address: [address], [place] [address] Result Comment: Roman mated Glomerular Filtration Rate [...] GFR. Performed By: #### 4 5066-8 #### [facility] CLIA [id number] [address] [place] Anion gap in Serum or Plasma Ordered By: Vicki Dinh on 07-26-2024 Anion gap [Moles/Vol] 12 mmol/L 5-15 [facility] BUN/creatinine ratioOrdered By: Vicki Dinh on 07-26-2024 Urea nitrogen/Creatinine [Mass ratio] 8.9 mg/mg Low 10-20 [facility] Carbon dioxide, total [Moles /volume] in Central venous bloodOrdered By: Vicki Dinh on 07-26-2024 CO2 [Moles/Vol] 23.6 mmol/L Normal 21.0-32.0 [facility] Comment on above: Performed By: #### L 501.0900, L500.3600 #### [facility] Laboratory [address] [place], [place], [id number] Chloride assayOrdered By: Arline Dinh on 07-26-2024 Chloride [Moles/Vol] 101 mmol/L Normal 98-108 [facility] Comment on above: Performed By: #### L 501.0900, L500.3600 #### [facility] [address] [facility] [place], [address] Glomerular filtration rate ( GFR) estimation/1.73 sq m using serum, plasma, or whole bOrdered By: Vicki Dinh on 07-26-2024 GFR/1.73 sq M.predicted among non-blacks MDRD (S/P/Bld) [Vol rate/Area] 98 mL/min/{1.73_m2} Normal >60 [facility] Comment on above: mL/min/1.73m2 CKD-EP I Creatinine Equation (2020) Result Comment: mL/m in/1.73m2 CKD-EPI Creatinine Equation (2020) Performed By: #### L 501.0900, L500.3600 #### [facility] [address] [place], [address] Potassium measurement (mass/ volume)Ordered By: Vicki Dinh on 07-26-2024 Potassium (Unsp spec) [Mass/Vol] 4.4 mmol/L 3.3-5.1 [facility] Protein+Creatinine Ratio,Uri neon 07-26-2024 PROT:CRE RATIO 311 mg/g CRE High 0-200 [facility] Comment on above: Performed By: #### L 501.0900, L500.3600 #### [facility] [address] [place], [address] Protein (U) [Mass/Vol] 21.2 mg/dL High 0.0-12.0 [facility] Comment on above: Performed By: #### L 501.0900, L500.3600 #### [facility] [address] [place], [address] UR CREAT 68.10 mg/dL Normal 39.00-259.0 0 [facility] Comment on above: Performed By: #### L 501.0900, L500.3600 #### [facility] [address] [place], [address] Random urine creatinine marcial urement (mass/volume)Ordered By: iVcki Dinh on 07-26-2024 Creatinine Unsp time (U) [Mass/Vol] 68.10 mg/dL 39.00-259.0 0 [facility] Renal Profileon 07-26-2024 BUN/CRE 8.9 RATIO Low 10-20 [facility] Comment on above: Performed By: #### L 501.0900, L500.3600 #### [facility] [address] [place], [address] GAP 12 Normal 5-15 [facility] Comment on above: Performed By: #### L 501.0900, L500.3600 #### [facility] [address] [place], [address] Phosphate [Mass/Vol] 3.7 mg/dL Normal 2.7-4.5 [facility] Comment on above: Performed By: #### L 501.0900, L500.3600 #### [facility] [address] [place], [address] Potassium [Moles/Vol] 4.4 mmol/L Normal 3.3-5.1 [facility] Comment on above: Performed By: #### L 501.0900, L500.3600 #### [facility] [address] [place], [address] Serum creatinine measurement (mass/volume)Ordered By: Vicki Dinh on 07-26-2024 Creatinine [Mass/Vol] 0.77 mg/dL Normal 0.70-1.20 [facility] Comment on above: Performed By: #### L 501.0900, L500.3600 #### [facility] [address] [place], [address] Serum glucose measurement (m ass/volume)Ordered By: Vicki Dinh on 07-26-2024 Glucose [Mass/Vol] 111 mg/dL High 70-99 [facility] Comment on above: Performed By: #### L 501.0900, L500.3600 #### [facility] [address] [place], [address] Serum or plasma albumin marcial urement (mass/volume)Ordered By: Vicki Dinh on 07-26-2024 Albumin [Mass/Vol] 4.4 g/dL Normal 3.4-4.8 [facility] Comment on above: Performed By: #### L 501.0900, L500.3600 #### [facility] [address] [place], [address] Serum or plasma calcium marcial urement (mass/volume)Ordered By: Vicki Dinh on 07-26-2024 Calcium [Mass/Vol] 9.1 mg/dL Normal 7.6-11.0 [facility] Comment on above: Performed By: #### L 501.0900, L500.3600 #### [facility] [address] [place], [address] Serum or plasma urea nitroge n measurement (mass/volume)Ordered By: Vicki Dinh on 07-26-2024 Urea nitrogen [Mass/Vol] 7 mg/dL Normal 4-19 [facility] Comment on above: Performed By: #### L 501.0900, L500.3600 #### [facility] [address] [place], [address] Sodium levelOrdered By: Carol Dinh on 07-26-2024 Sodium [Moles/Vol] 137 mmol/L Normal 133-145 [facility] Comment on above: Performed By: #### L 501.0900, L500.3600 #### [facility] [address] [place], [address] Urine protein measurement (m ass/volume)Ordered By: Vicki Dinh on 07-26-2024 Protein (U) [Mass/Vol] 21.2 mg/dL High 0.0-12.0 [facility] Urine protein/creatinine mas s ratioOrdered By: Vicki Dinh on 07-26-2024 Protein/Creatinine (U) [Mass ratio] 311 mg/g CRE High 0-200 [facility] CNOVSPon 05-07-2024 [facility] Visit (SP) Office ([facility]) -- KRYSTAL CORTES ([id number]) 1955 M Date Time Provider Department 05/07/24 8:00 AM SANDRA CRUZ During your visit today, we recorded the following information about you: Temperature Pulse Blood pressure Weight 98 degrees 53/minute 127/74 71.6 kg Sandra Cruz APRN.HEPATOLOGY PHYSICIAN 05/09/2024 11:16 AM Signed Chief Complaint Patient [...] recalled anesthesiologist told him to see a commercial artist lettering because he may have a mass in [...] carcinoma of (more content not included)... Normal [facility] CREATININE BLDon 04-30-2024 Creatinine [Mass/Vol] 0.67 mg/dL Low 0.73-1.22 [facility] Comment on above: Order Comment: Coy mccann Type: BLOOD SPECIMEN Ordering Facility: [facility] Address: [address] [place] [address] Performed By: #### C RET1 #### [facility] [id number] [address] [place] [address] OF [facility] Creatinine and Glomerular filtration rate.predicted panel (S/P/Bld) 102 mL/min/1.73m??? Normal >=60 [facility] Comment on above: Order Comment: Coy mccann Type: BLOOD SPECIMEN Ordering Facility: [facility] Address: [address] [place] [address] Result Comment: Roman mated Glomerular Filtration Rate [...] By: #### C RET1 #### [facility] [id number] [address] [place] [address] [place] CT CHEST W IVCONon 5 CT CHEST W IVCON * * *Final Report* * * DATE OF EXAM: Apr 30 2024 9:12AM [facility] 0539 - CT CHEST W IVCON / [...] Unchanged borderline enlarged right hilar lymph node Pharmacy Technician Assistant: ZAHEER Transcribe Date/Time: May 03 2024 10:26A Dictated by : SHARON GRIMALDO MD This examination was interpreted and the report reviewed and electronically signed by: SHARON GRIMALDO MD on May 03 2024 10:45AM EST [id number] Normal [facility] CT NECK SOFT TISSUE W IVCONo n 04-30-2024 CT NECK SOFT TISSUE W IVCON * * *Final Report* * * DATE OF EXAM: Apr 30 2024 9:12AM [facility] 0013 - CT NECK SOFT TISSUE W [...] cervical adenopathy. Additional chronic findings, as described. Pharmacy Technician Assistant: [facility] Transcribe Date/Time: Apr 30 2024 10:28A Dictated by : SKYLAR CAO MD This examination was interpreted and the report reviewed and electronically signed by: SKYLAR CAO MD on Apr 30 2024 10:41AM EST [id number] Normal [facility] CT Neck W contrast Kev 04-20 IMPRESSION: No new or suspicious neck mass or cervical adenopathy. Additional chronic findings, as described. Pharmacy Technician Assistant: [facility] Transcribe Date/Time: Apr 30 2024 10:28A Dictated by : SKYLAR CAO MD This examination was interpreted and the report reviewed and electronically signed by: SKYLAR CAO MD on Apr 30 2024 10:41AM EST DIVISION OF RADIOLOGY * * *Final Report* * * DATE OF EXAM: Apr 30 2024 9:12AM [facility] 0013 - CT NECK SOFT TISSUE W [...] Other: Not applicable. DIVISION OF RADIOLOGY Provider, [facility] - 04/30/2024 * * *Final Report* * * DATE OF EXAM: Apr 30 2024 9:12AM [facility] 0013 - CT NECK SOFT TISSUE W [...] cervical adenopathy. Additional chronic findings, as described. Pharmacy Technician Assistant: [facility] Transcribe Date/Time: Apr 30 2024 10:28A Dictated by : SKYLAR CAO MD This examination was interpreted and the report reviewed and electronically signed by: SKYLAR CAO MD on Apr 30 2024 10:41AM EST [facility] Radiology Study observation (narrative) [facility] CT Neck W contrast IVOrdered By: Ccf Provider on 04-30-[address] [facility] [address] Neck W contrast Kev 09-0 IMPRESSION: No neck mass or lymphadenopathy. Pharmacy Technician Assistant: [facility] Transcribe Date/Time: Oct 24 2023 12:08P Dictated by : JERRY STAFFORD MD This examination was interpreted and the report reviewed and electronically signed by: JERRY STAFFORD MD on Oct 24 2023 12:17PM [facility] DIVISION OF RADIOLOGY * * *Final Report* * * DATE OF EXAM: Oct 24 2023 9:37AM [facility] 0013 - CT NECK SOFT TISSUE W [...] amalgam. Parotid and submandibular spaces are normal. Roller Helper spaces appear normal. Infrahyoid Neck: Hypopharynx, larynx, [...] in imaged lung apices. Other: Not applicable. Line Runner (topogram) images: No significant findings. DIVISION OF RADIOLOGY Provider, [facility] - 10/24/2023 * * *Final Report* * * DATE OF EXAM: Oct 24 2023 9:37AM [facility] 0013 - CT NECK SOFT TISSUE W [...] amalgam. Parotid and submandibular spaces are normal. Roller Helper spaces appear normal. Infrahyoid Neck: Hypopharynx, larynx, [...] in imaged lung apices. Other: Not applicable. Line Runner (topogram) images: No significant findings. IMPRESSION IMPRESSION: No neck mass or lymphadenopathy. Pharmacy Technician Assistant: [facility] Transcribe Date/Time: Oct 24 2023 12:08P Dictated by : JERRY STAFFORD MD This examination was interpreted and the report reviewed and electronically signed by: JERRY STAFFORD MD on Oct 24 2023 12:17PM [facility] Radiology Study observation (narrative) [facility] CT Neck W contrast IVOrdered By: Ccf Provider on 10-24-[address] [facility] [address] Neck W contrast Kev 03-0 [facility] No Panel Informationon 10-17 [facility] NM PET/CT SKULL-THIGH SUBQon 06-21-2022 NM PET/CT [...] uptake to suggest FDG avid neoplastic process.. Pharmacy Technician Assistant: ZAHEER Transcribe Date/Time: Jun 21 2022 10:01A Dictated by : JOSEPH BAXTER MD This examination was interpreted and the report reviewed and electronically signed by: JOSEPH BAXTER MD on Jun 21 2022 10:13AM EST [id number] Normal [facility] PET/CT SKULL-THIGH SUBSEQ UENTon 06-21-2022 [facility] PET/CT SKULL-THIGH INITon 02-08-2022 [place] PET/CT SKULL-THIGH INIT * * *Final Report* * * DATE OF EXAM: Feb 08 2022 8:16AM [facility] 0060 - NM PET/CT SKULL-THIGH INIT / PROCEDURE REASON: C15.4-Malignant [...] avid osseous process. No destructive/traumatic bony abnormality. Pharmacy Technician Assistant: [facility] Transcribe Date/Time: Feb 08 2022 9:20A Dictated by : DEB OWENS MD This examination was interpreted and the report reviewed and electronically signed by: DEB OWENS MD on Feb 08 2022 9:54AM EST [id number] Normal [facility] No Panel Informationon 02-08 [facility] EGD - THERAPEUTIC, EUS, OR T UBE INTERVENTIONSon 01-18-2022 [facility] Basophil percentageon 2021 Chloride [Moles/Vol] 100 mmol/L 98-107 [facility] Work Phone: Cholesterol [Mass/Vol] 194 mg/dL <200 [facility] Work Phone: Comment on above: <200 mg/dL Desirable 200-240 mg/dL Borderline >240 mg/dL High Risk Glucose [Mass/Vol] 105 mg/dL 74-106 [facility] Work Phone: Comment on above: Fasting Glucose resu lt from 100 to 125 mg/dL suggests IMPAIRED HOMEOSTASIS per A.D.A. criteria. Potassium [Moles/Vol] 4.4 mmol/L 3.5-5.1 [facility] Work Phone: [phone] Sodium [Moles/Vol] 139 mmol/L 136-145 [facility] Work Phone: [phone] Triglyceride [Mass/Vol] 43 mg/dL <199 [facility] Work Phone: [phone] Comment on above: The drugs N-Acetylcy steine and Metamizole may falsely depress this assay.Serum Triglycerides Reference Interval Normal <150 mg/dL Borderline high 150 - 199 mg/dL High 200 - 499 mg/dL Very High > or = 500 mg/dL Laboratory - Chemistry and C hemistry - challengeon 11-15-2021 CO2 [Moles/Vol] 30.0 mmol/L 21.0-32.0 [facility] Work Phone: [phone] Urea nitrogen/Creatinine [Mass ratio] 9.3 mg/mg 10-20 [facility] Work Phone: [phone] Panel Informationon 11-15 Estimated GFR (MDRD) Amer 115 mL/min >60 [facility] Work Phone: [phone] Comment on above: GFR Calc Estimated GFR (MDRD) Non-Af Amer 95 mL/min >60 [facility] Work Phone: Comment on above: Non- GFR Calc Prostate Specific Antigen Screen 1.30 ng/mL 0.00-4.00 [facility] Work Phone: [phone] Comment on above: This test was perfor med using the TPSA assay method [facility] system. Values obtained with differentassay methods cannot be used interchangably.When changing PSA assays in the course of monitoring apatient, additional sequential testing should be carriedout to confirm baseline values. Urine Microalbumin/Creatin ine Ratio 79.9 mg/g CRE <30 [facility] Work Phone: [phone] Serum or plasma calcium marcial urement (mass/volume)on 11-15-2021 Calcium [Mass/Vol] 9.3 mg/dL 8.5-10.1 [facility] Work Phone: Serum or plasma cholesterol in HDL measurement (mass/volume)on 11-15-2021 Cholesterol in HDL [Mass/Vol] 76 mg/dL >40 [facility] Work Phone: Comment on above: The drugs N-Acetylcy steine and Metamizole may falsely depress this assay. Reference Range HDL <40 mg/dL Low HDL Cholesterol HDL >or= 60 mg/dL High HDL Cholesterol Serum or plasma cholesterol in VLDL measurement (mass/volume)on 11-15-2021 Cholesterol in VLDL [Mass/Vol] 9 mg/dL 5-40 [facility] Work Phone: Serum or plasma creatinine m easurement (mass/volume)on 11-15-2021 Creatinine [Mass/Vol] 0.86 mg/dL 0.70-1.30 [facility] Work Phone: Comment on above: The validity of the calculated GFR & GFRAA in patients over 70 years has not been determined. Clinical correlation is essential. Serum or plasma low density lipoprotein (LDL) cholesterol measurement (mass/volume)on 11-15-2021 Cholesterol in LDL [Mass/Vol] 109 mg/dL 0-130 [facility] Work Phone: Serum or plasma urea nitroge n measurement (mass/volume)on 11-15-2021 Urea nitrogen [Mass/Vol] 8 mg/dL 7-18 [facility] Work Phone: Thin prep Papanicolaou smear with manual screeningon 11-15-2021 Thin prep Papanicolaou smear with manual screening 9 5-15 [facility] Work Phone: Thin prep Papanicolaou smear with manual screening 28.3 mg/L NO RANGE EST. [facility] Work Phone: Urine creatinine measurement (mass/volume)on 11-15-2021 Creatinine (U) [Mass/Vol] 35.40 mg/dL NO RANGE EST. [facility] Work Phone: Established Visit (Otolaryng ology)on 06-01-2021 [...] Tablet Vitals Vital Signs Recorded: 01Jun2021 10:15AM Njherzvsuyn92 F Height5 ft 11 in Pgyeew297 lb BMI Gotvdxiyum66.29 kg/m2 BSA Calculated1.95 Tobacco Usea) Yes Fall [...] Jun 01 2021 10:26AM EST (Author) Normal [employer] No Panel Informationon 05-13 [facility]: Operative Reports - [facility] [place] [address] Patient Name: KRYSTAL CORTES : 1955 Date of Service: 05/13/2021 Patient Location: [place] [address] Patient Type: O Surgeon: Guru Gallagher MD Report Type: Operative Reports PREOPERATIVE DIAGNOSIS: Floor of mouth lesion. POSTOPERATIVE DIAGNOSIS: Floor of mouth lesion. OPERATIONS/PROCEDURES: 1. Direct laryngoscopy. 2. Flexible bronchoscopy. 3. Flexible esophagoscopy. 4. Excision of a floor of mouth lesion and bilateral submandibular duct sialodochoplasty. SURGEON: Guru Gallagher MD BEATING MACHINE OPERATOR(S): Dr. Kera Arredondo. ANESTHESIA: OPERATIVE INDICATION: [...] TT: 05/13/2021 04:00 PM EST DICTATION NUMBER: [id number] [facility] JOB NUMBER: [id number] CC: Mirtha Qiu Electronic Signatures: Guru Gallagher) (Signed on 13-May-2021 17:02) Authored Unsigned, Draft (SYS GENERATED) (Entered on 13-May-2021 16:00) Entered Last Updated: 13-May-2021 17:02 by Guru Gallagher) [facility] Order Reconciliationon 05-13 Order Reconciliation Page 1 [...] 05-May-2021 09:55 amLODIPine 10 mg oral tablet 1 [...] Document Arch (more content not included)... Normal [facility] Patient Profile - Preop v3on 05-13-2021 Patient Profile - Preop v3 Patient Profile - Preop: Initial Info: Patient DemographicsName: KRYSTAL CORTES Date: 1955 Address: [place] [address] Primary Phone [id number] How to be AddressedJim Spoken Language PreferredEnglish [...] Withspouse Living Arrangementshouse Resource/Environmental Concernsnone [facility] Anticipated at Transitionnone Tobacco Use: Tobacco [...] 13-May-2021 12:46 by Beth Montgomery (JESSICA) Normal [facility] Surgical Pathology Depar tmenton 05-13-2021 [facility] Surgical Pathology Department Name KRYSTAL CORTES [...] Tumor Block: A3 Non Tumor Block: A6 jkw Electronically Signed Out By FORTINO JOSEPH MD/ESTRELLITA By the signature on this report, the individual or group listed as making the Final Interpretation/Diagnosis certifies that they have reviewed this case. Clinical History: Physician Contact Number: [phone] Fixative (A): Saline Clinical Diagnosis History ORAL [...] right 7 right tip, en face my/05/14/2021 [facility] Department of Pathology [id number] [place] [address] Normal [facility] Comment on above: Performed By: #### U [facility] ####[facility] Surgical Pathology [id number] [place] [id number] CORONAVIRUS 2019, SCREEN ASY MPTOMATICon 05-10-2021 SARS-CoV-2 (COVID-19) RNA REESE+probe Ql (Unsp spec) Not detected Normal Not Detected [facility] Comment on above: Result Comment: . This [...] patient management decisions. Fact sheet for providers: https://www.fda.gov/media/042549/download Fact sheet for patients: https://www.fda.gov/media/658808/download This test has received FDA Emergency Use Authorization (EUA) and has been verified by [facility] ([facility]). This test is only authorized for the duration of time that circumstances exist to justify the authorization of the emergency use of in vitro diagnostic tests for the detection of SARS-CoV-2 virus and/or diagnosis of COVID-19 infection under section 564(b)(1) of the Act, 21 U.S.C. 360bbb-3(b)(1), unless the authorization is terminated or revoked sooner. [facility] is certified under CLIA-88 as qualified to perform high complexity testing. Testing is performed in the [facility] laboratories located at [address] [place] [address]. Performed By: #### C OVSC #### [place] [address] Lab Specimen Source Nasal, Nasopharyngeal Normal [facility] Comment on above: Performed By: #### C OVSC #### [place] [address] Coronavirus 2019 RNA by PCR, Screening Asymptomticon 05-10-2021 Coronavirus 2019 RNA by PCR, Screening Asymptomtic Not detected Normal See Below [facility] Work Phone: Comment on above: SOURCE: Nasal, [...] make patient management decisions.Fact sheet for providers: https://www.fda.gov/media/576193/downloadFact sheet for patients: https://www.fda.gov/media/830386/downloadThis test has received FDA Emergency Use Authorization (EUA) and has been verified by [facility] ([facility]). This test is only authorized for the duration of time that circumstances exist to justify the authorization of the emergency use of in vitro diagnostic tests for the detection of SARS-CoV-2 virus and/or diagnosis of COVID-19 infection under section 564(b)(1) of the Act, 21 U.S.C. 360bbb-3(b)(1), unless the authorization is terminated or revoked sooner. [facility] is certified under CLIA-88 as qualified to perform high complexity testing. Testing is performed in the [facility] laboratories located at [address] [place] [address]. Covid 19 Resultson 2 SARS-CoV-2 (COVID-19) RNA [...] You may also be contacted by the [facility] to see if any of your close [...] or Naproxen (Aleve) can also be used. Mxcu-nxr-nruaxti cough and cold medicines can be used according to the instructions on the package. Some nskd-kvr-vcjyhcq medicines also contain acetaminophen. Make sure you [...] water are not available, use alcohol-based hand quarter folder. Avoid touching your eyes, nose, and mouth [...] 24 cindy (more content not included)... Normal [facility] BASIC METABOLIC PANELon 04-20 Anion gap [Moles/Vol] 14 mmol/L Normal 10 - 20 [facility] Comment on above: Performed By: #### B MP ####[id number] [place] [address] Calcium [Mass/Vol] 9.0 mg/dL Normal 8.6 - 10.6 [facility] Comment on above: Performed By: #### B MP ####[id number] [place] [address] Chloride [Moles/Vol] 99 mmol/L Normal 98 - 107 [facility] Comment on above: Performed By: #### B MP ####[id number] [place] [address] Creatinine [Mass/Vol] 0.81 mg/dL Normal 0.50 - 1.30 [facility] Comment on above: Performed By: #### B MP ####[id number] [place] [address] eGFR MALE >90 Normal >90 [facility] Comment on above: Result Comment: CALC ULATIONS OF ESTIMATED GFR ARE PERFORMED USING THE 2020 CKD-EPI STUDY REFIT EQUATION WITHOUT THE RACE VARIABLE FOR THE IDMS-TRACEABLE CREATININE METHODS. https://jasn.asnjournals.org/content/early/ASN.5881107 988 Performed By: #### B MP ####[id number] [place] [address] Glucose [Mass/Vol] 86 mg/dL Normal 74 - 99 [facility] Comment on above: Performed By: #### B MP ####[id number] [place] [address] HCO3 (Bld) [Moles/Vol] 30 mmol/L Normal 21 - 32 [facility] Comment on above: Performed By: #### B MP ####[id number] [place] [address] Potassium [Moles/Vol] 4.1 mmol/L Normal 3.5 - 5.3 [facility] Comment on above: Performed By: #### B MP ####[id number] [place] [address] Sodium [Moles/Vol] 139 mmol/L Normal 136 - 145 [facility] Comment on above: Performed By: #### B MP ####[id number] [place] [address] Urea nitrogen [Mass/Vol] 9 mg/dL Normal 6 - 23 [facility] Comment on above: Performed By: #### B MP ####[id number] [place] [address] CBCon 05-05-2021 Erythrocyte distribution width (RBC) [Ratio] 12.5 % Normal 11.5 - 14.5 [facility] Comment on above: Performed By: #### C BC ####[id number] [place] [address] Hematocrit (Bld) [Volume fraction] 51.4 % Normal 41.0 - 52.0 [facility] Comment on above: Performed By: #### C BC ####[id number] [place] [address] Hemoglobin (Bld) [Mass/Vol] 17.0 g/dL Normal 13.5 - 17.5 [facility] Comment on above: Performed By: #### C BC ####[id number] [place] [address] MCHC (RBC) [Mass/Vol] 33.1 g/dL Normal 32.0 - 36.0 [facility] Comment on above: Performed By: #### C BC ####[id number] [place] [address] MCV (RBC) [Entitic vol] 102 fL High 80 - 100 [facility] Comment on above: Performed By: #### C BC ####[id number] [place] [address] NUCLEATED RBC 0.0 /100 WBC Normal 0.0-0.0 [facility] Comment on above: Performed By: #### C BC ####[id number] [place] [address] Platelets (Bld) [#/Vol] 247 10*3/uL Normal 150 - 450 [facility] Comment on above: Performed By: #### C BC ####[id number] [place] [address] RBC 5.04 x10E12/L Normal 4.50 - 5.90 [facility] Comment on above: Performed By: #### C BC ####[id number] [place] [address] WBC (Bld) [#/Vol] 7.9 10*3/uL Normal 4.4 - 11.3 [facility] Comment on above: Performed By: #### C BC ####[id number] [place] [address] Electrocardiogram 12 Leadon 05-05-2021 Electrocardiogram 12 Lead Ventricular Rate 52 Atrial Rate 52 P-R Interval 138 QRS Duration 84 Q-T Interval 454 QTC Calculation(Bazett) 422 P Blair 73 R Blair -87 T Blair 47 QRS Count 8 Q Onset 214 P Onset 145 P Offset 203 T Offset 441 QTC Fredericia 432 Diagnosis Class Abnormal Diagnosis Sinus bradycardia Left axis deviation Abnormal ECG No previous ECGs available Confirmed by SERGEI FOSS MD ([id number]) on 05/06/2021 11:41:19 AM Normal [facility] Laboratory - Blood bankon ABO group Nom (Bld) A MG-Ot olaryng oly-[facility] Work Phone: Blood group antibody screen Ql Negative [facility]-Otolaryng oly-[facility] Work Phone: Rh immune globulin screen (Bld) [Interp] Positive [facility]-Otolaryng oly-[facility] Work Phone: Laboratory - Chemistry and C hemistry - challengeon 05-05-2021 Anion gap [Moles/Vol] 14 mmol/L 10 - 20 [facility]-Otolaryng oly-[facility] Work Phone: Calcium [Mass/Vol] 9.0 mg/dL 8.6 - 10.6 [facility] laryng ology-[facility] Work Phone: Chloride [Moles/Vol] 99 mmol/L 98 - 107 [facility]-O tolaryng oly-[facility] Work Phone: CO2 [Moles/Vol] 30 mmol/L 21 - 32 MG-Otolar yng oly-[facility] Work Phone: Creatinine [Mass/Vol] 0.81 mg/dL See Below [facility]-Otolaryng oly-[facility] Work Phone: Comment on above: Reference Range: 0.5 0 - 1.30 Glucose [Mass/Vol] 86 mg/dL 74 - 99 [facility] laryng ology-[facility] Work Phone: Potassium [Moles/Vol] 4.1 mmol/L 3.5 - 5.3 -Bill lechuga Work Phone: Sodium [Moles/Vol] 139 mmol/L 136 - 145 -Brayan lechuga Work Phone: Urea nitrogen [Mass/Vol] 9 mg/dL 6 - 23 Ravinder lechuga Work Phone: Laboratory - Hematology and Cell countson 05-05-2021 Erythrocyte distribution width (RBC) [Ratio] 12.5 % See Below ApceraBill lech[facility] Work Phone: Comment on above: Reference Range: 11. 5 - 14.5 Hematocrit (Bld) [Volume fraction] 51.4 % See Below [facility] Work Phone: Comment on above: Reference Range: 41. 0 - 52.0 Hemoglobin (Bld) [Mass/Vol] 17.0 g/dL See Below [facility]cer[facility] Work Phone: Comment on above: Reference Range: 13. 5 - 17.5 MCHC (RBC) [Mass/Vol] 33.1 g/dL See Below [facility] Work Phone: Comment on above: Reference Range: 32. 0 - 36.0 MCV (RBC) [Entitic vol] 102 fL above high threshold 80 - 100 Ravinder lechuga Work Phone: Platelets (Bld) [#/Vol] 247 10*3/uL 150 - 450 Ravinder lechuga Work Phone: RBC (Bld) [#/Vol] 5.04 {x10E12/L} See Below ApceraBill [facility] Work Phone: Comment on above: Reference Range: 4.5 0 - 5.90 WBC (Bld) [#/Vol] 7.9 10*3/uL 4.4 - 11.3 [facility] laryng ology-[facility] Work Phone: No Panel Informationon 05-05 >90 >90 [facility]-Otolaryng ology-[facility] Work Phone: Comment on above: CALCULATIONS OF ROMAN MATED GFR ARE PERFORMED USING THE 2020 CKD-EPI STUDY REFIT EQUATION WITHOUT THE RACE VARIABLE FOR THE IDMS-TRACEABLE CREATININE METHODS.https://jasn.asnjournals.org/content/early//ASN .5432831845 0.0 {/100_WBC} 0.0-0.0 MG-Otolary ng ology-[facility] Work Phone: http://[email or web address] 1:8080 /musescripts/museweb.dll?R etrieveTestByDateTime?Netta hlyBP=[id number]&Date=&Time=09%3a04%3a12%3a 00&TestType=ECG&Site=1&Out putType=PDF&Ext=PDF [facility]tolaryng ology-[facility] Work Phone: Sinus bradycardia MG-Otol aryng ology-[facility] Work Phone: Abnormal [facility]-Otolaryng ology-[facility] Work Phone: [phone] [facility]-Otolaryng ology-[facility] Work Phone: [phone] [facility]Otolaryng ology-[facility] Work Phone: [phone] [facility]Otolaryng ology-[facility] Work Phone: 145 1 [facility]Otolaryng ology-[facility] Work Phone: [phone] [facility]Otolaryng ology-[facility] Work Phone: 8 1 [facility]aryng ology[facility] Work Phone: [phone] [facility]aryng [facility]log[facility] Work Phone: [phone] [facility]aryng [facility]log[facility] Work Phone: [phone] [facility]aryng [facility]log[facility] Work Phone: [phone] [facility]aryng [facility]log[facility] Work Phone: [phone] [facility]aryng [facility] Work Phone: [phone] [facility] Work Phone: [phone] [facility]aryng [facility] Work Phone: [phone] [facility] Work Phone: [phone] TYPE + SCREENon 05-05-2021 ABO TYPE A Normal [facility] Comment on above: Performed By: #### T +S #### [facility] [address] [place] [address] RH TYPE Positive Normal [facility] Comment on above: Performed By: #### T +S #### [facility] [address] [place] [id number] Initial Visit (Otolaryngolog y)on 04-27-2021 Initial Visit [...] Tablet Vitals Vital Signs Recorded: 27Apr2021 08:47AM Petsexnlirk68.4 F Height5 ft 11 in Vggxmh300 lb BMI Ugggbalumh12.01 kg/m2 BSA Calculated1.94 Tobacco Useb) No Fall [...] Apr 27 2021 9:12AM EST (Author) Normal [employer] Tobacco Screening.on 022 Fall risk assessment a) No falls within the last year [facility]-Otolaryng ology-[facility] Work Phone: Tobacco use status CPHS b) No -Otolaryng ology-[facility] Work Phone: Vital Signs Date Time Vital Sign Value Performing Clinician Facility 05-07-2024 07:58-0400 Body mass index (BMI) [Ratio] 22.98 kg/m2 Sandra Cruz APRN.CNP Work Phone: [facility] 05-07-2024 07:58-0400 Body temperature 98.01 [degF] Sandra Cruz APRN.HEPATOLOGY PHYSICIAN Work Phone: [facility] 05-07-2024 07:58-0400 Body weight 71.6 kg Sandra Cruz APRN.CNP Work Phone: [facility] 05-07-2024 07:58-0400 Diastolic blood pressure 74 mm[Hg] Sandra Cruz APRN.CNP Work Phone: [facility] 05-07-2024 07:58-0400 Heart rate 53 /min Sandra Cruz APRN.CNP Work Phone: [facility] 05-07-2024 07:58-0400 SaO2% (BldA) [Mass fraction] 96 % Sandra Cruz FOUNDATION ENGINEER.HEPATOLOGY PHYSICIAN Work Phone: [facility] 05-07-2024 07:58-0400 Systolic blood pressure 127 mm[Hg] Sandra Cruz FOUNDATION ENGINEER.HEPATOLOGY PHYSICIAN Work Phone: [facility] 11-01-2023 08:09-0400 Body mass index (BMI) [Ratio] 22.82 kg/m2 Sandra Crzu FOUNDATION ENGINEER.HEPATOLOGY PHYSICIAN Work Phone: [facility] 11-01-2023 08:09-0400 Body temperature 97.39 [degF] Sandra Cruz FOUNDATION ENGINEER.HEPATOLOGY PHYSICIAN Work Phone: [facility] 11-01-2023 08:09-0400 Body weight 71.1 kg Sandra Cruz FOUNDATION ENGINEER.HEPATOLOGY PHYSICIAN Work Phone: [facility] 11-01-2023 08:09-0400 Diastolic blood pressure 81 mm[Hg] Sandra Cruz FOUNDATION ENGINEER.HEPATOLOGY PHYSICIAN Work Phone: [facility] 11-01-2023 08:09-0400 Heart rate 43 /min Sandra Cruz FOUNDATION ENGINEER.HEPATOLOGY PHYSICIAN Work Phone: [facility] 11-01-2023 08:09-0400 SaO2% (BldA) [Mass fraction] 97 % Sandra Cruz FOUNDATION ENGINEER.HEPATOLOGY PHYSICIAN Work Phone: [facility] 11-01-2023 08:09-0400 Systolic blood pressure 170 mm[Hg] [place] Cruz FOUNDATION ENGINEER.HEPATOLOGY PHYSICIAN Work Phone: [facility] 04-27-2023 08:06-0500 Body height 176.5 cm Kirit Rosas DO Work Phone: [facility] 04-27-2023 08:06-0500 Body temperature 97.81 [degF] Kirit Rosas DO Work Phone: [facility] 04-27-2023 08:06-0500 Body weight 73.26 kg Kirit Rosas DO Work Phone: [facility] 04-27-2023 08:06-0500 Diastolic blood pressure 75 mm[Hg] Kirit Masci DO Work Phone: [facility] 04-27-2023 08:06-0500 Heart rate 51 /min Kirit Masci DO Work Phone: [facility] 04-27-2023 08:06-0500 SaO2% (BldA) [Mass fraction] 97 % Kirit Masci DO Work Phone: [facility] 04-27-2023 08:06-0500 Systolic blood pressure 157 mm[Hg] Kirit Masci DO Work Phone: [facility] 10-21-2022 10:27-0400 Body height 177 cm Kirit Masci DO Work Phone: [facility] 10-21-2022 10:27-0400 Body temperature 97.7 [degF] Kirit Masci DO Work Phone: [facility] 10-21-2022 10:27-0400 Body weight 72.35 kg Kirit Masci DO Work Phone: [facility] 10-21-2022 10:27-0400 Diastolic blood pressure 81 mm[Hg] Kirit Masci DO Work Phone: [facility] 10-21-2022 10:27-0400 Heart rate 47 /min Kirit Masci DO Work Phone: [facility] 10-21-2022 10:27-0400 SaO2% (BldA) [Mass fraction] 98 % Kirit Masci DO Work Phone: [facility] 10-21-2022 10:27-0400 Systolic blood pressure 164 mm[Hg] Kirit Masci DO Work Phone: [facility] 06-24-2022 08:48-0400 Body temperature 97.2 [degF] Kirit Masci DO Work Phone: [facility] 06-24-2022 08:48-0400 Body weight 72.58 kg Kirit Masci DO Work Phone: [facility] 06-24-2022 08:48-0400 Diastolic blood pressure 73 mm[Hg] Kirit Masci DO Work Phone: [facility] 06-24-2022 08:48-0400 Heart rate 50 /min Kirit Masci DO Work Phone: [facility] 06-24-2022 08:48-0400 SaO2% (BldA) [Mass fraction] 97 % Kirit Masci DO Work Phone: [facility] 06-24-2022 08:48-0400 Systolic blood pressure 130 mm[Hg] Kirit Masci DO Work Phone: [facility] 05-05-2022 08:54-0400 Body temperature 97.5 [degF] Kirit Masci DO Work Phone: [facility] 05-05-2022 08:54-0400 Body weight 71.67 kg Kirit Masci DO Work Phone: [facility] 05-05-2022 08:54-0400 Diastolic blood pressure 64 mm[Hg] Kirit Masci DO Work Phone: [facility] 05-05-2022 08:54-0400 Heart rate 53 /min Kirit Masci DO Work Phone: [facility] 05-05-2022 08:54-0400 Systolic blood pressure 119 mm[Hg] Kirit Masci DO Work Phone: [facility] 04-12-2022 09:35-0500 Body temperature 97.7 [degF] Shannon Dinh MD, MD Work Phone: [facility] 04-12-2022 09:35-0500 Body weight 73.94 kg Shannon Dinh MD, MD Work Phone: [facility] 04-12-2022 09:35-0500 Diastolic blood pressure 62 mm[Hg] Shannon Dinh MD, MD Work Phone: [facility] 04-12-2022 09:35-0500 Heart rate 67 /min Shannon Dinh MD, MD Work Phone: [facility] 04-12-2022 09:35-0500 Respiratory rate 15 /min Shannon Dinh MD, MD Work Phone: [facility] 04-12-2022 09:35-0500 SaO2% (BldA) [Mass fraction] 100 % Shannon Dinh MD, MD Work Phone: [facility] 04-12-2022 09:35-0500 Systolic blood pressure 110 mm[Hg] Shannon Dinh MD, MD Work Phone: [facility] 04-11-2022 09:49-0500 Body temperature 97.5 [degF] Treatment Wstr Work Phone: [facility] 04-11-2022 09:49-0500 Body weight 72.12 kg Treatment Wstr Work Phone: [facility] 04-11-2022 09:49-0500 Diastolic blood pressure 62 mm[Hg] Treatment Wstr Work Phone: [facility] 04-11-2022 09:49-0500 Heart rate 62 /min Treatment Wstr Work Phone: [facility] 04-11-2022 09:49-0500 SaO2% (BldA) [Mass fraction] 98 % Treatment Wstr Work Phone: [facility] 04-11-2022 09:49-0500 Systolic blood pressure 116 mm[Hg] Treatment Wstr Work Phone: [facility] 04-06-2022 09:21-0500 Body temperature 97.7 [degF] [place] Cruz FOUNDATION ENGINEER.HEPATOLOGY PHYSICIAN Work Phone: [facility] 04-06-2022 09:21-0500 Body weight 74.16 kg [place] Cruz FOUNDATION ENGINEER.HEPATOLOGY PHYSICIAN Work Phone: [facility] 04-06-2022 09:21-0500 Diastolic blood pressure 61 mm[Hg] Sandra Cruz FOUNDATION ENGINEER.HEPATOLOGY PHYSICIAN Work Phone: [facility] 04-06-2022 09:21-0500 Heart rate 59 /min [place] Cruz FOUNDATION ENGINEER.HEPATOLOGY PHYSICIAN Work Phone: [facility] 04-06-2022 09:21-0500 Systolic blood pressure 111 mm[Hg] Sandra Cruz HEPATOLOGY PHYSICIAN Work Phone: [facility] 04-05-2022 09:26-0500 Body temperature 98.91 [degF] Shannon Dinh MD, MD Work Phone: [facility] 04-05-2022 09:26-0500 Body weight 73.94 kg Shannon Dinh MD, MD Work Phone: [facility] 04-05-2022 09:26-0500 Diastolic blood pressure 59 mm[Hg] Shannon Dinh MD, MD Work Phone: [facility] 04-05-2022 09:26-0500 Heart rate 76 /min Shannon Dinh MD, MD Work Phone: [facility] 04-05-2022 09:26-0500 SaO2% (BldA) [Mass fraction] 96 % Shannon Dinh MD, MD Work Phone: [facility] 04-05-2022 09:26-0500 Systolic blood pressure 118 mm[Hg] Shannon Dinh MD, MD Work Phone: [facility] 04-04-2022 09:18-0500 Body temperature 97.7 [degF] Treatment Wstr Work Phone: [facility] 04-04-2022 09:18-0500 Body weight 74.39 kg Treatment Wstr Work Phone: [facility] 04-04-2022 09:18-0500 Diastolic blood pressure 72 mm[Hg] Treatment Wstr Work Phone: [facility] 04-04-2022 09:18-0500 Heart rate 61 /min Treatment Wstr Work Phone: [facility] 04-04-2022 09:18-0500 Systolic blood pressure 112 mm[Hg] Treatment Wstr Work Phone: [facility] 03-29-2022 08:45-0500 Body temperature 98.4 [degF] Shannon Dinh MD, MD Work Phone: [facility] 03-29-2022 08:45-0500 Body weight 73.12 kg Shannon Dinh MD, MD Work Phone: [facility] 03-29-2022 08:45-0500 Diastolic blood pressure 55 mm[Hg] Shannon Dinh MD, MD Work Phone: [facility] 03-29-2022 08:45-0500 Heart rate 69 /min Shannon Dinh MD, MD Work Phone: [facility] 03-29-2022 08:45-0500 Respiratory rate 15 /min Shannon Dinh MD, MD Work Phone: [facility] 03-29-2022 08:45-0500 SaO2% (BldA) [Mass fraction] 98 % Shannon Dinh MD, MD Work Phone: [facility] 03-29-2022 08:45-0500 Systolic blood pressure 104 mm[Hg] Shannon Dinh MD, MD Work Phone: [facility] 03-28-2022 10:00-0500 Body temperature 97.11 [degF] Treatment Wstr Work Phone: [facility] 03-28-2022 10:00-0500 Body weight 73.94 kg Treatment Wstr Work Phone: [facility] 03-28-2022 10:00-0500 Diastolic blood pressure 61 mm[Hg] Treatment Wstr Work Phone: [facility] 03-28-2022 10:00-0500 Respiratory rate 54 /min Treatment Wstr Work Phone: [facility] 03-28-2022 10:00-0500 Systolic blood pressure 126 mm[Hg] Treatment Wstr Work Phone: [facility] 03-22-2022 09:22-0500 Body temperature 98.6 [degF] Shannon Dinh MD, MD Work Phone: [facility] 03-22-2022 09:22-0500 Body weight 73.48 kg Shannon Dinh MD, MD Work Phone: [facility] 03-22-2022 09:22-0500 Diastolic blood pressure 75 mm[Hg] Shannon Dinh MD, MD Work Phone: [facility] 03-22-2022 09:22-0500 Heart rate 75 /min Shannon Dinh MD, MD Work Phone: [facility] 03-22-2022 09:22-0500 Respiratory rate 16 /min Shannon Dinh MD, MD Work Phone: [facility] 03-22-2022 09:22-0500 SaO2% (BldA) [Mass fraction] 99 % Shannon Dinh MD, MD Work Phone: [facility] 03-22-2022 09:22-0500 Systolic blood pressure 139 mm[Hg] Shannon Dinh MD, MD Work Phone: [facility] 03-21-2022 09:00-0500 Body temperature 97 [degF] Treatment Wstr Work Phone: [facility] 03-21-2022 09:00-0500 Body weight 73.48 kg Treatment Wstr Work Phone: [facility] 03-21-2022 09:00-0500 Diastolic blood pressure 57 mm[Hg] Treatment Wstr Work Phone: [facility] 03-21-2022 09:00-0500 Heart rate 61 /min Treatment Wstr Work Phone: [facility] 03-21-2022 09:00-0500 Respiratory rate 18 /min Treatment Wstr Work Phone: [facility] 03-21-2022 09:00-0500 SaO2% (BldA) [Mass fraction] 97 % Treatment Wstr Work Phone: [facility] 03-21-2022 09:00-0500 Systolic blood pressure 115 mm[Hg] Treatment Wstr Work Phone: [facility] 03-15-2022 09:26-0500 Body temperature 98.6 [degF] Shannon Dinh MD, MD Work Phone: [facility] 03-15-2022 09:26-0500 Body weight 75.3 kg Shannon Dinh MD, MD Work Phone: [facility] 03-15-2022 09:26-0500 Diastolic blood pressure 67 mm[Hg] Shannon Dinh MD, MD Work Phone: [facility] 03-15-2022 09:26-0500 Heart rate 79 /min Shannon Dinh MD, MD Work Phone: [facility] 03-15-2022 09:26-0500 Respiratory rate 16 /min Shannon Dinh MD, MD Work Phone: [facility] 03-15-2022 09:26-0500 SaO2% (BldA) [Mass fraction] 95 % Shannon Dinh MD, MD Work Phone: [facility] 03-15-2022 09:26-0500 Systolic blood pressure 141 mm[Hg] Shannon Dinh MD, MD Work Phone: [facility] 03-14-2022 08:25-0500 Body temperature 98.01 [degF] [place] Cruz FOUNDATION ENGINEER.HEPATOLOGY PHYSICIAN Work Phone: [facility] 03-14-2022 08:25-0500 Body weight 75.3 kg Sandra Cruz FOUNDATION ENGINEER.HEPATOLOGY PHYSICIAN Work Phone: [facility] 03-14-2022 08:25-0500 Diastolic blood pressure 71 mm[Hg] Sandra Cruz FOUNDATION ENGINEER.HEPATOLOGY PHYSICIAN Work Phone: [facility] 03-14-2022 08:25-0500 Heart rate 50 /min [place] Cruz FOUNDATION ENGINEER.HEPATOLOGY PHYSICIAN Work Phone: [facility] 03-14-2022 08:25-0500 Systolic blood pressure 129 mm[Hg] [place] Cruz FOUNDATION ENGINEER.HEPATOLOGY PHYSICIAN Work Phone: [facility] 03-08-2022 09:36-0500 Body temperature 98.8 [degF] Shannon Dinh MD, MD Work Phone: [facility] 03-08-2022 09:36-0500 Body weight 74.16 kg Shannon Dinh MD, MD Work Phone: [facility] 03-08-2022 09:36-0500 Diastolic blood pressure 76 mm[Hg] Shannon Dinh MD, MD Work Phone: [facility] 03-08-2022 09:36-0500 Heart rate 72 /min Shannon Dinh MD, MD Work Phone: [facility] 03-08-2022 09:36-0500 SaO2% (BldA) [Mass fraction] 98 % Shannon Dinh MD, MD Work Phone: [facility] 03-08-2022 09:36-0500 Systolic blood pressure 146 mm[Hg] Shannon Dinh MD, MD Work Phone: [facility] 03-07-2022 08:45-0500 Body temperature 97.7 [degF] Treatment Wstr Work Phone: [facility] 03-07-2022 08:45-0500 Body weight 74.16 kg Treatment Wstr Work Phone: [facility] 03-07-2022 08:45-0500 Diastolic blood pressure 82 mm[Hg] Treatment Wstr Work Phone: [facility] 03-07-2022 08:45-0500 Heart rate 51 /min Treatment Wstr Work Phone: [facility] 03-07-2022 08:45-0500 Systolic blood pressure 173 mm[Hg] Treatment Wstr Work Phone: [facility] 02-24-2022 09:59-0500 Body temperature 98.2 [degF] Kirit Rosas DO Work Phone: [facility] 02-24-2022 09:59-0500 Body weight 75.07 kg Kirit Angelai DO Work Phone: [facility] 02-24-2022 09:59-0500 Diastolic blood pressure 72 mm[Hg] Kirit Rosas DO Work Phone: [facility] 02-24-2022 09:59-0500 Heart rate 54 /min Kirit Masci DO Work Phone: [facility] 02-24-2022 09:59-0500 SaO2% (BldA) [Mass fraction] 97 % Kirit Masci DO Work Phone: [facility] 02-24-2022 09:59-0500 Systolic blood pressure 144 mm[Hg] Kirit Masci DO Work Phone: [facility] 01-31-2022 13:35-0500 Diastolic blood pressure 72 mm[Hg] Shannon Dinh MD, MD Work Phone: [facility] 01-31-2022 13:35-0500 Heart rate 59 /min Shannon Dinh MD, MD Work Phone: [facility] 01-31-2022 13:35-0500 Systolic blood pressure 148 mm[Hg] Shannon Dinh MD, MD Work Phone: [facility] 01-31-2022 13:33-0500 Body temperature 98.01 [degF] Shannon Dinh MD, MD Work Phone: [facility] 01-31-2022 13:33-0500 Body weight 75.75 kg Shannon Dinh MD, MD Work Phone: [facility] 01-31-2022 13:33-0500 Respiratory rate 16 /min Shannon Dinh MD, MD Work Phone: [facility] 01-31-2022 13:33-0500 SaO2% (BldA) [Mass fraction] 96 % Shannon Dinh MD, MD Work Phone: [facility] 01-26-2022 11:21-0500 Body temperature 97.59 [degF] Kirit Masci DO Work Phone: [facility] 01-26-2022 11:21-0500 Body weight 74.84 kg Kirit Masci DO Work Phone: [facility] 01-26-2022 11:21-0500 Diastolic blood pressure 77 mm[Hg] Kirit Angelai DO Work Phone: [facility] 01-26-2022 11:21-0500 Heart rate 52 /min Kirit Angelai DO Work Phone: [facility] 01-26-2022 11:21-0500 Systolic blood pressure 172 mm[Hg] Kirit Angelai DO Work Phone: [facility] 01-18-2022 09:25-0500 Diastolic blood pressure 63 mm[Hg] Bebo Braga MD Work Phone: [facility] 01-18-2022 09:25-0500 Heart rate 52 /min Bebo Braga MD Work Phone: [facility] 01-18-2022 09:25-0500 Respiratory rate 18 /min Bebo Braga MD Work Phone: [facility] 01-18-2022 09:25-0500 SaO2% (BldA) [Mass fraction] 95 % Bebo Braga MD Work Phone: [facility] 01-18-2022 09:25-0500 Systolic blood pressure 126 mm[Hg] Bebo Braga MD Work Phone: [facility] 01-18-2022 08:52-0500 Body temperature 96.8 [degF] Bebo Braga MD Work Phone: [facility] 01-18-2022 08:05-0500 Body height 180.3 cm Bebo Braga MD Work Phone: [facility] 01-18-2022 08:05-0500 Body weight 74.39 kg Bebo Braga MD Work Phone: [facility] 04-27-2021 08:47-0500 Body height 180.34 cm Mirtha Qiu [facility] Work Phone: 04-27-2021 08:47-0500 Body mass index (BMI) [Ratio] 23.01 kg/m2 Mirtha S Jolliff Work Phone: [facility] Work Phone: 04-27-2021 08:47-0500 Body surface area Derived from formula 1.94 m2 Mirtha S Jolliff Work Phone: [facility] Work Phone: 04-27-2021 08:47-0500 Body temperature 97.4 [degF] Mirtha S Jolliff Work Phone: [facility] Work Phone: 04-27-2021 08:47-0500 Body weight 74.84 kg Mirtha S Jolliff Work Phone: [facility] Work Phone: 04-27-2021 08:47-0500 0 1 Mirtha Qiu Work Phone: [facility] Work Phone: Comment on above: [employer] Encounters Encounter Date Encounter Type Care Provider Facility Start: 12-31-2024 ambulatory Thomas Woodruff ENVIRONMENTAL PLANNING ENGINEER Facil ity:[facility] Start: 12-10-2024 End: 12-10-2024 ambulatory Thomas Woodruff ENVIRONMENTAL PLANNING ENGINEER Facility:[facility] Start: 11-21-2024 End: 11-21-2024 ambulatory Thomas Garzon ENVIRONMENTAL PLANNING ENGINEER Facility:[facility] Start: 11-15-2024 End: 11-15-2024 ambulatory MIRTHA QIU Facility:[facility] Start: 11-07-2024 End: 11-07-2024 ambulatory MIRTHA QIU Facility:[facility] Start: 07-26-2024 End: 07-26-[address] Mirtha Qiu MD Work Phone: [facility] Work Phone: Start: 07-26-2024 End: 07-26-[address] 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); Secondary malignant neoplasm of chest wall (HCC) Start: 05-07-2024 End: 05-07-2024 Patient encounter procedure Sandra Cruz FOUNDATION ENGINEER.HEPATOLOGY PHYSICIAN Work Phone: Hematology/Oncology Start: 04-30-2024 End: 04-30-2024 ambulatory [facility] Facility:[facility] Start: 04-30-2024 End: 04-30-2024 Subsequent hospital visit by physician [facility] [employer] ([facility]) Work Phone: Cat Scan Comment on above: Cancer of cervical e sophagus (HCC) [C15.3] Start: 04-30-2024 End: 04-30-2024 ambulatory [facility] Facility:[facility] Start: 11-01-2023 End: 11-01-2023 ambulatory Sandra Cruz FOUNDATION ENGINEER.HEPATOLOGY PHYSICIAN Work Phone: Hematology/Oncology Comment on above: 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); 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); Secondary malignant neoplasm of chest wall (HCC) Start: 11-01-2023 End: 11-01-2023 Patient encounter procedure [place] Cruz FOUNDATION ENGINEER.HEPATOLOGY PHYSICIAN Work Phone: Hematology/Oncology Start: 10-24-2023 End: 10-24-2023 Subsequent hospital visit by physician [facility] [place] ([facility]) Work Phone: Cat Scan Comment on above: Cancer of cervical e sophagus (HCC) [C15.3] Start: 04-27-2023 End: 04-27-2023 ambulatory Kirit Rosas DO Work Phone: Hematology/Oncology Comment on above: 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); 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 Mirtha Qiu Work Phone: [facility] Start: 01-23-2023 End: 01-23-[address] Mirtha Qiu Work Phone: [facility] Work Phone: Start: 01-23-2023 End: 01-23-[address] Mirtha Qiu Work Phone: [facility] Work Phone: Start: 10-21-2022 Telephone encounter [...] encounter procedure [facility] Start: 10-17-2022 End: 10-17-2022 Subsequent hospital visit by physician [facility] ([facility]) Work Phone: Cat Scan [...] encounter procedure Kirit Rosas DO Work Phone: [facility] Start: 06-21-2022 ambulatory [facility]IU [facility] Start: 06-21-2022 End: 06-21-2022 Subsequent hospital visit [...] encounter procedure Kirit Rosas DO Work Phone: [facility] Start: 04-21-2022 Telephone encounter Kirit smith DO Work Phone: Hematology/Oncology Comment on above: Medication Problem Start: 04-13-2022 ambulatory Shannon Dinh MD Work Phone: Radiation Oncology Comment on above: Patient Education Start: 04-13-2022 Patient encounter procedure Shannon Dinh MD, MD Work Phone: [facility] Start: 04-13-2022 Radiation Oncology Note Shannon Dinh MD Work Phone: Radiation Oncology Comment on above: Completion Note Start: 04-12-2022 End: 04-12-20[address] Work Phone: Nutrition Therapy Comment on above: Nutrition Assessment Start: 04-12-2022 End: 04-12-2022 Patient encounter procedure Shannon Dinh MD Work Phone: Radiation Oncology Comment on above: 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) Start: 04-12-2022 End: 04-12-2022 ambulatory Treatment Rm 1 [facility] Work Phone: Hematology/Oncology Comment on above: 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) Start: 04-11-2022 Telephone encounter Kirit smith DO Work Phone: Hematology/Oncology Comment on above: Results (Low potassi um) Start: 04-11-2022 End: 04-11-2022 ambulatory Treatment Rm 7 Joao [facility] Work Phone: Hematology/Oncology Comment on above: 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) Start: 04-06-2022 End: 04-06-2022 ambulatory Sandra Cruz APRN.HEPATOLOGY PHYSICIAN Work Phone: Hematology/Oncology Comment on above: 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) Start: 04-06-2022 End: 04-06-2022 Patient encounter procedure Sandra Cruz FOUNDATION ENGINEER.HEPATOLOGY PHYSICIAN Work Phone: [facility] Start: 04-05-2022 End: 04-05-2022 Patient encounter procedure Shannon Dinh MD Work Phone: Radiation Oncology Comment on above: 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) Start: 04-04-2022 End: 04-04-2022 ambulatory Treatment Rm 7 Joao [facility] Work Phone: Hematology/Oncology Comment on above: 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) Start: 03-29-2022 End: 03-29-2022 Patient encounter procedure Shannon Dinh MD Work Phone: Radiation Oncology Comment on above: 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) Start: 03-28-2022 End: 03-28-2022 ambulatory Treatment Rm 11 Jo[facility] Work Phone: Hematology/Oncology Comment on above: 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) Start: 03-25-2022 Orders Only Sandra rios APRN.HEPATOLOGY PHYSICIAN Work Phone: Hematology/Oncology Comment on above: 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) Start: 03-22-2022 End: 03-22-[address] Work Phone: [facility] Start: 03-22-2022 End: 03-22-2022 Nutrition therapy [address] RD Work Phone: Nutrition Therapy Comment on above: Nutrition Assessment Start: 03-22-2022 End: 03-22-2022 Patient encounter procedure Shannon Dinh MD Work Phone: Radiation Oncology Comment on above: 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) Start: 03-21-2022 End: 03-21-2022 ambulatory Treatment Rm 8 [facility] Work Phone: Hematology/Oncology Comment on above: 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) Start: 03-18-2022 Orders Only Kirit Severino Work Phone: Hematology/Oncology Comment on above: 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); 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) Start: 03-16-2022 Telephone encounter Kacie Stewart RN He matology/Oncology Comment on above: T[facility]man - O ther (Toxicity Check ) Start: 03-15-2022 End: 03-15-2022 Patient encounter procedure Shannon Dinh MD Work Phone: Radiation Oncology Comment on above: 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) Start: 03-14-2022 End: 03-14-2022 ambulatory Treatment Rm 8 [facility] Work Phone: Hematology/Oncology Comment on above: 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) Start: 03-14-2022 End: 03-14-2022 Patient encounter procedure Sandra Cruz APRN.HEPATOLOGY PHYSICIAN Work Phone: [facility] Start: 03-11-2022 Orders Only Kirit Severino Work Phone: Hematology/Oncology Comment on above: 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); 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) Start: 03-08-2022 Chart abstracting Max bianchi MD Work Phone: Otolaryngology Start: 03-08-2022 End: 03-08-[address] Work Phone: [facility] Start: 03-08-2022 End: 03-08-2022 Nutrition therapy [address] RD Work Phone: Nutrition Therapy Comment on above: Nutrition Assessment Start: 03-08-2022 End: 03-08-2022 Patient encounter procedure Shannon Dinh MD Work Phone: Radiation Oncology Comment on above: 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) Start: 03-07-2022 End: 03-07-2022 [facility] Work Phone: [facility]Oncology Comment on above: 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) Start: 03-04-2022 Orders Only Kirit Severino Work Phone: Hematology/Oncology Comment on above: 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); 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) Start: 03-03-2022 Telephone encounter Clarita neil RN Work Phone: Otolarynogology Comment on above: Request Outside [facility] Records; Care Coordination Start: 03-02-2022 Telephone encounter Kacie Stewart RN He matology/Oncology Comment on above: [facility]man - O ther (Nutrition Appointment ) Start: 03-02-2022 End: 03-02-2022 hull sorter [facility] Work Phone: Hematology/Oncology Comment on above: Encounter for educat ion (Primary Dx) Start: 02-25-2022 ambulatory Shannon Dinh MD Work Phone: Radiation Oncology Comment on above: Patient Education Start: 02-25-2022 Patient encounter procedure Shannon Dinh MD, MD Work Phone: [facility] [employer] Start: 02-25-2022 Radiation Oncology Note Shannon Dinh [...] encounter procedure Kirit Rosas DO Work Phone: [facility] [employer] Start: 02-10-2022 End: 02-10-2022 Patient encounter procedure Max Ortiz MD Work Phone: Otolarynogology Comment on above: 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); 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 Start: 02-08-2022 ambulatory UNKNOWN PROVIDER Facili ty:[facility] Start: 02-08-2022 End: 02-08-2022 Subsequent hospital [...] Stewart RN He matology/Oncology Comment on above: Tailman - O ther (Introduction ) Start: 01-26-2022 End: 01-26-2022 ambulatory Kirit Rosas DO Work Phone: Hematology/Oncology Comment on above: 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); 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) Start: 01-26-2022 End: 01-26-2022 Patient encounter procedure Kirit Rosas DO Work Phone: [facility] Start: 01-18-2022 Telephone encounter Kirit smith [...] tion Results Start: 12-03-2021 End: 12-03-2021 ambulatory [facility] Work Phone: Start: 12-03-2021 End: 12-03-2021 Patient encounter procedure [facility]-Radiology, [facility] Start: 11-15-2021 End: 11-15-2021 Patient encounter procedure [facility]-Laboratory, [facility] Start: 05-27-2021 Chart Update Mirtha Qiu Work Phone: [facility]Ead[facility]htkdet[facility]Yntnawh e Work Phone: Start: [facility]-2021 [facility] Provider: Guru Gallagher, Status: Pen, Time: 9:00 AM Mirtha iQu Work Phone: EB-Rzwkijikgnpznq-Khnuiex e Work Phone: Start: 05-11-2021 Chart Update Mirtha Qiu Work Phone: NQ-Hpnwvhjgwqfnxb-Psiqjch e Work Phone: Start: 04-27-2021 Office consultation new/estab patient 60 min Mirtha Qiu Work Phone: BR-Jigytvcgyaaqoi-Fxgwlpu e Work Phone: Procedures Date Procedure Procedure Detail Performing Clinician Start: 07-26-2024 Serum inorganic phos phate measurement Dr. Mirtha Qiu MD Work Phone: Start: 04-30-2024 Ct soft tissue neck w/contrast material Sandra Cruz APRN.CNP Work Phone: Start: 10-24-2023 Ct soft tissue neck w/contrast material Kirit Cordon Masci DO Work Phone: Start: 04-21-2023 Ct soft tissue neck w/contrast material Kirit Cordon Masci DO Work Phone: Start: 10-17-2022 Ct soft tissue neck w/contrast material Kirit Cordon Masci DO Work Phone: Start: 10-17-2022 Ct thorax w/contrast material Kirit Cordon Masci DO Work Phone: Start: 06-21-[address] atten uation skull base mid-thigh Kirit A Masci DO Work Phone: Start: 02-08-[address] atten uation skull base mid-thigh Kirit Rosas DO Work Phone: Start: 01-18-2022 Esophagoscp rig freeman soral hypopharynx crv esoph Kirit Rosas DO Work Phone: Start: 12-03-2021 Radiography of esophagus Start: 05-05-2021 Antibody screen Comment on above: Performed By: #### T +S #### [facility] [address] [place] [address] Colonoscopy Mirtha Qiu Work Phone: Operation on the ear Mirtha chen Work Phone: Plan of Treatment Date Care Activity Detail Author Start: 11-30-2031 RSV Vaccine (1 - 1-d ose 75+ series) RSV Vaccine (1 - 1-dose 75+ series) [facility] Start: 06-21-2027 Urine microalbumin profile DTaP,Tdap,Td Vaccine (2 - Td or Tdap) [facility] Start: 10-23-2026 Diabetes Screening Diabetes Screenin [facility] Start: 04-20-2026 [facility] Start: 10-17-2025 DIABETES SCREEN DIABETES SCREEN [facility] Start: 10-17-2025 [facility] Start: 06-24-2025 DIABETES SCREEN DIABETES SCREEN [facility] Start: 05-16-2025 DIABETES SCREEN DIABETES SCREEN [facility] Start: 05-02-2025 DIABETES SCREEN DIABETES SCREEN [facility] Start: 04-30-2025 Screening for malign ant neoplasm of lung Lung Cancer Screening [facility] Start: 04-25-2025 DIABETES SCREEN DIABETES SCREEN [facility] Start: 04-18-2025 DIABETES SCREEN DIABETES SCREEN [facility] Start: 04-11-2025 DIABETES SCREEN DIABETES SCREEN [facility] Start: 04-04-2025 DIABETES SCREEN DIABETES SCREEN [facility] Start: 03-28-2025 DIABETES SCREEN DIABETES SCREEN [facility] Start: 03-21-2025 DIABETES SCREEN DIABETES SCREEN [facility] Start: 03-14-2025 DIABETES SCREEN DIABETES SCREEN [facility] Start: 03-07-2025 DIABETES SCREEN DIABETES SCREEN [facility] Start: 12-28-2024 DIABETES SCREEN DIABETES SCREEN [facility] Start: 11-14-2024 End: 11-14-2024 ambulatory 11/14/2024 8:00 AM EDT Visit (SP) Office Hematology/Oncology [address] [place] [id number] Sandra Cruz APRN.HEPATOLOGY PHYSICIAN [address] [place] [id number] 6 MTH OV/LAB&CT 11/07* Hematology/Oncology Comment on above: 6 MTH OV/LAB&CT 11/07 * Start: 11-07-2024 End: 02-06-2025 CREATININE BLD CREATININE BLD Lab Routine 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 of cervical esophagus (HCC) Expected: 11/07/2024 (Approximate), Expires: 02/06/2025 [facility] Comment on above: Expected: 11/07/2024 (Approximate), Expires: 02/06/2025 Start: 11-07-2024 End: 06-06-2025 CT Chest W contrast IV CT CHEST W IVCON Radiology Routine 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 of cervical esophagus (HCC) Expected: 11/07/2024 (Approximate), Expires: 06/06/2025 [facility] Comment on above: Expected: 11/07/2024 (Approximate), Expires: 06/06/2025 Start: 11-07-2024 End: 06-06-2025 CT Neck W contrast IV CT NECK SOFT TISSUE W IVCON Radiology Routine 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 of cervical esophagus (HCC) Expected: 11/07/2024 (Approximate), Expires: 06/06/2025 [facility] Work Phone: Comment on above: Expected: 11/07/2024 (Approximate), Expires: 06/06/2025 Start: 11-07-2024 End: 11-07-2024 Patient encounter procedure 11/07/2024 8:40 AM EDT Appointment Cat Scan [address] [place] [id number] 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]; Cancer of cervical esophagus (HCC) [C15.3] Cat Scan Comment on above: 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HEPATOLOGY PHYSICIAN [address] [place] [address] 6 MTH OV* Hematology/Oncology Comment on above: 6 MTH OV* Start: 04-30-2024 End: 07-30-2024 CREATININE BLD CREATININE BLD Lab Routine 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) Expected: 04/30/2024 (Approximate), Expires: 07/30/2024 [facility] Comment on above: Expected: 04/30/2024 (Approximate), Expires: 07/30/2024 Start: 04-30-2024 End: 11-30-2024 CT Chest W contrast IV [facility] Comment on above: Expected: 04/30/2024 (Approximate), Expires: 11/30/2024 Start: 04-30-2024 End: 11-30-2024 CT Neck W contrast IV CT NECK SOFT TISSUE W IVCON Radiology Routine 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) Expected: 04/30/2024 (Approximate), Expires: 11/30/2024 [facility] Work Phone: Comment on above: Expected: 04/30/2024 (Approximate), Expires: 11/30/2024 Start: 04-30-2024 End: 04-30-2024 Patient encounter procedure 04/30/2024 8:40 AM EDT Appointment Cat Scan [address] [place] [address] CT CHEST Cat Scan Comment on above: CT CHEST Start: 04-30-2024 End: 04-30-2024 ambulatory 04/30/2024 7:30 AM EDT Results Only [place] [facility] [address] [place] [address] LABS [facility] Comment on above: LABS Start: 04-20-2024 Screening for malign ant neoplasm of lung Lung Cancer Screening [facility] Start: 02-21-2024 Advance Directive Discussion Advance Directive Discussion [facility] Start: 11-01-2023 End: 11-01-2023 ambulatory 11/01/2023 8:00 AM EDT Visit (SP) Office Hematology/Oncology [address] [place] [address] Sandra Cruz APRN.HEPATOLOGY PHYSICIAN [address] [place] [address] 6MO OV/ CT AND LABS /3* r/s from 10/30 Hematology/Oncology Comment on above: 6MO OV/ CT AND LABS /3* r/s from 10/30 Start: 10-22-2023 Covid-19 Vaccine ( season) Covid-19 Vaccine () [facility] Start: 10-22-2023 Covid-19 Vaccine ( season) Covid-19 Vaccine ( season) [facility] Start: 10-22-2023 Influenza vaccination Influenza Vacc ine (#1) [facility] Start: 10-18-2023 Influenza vaccination LUNG CANCER SC REENING [facility] Start: 10-18-2023 Screening for malign ant neoplasm of lung Lung Cancer Screening [facility] Start: 04-21-2023 End: 07-21-2023 Basic metabolic 2000 panel - Serum or Plasma BASIC METABOLIC PNL Lab STAT 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) Expected: 04/21/2023, Expires: 07/21/2023 [facility] Work Phone: Comment on above: Expected: 04/21/2023 , Expires: 07/21/2023 Start: 04-21-2023 End: 07-21-2023 CBC W Auto Differential panel - Blood CBC + DIFF Lab STAT 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) Expected: 04/21/2023, Expires: 07/21/2023 [facility] Work Phone: Comment on above: Expected: 04/21/2023 , Expires: 07/21/2023 Start: 04-21-2023 End: 07-21-2023 Hepatic function 2000 panel - Serum or Plasma HEPATIC FUNCTION PNL Lab Routine 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) Expected: 04/21/2023, Expires: 07/21/2023 [facility] Work Phone: Comment on above: Expected: 04/21/2023 , Expires: 07/21/2023 Start: 02-20-2023 Advance Directive Discussion Advance Directive Discussion [facility] Start: 02-20-2023 Depression Assessment Depression Ass essment [facility] Start: 01-11-2023 Influenza vaccination LUNG CANCER SC REENING [facility] Start: 10-21-2022 Covid-19 Vaccine ( season) Covid-19 Vaccine ( season) [facility] Start: 10-21-2022 Influenza vaccination [facility] Start: 10-17-2022 End: 12-17-2022 Basic metabolic 1999 panel - Serum or Plasma BASIC METABOLIC PNL Lab STAT 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) Expected: 10/17/2022, Expires: 12/17/2022 [facility] Work Phone: Comment on above: Expected: 10/17/2022 , Expires: 12/17/2022 Start: 10-17-2022 End: 12-17-2022 CBC W Auto Differential panel - Blood CBC + DIFF Lab STAT 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) Expected: 10/17/2022, Expires: 12/17/2022 [facility] Work Phone: Comment on above: Expected: 10/17/2022 , Expires: 12/17/2022 Start: 10-17-2022 End: 12-17-2022 Hepatic function 2000 panel - Serum or Plasma HEPATIC FUNCTION PNL Lab Routine 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) Expected: 10/17/2022, Expires: 12/17/2022 [facility] Work Phone: Comment on above: Expected: 10/17/2022 , Expires: 12/17/2022 Start: 03-14-2022 End: 05-14-2022 CBC W Auto Differential panel - Blood CBC + DIFF Lab STAT 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) Expected: 03/14/2022, Expires: 05/14/2022 [facility] Work Phone: Comment on above: Expected: 03/14/2022 , Expires: 05/14/2022 Start: 03-14-2022 End: 05-14-2022 Comprehensive metabolic 2000 panel - Serum or Plasma COMP METABOLIC PANEL Lab STAT 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) Expected: 03/14/2022, Expires: 05/14/2022 [facility] Work Phone: Comment on above: Expected: 03/14/2022 , Expires: 05/14/2022 Start: 03-14-2022 End: 05-14-2022 Magnesium [Mass/volume] in Serum or Plasma MAGNESIUM BLD Lab STAT 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) Expected: 03/14/2022, Expires: 05/14/2022 [facility] Work Phone: Comment on above: Expected: 03/14/2022 , Expires: 05/14/2022 Start: 03-07-2022 End: 05-07-2022 CBC W Auto Differential panel - Blood CBC + DIFF Lab STAT 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) Expected: 03/07/2022, Expires: 05/07/2022 [facility] Work Phone: Comment on above: Expected: 03/07/2022 , Expires: 05/07/2022 Start: 03-07-2022 End: 05-07-2022 Comprehensive metabolic 2000 panel - Serum or Plasma COMP METABOLIC PANEL Lab STAT 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) Expected: 03/07/2022, Expires: 05/07/2022 [facility] Work Phone: Comment on above: Expected: 03/07/2022 , Expires: 05/07/2022 Start: 03-07-2022 End: 05-07-2022 Magnesium [Mass/volume] in Serum or Plasma MAGNESIUM BLD Lab STAT 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) Expected: 03/07/2022, Expires: 05/07/2022 [facility] Work Phone: Comment on above: Expected: 03/07/2022 , Expires: 05/07/2022 Start: 02-20-2022 ADVANCE DIRECTIVE DISCUSSION ADVANCE DIRECTIVE DISCUSSION [facility] Start: 02-20-2022 DEPRESSION ASSESSMENT DEPRESSION ASS ESSMENT [facility] Start: 2021 ADVANCE DIRECTIVE DISCUSSION ADVANCE DIRECTIVE DISCUSSION [facility] Start: 10-21-2021 Influenza vaccination INFLUENZA (#1) [facility] Start: 06-01-2021 POV, Provider: Guru Gallagher, Status: Pen, Time: 10:30 AM POV, Provider: Guru Gallagher, Status: Pen, Time: 10:30 AM KE-Tst[facility]dx[facility]xae[facility]dn[facility] Work Phone: Start: 05-13-2021 [facility]: Guru Gallagher, Status: Pen, Time: 9:00 AM [facility], Provider: Guru Gallagher, Status: Pen, Time: 9:00 AM SF-Hgutnvlnqezmrw-Cf [facility] Work Phone: Start: 03-30-2021 COVID-19 VACCINE (4 - Booster for Pfizer series) COVID-19 VACCINE (4 - Booster for Pfizer series) [facility] Start: 03-30-2021 COVID-19 VACCINE (4 - Pfizer risk series) COVID-19 VACCINE (4 - Pfizer risk series) [facility] Start: 02-20-2021 DEPRESSION ASSESSMENT DEPRESSION ASS ESSMENT [facility] Start: 2016 RSV Vaccine (1 - 1-d ose 60+ series) RSV Vaccine (1 - 1-dose 60+ series) [facility] Start: 11-30-2011 PROSTATE CANCER SCREENING DISCUSSION PROSTATE CANCER SCREENING DISCUSSION [facility] Start: 11-30-2011 Prostate specific antigen measurement Prostate Cancer Screening Discussion [facility] Start: 2006 SHINGRIX VACCINE (1 of 2) SHINGRIX VACCINE (1 of 2) [facility] Start: 2001 COLOGUARD (FIT-DNA) COLOGUARD (FIT-D NA) [facility] Start: 2001 Colonoscopy COLONOSCOPY [facility] Start: 2001 COLORECTAL CANCER SCREENING COLORECTAL CANCER SCREENING [facility] Start: [address] COLONOGRAPHY [facility] Start: 2001 FECAL OCCULT BLOOD FECAL OCCULT BLOO D [facility] Start: 2001 Screening for malign ant neoplasm of colon [facility] Start: 2001 SIGMOIDOSCOPY SIGMOIDOSCOPY [facility] Start: 11-30-1991 Lipid 1996 panel - S oriana or Plasma Lipid Screening [facility] Start: 11-30-1991 Lipid [facility] Start: 11-30-1991 LIPID SCREEN LIPID SCREEN [facility] Start: 11-30-1975 SHINGRIX VACCINE (1 of 2) SHINGRIX VACCINE (1 of 2) [facility] Start: 11-30-1975 Urine microalbumin profile DTAP,TDAP,TD (1 - Tdap) [facility] Start: 1974 Anxiety Screening Anxiety Screening [facility] Start: 1974 Depression Screening Depression Scre ening [facility] Start: 1974 HEPATITIS C SCREENING HEPATITIS C SC REENING [facility] Start: 1974 Hepatitis C screening Hepatitis C [facility] Start: 1974 HIV SCREENING HIV SCREENING [facility] Start: 1962 Pneumococcal Vaccine : 65+ (1 - PCV) Pneumococcal Vaccine: 65+ (1 - PCV) [facility] Start: 1962 Pneumococcal Vaccine : 65+ (1 of 2 - PCV) Pneumococcal Vaccine: 65+ (1 of 2 - PCV) [facility] Start: 1962 PNEUMOCOCCAL: 65+ (1 - PCV) PNEUMOCOCCAL: 65+ (1 - PCV) [facility] Start: 1956 ABDOMINAL AORTIC ANEURYSM SCREENING ABDOMINAL AORTIC ANEURYSM SCREENING [facility] Start: 1956 Abdominal aortic aneurysm screening Abdominal Aortic Aneurysm Screening [facility] End: 03-18-2023 CBC W Auto Differential panel - Blood CBC + DIFF Lab STAT 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) Once per week for 52 Occurrences starting 03/18/2022 until 03/18/2023 [facility] Work Phone: Comment on above: Once per week for 52 Occurrences starting 03/18/2022 until 03/18/2023 End: 03-18-2023 Comprehensive metabolic 2000 panel - Serum or Plasma COMP METABOLIC PANEL Lab STAT 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) Once per week for 52 Occurrences starting 03/18/2022 until 03/18/2023 [facility] Work Phone: Comment on above: Once per week for 52 Occurrences starting 03/18/2022 until 03/18/2023 CT Chest W contrast IV CT CHEST W IVCON Radiology Routine 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) 04/21/2023 9:20 AM EST [facility] Work Phone: End: 05-26-2024 CT Chest W contrast IV CT CHEST W IVCON Radiology Routine 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) 1 Occurrences starting 04/27/2023 until 05/26/2024 [facility] Work Phone: Comment on above: 1 Occurrences starti ng 04/27/2023 until 05/26/2024 CT Chest W contrast IV CT CHEST W IVCON Radiology Routine 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) 10/24/2023 9:37 AM EDT [facility] Work Phone: End: 07-24-2023 CT CHEST W IVCON CT CHEST W IVCON Radiology Routine 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) 1 Occurrences starting 06/24/2022 until 07/24/2023 [facility] Work Phone: Comment on above: 1 Occurrences starti ng 06/24/2022 until 07/24/2023 End: 11-20-2023 CT CHEST W IVCON CT CHEST W IVCON Radiology Routine 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) 1 Occurrences starting 10/21/2022 until 11/20/2023 [facility] Work Phone: Comment on above: 1 Occurrences starti ng 10/21/2022 until 11/20/2023 End: 05-26-2024 CT Neck W contrast IV CT NECK SOFT TISSUE W IVCON Radiology Routine 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) 1 Occurrences starting 04/27/2023 until 05/26/2024 [facility] Work Phone: Comment on above: 1 Occurrences starti ng 04/27/2023 until 05/26/2024 CT SIM PLANNING RADIATION ONCOLOGY CT SIM PLANNING RADIATION ONCOLOGY Radiology Routine 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) Ordered: 02/28/2022 [facility] Work Phone: Comment on above: Ordered: 02/28/2022 End: 07-24-2023 Ct soft tissue neck w/contrast material CT NECK SOFT TISSUE W IVCON Radiology Routine 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) 1 Occurrences starting 06/24/2022 until 07/24/2023 [facility] Work Phone: Comment on above: 1 Occurrences starti ng 06/24/2022 until 07/24/2023 End: 11-20-2023 Ct soft tissue neck w/contrast material CT NECK SOFT TISSUE W IVCON Radiology Routine 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) 1 Occurrences starting 10/21/2022 until 11/20/2023 [facility] Work Phone: Comment on above: 1 Occurrences starti ng 10/21/2022 until 11/20/2023 End: 03-18-2023 Magnesium [Mass/volume] in Serum or Plasma MAGNESIUM BLD Lab STAT 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) Once per week for 52 Occurrences starting 03/18/2022 until 03/18/2023 [facility] Work Phone: Comment on above: Once per week for 52 Occurrences starting 03/18/2022 until 03/18/2023 End: 06-04-2023 NM PET/CT SKULL-THIGH SUBSEQUENT NM PET/CT SKULL-THIGH SUBSEQUENT Radiology Routine 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 2021 Unknown 2021 Unknown [id number] 2007 Unknown DO NOT USE NG S [employer] [id number] Unknown ANTHEM [id number] Unknown [facility] [id number] Unknown [id number] Unknown [id number] Unknown [id number] Unknown [id number] Unknown [id number] Social History Date Type Detail Facility Start: 01-18-2022 End: 03-04-2022 Former smoker Former smoker [facility] Start: 1955 [facility] Start: 12-28-2021 End: 05-07-2024 Tobacco smoking status NHIS Smokes tobacco daily [facility] History of tobacco use [facility] Start: 12-28-2021 End: 05-07-2024 Tobacco use and exposure Smokeless tobacco non-user [facility] Start: 12-28-2021 End: 05-07-2024 Alcohol intake Current drinker of alcohol (finding) [facility] Start: 12-28-2021 Alcohol Comment daily [facility] Start: 1955 Sex Assigned At Not on file C [facility] Start: 01-08-2022 End: 01-18-2022 Exposure to SARS-CoV-2 (event) Not sure [facility] Start: 03-14-2022 Tobacco Comment Pt has cut grabiel k to 1/2 pack daily. [facility] Start: 03-04-2022 End: 06-24-2022 Tobacco use panel [facility] National Score (1-10 0), lower number is lower risk 62 [facility] Start: 03-02-2022 Gender identity Identifies as male gender (finding) [facility] Start: 03-02-2022 Sexual orientation Heterosexual (fin ding) [facility] Start: 05-07-2024 Alcohol Comment daily 2-4 beers [facility] Tobacco smoking stat [facility] Unknown if ever smoked [facility] Work Phone: Clinical Notes 05-13-2021 to 11-15-2024 Sandra Cruz APRN.HEPATOLOGY PHYSICIAN - 05/07/2024 8:20 AM Natalia Merlos RT(R) - 04/30/2024 8:40 AM Sandra Del Rio APRN.HEPATOLOGY PHYSICIAN - 11/01/2023 8:26 AM Kirit Sylvester DO - 04/27/2023 8:33 AM EST Note Date & Type Note Facility 11-15-2024 Note HNO ID: [id number] Author: SANDRA CRUZ APRN.HEPATOLOGY PHYSICIAN Service: ? Author Type: Nurse Practitioner Type: [...] recalled anesthesiologist told him to see a commercial artist lettering because he may have a mass in [...] the patient had not followed up at [facility] since his first postoperative check in the spring. At the time of that surgery he was observed to have a possible mass in the proximal esophagus and was told to see a commercial artist lettering. 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 -T1sm (based on invasion into submucosa) N1 (one LN level 2L) M0 (PET negative (more content not included)... [facility] 11-07-2024 Note HNO ID: [id number] Author: NATALIA KHAN RT(R) Service: ? Author Type: Independent Film Maker Type: Progress Notes Filed: 11/07/2024 15:33 Note [...] PATIENT PRESENTS WITH AN IMPLANTABLE OR ATTACHED SUPERVISOR FISH BAIT PROCESSING: n/an/a ALLERGIES: Reviewed and unchanged CONTRAST ALLERGY: [...] and Neck . Anesthesia: No SIGNATURE: RT Marixa(R) PATIENT NAME: Krystal Cortes DATE: November 07, 2024 TIME: 3:32 PM [facility] 05-07-2024 Note HNO ID: [id number] Author: SANDRA CRUZ APRN.DARIAN Service: ? Author [...] recalled anesthesiologist told him to see a commercial artist lettering because he may have a mass in [...] the patient had not followed up at [facility] since his first postoperative check in the spring. At the time of that surgery (more content not included)... [facility] 05-07-2024 History of Present illness Narrative [...] recalled anesthesiologist told him to see a commercial artist lettering because he may have a mass in [...] the patient had not followed up at [facility] since his first postoperative check in the spring. At the time of that surgery he was observed to have a possible mass in the proximal esophagus and was told to see a commercial artist lettering. A more recent evaluation of that with [...] Assessment: -Was evaluated by Dr. Ortiz at [facility] but hasn't been back since. Plan: [...] Sandra Cruz APRN.DARIAN documented in this encounter [facility] 04-30-2024 History of Present illness Narrative Radiology [...] PATIENT PRESENTS WITH AN IMPLANTABLE OR ATTACHED SUPERVISOR FISH BAIT PROCESSING: No ALLERGIES: Reviewed and unchanged CONTRAST ALLERGY: [...] RT Marixa(Som) PATIENT NAME: Krystal Cortes DATE: April 30, 2024 TIME: 3:16 PM documented in this encounter [facility] 04-30-2024 Note HNO ID: [id number] Author: REEF ALMAGUER, NATALIA, RT(R) Service: ? Author Type: Independent Film Maker Type: Progress Notes Filed: 04/30/2024 15:17 Note [...] PATIENT PRESENTS WITH AN IMPLANTABLE OR ATTACHED SUPERVISOR FISH BAIT PROCESSING: No ALLERGIES: Reviewed and unchanged CONTRAST ALLERGY: [...] Neck SIGNATURE: RT Marixa(R) PATIENT NAME: Krystal oCrtes DATE: April 30, 2024 TIME: 3:16 PM [facility] 11-01-2023 History of Present illness Narrative [...] recalled anesthesiologist told him to see a commercial artist lettering because he may have a mass in [...] the patient had not followed up at [facility] since his first postoperative check in the spring. At the time of that surgery he was observed to have a possible mass in the proximal esophagus and was told to see a commercial artist lettering. A more recent evaluation of that with [...] Assessment: -Was evaluated by Dr. Ortiz at [facility] but hasn't been back since. Plan: [...] Sandra Cruz APRN.DARIAN documented in this encounter [facility] 10-24-2023 History of Present illness Narrative Radiology [...] PATIENT PRESENTS WITH AN IMPLANTABLE OR ATTACHED SUPERVISOR FISH BAIT PROCESSING: No ALLERGIES: Reviewed and unchanged CONTRAST ALLERGY: [...] RT Marixa(R) PATIENT NAME: Krystal Cortes DATE: October 24, 2023 TIME: 3:04 PM documented in this encounter [facility] 04-27-2023 History of Present illness Narrative Oncologic [...] recalled anesthesiologist told him to see a commercial artist lettering because he may have a mass in [...] Abs Lymph 1.00 - 4.00 k/uL 1.05 [place]% % 9.7 Abs [place] <0.87 k/uL 0.53 [place]% % 3.5 Abs [...] the patient had not followed up at [facility] since his first postoperative check in the spring. At the time of that surgery he was observed to have a possible mass in the proximal esophagus and was told to see a commercial artist lettering. A more recent evaluation of that with [...] Assessment: -Was evaluated by Dr. Ortiz at [facility] but hasn't been back since. Plan: [...] which included preparing to see the patient, [id number] patient care, completing clinical documentation, obtaining and/or reviewing separately obtained history, performing a medically appropriate examination, counseling and educating the patient/family/caregiver, ordering medications, tests, or procedures, communicating with other HCPs (not separately reported), and communicating results to the patient/family/caregiver. Kirit Rosas DO documented in this encounter [facility] 04-21-2023 History of Present illness Narrative Radiology [...] PATIENT PRESENTS WITH AN IMPLANTABLE OR ATTACHED SUPERVISOR FISH BAIT PROCESSING: No ALLERGIES: Reviewed and unchanged CONTRAST ALLERGY: [...] RT Marixa(Som) PATIENT NAME: Krystal Cortes DATE: April 21, 2023 TIME: 4:13 PM documented in this encounter [facility] 10-21-2022 Miscellaneous Notes Referral faxed and scanned in scanned docs Check out comments: CBC/CMP / CT Neck and Chest prior to 6 month F/USCHEDULED Referral to Dr. Landis for EGD -FAXED F/U appt.. with [facility]- PT STATED HE WOULD CALL [facility] AND GET SCHEDULED - 11/12/23 Scheduled w/ PCP 11/18/22 documented in this encounter [facility] 10-21-2022 Miscellaneous Notes Information faxed as directed. [...] Kirit Rosas DO documented in this encounter [facility] 10-21-2022 History of Present illness Narrative Oncologic [...] recalls anesthesiologist told him to see a commercial artist lettering because he may have a mass in [...] fungi. 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 EGD/EUS 01/18/2022: Malignant [...] No jaundice or rash. No petechiae. NEUROLOGIC: professor of art II-XII are grossly intact. No focal motor [...] Abs Lymph 1.00 - 4.00 k/uL 1.01 [place]% % 11.2 Abs [place] <0.87 k/uL 0.55 Eosin% % 3.3 Abs [...] the patient had not followed up at [facility] since his first postoperative check in the spring. At the time of that surgery he was observed to have a possible mass in the proximal esophagus and was told to see a commercial artist lettering. A more recent evaluation of that with [...] Assessment: -Was evaluated by Dr. Ortiz at [facility] but hasn't been back since. Plan: [...] which included preparing to see the patient, [id number] patient care, completing clinical documentation, obtaining and/or reviewing separately obtained history, performing a medically appropriate examination, counseling and educating the patient/family/caregiver, ordering medications, tests, or procedures, communicating with other HCPs (not separately reported), and communicating results to the patient/family/caregiver. Kirit Rosas DO documented in this encounter [facility] 10-17-2022 History of Present illness Narrative Radiology [...] RT Marixa(R) PATIENT NAME: Krystal Cortes DATE: October 17, 2022 TIME: 2:26 PM documented in this encounter [facility] 06-24-2022 History of Present illness Narrative Oncologic [...] recalls anesthesiologist told him to see a commercial artist lettering because he may have a mass in [...] fungi. 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 EGD/EUS 01/18/2022: Malignant [...] No jaundice or rash. No petechiae. NEUROLOGIC: professor of art II-XII are grossly intact. No focal motor [...] Abs Lymph 1.00 - 4.00 k/uL 1.19 [place]% % 13.0 Abs [place] <0.87 k/uL 0.74 Eosin% % 3.5 Abs [...] the patient had not followed up at [facility] since his first postoperative check in the spring. At the time of that surgery he was observed to have a possible mass in the proximal esophagus and was told to see a commercial artist lettering. A more recent evaluation of that with [...] Assessment: -Was evaluated by Dr. Ortiz at [facility]. Plan: -Follow-up with Dr. Ortiz as [...] which included preparing to see the patient, [id number] patient care, completing clinical documentation, obtaining and/or reviewing separately obtained history, performing a medically appropriate examination, counseling and educating the patient/family/caregiver, ordering medications, tests, or procedures, and communicating results to the patient/family/caregiver. Kirit Rosas DO documented in this encounter [facility] 06-21-2022 Note HNO ID: [id number] Author: RT Radha(R) Service: Nuclear Medicine Author [...] safety can be found using this link: [email or web address] %[email or web address]%20Nuclear%20Med icine%20Procedures.[email or web address] SIGNATURE: RT Radha(R) PATIENT NAME: Krystal Cortes DATE: June 21, 2022 TIME: 7:01 AM PAGER/CONTACT #: [facility] 06-21-2022 History of Present illness Narrative [...] 651 PATIENT DISCHARGED TO: Ambulatory patient, left [place] department area. A Diagnostic radioactive procedure has taken place, with no further precautions necessary other than routine body substance precautions. More information regarding radiation safety can be found using this link: [email or web address]-%20Diagnostic%20Nucl ear%20Medicine%20Procedures.[email or web address] SIGNATURE: RT Radha(R) PATIENT NAME: Krystal Cortes DATE: June 21, 2022 TIME: 7:01 AM PAGER/CONTACT #: documented in this encounter [facility] 05-17-2022 Miscellaneous Notes See Stylect message. Marine Bush LPN Depends on the results of today's labs. I will send him a [employer]ule[employer] message once things are resulted and I have had a chance to review. Kirit Rosas DO Patient presented at front elevator operator asking if he needs to continue with weekly CBC/CMP blood draws. Patient has completed both chemo and radiation. Please advise. ([facility] Kiya Villalba documented in this encounter [facility] 05-10-2022 Nurse Note Tobacco Use: 1 packs/day, for 40 years. Types: Cigarettes. Ready to quit: Yes. Was smoking cessation packet given? Yes - Patient received smoking cessation packet at previous [facility] office visit. Was a referral initiated?Patient declined. documented in this encounter [facility] 05-10-2022 History of Present illness Narrative [facility] CC: CA - cancer [...] deep margin <0.1mm). He has also undergone PRODUCT DEVELOPMENT CONSULTANT for [id number] SCC of the proximal esophagus ([id number] in [...] s/p excision 04/2021 and recent completion of PRODUCT DEVELOPMENT CONSULTANT on 04/11/2022 for esophageal SCC presenting for routine follow up of taylor of mouth SCC. Patient is doing well now 1 year post-op. 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 EGD/EUS 01/18/2022: Malignant [...] No jaundice or rash. No petechiae. NEUROLOGIC: professor of art II-XII are grossly intact. No focal motor [...] Lymph 1.00 - 4.00 k/uL 0.98 (L) [place]% % 13.6 Abs [place] <0.87 k/uL 0.67 Eosin% % 1.4 Abs [...] the patient had not followed up at [facility] since his first postoperative check in the spring. At the time of that surgery he was observed to have a possible mass in the proximal esophagus and was told to see a commercial artist lettering. A more recent evaluation of that with [...] Assessment: -Was evaluated by Dr. Ortiz at [facility]. Plan: -Follow-up with Dr. Ortiz as [...] which included preparing to see the patient, [id number] patient care, completing clinical documentation, obtaining and/or reviewing separately obtained history, performing a medically appropriate examination, counseling and educating the patient/family/caregiver, ordering medications, tests, or procedures, communicating with other HCPs (not separately reported), and communicating results to the patient/family/caregiver. Kirit Rosas DO Est. Pt, discuss recent lab results, 4 week f/u Clarita Kinney LPN documented in this encounter [facility] 04-21-2022 Miscellaneous Notes Pt returned call, given instructions, voices understanding. Sofya Dhillon LPN Message left for patient to contact office for medication instructions. Dr. Rosas would like patient to discontinue Lasix. Medication list needs updated once patient has been notified. Please warm transfer patient to [facility]. Marine Bush LPN documented in this encounter [facility] 04-13-2022 Nurse Note Written discharge instructions given and reviewed with patient. Patient verbalizes understanding. Encouraged to call with any questions or concerns. Instruction for 4 week phone call follow up appointment given by Dr. Dinh. documented in this encounter [facility] 04-13-2022 History of Present illness Narrative KRYSTAL CORTES [id number] : 1955 04/13/2022 [facility] Department of Radiation Oncology RADIATION ONCOLOGY [...] treatment well overall. Four week follow-up with ut. Staff Physician SHANNON DINH M.D. / 33:07 PM Electronically Signed cc: Kirit Rosas [address] [facility] [id number] documented in this encounter [facility] 04-12-2022 Nurse Note Radiation Therapy - Nursing Note (OTV) PATIENT NAME: Krystal Cortes PATIENT April 12, 2022 [facility] FACILITY/LOCATION: [place] NURSING NOTE TYPE: CHEST Subjective Data See pain assessment Additional Data Do you want to see a Emr Implementation Specialist? No Status: Patient is male Stress Scale: [...] Jennifer Santillan RN documented in this encounter [facility] 04-12-2022 History of Present illness Narrative Pt did not show for appt. Pt should make appt as needed. documented in this encounter [facility] 04-12-2022 History of Present illness Narrative Radiation [...] Shannon Dinh MD documented in this encounter [facility] 04-11-2022 Miscellaneous Notes Patient has been scheduled [...] about 10:00 am, he stated understanding. Sailaja Alcaraz Pss Spoke with pt.given information concerning low [...] on for electrolyte infusion tomorrow? Orders in [place]. Kirit Rosas DO documented in this encounter [facility] 04-06-2022 History of Present illness Narrative Chief [...] recalls anesthesiologist told him to see a commercial artist lettering because he may have a mass in [...] fungi. 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 EGD/EUS 01/18/2022: Malignant [...] - 4.00 k/uL 0.55 (L) 0.49 (L) [place]% % 14.6 14.1 Abs [place] <0.87 k/uL 0.36 0.29 Eosin% % 1.2 [...] the patient had not followed up at [facility] since his first postoperative check in the spring. At the time of that surgery he was observed to have a possible mass in the proximal esophagus and was told to see a commercial artist lettering. More recent evaluation of that with biopsy [...] -Was recently evaluated by Dr. Ortiz at [facility]. Plan for now is to monitor. Plan: -Follow-up with Dr. Ortiz in 3 months as scheduled. - Overall tolerating taxol/carbo/radiation well. - Reviewed last Mondays labs. - Continue current medications. - EGD 8 weeks after completing therapy-Dr. Landis[facility]. - Continue weekly labs-on Monday. - Proceed [...] Sandra Cruz APRN.DARIAN documented in this encounter [facility] 04-05-2022 History of Present illness Narrative Radiation [...] Shannon Dinh MD documented in this encounter [facility] 04-05-2022 Nurse Note Radiation Therapy - Nursing Note (OTV) PATIENT NAME: Krystal Cortes PATIENT April 05, 2022 [facility] FACILITY/LOCATION: [facility] NOTE TYPE: HEAD AND NECK Subjective Data see pain assessment Additional Data Do you want to see a Emr Implementation Specialist? Yes appointment already scheduled Status: Patient is [...] Zehra Steen RN documented in this encounter [facility] 03-29-2022 History of Present illness Narrative Radiation [...] Shannon Dinh MD documented in this encounter [facility] 03-29-2022 Nurse Note Radiation Therapy - Nursing Note (OTV) PATIENT NAME: Krystal Cortes PATIENT March 29, 2022 [facility] FACILITY/LOCATION: [place] NURSING NOTE TYPE: CHEST Subjective Data See pain assessment Additional Data Do you want to see a Emr Implementation Specialist? No Status: Patient is male Stress Scale: On a scale of 0 to 10, what number best describes how much distress you have experienced in the past week?(0 being no distress and 10 being extreme distress) 2 Social work notified: Pt denied need to see social security specialist at this time. Nursing Assessment Fatigue: none [...] Jennifer Santillan RN documented in this encounter [facility] 03-22-2022 History of Present illness Narrative Oncology [...] Dosing Weight: 74.2 kg Estimated kilocalorie needs: 3328-8146 kilocalories determined by 30-35 kcal/kg Estimated protein needs: 89-111 grams determined by 1.2-1.5 g/kg Dosing weight Estimated fluid needs: 0153-3778 milliliters based on 1 mL per kcal [...] Perkins RD, GELY documented in this encounter [facility] 03-22-2022 History of Present illness Narrative Radiation [...] parameters. Continue radiation treatment as planned. Shannon Dihn MD documented in this encounter [facility] 03-22-2022 Nurse Note Radiation Therapy - Nursing Note (OTV) PATIENT NAME: Krystal Cortes PATIENT March 22, 2022 [facility] FACILITY/LOCATION: [place] NURSING NOTE TYPE: chest Subjective Data sore throat 2-3 on pain scale worse with swallowing- on Monday but improved over weekend Additional Data Do you want to see a Emr Implementation Specialist? Yes today Status: Patient is male Stress Scale: On a scale of 0 to 10, what number best describes how much distress you have experienced in the past week?(0 being no distress and 10 being extreme distress) 3 Social work notified: Pt denied need to see social security specialist at this time. Nursing Assessment Fatigue: none [...] Zehra Steen RN documented in this encounter [facility] 03-16-2022 Miscellaneous Notes TOXICITY CHECK SYMPTOM ASSESSMENT [...] Kacie Stewart RN documented in this encounter [facility] 03-15-2022 Nurse Note Radiation Therapy - Nursing Note (OTV) PATIENT NAME: Krystal Cortes PATIENT March 15, 2022 [facility] FACILITY/LOCATION: [place] NURSING NOTE TYPE: CHEST Subjective Data Pt reports slight heartburn last night Additional Data Do you want to see a Emr Implementation Specialist? No Status: Patient is male Stress Scale: [...] Jennifer Santillan RN documented in this encounter [facility] 03-15-2022 History of Present illness Narrative Radiation [...] Shannon Dinh MD documented in this encounter [facility] 03-14-2022 History of Present illness Narrative Chief [...] recalls anesthesiologist told him to see a commercial artist lettering because he may have a mass in [...] fungi. 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 EGD/EUS 01/18/2022: Malignant [...] 1.00 - 4.00 k/uL 2.31 1.67 1.35 [place]% % 10.2 10.0 8.9 Abs [place] <0.87 k/uL 0.80 0.75 0.48 Eosin% % [...] the patient had not followed up at [facility] since his first postoperative check in the spring. At the time of that surgery he was observed to have a possible mass in the proximal esophagus and was told to see a commercial artist lettering. More recent evaluation of that with biopsy [...] -Was recently evaluated by Dr. Ortiz at [facility]. Plan for now is to monitor. 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 Max Ortiz MD documented in this encounter [facility] 03-08-2022 History of Present illness Narrative Oncology [...] Dosing Weight: 74.2 kg Estimated kilocalorie needs: 5214-9499 kilocalories determined by 30-35 kcal/kg Estimated protein needs: 89-111 grams determined by 1.2-1.5 g/kg Dosing weight Estimated fluid needs: 1406-0871 milliliters based on 1 mL per kcal [...] and then weekly Referred/Supervised by: Dr. Rosas/Dr. Dinh MNT Billing Type: Initial Assess/15 min 2 units Billed Time: 30 minutes Signed by: Brooklyn Perkins RD, GELY documented in this encounter [facility] 03-08-2022 History of Present illness Narrative Radiation [...] Shannon Dinh MD documented in this encounter [facility] 03-08-2022 Nurse Note Radiation Therapy - Nursing Note (OTV) PATIENT NAME: Krystal Cortes PATIENT March 08, 2022 [facility] FACILITY/LOCATION: [place] NURSING NOTE TYPE: ABDOMEN Subjective Data no complaints Additional Data Do you want to see a Emr Implementation Specialist? Yes has appointment today Status: Patient is male Stress Scale: On a scale of 0 to 10, what number best describes how much distress you have experienced in the past week?(0 being no distress and 10 being extreme distress) 1 Social work notified: Pt denied need to see social security specialist at this time. Nursing Assessment Fatigue: none [...] Zehra Steen RN documented in this encounter [facility] 03-03-2022 Miscellaneous Notes Requested treatment details from Dr. Gallagher about excision of floor of mouth and pathology report. [phone] spoke with Pat. Records received and scanned into patient chart. Notified Dr. Ortiz. Clarita Piedra RN documented in this encounter [facility] 03-02-2022 Miscellaneous Notes Spoke with patient and scheduled. Please schedule patient to see Brooklyn Perkins when patient is here for XRT. Order filed, please sign. Thank you. Kacie Stewart RN documented in this encounter [facility] 03-02-2022 Nurse Note This visit was completed [...] Social Work and nutrition Kacie Stewart RN [place] Pre Chemo Patient identified by name and date of . YES Confirmed date and time for chemotherapy ? YES Other appointments (labs, imaging) discussed? 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 Was approved? [email or web address] Signed by: Jennifer Santillan RN documented in this encounter [facility] 02-25-2022 Miscellaneous Notes Therapists notified and will contact pt. Pt is wondering if the 11:30 today appt is still available. He was originally offered today. His scheduled changed that he could do it if it would be possible. Please call his cell. documented in this encounter [facility] 02-25-2022 History of Present illness Narrative KRYSTAL CORTES N [id number] 02/25/2022 [facility] Department of Radiation Oncology Treatment Planning [...] M.D. :14 PM documented in this encounter [facility] 02-25-2022 History of Present illness Narrative KRYSTAL CORTES Hernandez [id number] 02/25/2022 [facility] Department of Radiation Oncology [facility] RADIATION ONCOLOGY SIMULATION NOTE DATE OF SIMULATION: [...] guzman if applicable. Electronically Signed Shannon Dinh M.D./dw :14 PM documented in this encounter [facility] 02-24-2022 History of Present illness Narrative Oncologic [...] recalls anesthesiologist told him to see a commercial artist lettering because he may have a mass in [...] fungi. 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 No petechiae. NEUROLOGIC: professor of art II-XII are grossly intact. No focal motor [...] the patient had not followed up at [facility] since his first postoperative check in the spring. At the time of that surgery he was observed to have a possible mass in the proximal esophagus and was told to see a commercial artist lettering. More recent evaluation of that with biopsy [...] -Was recently evaluated by Dr. Ortiz at [facility]. Plan for now is to monitor. [...] with more than 50% of the total vbst-zs-pzku time of the visit in reviewing test results, plan of care. discussion for chemotherapy and coordination of care. Kirit Rosas DO documented in this encounter [facility] 02-10-2022 Nurse Note Tobacco Use: 1 packs/day, for 40 years. Types: Cigarettes Was smoking cessation packet given? N/A - Patient is a non-smoker or quit >1 year ago. Was a referral initiated?N/A Patient is a non-smoker documented in this encounter [facility] 02-10-2022 History of Present illness Narrative [facility] Referring Physician: Dr. Kirit Rosas [...] with resection by Dr. Quiñones at the [facility] in 04/2021. He was told that he [...] SURGICAL HISTORY Procedure Laterality Date EGD W/O [facility] SPEC VARICIES INJ 11/2021 SKIN BX, 1 [...] cell carcinoma in April 2021. Dr. Gallagher it [facility]. He was told he did not need [...] his pathology report for updated staging from [facility]. At this point I would recommend watching him closely for the head and neck and proceeding with treatment of his esophageal cancer. - follow-up in 3 months Max Ortiz MD documented in this encounter [facility] 02-08-2022 Note HNO ID: [id number] Author: RT Hina(R) Service: Nuclear Medicine Author Type: Technologist Type: [...] 0657 PATIENT DISCHARGED TO: Ambulatory patient, left [place] department area. A Diagnostic radioactive procedure has taken place, with no further precautions necessary other than routine body substance precautions. More information regarding radiation safety can be found using this link: [email or web address] [email or web address]%20Nuclear%20Med icine%20Procedures.pdf SIGNATURE: RT Hina(R) PATIENT NAME: Krystal Cortes DATE: February 08, 2022 TIME: 7:09 AM PAGER/CONTACT #: [facility] 02-08-2022 History of Present illness Narrative [...] 0657 PATIENT DISCHARGED TO: Ambulatory patient, left [place] area. A Diagnostic radioactive procedure has taken place, with no further precautions necessary other than routine body substance precautions. More information regarding radiation safety can be found using this link: [email or web address] ear%20Medicine%20Procedures.[email or web address] SIGNATURE: RT Hina(Som) PATIENT NAME: Krystal Cortes DATE: February 08, 2022 TIME: 7:09 AM PAGER/CONTACT #: documented in this encounter [facility] 01-31-2022 Nurse Note Radiation Therapy - Nursing Note (Consult) PATIENT NAME: Krystal Cortes PATIENT January 31, 2022 [facility] FACILITY/LOCATION: [place] Chief Complaint: consult Reason for visit: Consult. Referring physician: Internal provider Dr Rosas Subjective Data: no c/o Additional Data Do you want to see a Emr Implementation Specialist? No Are you interested in information about fertility? No Status: Patient is male Stress Scale: On a scale of 0 to 10, what number best describes how much distress you have experienced in the past week?(0 being no distress and 10 being extreme distress) 2 Social work notified: Pt denied need to see social security specialist at this time. SIGNED by: Jennifer Santillan RN documented in this encounter [facility] 01-31-2022 History of Present illness Narrative Radiation [...] with resection by Dr. Quiñones at the [facility] in 04/2021. He was told that he [...] that other personnel such as radiation therapists, garnett room worker, and physicists will participate in planning and delivery of radiation treatment. Permanent tattoo goyal will be placed to aid with positioning for daily treatment and the patient consented. Patient will have a simulation procedure after staging completes. Thank you very much for allowing us to participate in his care. Signed by: Shannon Dinh MD cc: Kirit Rosas [address] [place] [facility] [id number] documented in this encounter [facility] 01-26-2022 Miscellaneous Notes Met with patient and introduced myself. Patient was given a My [employer] binder with [facility] information, office contact information, thermometer, and additional chemotherapy resource booklets. Patient aware this nurse will review on scheduled appointment date. Kacie Stewart RN documented in this encounter [facility] 01-26-2022 History of Present illness Narrative Oncologic [...] recalls anesthesiologist told him to see a commercial artist lettering because he may have a mass in [...] uses. 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 No rales, wheezes or rhonchi. CARDIOVASCULAR: Rhythm is regular. ABDOMEN: The abdomen is nondistended. Non-tender hepatomegaly. No abdominal tenderness. Extremities: No swelling or edema. SKIN: No jaundice or rash. No petechiae. NEUROLOGIC: professor of art II-XII are grossly intact. No focal motor [...] the patient had not followed up at [facility] since his first postoperative check in the spring. At the time of that surgery he was observed to have a possible mass in the proximal esophagus and was told to see a commercial artist lettering. Recent evaluation of that with biopsy demonstrated [...] Dinh for opinion on radiation. -Referral to [facility]NT for evaluation of previous head [...] with more than 50% of the total xczb-gh-imke time of the visit in reviewing test results, plan of care. discussion/consent for chemotherapy and coordination of care Kirit Rosas DO documented in this encounter [facility] 01-18-2022 Miscellaneous Notes LM for patient to [...] Kirit Rosas DO documented in this encounter [facility] 01-18-2022 Nurse Note AMBULATORY PATIENT EDUCATION NOTE [...] In Department: GASTROENTEROLOGY documented in this encounter [facility] 01-11-2022 Miscellaneous Notes Yes, he saw Dr Jose Rafael Brar. I will fax note. Sofya Dhillon LPN Please fax a copy of the CT neck report to Dr. Brar's office. Patient was to have an appointment with either him or Dr. Newman. Has that been scheduled yet? Kirit Rosas DO documented in this encounter [facility] 01-11-2022 Miscellaneous Notes Attempted to reach the patient at the contact number that they provided [phone] (home) . 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 Guru Lavertu Conference Review Type: new Impression Floor of [...] 28-May-2021 08:40 by León Vera (N MGR) [facility] 05-13-2021 Note PROCEDURE DETAILS Preoperative Diagnosis: Floor of mouth lesion Postoperative Diagnosis: Floor of mouth lesion Surgeon: Dr. Gallagher Resident/Fellow/Other Bullet Slug Casting Machine Operator: Dr. Arredondo Procedure: 1. direct laryngoscopy 2. [...] Note, Chart Review, Note Completion Kera Arredondo (Resident)) (Signed 13-May-2021 15:12) Authored: Post-Operative Note, Chart Review, Note Completion Last Updated: 13-May-2021 16:59 by Guru Gallagher) [facility] 05-13-2021 Note History & Physical R eviewed: [...] the note. I personally evaluated the patient [id number] Electronic Signatures: Guru Gallagher) (Signed 13-May-2021 16:50) Authored: Note Completion Co-Signer: History & Physical Reviewed, ERAS, Consent, Note Completion Kera Arredondo (DO (Resident)) (Signed 13-May-2021 05:51) Authored: History & Physical Reviewed, ERAS, Consent, Note Completion Last Updated: 13-May-2021 16:50 by Guru Gallagher) [facility] Chief complaint Narrative - Reported Consultation for the management of an oral cavity lesion. 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) [facility] Diagnosis Malignant neoplasm of upper [...] symptoms related to the presence of this mass.TS-Tnwcizqbkmvrhk-Inswgrsf Work Phone: Reason for referral (narrative)* Outpatient Procedure (Routine) - Closed Specialty Diagnoses / Procedures Referred By Contac t Referred To Contact [facility] Diagnoses 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) Procedures EGD - THERAPEUTIC, EUS, OR TUBE INTERVENTIONS EDG US EXAM SURGICAL ALTER STOM DUODENUM/JEJUNUM Kirit Rosas, DO [address] [place] [address] [facility] [address] [place] [address] Referral ID Status Reason Start Date Expiration Date V isits Requested Visits Authorized [id number] Closed Auto-Generate d Referral 12/28/2021 12/28/2022 1 1 [facility] for referral (narrative)* Diagnostic Procedure Only (Urgent) - Closed Specialty Diagnoses / Procedures Referred By Contac t Referred To Contact [facility] Diagnoses 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) Procedures NM PET/CT SKULL-THIGH INITIAL PET IMAGING CT ATTENUATION SKULL BASE MID-THIGH Kirit Rosas, DO [address] [place] [address] [facility] [address] [place] [address] Referral ID Status Reason Start Date Expiration Date V isits Requested Visits Authorized [id number] Closed Auto-Generate d Referral 01/18/2022 04/18/2022 1 1 [facility] for referral (narrative)* Diagnostic Procedure Only (Urgent) - Closed Specialty Diagnoses / Procedures Referred By Contac t Referred To Contact [facility] Diagnoses 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) Procedures NM PET/CT SKULL-THIGH INITIAL PET IMAGING CT ATTENUATION SKULL BASE MID-THIGH Kirit Rosas DO [address] [place] [address] [facility] [address] [id number] Referral ID Status Reason Start Date Expiration Date V isits Requested Visits Authorized [id number] Closed Auto-Generate d Referral 01/18/2022 04/18/2022 1 1 [facility] for referral (narrative)* Diagnostic Procedure Only (Routine) - Authorized Specialty Diagnoses / Procedures Referred By Contac t Referred To Contact [facility] Diagnoses 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) Procedures NM PET/CT SKULL-THIGH SUBSEQUENT PET IMAGING CT ATTENUATION SKULL BASE MID-THIGH Kirit Rosas, DO [address] [place] [address] [facility] [address] [place] [address] Referral ID Status Reason Start Date Expiration Date Visits Requested Visits Authorized [id number] Authorized Auto-Generat ed Referral 05/05/2022 06/04/2023 1 1 T [facility] for referral (narrative)* Diagnostic Procedure Only (Routine) - Closed Specialty Diagnoses / Procedures Referred By Contac t Referred To Contact [facility] Diagnoses 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) Procedures NM PET/CT SKULL-THIGH SUBSEQUENT PET IMAGING CT ATTENUATION SKULL BASE MID-THIGH Kirit Rosas, DO [address] [place] [address] [facility] [address] [place] [address] Referral ID Status Reason Start Date Expiration Date V isits Requested Visits Authorized [id number] Closed Auto-Generate d Referral 05/05/2022 06/04/2023 1 1 [facility] for referral (narrative)No reason for referral [facility] Work Phone: Reason for visit Narrative* Outpatient Procedure (Routine) - Closed Specialty Diagnoses / Procedures Referred By Contac t Referred To Contact [facility] Diagnoses 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) Procedures EGD - THERAPEUTIC, EUS, OR TUBE INTERVENTIONS EDG US EXAM SURGICAL ALTER STOM DUODENUM/JEJUNUM Kirit Rosas, DO [address] [place] [address] [facility] [address] [place] [address] Referral ID Status Reason Start Date Expiration Date V isits Requested Visits Authorized [id number] Closed Auto-Generate d Referral 12/28/2021 12/28/2022 1 1 [facility] for visit Narrative* Diagnostic Procedure Only (Routine) - Closed Specialty Diagnoses / Procedures Referred By Contdori t Referred To Contact [facility] Diagnoses 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 [place] [address] Molecular [facility] [address] [place] [address] Referral ID Status Reason Start Date Expiration Date V isits Requested Visits Authorized [id number] Closed Auto-Generate d Referral 05/05/2022 06/04/2023 1 1 [facility] Summary Purpose Family History No Family History [...] over 30 Minutes, ONCE, 1 dose, On Mon03/07/22 at 0930, exp 1000 03/08/22 (room temp) [...] over 30 Minutes, ONCE, 1 dose, On 03/14/22 at 1000, exp 1000 03/15/22 (room temp) [...] over 30 Minutes, ONCE, 1 dose, On 03/28/22 at 1030, exp 1030 03/29/22 (room temp) [...] over 30 Minutes, ONCE, 1 dose, On 04/04/22 at 1000, exp 1000 04/05/22 (room temp) [...] Referral Specialty Diagnoses / Procedures Referred By Contac t Referred To Contact Diagnoses 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) Procedures CT NECK SOFT TISSUE W IVCON CT SOFT TISSUE NECK W/CONTRAST MATERIAL Kirit Rosas, DO [address] [place] [address] Ct Imaging Referral ID Status Reason Start Date Expiration Date Visits Requested Visits Authorized [id number] Authorized Auto-Generat ed Referral 06/24/2022 07/24/2023 1 1 Specialty Diagnoses / Procedures Referred By Contac t Referred To Contact CT IMAGING Diagnoses 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) Procedures CT CHEST W IVCON DIAGNOSTIC COMPUTED TOMOGRAPHY THORAX W/CONTRAST Kirit Rosas, DO [address] [place] [address] Ct Imaging Referral ID Status Reason Start Date Expiration Date Visits Requested Visits Authorized [id number] Authorized Auto-Generat ed Referral 06/24/2022 07/24/2023 1 1 Specialty Diagnoses / Procedures Referred By Contac t Referred To Contact CT IMAGING Diagnoses 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) Procedures CT NECK SOFT TISSUE W IVCON CT SOFT TISSUE NECK W/CONTRAST MATERIAL Kirit Rosas, DO [address] [place] [address] [place] [address] Referral ID Status Reason Start Date Expiration Date Visits Requested Visits Authorized [id number] Authorized Auto-Generat ed Referral 10/21/2022 11/20/2023 1 1 Specialty Diagnoses / Procedures Referred By Contac t Referred To Contact CT IMAGING Diagnoses 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) Procedures CT CHEST W IVCON DIAGNOSTIC COMPUTED TOMOGRAPHY THORAX W/CONTRAST Masci Kirit A, DO [address] [place] [address] [place] [address] Referral ID Status Reason Start Date Expiration Date Visits Requested Visits Authorized [id number] Authorized Auto-Generat ed Referral 10/21/2022 11/20/2023 1 1 Referral ID Status Reason Start Date Expiration Date V isits Requested Visits Authorized [id number] Closed Auto-Generate d Referral 06/24/2022 07/24/2023 1 1 Referral ID Status Reason Start Date Expiration Date V isits Requested Visits Authorized [id number] Closed Auto-Generate d Referral 06/24/2022 07/24/2023 1 1 Referral ID Status Reason Start Date Expiration Date V isits Requested Visits Authorized [id number] Closed Auto-Generate d Referral 10/21/2022 11/20/2023 1 1 Specialty Diagnoses / Procedures Referred By Contac t Referred To Contact CT IMAGING Diagnoses 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) Procedures CT CHEST W IVCON DIAGNOSTIC COMPUTED TOMOGRAPHY THORAX W/CONTRAST Masci Kirit A, DO [address] [place] [address] [place] [address] Referral ID Status Reason Start Date Expiration Date Visits Requested Visits Authorized [id number] Authorized Auto-Generat ed Referral 04/27/2023 05/26/2024 1 1 Specialty Diagnoses / Procedures Referred By Contac t Referred To Contact CT IMAGING Diagnoses 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) Procedures CT NECK SOFT TISSUE W IVCON CT SOFT TISSUE NECK W/CONTRAST MATERIAL Masci Kirit A, DO [address] [place] [address] [place] [address] Referral ID Status Reason Start Date Expiration Date Visits Requested Visits Authorized [id number] Authorized Auto-Generat ed Referral 04/27/2023 05/26/2024 1 1 Referral ID Status Reason Start Date Expiration Date V isits Requested Visits Authorized [id number] Closed Auto-Generate d Referral 04/27/2023 05/26/2024 1 1 Specialty Diagnoses / Procedures Referred By Contac t Referred To Contact CT IMAGING Diagnoses 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) Procedures CT CHEST W IVCON DIAGNOSTIC COMPUTED TOMOGRAPHY THORAX W/CONTRAST Sandra Cruz, BRY.HEPATOLOGY PHYSICIAN [address] [place] [address] [place] [address] Referral ID Status Reason Start Date Expiration Date Visits Requested Visits Authorized [id number] Authorized Auto-Generat ed Referral 04/30/2024 11/30/2024 1 1 Specialty Diagnoses / Procedures Referred By Contac t Referred To Contact CT IMAGING Diagnoses 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) Procedures CT NECK SOFT TISSUE W IVCON CT SOFT TISSUE NECK W/CONTRAST MATERIAL Sandra Cruz, BRY.HEPATOLOGY PHYSICIAN [address] [place] [address] [place] [address] Referral ID Status Reason Start Date Expiration Date Visits Requested Visits Authorized [id number] Authorized Auto-Generat ed Referral 04/30/2024 11/30/2024 1 1 Additional Source Comments (unrecognized sect ion and content) No Status Records FoundNo Status Records FoundNo Status Records FoundNo Status Records FoundNo Status Records Found INFORMATION SOURCE (unrecogn ized section and content) DATE CREATED AUTHOR 06/02/2021 [facility] DATE CREATED AUTHOR AUTHOR'S ORGANIZ ATION 01/22/2022 [employer] DATE CREATED AUTHOR AUTHOR'S ORGANIZ ATION 06/21/2022 [facility] DATE CREATED AUTHOR AUTHOR'S ORGANIZ ATION 11/15/2024 [facility] DATE CREATED AUTHOR AUTHOR'S ORGANIZ ATION 12/26/2024 [facility] Goals (unrecognized section and content) Goals [...] or prosecute any alcohol or drug abuse patient.[facility] the event this information is protected by the Federal Confidentiality of Alcohol and Drug Abuse Patient Records regulations: The Federal rules restrict any use of the information to criminally investigate or prosecute any alcohol or drug abuse patient.[facility] HospitalIn the event this information is protected by the Federal Confidentiality of Alcohol and Drug Abuse Patient Records regulations: The Federal rules restrict any use of the information to criminally investigate or prosecute any alcohol or drug abuse patient.[facility] HospitalIn the event this information is protected by the Federal Confidentiality of Alcohol and Drug Abuse Patient Records regulations: The Federal rules restrict any use of the information to criminally investigate or prosecute any alcohol or drug abuse patient.[facility] HospitalIn the event this information is protected by the Federal Confidentiality of Alcohol and Drug Abuse Patient Records regulations: The Federal rules restrict any use of the information to criminally investigate or prosecute any alcohol or drug abuse patient.[facility] HospitalIn the event this information is protected by the Federal Confidentiality of Alcohol and Drug Abuse Patient Records regulations: The Federal rules restrict any use of the information to criminally investigate or prosecute any alcohol or drug abuse patient.[facility] HospitalIn the event this information is protected by the Federal Confidentiality of Alcohol and Drug Abuse Patient Records regulations: The Federal rules restrict any use of the information to criminally investigate or prosecute any alcohol or drug abuse patient.[facility] HospitalIn the event this information is protected by the Federal Confidentiality of Alcohol and Drug Abuse Patient Records regulations: The Federal rules restrict any use of the information to criminally investigate or prosecute any alcohol or drug abuse patient.[facility] HospitalIn the event this information is protected by the Federal Confidentiality of Alcohol and Drug Abuse Patient Records regulations: The Federal rules restrict any use of the information to criminally investigate or prosecute any alcohol or drug abuse patient.[facility] HospitalIn the event this information is protected by the Federal Confidentiality of Alcohol and Drug Abuse Patient Records regulations: The Federal rules restrict any use of the information to criminally investigate or prosecute any alcohol or drug abuse patient.[facility] HospitalIn the event this information is protected by the Federal Confidentiality of Alcohol and Drug Abuse Patient Records regulations: The Federal rules restrict any use of the information to criminally investigate or prosecute any alcohol or drug abuse patient.[facility] HospitalIn the event this information is protected by the Federal Confidentiality of Alcohol and Drug Abuse Patient Records regulations: The Federal rules restrict any use of the information to criminally investigate or prosecute any alcohol or drug abuse patient.[facility] HospitalIn the event this information is protected by the Federal Confidentiality of Alcohol and Drug Abuse Patient Records regulations: The Federal rules restrict any use of the information to criminally investigate or prosecute any alcohol or drug abuse patient.[facility] HospitalIn the event this information is protected by the Federal Confidentiality of Alcohol and Drug Abuse Patient Records regulations: The Federal rules restrict any use of the information to criminally investigate or prosecute any alcohol or drug abuse patient.[facility] HospitalIn the event this information is protected by the Federal Confidentiality of Alcohol and Drug Abuse Patient Records regulations: The Federal rules restrict any use of the information to criminally investigate or prosecute any alcohol or drug abuse patient.[facility] HospitalIn the event this information is protected by the Federal Confidentiality of Alcohol and Drug Abuse Patient Records regulations: The Federal rules restrict any use of the information to criminally investigate or prosecute any alcohol or drug abuse patient.[facility] HospitalIn the event this information is protected by the Federal Confidentiality of Alcohol and Drug Abuse Patient Records regulations: The Federal rules restrict any use of the information to criminally investigate or prosecute any alcohol or drug abuse patient.[facility] HospitalIn the event this information is protected by the Federal Confidentiality of Alcohol and Drug Abuse Patient Records regulations: The Federal rules restrict any use of the information to criminally investigate or prosecute any alcohol or drug abuse patient.[facility] HospitalIn the event this information is protected by the Federal Confidentiality of Alcohol and Drug Abuse Patient Records regulations: The Federal rules restrict any use of the information to criminally investigate or prosecute any alcohol or drug abuse patient.[facility] HospitalIn the event this information is protected by the Federal Confidentiality of Alcohol and Drug Abuse Patient Records regulations: The Federal rules restrict any use of the information to criminally investigate or prosecute any alcohol or drug abuse patient.[facility] HospitalIn the event this information is protected by the Federal Confidentiality of Alcohol and Drug Abuse Patient Records regulations: The Federal rules restrict any use of the information to criminally investigate or prosecute any alcohol or drug abuse patient.[facility] HospitalIn the event this information is protected by the Federal Confidentiality of Alcohol and Drug Abuse Patient Records regulations: The Federal rules restrict any use of the information to criminally investigate or prosecute any alcohol or drug abuse patient.[facility] HospitalIn the event this information is protected by the Federal Confidentiality of Alcohol and Drug Abuse Patient Records regulations: The Federal rules restrict any use of the information to criminally investigate or prosecute any alcohol or drug abuse patient.[facility] HospitalIn the event this information is protected by the Federal Confidentiality of Alcohol and Drug Abuse Patient Records regulations: The Federal rules restrict any use of the information to criminally investigate or prosecute any alcohol or drug abuse patient.[facility] HospitalIn the event this information is protected by the Federal Confidentiality of Alcohol and Drug Abuse Patient Records regulations: The Federal rules restrict any use of the information to criminally investigate or prosecute any alcohol or drug abuse patient.[facility] HospitalIn the event this information is protected by the Federal Confidentiality of Alcohol and Drug Abuse Patient Records regulations: The Federal rules restrict any use of the information to criminally investigate or prosecute any alcohol or drug abuse patient.[facility] HospitalIn the event this information is protected by the Federal Confidentiality of Alcohol and Drug Abuse Patient Records regulations: The Federal rules restrict any use of the information to criminally investigate or prosecute any alcohol or drug abuse patient.[facility] HospitalIn the event this information is protected by the Federal Confidentiality of Alcohol and Drug Abuse Patient Records regulations: The Federal rules restrict any use of the information to criminally investigate or prosecute any alcohol or drug abuse patient.[facility] HospitalIn the event this information is protected by the Federal Confidentiality of Alcohol and Drug Abuse Patient Records regulations: The Federal rules restrict any use of the information to criminally investigate or prosecute any alcohol or drug abuse patient.[facility] HospitalIn the event this information is protected by the Federal Confidentiality of Alcohol and Drug Abuse Patient Records regulations: The Federal rules restrict any use of the information to criminally investigate or prosecute any alcohol or drug abuse patient.[facility] HospitalIn the event this information is protected by the Federal Confidentiality of Alcohol and Drug Abuse Patient Records regulations: The Federal rules restrict any use of the information to criminally investigate or prosecute any alcohol or drug abuse patient.[facility] HospitalIn the event this information is protected by the Federal Confidentiality of Alcohol and Drug Abuse Patient Records regulations: The Federal rules restrict any use of the information to criminally investigate or prosecute any alcohol or drug abuse patient.[facility] HospitalIn the event this information is protected by the Federal Confidentiality of Alcohol and Drug Abuse Patient Records regulations: The Federal rules restrict any use of the information to criminally investigate or prosecute any alcohol or drug abuse patient.[facility] HospitalIn the event this information is protected by the Federal Confidentiality of Alcohol and Drug Abuse Patient Records regulations: The Federal rules restrict any use of the information to criminally investigate or prosecute any alcohol or drug abuse patient.[facility] HospitalIn the event this information is protected by the Federal Confidentiality of Alcohol and Drug Abuse Patient Records regulations: The Federal rules restrict any use of the information to criminally investigate or prosecute any alcohol or drug abuse patient.[facility] HospitalIn the event this information is protected by the Federal Confidentiality of Alcohol and Drug Abuse Patient Records regulations: The Federal rules restrict any use of the information to criminally investigate or prosecute any alcohol or drug abuse patient.[facility] HospitalIn the event this information is protected by the Federal Confidentiality of Alcohol and Drug Abuse Patient Records regulations: The Federal rules restrict any use of the information to criminally investigate or prosecute any alcohol or drug abuse patient.[facility] HospitalIn the event this information is protected by the Federal Confidentiality of Alcohol and Drug Abuse Patient Records regulations: The Federal rules restrict any use of the information to criminally investigate or prosecute any alcohol or drug abuse patient.[facility] HospitalIn the event this information is protected by the Federal Confidentiality of Alcohol and Drug Abuse Patient Records regulations: The Federal rules restrict any use of the information to criminally investigate or prosecute any alcohol or drug abuse patient.[facility] HospitalIn the event this information is protected by the Federal Confidentiality of Alcohol and Drug Abuse Patient Records regulations: The Federal rules restrict any use of the information to criminally investigate or prosecute any alcohol or drug abuse patient.[facility] HospitalIn the event this information is protected by the Federal Confidentiality of Alcohol and Drug Abuse Patient Records regulations: The Federal rules restrict any use of the information to criminally investigate or prosecute any alcohol or drug abuse patient.[facility] HospitalIn the event this information is protected by the Federal Confidentiality of Alcohol and Drug Abuse Patient Records regulations: The Federal rules restrict any use of the information to criminally investigate or prosecute any alcohol or drug abuse patient.[facility] HospitalIn the event this information is protected by the Federal Confidentiality of Alcohol and Drug Abuse Patient Records regulations: The Federal rules restrict any use of the information to criminally investigate or prosecute any alcohol or drug abuse patient.[facility] HospitalIn the event this information is protected by the Federal Confidentiality of Alcohol and Drug Abuse Patient Records regulations: The Federal rules restrict any use of the information to criminally investigate or prosecute any alcohol or drug abuse patient.[facility] HospitalIn the event this information is protected by the Federal Confidentiality of Alcohol and Drug Abuse Patient Records regulations: The Federal rules restrict any use of the information to criminally investigate or prosecute any alcohol or drug abuse patient.[facility] HospitalIn the event this information is protected by the Federal Confidentiality of Alcohol and Drug Abuse Patient Records regulations: The Federal rules restrict any use of the information to criminally investigate or prosecute any alcohol or drug abuse patient.[facility] HospitalIn the event this information is protected by the Federal Confidentiality of Alcohol and Drug Abuse Patient Records regulations: The Federal rules restrict any use of the information to criminally investigate or prosecute any alcohol or drug abuse patient.[facility] HospitalIn the event this information is protected by the Federal Confidentiality of Alcohol and Drug Abuse Patient Records regulations: The Federal rules restrict any use of the information to criminally investigate or prosecute any alcohol or drug abuse patient.[facility] HospitalIn the event this information is protected by the Federal Confidentiality of Alcohol and Drug Abuse Patient Records regulations: The Federal rules restrict any use of the information to criminally investigate or prosecute any alcohol or drug abuse patient.[facility] HospitalIn the event this information is protected by the Federal Confidentiality of Alcohol and Drug Abuse Patient Records regulations: The Federal rules restrict any use of the information to criminally investigate or prosecute any alcohol or drug abuse patient.[facility] HospitalIn the event this information is protected by the Federal Confidentiality of Alcohol and Drug Abuse Patient Records regulations: The Federal rules restrict any use of the information to criminally investigate or prosecute any alcohol or drug abuse patient.[facility] HospitalIn the event this information is protected by the Federal Confidentiality of Alcohol and Drug Abuse Patient Records regulations: The Federal rules restrict any use of the information to criminally investigate or prosecute any alcohol or drug abuse patient.[facility] HospitalIn the event this information is protected by the Federal Confidentiality of Alcohol and Drug Abuse Patient Records regulations: The Federal rules restrict any use of the information to criminally investigate or prosecute any alcohol or drug abuse patient.[facility] HospitalIn the event this information is protected by the Federal Confidentiality of Alcohol and Drug Abuse Patient Records regulations: The Federal rules restrict any use of the information to criminally investigate or prosecute any alcohol or drug abuse patient.[facility] HospitalIn the event this information is protected by the Federal Confidentiality of Alcohol and Drug Abuse Patient Records regulations: The Federal rules restrict any use of the information to criminally investigate or prosecute any alcohol or drug abuse patient.[facility] HospitalIn the event this information is protected by the Federal Confidentiality of Alcohol and Drug Abuse Patient Records regulations: The Federal rules restrict any use of the information to criminally investigate or prosecute any alcohol or drug abuse patient.[facility] HospitalIn the event this information is protected by the Federal Confidentiality of Alcohol and Drug Abuse Patient Records regulations: The Federal rules restrict any use of the information to criminally investigate or prosecute any alcohol or drug abuse patient.[facility] HospitalIn the event this information is protected by the Federal Confidentiality of Alcohol and Drug Abuse Patient Records regulations: The Federal rules restrict any use of the information to criminally investigate or prosecute any alcohol or drug abuse patient.[facility] HospitalIn the event this information is protected by the Federal Confidentiality of Alcohol and Drug Abuse Patient Records regulations: The Federal rules restrict any use of the information to criminally investigate or prosecute any alcohol or drug abuse patient.[facility] HospitalIn the event this information is protected by the Federal Confidentiality of Alcohol and Drug Abuse Patient Records regulations: The Federal rules restrict any use of the information to criminally investigate or prosecute any alcohol or drug abuse patient.[facility] HospitalIn the event this information is protected by the Federal Confidentiality of Alcohol and Drug Abuse Patient Records regulations: The Federal rules restrict any use of the information to criminally investigate or prosecute any alcohol or drug abuse patient.[facility] HospitalIn the event this information is protected by the Federal Confidentiality of Alcohol and Drug Abuse Patient Records regulations: The Federal rules restrict any use of the information to criminally investigate or prosecute any alcohol or drug abuse patient.[facility] HospitalIn the event this information is protected by the Federal Confidentiality of Alcohol and Drug Abuse Patient Records regulations: The Federal rules restrict any use of the information to criminally investigate or prosecute any alcohol or drug abuse patient.[facility] HospitalIn the event this information is protected by the Federal Confidentiality of Alcohol and Drug Abuse Patient Records regulations: The Federal rules restrict any use of the information to criminally investigate or prosecute any alcohol or drug abuse patient.[facility] Reason for Visit (unrecogniz ed section and content) Reason Comments Appointment Confirmation Reason Comments Results Reason Comments Tailman - Other Introduction Reason Comments Established Patient Reason Comments Consult Reason Comments Radiology NM Specialty Diagnoses / Procedures Referred By Contac t Referred To Contact MOLECULAR & FUNCTIONAL IMAGING Diagnoses 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) Procedures NM PET/CT SKULL-THIGH INITIAL PET IMAGING CT ATTENUATION SKULL BASE MID-THIGH Kirit Rosas DO [address] [place] [address] Molecular & Functional Imaging [address] [place], [place] [id number] Referral ID Status Reason Start Date Expiration Date V isits Requested Visits Authorized [id number] Closed Auto-Generate d Referral 01/18/2022 04/18/2022 1 1 Reason Comments Patient Question Reason Comments Patient Education Reason Onset Date Comments Simulation Request Form 02/25/2022 Reason Comments First Time Treatment Education Carboplat in/Taxol Reason Comments Tailman - Other Nutrition Appoi ntment Reason Comments New Patient Reason Comments Chemotherapy Treatment Specialty Diagnoses / Procedures Referred By Contac t Referred To Contact Diagnoses Cancer of cervical esophagus (HCC) Procedures PACLITAXEL INJECTION CARBOPLATIN INJECTION Kirit Rosas, DO [address] [place] [address] Joao [facility] [address] [place] [address] Referral ID Status Reason Start Date Expiration Date V isits Requested Visits Authorized [id number] Authorized 02/24/2022 04/19/2022 5 5 Reason Comments Request Outside Medical Records Care Coordination Reason Comments Nutrition Assessment Reason Comments Radiotherapy On-treatment Visit Reason Comments Tailman - Other Toxicity Check Reason Comments Results Low potassium Reason Comments Non-Chemotherapy Treatment Reason Comments Medication Problem Reason Comments Results Follow Up EGD results. Needs P ET. 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) Procedures CT NECK SOFT TISSUE W IVCON CT SOFT TISSUE NECK W/CONTRAST MATERIAL Kirit Rosas, DO [address] [place] [address] [place] [id number] Referral ID Status Reason Start Date Expiration Date V isits Requested Visits Authorized [id number] Closed Auto-Generate d Referral 06/24/2022 07/24/2023 1 1 Reason Comments AVS 10/21/[address] Specialty Diagnoses / Procedures [facility] Referred To Contact CT IMAGING Diagnoses 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) Procedures CT CHEST W IVCON DIAGNOSTIC COMPUTED TOMOGRAPHY THORAX W/CONTRAST Julio Césarallen Kirit Bravo, DO [address] [place] [address] [place] [address] Referral ID Status Reason Start Date Expiration Date V isits Requested Visits Authorized [id number] Closed Auto-Generate d Referral 10/21/2022 11/20/2023 1 1 Specialty Diagnoses / Procedures Referred By Contac t Referred To Contact CT IMAGING Diagnoses 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) Procedures CT CHEST W IVCON DIAGNOSTIC COMPUTED TOMOGRAPHY THORAX W/CONTRAST Julio Césarallen Kirit Bravo, DO [address] [place] [address] [place] [address] Referral ID Status Reason Start Date Expiration Date V isits Requested Visits Authorized [id number] Closed Auto-Generate d Referral 04/27/2023 05/26/2024 1 1 Specialty Diagnoses / Procedures Referred By Contac t Referred To Contact CT IMAGING Diagnoses 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) Procedures CT CHEST W IVCON DIAGNOSTIC COMPUTED TOMOGRAPHY THORAX W/CONTRAST Sandra Cruz APRN.HEPATOLOGY PHYSICIAN [address] [place] [address] Phone: tel: fax: [place] [phone] Referral ID Status Reason Start Date Expiration Date V isits Requested Visits Authorized [id number] Closed Auto-Generate d Referral 04/30/2024 11/30/2024 1 1 Care Teams (unrecognized sec tion and content) Jv Baseball Coach Relationship Specialty Start Date End Date Pcp, No PCP - General 09/04/21 03/22/22 Jv Baseball Coach Relationship Specialty Start Date End Date Pcp, No PCP - General 09/04/21 03/22/22 Jv Baseball Coach Relationship Specialty Start Date End Date Pcp, No PCP - General 09/04/21 03/22/22 Jv Baseball Coach Relationship Specialty Start Date End Date Pcp, No PCP - General 09/04/21 03/22/22 Jv Baseball Coach Relationship Specialty Start Date End Date Pcp, No PCP - General 09/04/21 03/22/22 Jv Baseball Coach Relationship Specialty Start Date End Date Pcp, No PCP - General 09/04/21 03/22/22 Shannon Dinh MD, [address] [place] [address] Physician Radiation Oncology 01/28/22 Jv Baseball Coach Relationship Specialty Start Date End Date Pcp, No PCP - General 09/04/21 03/22/22 Shannon Dinh MD, [address] [place] [address] Physician Radiation Oncology 01/28/22 Jv Baseball Coach Relationship Specialty Start Date End Date Mirtha Qiu [address] [place] [address] PCP - General Family Medicine 02/24/22 Shannon Dinh MD, [address] [place] [address] Physician Radiation Oncology 01/28/22 Jv Baseball Coach Relationship Specialty Start Date End Date Mirtha Qiu [address] [place] [address] PCP - General Family Medicine 02/24/22 Shannon Dinh MD, [address] [place] [address] Physician Radiation Oncology 01/28/22 Jv Baseball Coach Relationship Specialty Start Date End Date Mirtha Qiu [address] [place] [address] PCP - General Family Medicine 02/24/22 Shannon Dinh MD, [address] [place] [address] Physician Radiation Oncology 01/28/22 Jv Baseball Coach Relationship Specialty Start Date End Date Jolliff, Mirtha Drea [address] [place] [address] PCP - General Family Medicine 02/24/22 Shannon Dinh MD, [address] [place] [address] Physician Radiation Oncology 01/28/22 Jv Baseball Coach Relationship Specialty Start Date End Date Mirtha Qiu [address] [place] [address] PCP - General Family Medicine 02/24/22 Shannon Dinh MD, [address] [place] [address] Physician Radiation Oncology 01/28/22 Kacie Stewart RN Specialty Tailman Oncology 03/02/22 Jv Baseball Coach Relationship Specialty Start Date End Date Mirtha Qiu [address] [place] [address] PCP - General Family Medicine 02/24/22 Shannon Dinh MD, [address] [place] [address] Physician Radiation Oncology 01/28/22 Kacie Stewart RN Specialty Tailman Oncology 03/02/22 Jv Baseball Coach Relationship Specialty Start Date End Date Mirtha Qiu [address] [place] [address] PCP - General Family Medicine 02/24/22 Shannon Dinh MD, [address] [place] [address] Physician Radiation Oncology 01/28/22 Kacie Stewart RN Specialty Tailman Oncology 03/02/22 Jv Baseball Coach Relationship Specialty Start Date End Date Pcp, No PCP - General 09/04/21 02/23/22 Shannon Dinh MD, [address] [place] [address] Physician Radiation Oncology 01/28/22 Jv Baseball Coach Relationship Specialty Start Date End Date Mirtha Qiuer [address] [place] [address] PCP - General Family Medicine 02/24/22 Shannon Dinh MD, [address] [place] [address] Physician Radiation Oncology 01/28/22 Kacie Stewart, RN Specialty Tailman Oncology 03/02/22 Jv Baseball Coach Relationship Specialty Start Date End Date Mirtha Qiuer [address] [place] [address] PCP - General Family Medicine 02/24/22 Shannon Dinh MD, [address] [place] [address] Physician Radiation Oncology 01/28/22 Kacie Stewart RN Specialty Tailman Oncology 03/02/22 Jv Baseball Coach Relationship Specialty Start Date End Date Mirtha Qiuer [address] [place] [address] PCP - General Family Medicine 02/24/22 Shannon Dinh MD, [address] [place] [address] Physician Radiation Oncology 01/28/22 Kacie Stewart RN Specialty Tailman Oncology 03/02/22 Jv Baseball Coach Relationship Specialty Start Date End Date Mirtha Qiu Drea [address] [place] [address] PCP - General Family Medicine 02/24/22 Sahnnon Dinh MD, [address] [place] [address] Physician Radiation Oncology 01/28/22 Kacie Stewart RN Specialty Tailman Oncology 03/02/22 Brooklyn Perkins, RD [address] [place] [address] Registered Dietitian Nutrition 03/08/22 Jv Baseball Coach Relationship Specialty Start Date End Date Mirtha Qiu [address] [place] [address] PCP - General Family Medicine 02/24/22 Shannon Dinh MD, [address] [place] [address] Physician Radiation Oncology 01/28/22 Kacie Stewart RN Specialty Tailman Oncology 03/02/[address] [place] [address] Registered Dietitian Nutrition 03/08/22 Jv Baseball Coach Relationship Specialty Start Date End Date Mirtha Qiu [address] [facility] [address] [place] [address] PCP - General Family Medicine 02/24/22 Shannon Dinh MD, [address] [place] [address] Physician Radiation Oncology 01/28/22 Kacie Stewart RN Specialty Tailman Oncology 03/02/[address] [place] [address] Registered Dietitian Nutrition 03/08/22 Jv Baseball Coach Relationship Specialty Start Date End Date Mirtha Qiu [address] [place] [address] PCP - General Family Medicine 02/24/22 Shannon Dinh MD, [address] [place] [address] Physician Radiation Oncology 01/28/22 Kacie Stewart RN Specialty Tailman Oncology 03/02/22 Brooklyn Perkins, RD [address] [place] [address] Registered Dietitian Nutrition 03/08/22 Jv Baseball Coach Relationship Specialty Start Date End Date Mirtha Qiu [address] [place] [address] PCP - General Family Medicine 02/24/22 Shannon Dinh MD, [address] [place] [address] Physician Radiation Oncology 01/28/22 Kacie Stewart RN Specialty Tailman Oncology 03/02/22 Brooklyn Perkins, RD [address] [place] [address] Registered Dietitian Nutrition 03/08/22 Jv Baseball Coach Relationship Specialty Start Date End Date Mirtha Qiu [address] [place] [address] PCP - General Family Medicine 02/24/22 Shannon Dinh MD, [address] [place] [address] Physician Radiation Oncology 01/28/22 Kacie Stewart, RN Specialty Tailman Oncology 03/02/22 Brooklyn Perkins, RD [address] [place] [address] Registered Dietitian Nutrition 03/08/22 Jv Baseball Coach Relationship Specialty Start Date End Date Mirtha Qiu [address] [place] [address] PCP - General Family Medicine 02/24/22 Shannon Dinh MD, [address] [place] [address] Physician Radiation Oncology 01/28/22 Kacie Stewart RN Specialty Tailman Oncology 03/02/[address] [place] [address] Registered Dietitian Nutrition 03/08/22 Jv Baseball Coach Relationship Specialty Start Date End Date Mirtha Qiu [address] [facility] [address] [place] [address] PCP - General Family Medicine 02/24/22 Shannon Dinh MD, [address] [place] [address] Physician Radiation Oncology 01/28/22 Kacie Stewart RN Specialty Tailman Oncology 03/02/[address] [place] [address] Registered Dietitian Nutrition 03/08/22 Jv Baseball Coach Relationship Specialty Start Date End Date Mirtha Qiu [address] [place] [address] PCP - General Family Medicine 02/24/22 Shannon Dinh MD, [address] [place] [address] Physician Radiation Oncology 01/28/22 Kacie Stewart RN Specialty Tailman Oncology 03/02/[address] [place] [address] Registered Dietitian Nutrition 03/08/22 Jv Baseball Coach Relationship Specialty Start Date End Date Mirtha Qiu [address] [place] [address] PCP - General Family Medicine 02/24/22 Shannon Dinh MD, [address] [place] [address] Physician Radiation Oncology 01/28/22 Kacie Stewart RN Specialty Tailman Oncology 03/02/22 Brooklyn Perkins, RD [address] [place] [address] Registered Dietitian Nutrition 03/08/22 Jv Baseball Coach Relationship Specialty Start Date End Date Mirtha Qiu [address] [place] [address] PCP - General Family Medicine 02/24/22 Shannon Dinh MD, [address] [place] [address] Physician Radiation Oncology 01/28/22 Kacie Stewart RN Specialty Tailman Oncology 03/02/22 Brooklyn Perkins, RD [address] [address] Registered Dietitian Nutrition 03/08/22 Jv Baseball Coach Relationship Specialty Start Date End Date Mirtha Qiu [address] [place] [address] PCP - General Family Medicine 02/24/22 Shannon Dinh MD, [address] [address] Physician Radiation Oncology 01/28/22 Kacie Stewart RN Specialty Tailman Oncology 03/02/22 Brooklyn Perkins, RD [address] [place] [address] Registered Dietitian Nutrition 03/08/22 Jv Baseball Coach Relationship Specialty Start Date End Date Mirtha Qiu [address] [place] [address] PCP - General Family Medicine 02/24/22 Shannon Dinh MD, [address] [place] [address] Physician Radiation Oncology 01/28/22 Kacie Stewart, RN Specialty Tailman Oncology 03/02/22 Brooklyn Perkins, RD [address] [place] [address] Registered Dietitian Nutrition 03/08/22 Jv Baseball Coach Relationship Specialty Start Date End Date Mirtha Qiu [address] [place] [address] PCP - General Family Medicine 02/24/22 Shannon Dinh MD, [address] [place] [address] Physician Radiation Oncology 01/28/22 Kacie Stewart, RN Specialty Tailman Oncology 03/02/22 Brooklyn Perkins, RD [address] [place] [address] Registered Dietitian Nutrition 03/08/22 Jv Baseball Coach Relationship Specialty Start Date End Date Mirtha Qiu [address] [place] [address] PCP - General Family Medicine 02/24/22 Shannon Dinh MD, [address] [place] [address] Physician Radiation Oncology 01/28/22 Kacie Stewart, RN Specialty Tailman Oncology 03/02/[address] [place] [address] Registered Dietitian Nutrition 03/08/22 Jv Baseball Coach Relationship Specialty Start Date End Date Mirtha Qiu [address] [place] [address] PCP - General Family Medicine 02/24/22 Shannon Dinh MD, [address] [place] [address] Physician Radiation Oncology 01/28/22 Kacie Stewart RN Specialty [facility] Oncology 03/02/[address] [place] [address] Registered Dietitian Nutrition 03/08/22 Kirit Rosas DO [address] [place] [address] Hematology/Oncology 04/06/22 Jv Baseball Coach Relationship Specialty Start Date End Date Mirtha Qiu [address] [place] [address] PCP - General Family Medicine 02/24/22 Shannon Dinh MD, [address] [place] [address] Physician Radiation Oncology 01/28/22 Kacie Stewart, RN Specialty [facility] Oncology 03/02/22 Brooklyn Perkins, RD [address] [place] [address] Registered Dietitian Nutrition 03/08/22 Kirit Rosas DO [address] [place] [address] Hematology/Oncology 04/06/22 Jv Baseball Coach Relationship Specialty Start Date End Date Mirtha Qiu [address] [place] [address] PCP - General Family Medicine 02/24/22 Shannon Dinh MD, [address] [place] [address] Physician Radiation Oncology 01/28/22 Kacie Stewart, RN Specialty [facility] Oncology 03/02/[address] [place] [address] Registered Dietitian Nutrition 03/08/22 Kirit Rosas DO [address] [place] [address] Hematology/Oncology 04/06/22 Jv Baseball Coach Relationship Specialty Start Date End Date Mirtha Qiu [address] [place] [address] PCP - General Family Medicine 02/24/22 Shannon Dinh MD, [address] [place] [address] Physician Radiation Oncology 01/28/22 Kacie Stewart, RN Specialty [facility]ail[facility] Oncology 03/02/22 Brooklyn Perkins, RD [address] [place] [address] Registered Dietitian Nutrition 03/08/22 Kirit Rosas DO [address] [place] [address] Hematology/Oncology 04/06/22 Jv Baseball Coach Relationship Specialty Start Date End Date Mirtha Qiu [address] [place] [address] PCP - General Family Medicine 02/24/22 Shannon Dinh MD, [address] [place] [address] Physician Radiation Oncology 01/28/22 Kacie Stewart RN Specialty [facility] Oncology 03/02/22 Brooklyn Perkins, RD [address] [place] [address] Registered Dietitian Nutrition 03/08/22 Kirit Rosas DO [address] [place] [address] Hematology/Oncology 04/06/22 Jv Baseball Coach Relationship Specialty Start Date End Date Mirtha Qiu [address] [place] [address] PCP - General Family Medicine 02/24/22 Shannon Dinh MD, [address] [place] [address] Physician Radiation Oncology 01/28/22 Kacie Stewart RN Specialty Tailman Oncology 03/02/[address] [place] [address] Registered Dietitian Nutrition 03/08/22 Kirit Rosas DO [address] [place] [address] Hematology/Oncology 04/06/22 Jv Baseball Coach Relationship Specialty Start Date End Date Mirtha Qiu [address] [place] [address] PCP - General Family Medicine 02/24/22 Shannon Dinh MD, [address] [place] [address] Physician Radiation Oncology 01/28/22 Kacie Stewart, RN Specialty Tailman Oncology 03/02/22 Brooklyn Perkins, RD [address] [place] [address] Registered Dietitian Nutrition 03/08/22 Kirit Rosas DO [address] [place] [address] Hematology/Oncology 04/06/22 Jv Baseball Coach Relationship Specialty Start Date End Date Pcp, No PCP - General 09/04/21 02/23/22 Mirtha Qiu [address] [place] [address] PCP - General Family Medicine 02/24/22 Shannon Dinh MD, [address] [place] [address] Physician Radiation Oncology 01/28/22 Kacie Stewart, RN Specialty Tail[facility] Oncology 03/02/22 Brooklyn Perkins, RD [address] [place] [address] Registered Dietitian Nutrition 03/08/22 Kirit Rosas DO [address] [place] [address] Hematology/Oncology 04/06/22 Jv Baseball Coach Relationship Specialty Start Date End Date Mirtha Qiu [address] [place] [address] PCP - General Family Medicine 02/24/22 Shannon Dinh MD, [address] [place] [address] Physician Radiation Oncology 01/28/22 Kacie Stewart, RN Specialty Tailman Oncology 03/02/[address] [place] [address] Registered Dietitian Nutrition 03/08/22 Kirit Rosas DO [address] [place] [address] Hematology/Oncology 04/06/22 Jv Baseball Coach Relationship Specialty Start Date End Date Mirtha Qiu [address] [place] [address] PCP - General Family Medicine 02/24/22 Shannon Dinh MD, [address] [place] [address] Physician Radiation Oncology 01/28/22 Kacie Stewart, RN Specialty Tail[facility] Oncology 03/02/[address] [place] [address] Registered Dietitian Nutrition 03/08/22 Kirit Rosas, DO [address] [place] [address] Hematology/Oncology 04/06/22 Alberto Landis [address] [place] [address] Gastroenterology 05/05/22 Max Ortiz MD [address] [place] [address] Ent - Otolaryngology 05/05/22 Jv Baseball Coach Relationship Specialty Start Date End Date Mirtha Qiu [address] [place] [address] PCP - General Family Medicine 02/24/22 Shannon Dinh MD, [address] [place] [address] Physician Radiation Oncology 01/28/22 Kacie Stewart, RN Specialty Tailman Oncology 03/02/22 Brooklyn Perkins, DEBO [address] [place] [address] Registered Dietitian Nutrition 03/08/22 Kirit Rosas, DO [address] [place] [address] Hematology/Oncology 04/06/22 Alberto Landis [address] [place] [address] Gastroenterology 05/05/22 Max Ortiz MD [address] [place] [address] Ent - Otolaryngology 05/05/22 Jv Baseball Coach Relationship Specialty Start Date End Date Mirtha Qiu [address] [place] [address] PCP - General Family Medicine 02/24/22 Shannon Dinh MD, [address] [place] [address] Physician Radiation Oncology 01/28/22 Kacie Stewart, RN Specialty Tailman Oncology 03/02/[address] [place] [address] Registered Dietitian Nutrition 03/08/22 Kirit Rosas, [address] [place] [address] Hematology/Oncology 04/06/22 Alberto Landis [address] [place] [address] Gastroenterology 05/05/22 Max Ortiz MD [address] [facility] [place] [address] Ent - Otolaryngology 05/05/22 Jv Baseball Coach Relationship Specialty Start Date End Date Mirtha Qiu [address] [place] [address] PCP - General Family Medicine 02/24/22 Shannon Dinh MD, MD [address] [place] [address] Physician Radiation Oncology 01/28/22 Kacie Stewart, JESSICA Specialty Tailman Oncology 03/02/22 Brooklyn Perkins, DEBO [address] [place] [address] Registered Dietitian Nutrition 03/08/22 Kirit Rosas DO [address] [place] [address] Hematology/Oncology 04/06/22 Alberto Landis [address] [place] [address] Gastroenterology 05/05/22 Max Ortiz MD [address] [facility] [address] Ent - Otolaryngology 05/05/22 Jv Baseball Coach Relationship Specialty Start Date End Date Mirtha Qiu [address] [place] [address] PCP - General Family Medicine 02/24/22 Shannon Dinh MD, [address] [place] [address] Physician Radiation Oncology 01/28/22 Kacie Stewart, RN Specialty Tail[facility] Oncology 03/02/22 Brooklyn Perkins, RD [address] [place] [address] Registered Dietitian Nutrition 03/08/22 Kirit Rosas, [address] [place] [address] Hematology/Oncology 04/06/[address] [place] [address] Gastroenterology 05/05/22 Max Ortiz MD [address] [place] [address] Ent - Otolaryngology 05/05/22 Jv Baseball Coach Relationship Specialty Start Date End Date Mirtha Qiu [address] [place] [address] PCP - General Family Medicine 02/24/22 Shannon Dinh MD, [address] [place] [address] Physician Radiation Oncology 01/28/22 Kacie Stewart, RN Specialty Tailman Oncology 03/02/22 Brooklyn Perkins, RD [address] [place] [address] Registered Dietitian Nutrition 03/08/22 Kirit Rosas, DO [address] [place] [address] Hematology/Oncology 04/06/[address] [place] [address] Gastroenterology 05/05/22 Max Ortiz MD [address] [facility] [place] [id number] Ent - Otolaryngology 05/05/22 Jv Baseball Coach Relationship Specialty Start Date End Date Mirtha Qiu [address] [place] [address] PCP - General Family Medicine 02/24/22 Shannon Dinh MD, [address] [place] [address] Physician Radiation Oncology 01/28/22 Kacie Stewart RN Specialty Tailman Oncology 03/02/[address] [place] [address] Registered Dietitian Nutrition 03/08/22 Kirit Rosas DO [address] [place] [address] Hematology/Oncology 04/06/22 Alberto Landis [address] [place] [address] Gastroenterology 05/05/22 Max Ortiz MD [address] [facility] [place] [place] [address] Ent - Otolaryngology 05/05/22 Jv Baseball Coach Relationship Specialty Start Date End Date Mirtha Qiu [address] [place] [address] PCP - General Family Medicine 02/24/22 Shannon Dinh MD, [address] [place] [address] Physician Radiation Oncology 01/28/22 Kacie Stewart RN Specialty Tailman Oncology 03/02/[address] [place] [address] Registered Dietitian Nutrition 03/08/22 Kirit Rosas DO [address] [place] [address] Hematology/Oncology 04/06/22 Alberto Landis [address] [facility] [address] [place] [address] Gastroenterology 05/05/22 Max Ortiz MD [address] [facility] [address] Ent - Otolaryngology 05/05/22 Jv Baseball Coach Relationship Specialty Start Date End Date Mirtha Qiu [address] [facility] [address] [place] [address] PCP - General Family Medicine 02/24/22 Shannon Dinh MD, [address] [place] [address] Physician Radiation Oncology 01/28/22 Kacie Stewart, JESSICA Specialty Tailman Oncology 03/02/[address] [place] [address] Registered Dietitian Nutrition 03/08/22 Kirit Rosas DO [address] [place] [address] Hematology/Oncology 04/06/22 Alberto Landis [address] [place] [address] [place] [address] Gastroenterology 05/05/22 Max Ortiz MD [address] [facility] [place] [address] Ent - Otolaryngology 05/05/22 Jv Baseball Coach Relationship Specialty Start Date End Date Mirtha Qiu [address] [place] [address] [place] [address] PCP - General Family Medicine 02/24/22 Shannon Dinh MD, [address] [place] [address] Physician Radiation Oncology 01/28/22 Kacie Stewart RN Specialty Tailman Oncology 03/02/[address] [place] [address] Registered Dietitian Nutrition 03/08/22 Kirit Rosas DO [address] [place] [address] Hematology/Oncology 04/06/22 Alberto Landis MD [address] [place], [place] [address] Gastroenterology 05/05/22 Max Ortiz MD [address] [place] [address] Ent - Otolaryngology 05/05/22 Team Status: Active [...] Prov ider, Attending Provider, Referring Provider Active Jv Baseball Coach Relationship Specialty Start Date End Date Mirtha Qiu [address] [place], [place] [address] PCP - General Family Medicine 02/24/22 Shannon Dinh MD, MD [address] [place] [address] Physician Radiation Oncology 01/28/22 Kacie Stewart RN Specialty Tailman Oncology 03/02/[address] [place], [place] [id number] Registered Dietitian Nutrition 03/08/22 Kirit Rosas DO [address] [place], [place] [address] Hematology/Oncology 04/06/22 Alberto Landis MD [address] [place] [address] Gastroenterology 05/05/22 Max Ortiz MD [address] [place] [address] Ent - Otolaryngology 05/05/22 Jv Baseball Coach Relationship Specialty Start Date End Date Mirtha Qiu [address] [place] [address] PCP - General Family Medicine 02/24/22 Shannon Dinh MD [address] [place] [address] Physician Radiation Oncology 01/28/22 Kacie Stewart RN Specialty Tailman Oncology 03/02/[address] [place] [address] Registered Dietitian Nutrition 03/08/22 Kirit Rosas DO [address] [place] [address] Hematology/Oncology 04/06/22 Alberto Landis MD [address] [place] [address] Gastroenterology 05/05/22 Max Ortiz MD [address] [place] [address] Ent - Otolaryngology 05/05/22 Jv Baseball Coach Relationship Specialty Start Date End Date Mirtha Qiu [address] [place] [address] PCP - General Family Medicine 02/24/22 Shannon Dinh MD [address] [place], [place] [address] Physician Radiation Oncology 01/28/22 Kacie Stewart RN Specialty Tailman Oncology 03/02/22 Brooklyn Perkins, DEBO [address] [place], [place] [address] Registered Dietitian Nutrition 03/08/22 Kirit Rosas DO [address] [place], [place] [address] Hematology/Oncology 04/06/22 Alberto Landis MD [address] [place], [place] [address] Gastroenterology 05/05/22 Max Ortiz MD [address] [facility] [place] [address] Ent - Otolaryngology 05/05/22 Jv Baseball Coach Relationship Specialty Start Date End Date Mirtha Qiu [address] [place], [place] [address] PCP - General Family Medicine 02/24/22 Shannon Dinh MD [address] [place] [address] Physician Radiation Oncology 01/28/22 Kacie Stewart, JESSICA Specialty Tailman Oncology 03/02/22 Brooklyn Perkins, DEBO [address] [place] [address] Registered Dietitian Nutrition 03/08/22 Kirit Rosas DO [address] [place] [address] Hematology/Oncology 04/06/22 Alberto Landis MD [address] [place] [address] Gastroenterology 05/05/22 Max Ortiz MD [address] [facility] [place] [address] Ent - Otolaryngology 05/05/22 Jv Baseball Coach Relationship Specialty Start Date End Date Mirtha Qiuer [address] [place] [address] PCP - General Family Medicine 02/24/22 Shannon Dinh MD [address] [place] [address] Physician Radiation Oncology 01/28/22 Kacie Stewart, JESSICA Specialty Tailman Oncology 03/02/[address] [place] [address] Registered Dietitian Nutrition 03/08/22 Kirit Rosas DO [address] [place] [address] Hematology/Oncology 04/06/22 Alberto Landis MD [address] [place] [address] Gastroenterology 05/05/22 Max Ortiz MD [address] [place] [address] Ent - Otolaryngology 05/05/22 Jv Baseball Coach Relationship Specialty Start Date End Date Mirtha Qiu [address] [place] [address] PCP - General Family Medicine 02/24/22 Shannon Dinh MD [address] [place] [address] Physician Radiation Oncology 01/28/22 Kacie Stewart, JESSICA Specialty Tailman Oncology 03/02/[address] [place] [address] Registered Dietitian Nutrition 03/08/22 Kirit Rosas DO [address] [place] [address] Hematology/Oncology 04/06/22 Alberto Landis MD [address] [place] [address] Gastroenterology 05/05/22 Max Ortiz MD [address] [facility] [address] Ent - Otolaryngology 05/05/22 Jv Baseball Coach Relationship Specialty Start Date End Date Mirtha Qiu [address] [place] [address] PCP - General Family Medicine 02/24/22 Shannon Dinh MD [address] [place] [address] Physician Radiation Oncology 01/28/22 Kacie Stewart RN Specialty Tailman Oncology 03/02/[address] [place] [place], [place] [address] Registered Dietitian Nutrition 03/08/22 Kirit Rosas DO [address] [place], [place] [address] Hematology/Oncology 04/06/22 Alberto Landis MD [address] [facility] [address] [place], [place] [address] Gastroenterology 05/05/22 Max Ortiz MD [address] [place] [address] Ent - Otolaryngology 05/05/22 Jv Baseball Coach Relationship Specialty Start Date End Date Mirtha Qiu [address] [facility] [address] [place], [place] [address] PCP - General Family Medicine 02/24/22 Shannon Dinh MD [address] [place] [address] Physician Radiation Oncology 01/28/22 Kacie Stewart, JESSICA Specialty Tailman Oncology 03/02/[address] [place] [address] Registered Dietitian Nutrition 03/08/22 Kirit Rosas DO [address] [place] [place] [address] Hematology/Oncology 04/06/22 Alberto Landis MD [address] [place] [place] [address] Gastroenterology 05/05/22 Max Ortiz MD [address] [place] [address] Ent - Otolaryngology 05/05/22 Team Status: Active [...] BE BASED ON THE PRIMARY CLINICAL RECORDS. [facility] [employer] provides no warranty or guarantee of the accuracy or completeness of information in this document.
== END | disposition home or self-care (01) ==
PROVIDERS: Referring Provider Otolaryngology; Visit Provider Otolaryngology
DX: H90.3 Sensorineural hearing loss, bilateral (principal); H93.13 Tinnitus, bilateral
CPT/HCPCS: 70553

== ENCOUNTER → 2025-01-13 | Outpatient (CLI) | payer MEDICARE, SELFPAY ==
[2025-01-13 15:26] LABS: Creatinine, Urine (random) 134.00 mg/dL (39.00-259.00); Protein, Urine (Random) 77.2 mg/dL (0.0-12.0); Protein:Creat Ratio 576 mg/g CRE (0-200)
[2025-01-13 15:30] LABS: Albumin, Serum 4.4 g/dL (3.4-4.8); Anion Gap 10 (5-15); BUN 7 mg/dL (4-19); BUN/Creat Ratio 9.5 RATIO (10-20); Calcium,Total 9.4 mg/dL (7.6-11.0); Carbon Dioxide 27.7 mmol/L (21.0-32.0); Chloride 99 mmol/L (98-108); Glucose 153 mg/dL (70-99); Potassium 4.2 mmol/L (3.3-5.1)
== END | disposition home or self-care (01) ==
LOC: MTLAB 13:30
PROVIDERS: Referring Provider Internal Medicine Nephrology; Visit Provider Internal Medicine Nephrology
DX: R80.9 Proteinuria, unspecified (principal)
CPT/HCPCS: 36415; 80069; 82570; 84156